=== PATIENT | female | born 1985 | race Caucasian/White ===

== ENCOUNTER 2017-04-10 12:22 | Emergency (ER) | payer OTHER ==
[2017-04-10 12:23] VITALS: BMI 29.8
[2017-04-10 12:29] VITALS: BP 124/80; PULSE 106; RESP 18; TEMP 98.2; O2SAT 99
--- NOTE | 2017-04-10 13:05 | C.PDOC ---
History Of Present Illness 32-year-old female, presents to the emergency department with complaints of itching eyes, sneezing and sore throat x3 days. Patient notes a Hx of seasonal allergies. Denies fevers, cough or other complaints. Time Seen by Provider: 04/10/17 12:50 Chief Complaint (Nursing): Allergic Reaction History Per: Patient Past Medical History Reviewed: Historical Data, Nursing Documentation, Vital Signs Vital Signs: Last Vital Signs Temp 98.2 F 04/10/17 12:28 Pulse 106 H 04/10/17 12:28 Resp 18 04/10/17 12:28 BP 124/80 04/10/17 12:28 Pulse Ox 99 04/10/17 13:47 - Medical History PMH: Asthma ("COLD WEATHER ONLY AND I DO NOT TAKE ANY MEDS.") - [facility] Procedures OTH LAPAROSCOP LOCAL EXCIS/DESTRUCT OVARY (06/01/15) Family History: States: No Known Family Hx - Social History Hx Alcohol Use: No Hx Substance Use: No - Immunization History Hx Tetanus Toxoid Vaccination: No Hx Influenza Vaccination: No Hx Pneumococcal Vaccination: No Review Of Systems Except As Marked, All Systems Reviewed And Found Negative. Constitutional: Negative for: Fever ENT: Positive for: Throat Pain Cardiovascular: Negative for: Chest Pain Respiratory: Negative for: Shortness of Breath Gastrointestinal: Negative for: Vomiting Physical Exam - Physical Exam Appears: Non-toxic, No Acute Distress Skin: Warm, Dry, No Rash Eye(s): bilateral: Other (CONJUNCTIVAL INJECTION) Ear(s): Bilateral: Other (BOGGY TURBINATES) Nose: Normal Oral Mucosa: Moist Lips: Normal Appearing Throat: Erythema Neck: Normal ROM Respiratory: No Accessory Muscle Use Extremity: Normal ROM Neurological/Psych: Oriented x3 ED Course And Treatment O2 Sat by Pulse Oximetry: 99 Disposition - Disposition Referrals: [facility] [Outside] [facility] [Outside] [facility] [Outside] Disposition: HOME/ ROUTINE Disposition Time: 13:05 Condition: STABLE Additional Instructions: please follow up with your doctor. return to er with worsening symptoms or concerns. Prescriptions: Loratadine [Claritin] 10 mg PO DAILY PRN #20 tab PRN Reason: Allergy Symptoms Instructions: Allergies (ED) Print Language: MALDIVIAN - Clinical Impression Clinical Impression: Seasonal allergies - Scribe Statement The provider has reviewed the documentation as recorded by the Scribe Zunaira Demario All medical record entries made by the Dustin were at my direction and personally dictated by me. I have reviewed the chart and agree that the record accurately reflects my personal performance of the history, physical exam, medical decision making, and the department course for this patient. I have also personally directed, reviewed, and agree with the discharge instructions and disposition.
== END 2017-04-10 13:47 | disposition home or self-care (01) ==
LOC: C.ER 12:22
DX: J30.2 Other seasonal allergic rhinitis (principal)

== ENCOUNTER 2018-08-31 01:55 | Inpatient (IN) | payer MEDICAID, OTHER ==
[2018-08-31 01:56] VITALS: BMI 33.2
--- NOTE | 2018-08-31 02:07 | C.PDOC ---
History Of Present Illness Patient presents to the ED with worsening abdominal pain . She is s/p total abdominal hysterectomy done on 08/27/18. Patient took a Percocet for the pain around 8pm without any relief. Denies any nausea, vomiting, diarrhea or fever. Time Seen by Provider: 08/31/18 02:07 History Per: Patient, Family History/Exam Limitations: no limitations Onset/Duration Of Symptoms: Days Current Symptoms Are (Timing): Worse Context: Other (recent abdominal hysterectomy) Severity: Severe Pain Scale Rating Of: 8 Location Of Pain/Discomfort: Diffuse Radiation Of Pain To:: None Quality Of Discomfort: Sharp, Cramping, Stabbing Associated Symptoms: denies: Fever, Chills, Nausea, Vomiting Exacerbating Factors: None Alleviating Factors: None Last Bowel Movement: Yesterday Recent travel outside of the [place]: No Additional History Per: Family Abnormal Vaginal Bleeding: No Past Medical History Reviewed: Historical Data, Nursing Documentation, Vital Signs Vital Signs: Last Vital Signs Temp 98.3 F 08/31/18 02:06 Pulse 58 L 08/31/18 02:06 Resp 18 08/31/18 02:06 BP 117/71 08/31/18 02:06 Pulse Ox 99 08/31/18 02:06 - Medical History PMH: Asthma Denies: Chronic Kidney Disease - [facility] Procedures OTH LAPAROSCOP LOCAL EXCIS/DESTRUCT OVARY (06/01/15) Family History: States: No Known Family Hx - Social History Hx Alcohol Use: No Hx Substance Use: No - Immunization History Hx Tetanus Toxoid Vaccination: No Hx Influenza Vaccination: No Hx Pneumococcal Vaccination: No Review Of Systems Constitutional: Negative for: Fever, Chills, Sweats Eyes: Negative for: Vision Change ENT: Negative for: Throat Pain Cardiovascular: Negative for: Chest Pain, Palpitations Respiratory: Negative for: Cough, Shortness of Breath Gastrointestinal: Positive for: Abdominal Pain. Negative for: Nausea, Vomiting, Diarrhea Genitourinary: Negative for: Dysuria Musculoskeletal: Negative for: Back Pain Skin: Negative for: Rash Neurological: Negative for: Weakness, Numbness Psych: Negative for: Anxiety Physical Exam - Physical Exam Appears: In Acute Distress Skin: Warm, Dry Head: Normacephalic Eye(s): bilateral: Normal Inspection Oral Mucosa: Dry Lips: Other (Dry) Neck: Trachea Midline, Supple Chest: Symmetrical, No Tenderness Cardiovascular: Rhythm Regular Respiratory: No Rales, No Rhonchi, No Wheezing Gastrointestinal/Abdominal: Soft, Tenderness (diffuse), Distention, No Guarding, Rebound, Other (tympanic to percussion, laparoscopic sites clean and dry, no exudates) Back: Normal Inspection Extremity: Normal ROM Extremity: Bilateral: Atraumatic Pulses: Left Dorsalis Pedis: Normal, Right Dorsalis Pedis: Normal Neurological/Psych: Oriented x3, Normal Speech, Normal Cognition Gait: Unable To Assess ED Course And Treatment - Laboratory Results Result Diagrams: 08/31/18 02:37 08/31/18 02:42 ECG: Interpreted By Me, Viewed By Me ECG Rhythm: Sinus Tachycardia, Nonspecific Changes O2 Sat by Pulse Oximetry: 99 (RA) Pulse Ox Interpretation: Normal - Radiology CXR: Interpreted by Me, Viewed By Me CXR Interpretation: Yes: Other (mild vasc congestion, poss free air under left hemidiaphragm). No: Infiltrates, Fracture, Cardiomegaly Progress Note: Ordered blood work and urinalysis. Administered Morphine, Pantoprazole, Ondansetron, Zosyn, Vanco, and IV fluids. 4:[address] lucas - digital advertising analyst - will come and see the pt in the ed. pt feels slighly better, but still with abdominal pain. 5 am spoke with the surgical nurse practitioner - will come and see the pt- ct with intraabdominal abscess. 5:29 pt with incr eased abdominal pain. 4 mg iv morhine given. as per surgery , will transfuse 2 u prbc, after which pt will go to the or Critical Care Time - Critical Care Note Total Time (in mins): 50 Documented critical care: time excludes all time spent performing seperately billable procedures. Disposition Discussed With : Jeb Patino Comment: accepted the pt on his service and took over the care at 5:45 AM Doctor Will See Patient In The: ED Counseled Patient/Family Regarding: Studies Performed, Diagnosis - Disposition Disposition: HOSPITALIZED Disposition Time: 02:07 Condition: CRITICAL - POA Present On Arrival: Poor Glycemic Control, Surgical Site Infection Core Measure Indicators: Code Sepsis - Clinical Impression Clinical Impression: Abdominal pain, Sepsis, Abscess - Scribe Statement The provider has reviewed the documentation as recorded by the Scribe (Hamzah rangel) All medical record entries made by the Scribe were at my direction and personally dictated by me. I have reviewed the chart and agree that the record accurately reflects my personal performance of the history, physical exam, medical decision making, and the department course for this patient. I have also personally directed, reviewed, and agree with the discharge instructions and disposition. Decision To Admit - Pt Status Changed To: Hospital Disposition Of: Inpatient - Admit Certification Admit to Inpatient:: After my assessment, the patient will require hospitalization for at least two midnights. This is because of the severity of symptoms shown, intensity of services needed, and/or the medical risk in this patient being treated as an outpatient. - InPatient: Physician Admission Certification:: After my assessment, the patient will require hospitalization for at least two midnights. This is because of the severity of symptoms shown, intensity of services needed, and/or the medical risk in this patient being treated as an outpatient. - . Bed Request Type: ICU Admitting Physician: Jeb Patino Patient Diagnosis: Abdominal pain, Sepsis, Abscess
[2018-08-31] MEDS ORDERED: Sodium Chloride 0.9% 2,000 ML IV ONE (02:17)
[2018-08-31] MEDS ORDERED: Sodium Chloride 0.9% 2,000 ML ONE (02:23)
[2018-08-31] MEDS ORDERED: Vancomycin 1 gm/NS 200 ml 1 GM/200 ML BAG IVPB STA (02:34)
[2018-08-31] MEDS ORDERED: Piperacill/Tazo 3.375gm in Dex 3.375 GM/50 ML BAG IVPB STA (02:34)
[2018-08-31 02:41] LABS: BASO % 0.1 % (0.0-2.0); EOS # 0.1 K/uL (0.0-0.7); HEMOGLOBIN 11.9 g/dL (11.0-16.0); LYMPH # 1.4 K/uL (1.0-4.3); LYMPH % 22.6 % (20.0-40.0); MEAN CELL VOLUME 77.6 fL (81.0-99.0); MEAN CORPUSCULAR HEMOGLOBIN 25.1 pg (27.0-31.0); MEAN CORPUSCULAR HGB CONC 32.3 g/dL (33.0-37.0); MEAN PLATELET VOLUME 9.4 fL (7.2-11.7); MONO # 0.1 K/uL (0.0-0.8); MONO % 1.8 % (0.0-10.0); NEUT # 4.5 K/uL (1.8-7.0); NEUT % 74.5 % (50.0-75.0); NRBC % 0.1 % (0.0-2.0); PLATELET COUNT 329 K/uL (130-400); RBC 4.75 Mil/uL (3.80-5.20)
[2018-08-31] MEDS ORDERED: Piperacillin/Tazobact 3.375 gm 100 ML IVPB ONE (02:42)
[2018-08-31 03:00] LABS: BLOOD UREA NITROGEN 9 mg/dL (7-17); GFR NON-AFRICAN AMERICAN > 60
[2018-08-31 03:01] LABS: ALBUMIN 3.4 g/dL (3.5-5.0); ALT/SGPT 17 U/L (9-52); AST/SGOT 18 U/L (14-36)
[2018-08-31 03:02] LABS: LIPASE < 10 U/L (23-300)
[2018-08-31] MEDS ORDERED: Vancomycin 1 GM 1 GM/250 ML BAG IVPB ONE (03:15)
[2018-08-31] MEDS ORDERED: Iodixanol 320 MG/ML 100 ML BOTTLE IV ONE (03:24)
[2018-08-31 03:47] LABS: VENOUS BLOOD GAS BASE EXCESS -8.6 mmol/L (0.0-2.0); VENOUS BLOOD GAS PCO2 27 mmHg (40-60); VENOUS BLOOD GAS PO2 59 mm/Hg (30-55); VENOUS BLOOD PH 7.36 (7.32-7.43)
[2018-08-31 03:48] LABS: INR 1.4; PROTHROMBIN TIME 14.8 SECONDS (9.7-12.2)
[2018-08-31 04:09] LABS: BANDS 25 % (0-2); LYMPHOCYTE 36 % (20-40); MONOCYTE 2 % (0-10); NEUTROPHIL 34 % (50-75); REACTIVE LYMPHOCYTES 3 % (0-0); TOTAL CELLS COUNTED 100
[2018-08-31 04:10] LABS: PLATELET ESTIMATE NORMAL (NORMAL)
[2018-08-31] MEDS ORDERED: Sodium Chloride 0.9% 1,000 ML IV ONE (04:20)
[2018-08-31] MEDS ORDERED: Morphine 4 MG/ML VIAL ONE ×2 (04:35→05:32)
[2018-08-31] MEDS ORDERED: metroNIDAZOLE IV 500 mg/100 ml 500 MG/100 ML BAG IVPB SCH (05:00)
[2018-08-31] MEDS ORDERED: metroNIDAZOLE IV 500 mg/100 ml 500 MG/100 ML BAG ONE (05:16)
[2018-08-31 05:26] LABS: VENOUS BLOOD GAS BASE EXCESS -10.4 mmol/L (0.0-2.0); VENOUS BLOOD GAS PCO2 35 mmHg (40-60); VENOUS BLOOD GAS PO2 26 mm/Hg (30-55); VENOUS BLOOD PH 7.26 (7.32-7.43)
[2018-08-31 06:20] LABS: ABG ALLEN TEST POS; ARTERIAL BLOOD GAS HCO3 16.8 mmol/L (21-28); ARTERIAL BLOOD GAS O2 SAT 94.2 % (95-98); ARTERIAL BLOOD GAS PCO2 29 mm/Hg (35-45); ARTERIAL BLOOD GAS PH 7.31 (7.35-7.45); ARTERIAL BLOOD GAS PO2 66 mm/Hg (80-100); ARTERIAL BLOOD GAS TCO2 15.5 mmol/L (22-28)
[2018-08-31] MEDS ORDERED: Lactated Ringer's 1,000 ML IV SCH ×3 (06:30→18:15)
[2018-08-31 06:50] LABS: SQUAMOUS EPITHIAL < 1 /hpf (0-5); URINE BACTERIA RARE (<OCC); URINE BILIRUBIN NEGATIVE (NEGATIVE); URINE BLOOD NEGATIVE (NEGATIVE); URINE CLARITY Clear (Clear); URINE COLOR Amber (YELLOW); URINE GLUCOSE (UA) NORMAL (Normal); URINE LEUKOCYTE ESTERASE NEG Leu/uL (Negative); URINE PROTEIN 1+ mg/dL (NEGATIVE)
--- NOTE | 2018-08-31 06:53 | CP.PCM.CON ---
History of Present Illness - History of Present Illness History of Present Illness: H&P for Dr. Patino patient is a 33F who had a laparoscopic total hysterectomy 3 days ago in [place] who presented to the ED with severe lower abdominal pain starting 7PM last night. patient states that the pain is in the suprapubis and does not radiate. Patient denies any nausea, vomiting, diarrhea, melena, hematochezia, dysuria, hematuria, fevers or chills. Patient had tachycardia in the 120's that increased to 140-150 by time of my examination, BP was stable with 3L of NS, and she was tachypneic. Patient was found to have pneumoperitoneum and a heterogenous fluid collection 9cm in diameter intra-abdominal, with gas present concerning for abscess, and some small free fluid in the pelvis. WBC 6.4 but with 25 bands, HGB 11 PMH: asthma PSH: laparoscopic total hysterectomy 08/27/18, prior cyst excision and ovary destruction ALL: NKDA Social: denies all substances Review of Systems - Review of Systems All systems: reviewed and no additional remarkable complaints except (as per HPI) Past Patient History - Past Medical History & Family History Past Medical History?: Yes Past Family History: Reviewed and not pertinent (as per HPI) - Past Social History Smoking Status: Never Smoked Alcohol: None Drugs: Denies - CARDIAC Hx Cardiac Disorders: No - PULMONARY Hx Asthma: Yes - NEUROLOGICAL Hx Neurological Disorder: No - HEENT Hx HEENT Problems: No - RENAL Hx Chronic Kidney Disease: No - ENDOCRINE/METABOLIC Hx Endocrine Disorders: No - HEMATOLOGICAL/ONCOLOGICAL Hx Blood Disorders: No - INTEGUMENTARY Hx Dermatological Problems: No - MUSCULOSKELETAL/RHEUMATOLOGICAL Hx Musculoskeletal Disorders: No - GASTROINTESTINAL Hx Gastrointestinal Disorders: No - GENITOURINARY/GYNECOLOGICAL Hx Genitourinary Disorders: No Other/Comment: "PROBLEMS WITH MY OVARIES FOR ABOUT 4 YEARS" - PSYCHIATRIC Hx Substance Use: No - SURGICAL HISTORY Hx Surgeries: Yes Hx Hysterectomy: Yes (total hysterectomy - 08/27/18) Other/Comment: cyst right ovary - ANESTHESIA Hx Anesthesia: Yes Hx Anesthesia Reactions: No Meds Allergies/Adverse Reactions: Allergies Allergy/AdvReac Type Severity Reaction Status Date / Time No Known Allergies Allergy Verified 06/04/18 06:34 - Medications Medications: Current Medications Hydromorphone HCl (Dilaudid) 1 mg IVP Q4H PRN PRN Reason: Pain, severe (8-10) Metronidazole (Flagyl) 500 mg in 100 mls @ 100 mls/hr IVPB STAT [facility]; Protocol Last Admin: 08/31/18 05:15 Dose: 100 mls/hr Lactated Ringer's (Lactated Ringer's) 1,000 mls @ 125 mls/hr IV .Q8H [facility] Last Admin: 08/31/18 06:25 Dose: 125 mls/hr Piperacillin Sod/Tazobactam (Sod 3.375 gm/ Sodium Chloride) 100 mls @ 200 mls/hr IVPB Q6H [facility]; Protocol Ondansetron HCl (Zofran Inj) 4 mg IVP Q6H PRN PRN Reason: Nausea/Vomiting Physical Exam - Constitutional Appears: In Acute Distress - Head Exam Head Exam: ATRAUMATIC, NORMOCEPHALIC - Eye Exam Eye Exam: Normal appearance. absent: Conjunctival injection, Scleral icterus - ENT Exam ENT Exam: Mucous Membranes Moist, Normal Oropharynx - Respiratory Exam Respiratory Exam: absent: Accessory Muscle Use Additional comments: tachypneic, dyspnea with conversation - Cardiovascular Exam Cardiovascular Exam: Tachycardia, REGULAR RHYTHM - GI/Abdominal Exam GI & Abdominal Exam: Distended, Firm, Guarding (Voluntary), Rebound, Tenderness (diffuse abdominal tenderness, severe in the suprapubis/LLQ/RLQ) Additional comments: Laparoscopic incisions intact with dermabond, no surrounding erythema, no bleeding - Extremities Exam Extremities exam: Positive for: pedal pulses present. Negative for: calf tenderness, pedal edema - Neurological Exam Neurological exam: Alert, Oriented x3 - Psychiatric Exam Psychiatric exam: Normal Affect, Normal Mood - Skin Skin Exam: Diaphoretic, Warm Results - Vital Signs Recent Vital Signs: Last Vital Signs Temp 99.2 F 08/31/18 06:00 Pulse 148 H 08/31/18 06:32 Resp 11 L 08/31/18 06:32 BP 122/53 L 08/31/18 06:32 Pulse Ox 97 08/31/18 06:32 - Labs Result Diagrams: 08/31/18 02:37 08/31/18 02:42 Labs: Laboratory Results - last 24 hr 08/31/18 08/31/18 08/31/18 02:37 02:42 03:38 WBC 6.0 RBC 4.75 Hgb 11.9 Hct 36.8 MCV 77.6 L MCH 25.1 L MCHC 32.3 L RDW 18.0 H Plt Count 329 D MPV 9.4 Neut % (Auto) 74.5 Lymph % (Auto) 22.6 [place] % (Auto) 1.8 Eos % (Auto) 1.0 Baso % (Auto) 0.1 Neut # (Auto) 4.5 Lymph # (Auto) 1.4 [place] # (Auto) 0.1 Eos # (Auto) 0.1 Baso # (Auto) 0.0 Neutrophils % (Manual) 34 L Band Neutrophils % 25 H* Lymphocytes % (Manual) 36 Reactive Lymphs % 3 H Monocytes % (Manual) 2 Platelet Estimate Normal RBC Morphology Normal PT 14.8 H INR 1.4 APTT 25 Puncture Site pCO2 pO2 HCO3 ABG pH ABG Total CO2 ABG O2 Saturation ABG Base Excess Luis Test ABG Potassium VBG pH VBG pCO2 VBG HCO3 VBG Total CO2 VBG O2 Sat (Calc) VBG Base Excess VBG Potassium A-a O2 Difference Respiratory Index Glucose Lactate FiO2 Sodium 137 Potassium 3.6 Chloride 107 Carbon Dioxide 14 L Anion Gap 20 BUN 9 Creatinine 0.7 Est GFR ( Amer) > 60 Est GFR (Non-Af Amer) > 60 Random Glucose 192 H Calcium 9.0 Phosphorus 3.9 Magnesium 2.0 Total Bilirubin 1.2 AST 18 ALT 17 Alkaline Phosphatase 211 H D Total Protein 6.8 Albumin 3.4 L Globulin 3.4 Albumin/Globulin Ratio 1.0 Lipase < 10 L Arterial Blood Potassium Venous Blood Potassium Urine HCG, Qual 08/31/18 08/31/18 08/31/18 03:42 05:23 06:16 WBC RBC Hgb Hct MCV MCH MCHC RDW Plt Count MPV Neut % (Auto) Lymph % (Auto) [place] % (Auto) Eos % (Auto) Baso % (Auto) Neut # (Auto) Lymph # (Auto) [place] # (Auto) Eos # (Auto) Baso # (Auto) Neutrophils % (Manual) Band Neutrophils % Lymphocytes % (Manual) Reactive Lymphs % Monocytes % (Manual) Platelet Estimate RBC Morphology PT INR APTT Puncture Site Right radial pCO2 29 L pO2 59 H 26 L 66 L HCO3 16.8 L ABG pH 7.31 L ABG Total CO2 15.5 L ABG O2 Saturation 94.2 L ABG Base Excess -10.2 L Luis Test Pos ABG Potassium 3.3 L VBG pH 7.36 7.26 L VBG pCO2 27 L 35 L VBG HCO3 18.0 15.2 VBG Total CO2 16.1 L 16.8 L VBG O2 Sat (Calc) 91.6 H 41.1 VBG Base Excess -8.6 L -10.4 L VBG Potassium 3.1 L 3.0 L A-a O2 Difference 47.0 Respiratory Index 0.7 Glucose 151 H 129 H 153 H Lactate 3.1 H 3.7 H 3.1 H FiO2 21.0 21.0 21.0 Sodium 137.0 137.0 138.0 Potassium Chloride 111.0 H 110.0 H 114.0 H Carbon Dioxide Anion Gap BUN Creatinine Est GFR ( Amer) Est GFR (Non-Af Amer) Random Glucose Calcium Phosphorus Magnesium Total Bilirubin AST ALT Alkaline Phosphatase Total Protein Albumin Globulin Albumin/Globulin Ratio Lipase Arterial Blood Potassium 3.3 L Venous Blood Potassium 3.1 L 3.0 L Urine HCG, Qual 08/31/18 06:40 WBC RBC Hgb Hct MCV MCH MCHC RDW Plt Count MPV Neut % (Auto) Lymph % (Auto) [place] % (Auto) Eos % (Auto) Baso % (Auto) Neut # (Auto) Lymph # (Auto) [place] # (Auto) Eos # (Auto) Baso # (Auto) Neutrophils % (Manual) Band Neutrophils % Lymphocytes % (Manual) Reactive Lymphs % Monocytes % (Manual) Platelet Estimate RBC Morphology PT INR APTT Puncture Site pCO2 pO2 HCO3 ABG pH ABG Total CO2 ABG O2 Saturation ABG Base Excess Luis Test ABG Potassium VBG pH VBG pCO2 VBG HCO3 VBG Total CO2 VBG O2 Sat (Calc) VBG Base Excess VBG Potassium A-a O2 Difference Respiratory Index Glucose Lactate FiO2 Sodium Potassium Chloride Carbon Dioxide Anion Gap BUN Creatinine Est GFR ( Amer) Est GFR (Non-Af Amer) Random Glucose Calcium Phosphorus Magnesium Total Bilirubin AST ALT Alkaline Phosphatase Total Protein Albumin Globulin Albumin/Globulin Ratio Lipase Arterial Blood Potassium Venous Blood Potassium Urine HCG, Qual Negative - Imaging and Cardiology CT scan - abdomen Status: Image reviewed by me, Report reviewed by me Assessment & Plan - Assessment and Plan (Free Text) Assessment: 33F POD#3-4 s/p laparoscopic total abdominal hysterectomy with intra-abdominal infection vs hemorrhage Plan: Admit to ICU--Dr. Ring examined the patient and accepted OR for exploratory laparotomy this AM NPO IVF Transfuse 2 PRBC zosyn Strict intake and output Discussed with Dr. Patino, who agrees with above Gale Longo, PGY2
[2018-08-31] MEDS ORDERED: Succinylcholine Chloride 20 mg/ml Syr (5 ml) IV STA (07:03)
[2018-08-31] MEDS ORDERED: Etomidate 20 mg/10ml Inj IV ONE (07:11)
[2018-08-31] MEDS ORDERED: Succinylcholine Chloride 20 mg/ml Syr (5 ml) IV ONE (07:11)
--- NOTE | 2018-08-31 07:27 | CP.PCM.CON ---
History of Present Illness - History of Present Illness History of Present Illness: 33 F with h/o hysterectomy on 08/27, was discharged on oxycodone and ibuprofen, last night the abd pain got worse around 9 pm and then patient decided to come to the hospital. Denies any other PMH, hysterctomy was done as f/u on her abn ormal pap. W/u showed patient had peritonitis, free air and pelvic abscess. Patient was in severe pain, and splinting her breathing about 40-60/min. Surgery team has seen her and planning to operate this morning and she was started on ivf and iv abx. Patient was in pain and couldn't breath hence intubated by me in ER, see note separately. PMH as above PSH hystrectomy Allergies NKDA Family history DM to parents Med reviewed Review of Systems - Review of Systems All systems: reviewed and no additional remarkable complaints except (HPI) Past Patient History - Past Medical History & Family History Past Medical History?: Yes - Past Social History Smoking Status: Never Smoked Alcohol: None Home Situation {Lives}: With Family Domestic Violence: Negative - CARDIAC Hx Cardiac Disorders: No - PULMONARY Hx Asthma: Yes - NEUROLOGICAL Hx Neurological Disorder: No - HEENT Hx HEENT Problems: No - RENAL Hx Chronic Kidney Disease: No - ENDOCRINE/METABOLIC Hx Endocrine Disorders: No - HEMATOLOGICAL/ONCOLOGICAL Hx Blood Disorders: No - INTEGUMENTARY Hx Dermatological Problems: No - MUSCULOSKELETAL/RHEUMATOLOGICAL Hx Musculoskeletal Disorders: No - GASTROINTESTINAL Hx Gastrointestinal Disorders: No - GENITOURINARY/GYNECOLOGICAL Hx Genitourinary Disorders: No Other/Comment: "PROBLEMS WITH MY OVARIES FOR ABOUT 4 YEARS" - PSYCHIATRIC Hx Substance Use: No - SURGICAL HISTORY Hx Surgeries: Yes Hx Hysterectomy: Yes (total hysterectomy - 08/27/18) Other/Comment: cyst right ovary - ANESTHESIA Hx Anesthesia: Yes Hx Anesthesia Reactions: No Meds Allergies/Adverse Reactions: Allergies Allergy/AdvReac Type Severity Reaction Status Date / Time No Known Allergies Allergy Verified 06/04/18 06:34 - Medications Medications: Current Medications Hydromorphone HCl (Dilaudid) 1 mg IVP Q4H PRN PRN Reason: Pain, severe (8-10) Metronidazole (Flagyl) 500 mg in 100 mls @ 100 mls/hr IVPB STAT MARLENA; Protocol Last Admin: 08/31/18 05:15 Dose: 100 mls/hr Lactated Ringer's (Lactated Ringer's) 1,000 mls @ 125 mls/hr IV .Q8H MARLENA Last Admin: 08/31/18 06:25 Dose: 125 mls/hr Piperacillin Sod/Tazobactam (Sod 3.375 gm/ Sodium Chloride) 100 mls @ 200 mls/hr IVPB Q6H MARLENA; Protocol Fentanyl Citrate 2,500 mcg/ (Sodium Chloride) 250 mls @ 14.52 mls/hr IV .[id number] MARLENA; Protocol Metronidazole (Flagyl) 500 mg in 100 mls @ 100 mls/hr IVPB Q8H MARLENA; Protocol Piperacillin Sod/Tazobactam Sod (Zosyn 3.375 Gm Iv Premix) 3.375 gm in 50 mls @ 100 mls/hr IVPB Q6H MARLENA; Protocol Ondansetron HCl (Zofran Inj) 4 mg IVP Q6H PRN PRN Reason: Nausea/Vomiting Pantoprazole Sodium (Protonix Inj) 40 mg IVP DAILY MARLENA Physical Exam - Additional Findings Additional findings: * HEENT WAYNE * Neck supple * Chest shallow breathing, RR in 60's * PA firm, general tender, but more in lower abd * Ext no edema * LIABILITY ANALYST awake responding * Skin normal turgor. * Results - Vital Signs Recent Vital Signs: Last Vital Signs Temp 99.2 F 08/31/18 06:00 Pulse 148 H 08/31/18 06:32 Resp 11 L 08/31/18 06:32 BP 122/53 L 08/31/18 06:32 Pulse Ox 97 08/31/18 06:32 - Labs Result Diagrams: 08/31/18 02:37 08/31/18 02:42 Labs: Laboratory Results - last 24 hr 08/31/18 08/31/18 08/31/18 02:37 02:42 03:38 WBC 6.0 RBC 4.75 Hgb 11.9 Hct 36.8 MCV 77.6 L MCH 25.1 L MCHC 32.3 L RDW 18.0 H Plt Count 329 D MPV 9.4 Neut % (Auto) 74.5 Lymph % (Auto) 22.6 [place] % (Auto) 1.8 Eos % (Auto) 1.0 Baso % (Auto) 0.1 Neut # (Auto) 4.5 Lymph # (Auto) 1.4 [place] # (Auto) 0.1 Eos # (Auto) 0.1 Baso # (Auto) 0.0 Neutrophils % (Manual) 34 L Band Neutrophils % 25 H* Lymphocytes % (Manual) 36 Reactive Lymphs % 3 H Monocytes % (Manual) 2 Platelet Estimate Normal RBC Morphology Normal PT 14.8 H INR 1.4 APTT 25 Puncture Site pCO2 pO2 HCO3 ABG pH ABG Total CO2 ABG O2 Saturation ABG Base Excess Luis Test ABG Potassium VBG pH VBG pCO2 VBG HCO3 VBG Total CO2 VBG O2 Sat (Calc) VBG Base Excess VBG Potassium A-a O2 Difference Respiratory Index Glucose Lactate FiO2 Sodium 137 Potassium 3.6 Chloride 107 Carbon Dioxide 14 L Anion Gap 20 BUN 9 Creatinine 0.7 Est GFR ( Amer) > 60 Est GFR (Non-Af Amer) > 60 Random Glucose 192 H Calcium 9.0 Phosphorus 3.9 Magnesium 2.0 Total Bilirubin 1.2 AST 18 ALT 17 Alkaline Phosphatase 211 H D Total Protein 6.8 Albumin 3.4 L Globulin 3.4 Albumin/Globulin Ratio 1.0 Lipase < 10 L Arterial Blood Potassium Venous Blood Potassium Urine Color Urine Clarity Urine pH Ur Specific [place] Urine Protein Urine Glucose (UA) Urine Ketones Urine Blood Urine Nitrate Urine Bilirubin Urine Urobilinogen Ur Leukocyte Esterase Urine WBC (Auto) Urine RBC (Auto) Ur Squamous Epith Cells Urine Bacteria Hyaline Casts Urine HCG, Qual Blood Type Antibody Screen 08/31/18 08/31/18 08/31/18 03:42 05:23 05:59 WBC RBC Hgb Hct MCV MCH MCHC RDW Plt Count MPV Neut % (Auto) Lymph % (Auto) [place] % (Auto) Eos % (Auto) Baso % (Auto) Neut # (Auto) Lymph # (Auto) [place] # (Auto) Eos # (Auto) Baso # (Auto) Neutrophils % (Manual) Band Neutrophils % Lymphocytes % (Manual) Reactive Lymphs % Monocytes % (Manual) Platelet Estimate RBC Morphology PT INR APTT Puncture Site pCO2 pO2 59 H 26 L HCO3 ABG pH ABG Total CO2 ABG O2 Saturation ABG Base Excess Luis Test ABG Potassium VBG pH 7.36 7.26 L VBG pCO2 27 L 35 L VBG HCO3 18.0 15.2 VBG Total CO2 16.1 L 16.8 L VBG O2 Sat (Calc) 91.6 H 41.1 VBG Base Excess -8.6 L -10.4 L VBG Potassium 3.1 L 3.0 L A-a O2 Difference Respiratory Index Glucose 151 H 129 H Lactate 3.1 H 3.7 H FiO2 21.0 21.0 Sodium 137.0 137.0 Potassium Chloride 111.0 H 110.0 H Carbon Dioxide Anion Gap BUN Creatinine Est GFR ( Amer) Est GFR (Non-Af Amer) Random Glucose Calcium Phosphorus Magnesium Total Bilirubin AST ALT Alkaline Phosphatase Total Protein Albumin Globulin Albumin/Globulin Ratio Lipase Arterial Blood Potassium Venous Blood Potassium 3.1 L 3.0 L Urine Color Urine Clarity Urine pH Ur Specific [place] Urine Protein Urine Glucose (UA) Urine Ketones Urine Blood Urine Nitrate Urine Bilirubin Urine Urobilinogen Ur Leukocyte Esterase Urine WBC (Auto) Urine RBC (Auto) Ur Squamous Epith Cells Urine Bacteria Hyaline Casts Urine HCG, Qual Blood Type A POSITIVE Antibody Screen Negative 08/31/18 08/31/18 08/31/18 06:16 06:40 06:40 WBC RBC Hgb Hct MCV MCH MCHC RDW Plt Count MPV Neut % (Auto) Lymph % (Auto) [place] % (Auto) Eos % (Auto) Baso % (Auto) Neut # (Auto) Lymph # (Auto) [place] # (Auto) Eos # (Auto) Baso # (Auto) Neutrophils % (Manual) Band Neutrophils % Lymphocytes % (Manual) Reactive Lymphs % Monocytes % (Manual) Platelet Estimate RBC Morphology PT INR APTT Puncture Site Right radial pCO2 29 L pO2 66 L HCO3 16.8 L ABG pH 7.31 L ABG Total CO2 15.5 L ABG O2 Saturation 94.2 L ABG Base Excess -10.2 L Luis Test Pos ABG Potassium 3.3 L VBG pH VBG pCO2 VBG HCO3 VBG Total CO2 VBG O2 Sat (Calc) VBG Base Excess VBG Potassium A-a O2 Difference 47.0 Respiratory Index 0.7 Glucose 153 H Lactate 3.1 H FiO2 21.0 Sodium 138.0 Potassium Chloride 114.0 H Carbon Dioxide Anion Gap BUN Creatinine Est GFR ( Amer) Est GFR (Non-Af Amer) Random Glucose Calcium Phosphorus Magnesium Total Bilirubin AST ALT Alkaline Phosphatase Total Protein Albumin Globulin Albumin/Globulin Ratio Lipase Arterial Blood Potassium 3.3 L Venous Blood Potassium Urine Color [place] Urine Clarity Clear Urine pH 5.0 Ur Specific [place] 1.060 H Urine Protein 1+ H Urine Glucose (UA) Normal Urine Ketones Trace Urine Blood Negative Urine Nitrate Negative Urine Bilirubin Negative Urine Urobilinogen 4.0 H Ur Leukocyte Esterase Neg Urine WBC (Auto) 3 Urine RBC (Auto) 3 Ur Squamous Epith Cells < 1 Urine Bacteria Rare Hyaline Casts 3-5 H Urine HCG, Qual Negative Blood Type Antibody Screen Assessment & Plan - Assessment and Plan (Free Text) Assessment: * Pelvic abscess post hystrectomy surgery, ? perforated viscus, with generalised peritonitis * Intubated due to tachypnea, abd splinting, metabolic acidosis Plan: * Surgery this am * Supportive care mean while, ivf, albumin, prbc, abx * GI/DVT prophylaxis * See orders for detail.
--- NOTE | 2018-08-31 07:29 | PCM.PROC ---
Procedures Attestation:: I certify that I have explained the specified Operation(s) or Procedure(s), risks, benefits and reasonable alternatives to the Patient and/or other person responsible. The opportunity was given to ask questions and all questions answered - Intubation Time Out Performed: Yes Sedative: Etomidate, Other (ativan 2mg iv) Paralytic: Succinylholine (100mg) Laryngoscope: Jeff (3) Assist Device Used: Other (stylet) ET Tube Size: 7.5 ET Tube Uncuffed: No ET Tube Secured at Depth: 22 at lip ET Tube Secured [place]arion: Lips ET Tube Placement Confirmation: Visualized Passing Through Cords, Breath Sounds Equal Bilaterally, No Breath Sounds Over Epigastrum, Confirmation w/Capnometry Patient Tolerated Procedure: No Complications Procedure Immediate Complications: None Additional comments: Awaiting CXR.
[2018-08-31] MEDS ORDERED: Propranolol 1 mg/mL Inj IVP ONE (07:32)
[2018-08-31] MEDS ORDERED: Propofol 10 mg/ml Inj (20 ML) ONE (07:35)
[2018-08-31] MEDS ORDERED: Propofol 10 mg/ml Inj (20 ML) IV ONE (07:38)
[2018-08-31] MEDS ORDERED: Dexmedetomidine Hydrochloride 200 MCG in Sodium Chloride 0.9% 48 ML IV PRN (07:43)
[2018-08-31] MEDS: HYDROmorphone 1 mg/ml ISec IVP PRN ×2 (07:45→20:13)
--- NOTE | 2018-08-31 08:27 | PCM.SEPTIC ---
<Luke Rawls - Last Filed: 08/31/18 11:40> Sepsis Progress Note - Reassessment Type Date of Evaluation: 08/31/18 Time of Evaluation: 07:50 Reassessment Type: Non-invasive reassessment - Non Invasive Reassessment Were the most recent vital sign reviewed: Yes Vital Sign (Latest): Temp Pulse Resp BP Pulse Ox 99.2 F 148 H 11 L 122/53 L 97 08/31/18 06:00 08/31/18 06:32 08/31/18 06:32 08/31/18 06:32 08/31/18 06:32 Cardiovascular: Yes: Tachycardia. No: JVD, Friction Rub Respiratory: Yes: Other (Intubated and ventilated, overbreathing ventilator at rates of 40's-50's) Capillary Refill: Normal (Less than 2 sec) Pulses: Normal Radial, Decreased Dorsalis Pedis, Absent Posterior Tibialis (unable to palpate posterior tibial pulses) Skin: Warm, Diaphoretic <Suzette Tillman - Last Filed: 09/05/18 19:19> Sepsis Progress Note - Non Invasive Reassessment Vital Sign (Latest): Temp Pulse Resp BP Pulse Ox 100 F H 109 H 33 H 94/61 L 100 09/05/18 18:00 09/05/18 18:00 09/05/18 18:00 09/05/18 17:54 09/05/18 18:00
[2018-08-31] MEDS ORDERED: Piperacillin/Tazobact 3.375 GM in Sodium Chloride 100 ML IVPB SCH (08:30)
[2018-08-31] MEDS ORDERED: Sodium Bicarbonate (8.4%) 50 Meq Syringe IVP ONE (08:38)
[2018-08-31] MEDS ORDERED: Sodium Bicarbonate (8.4%) 50 Meq Syringe ONE (08:42)
[2018-08-31] MEDS: Lactated Ringer's 1,000 ML IV SCH ×4 (08:50→20:00)
--- NOTE | 2018-08-31 08:55 | RAD ---
HISTORY: Sepsis Patient COMPARISON: No prior. TECHNIQUE: Chest, one view. FINDINGS: Examination limited by habitus and hypoinflation. LUNGS: Mild pulmonary venous congestion. No focal consolidation. Please note that chest x-ray has limited sensitivity for the detection of pulmonary masses. PLEURA: No significant pleural effusion identified. No definite pneumothorax . CARDIOVASCULAR: Heart size appears within normal limits. OSSEOUS STRUCTURES: No acute osseous abnormality identified. VISUALIZED UPPER ABDOMEN: Lucent crescent beneath the left hemidiaphragm may represent free air. OTHER FINDINGS: None. IMPRESSION: Lucency beneath the left hemidiaphragm may represent free air. Correlate for recent surgery. Perforated viscus is not excluded. Hypoinflation. Mild pulmonary venous congestion.
[2018-08-31 08:57] LABS: VENOUS BLOOD GAS BASE EXCESS -8.8 mmol/L (0.0-2.0); VENOUS BLOOD GAS PCO2 41 mmHg (40-60); VENOUS BLOOD GAS PO2 40 mm/Hg (30-55); VENOUS BLOOD PH 7.25 (7.32-7.43)
--- NOTE | 2018-08-31 09:10 | PCM.PROC ---
Procedures Attestation:: I certify that I have explained the specified Operation(s) or Procedure(s), risks, benefits and reasonable alternatives to the Patient and/or other person responsible. The opportunity was given to ask questions and all questions answered - Central Line Placement Right Femoral Triple Lumen Catheter Aseptic technique was employed throughout the procedure: Hand Hygiene done prior to procedure, Full sterile barriers (mask, hair cover, sterile gown, sterile gloves), Chloraprep Antiseptic: 2 minute prep for Femoral CVP Time Out Performed: Yes Pt. Placed on Pulse Ox Monitor: Yes Central Line Prep: Chlorhexidine-Alcohol Combination Local Anesthesia Used: Lidocaine 1% Amount of Anesthesia Used (mls): 5 Ultrasound Used for Placement: Yes Central Line Lumen Inserted: triple Post Procedure: Sutured in Place, Good Blood Return, All Ports Aspirated, Flushed, Capped, Sterile Dressing Applied Secured by: Suture Post procedure dressing: Clear vapor permeable, Chlorhexidine disc (Biopatch) Post Procedure X-Ray: No Patient Tolerated Procedure: No Complications Immediate Complications: None
[2018-08-31] MEDS: Norepinephrine 8 MG in Dextrose 5% In Water 242 ML IV PRN ×2 (09:21→22:28)
--- NOTE | 2018-08-31 09:24 | RAD ---
HISTORY: post intubation COMPARISON: Chest x-ray performed 08/31/18 TECHNIQUE: Chest, one view. FINDINGS: Endotracheal tube terminates at the siria and should be withdrawn approximately 3 cm. Nasogastric tube extends expected location of the stomach. Two external defibrillator pads in numerous external wires and leads obscure evaluation of the underlying parenchyma. Complete opacification of the left hemithorax. The right hemithorax appears clear. No acute osseous abnormality is detected. IMPRESSION: Endotracheal tube terminates at the siria and should be withdrawn approximately 3 cm. Nasogastric tube extends expected location of the stomach. Two external defibrillator pads in numerous external wires and leads obscure evaluation of the underlying parenchyma. Complete opacification of the left hemithorax.
--- NOTE | 2018-08-31 09:28 | RAD ---
Chest, one view Indication: Reassess ET placement Comparison: Chest x-ray performed 08/31/18 Findings: Endotracheal tube terminates approximately 1.4 cm above the siria. Nasogastric tube extends beyond the hemidiaphragm towards expected location of the stomach. Two external defibrillator leads and external wires and leads obscure evaluation of the parenchyma. Interval improved aeration of the left hemithorax with mild patchy opacities/atelectasis. No definite pneumothorax. No large pleural effusion. No acute osseous abnormality is detected. Impression: Endotracheal tube terminates approximately 1.4 cm above the siria. Suggest repositioning to approximately 3 cm above the siria. Nasogastric tube extends beyond the hemidiaphragm towards expected location of the stomach. Interval improved aeration of the left hemithorax with mild patchy opacities/atelectasis. Findings discussed with JESENIA Saha on 08/31/18 at 9:22 a.m.
[2018-08-31] MEDS: Piperacill/Tazo 3.375gm in Dex 3.375 GM/50 ML BAG IVPB SCH ×4 (09:30→20:59)
[2018-08-31] MEDS: metroNIDAZOLE IV 500 mg/100 ml 500 MG/100 ML BAG IVPB SCH ×3 (09:32→23:25)
[2018-08-31] MEDS ORDERED: Midazolam 2 MG/2 ML VIAL ONE (09:37)
[2018-08-31 09:45] LABS: ALB/GLOB RATIO 0.9 (1.0-2.1); ALBUMIN 1.9 g/dL (3.5-5.0); ALT/SGPT 22 U/L (9-52); AST/SGOT 14 U/L (14-36); BLOOD UREA NITROGEN 9 mg/dL (7-17); CALCIUM 6.9 mg/dl (8.6-10.4); GFR NON-AFRICAN AMERICAN > 60
[2018-08-31 09:54] LABS: B-TYPE NATRIURETIC PEPTIDE 648 pg/mL (0-450)
[2018-08-31] MEDS ORDERED: Rocuronium 10 mg/ml (5 ml) ONE ×2 (10:00→10:08)
[2018-08-31] MEDS ORDERED: Vasopressin 20 Units/ml Inj ONE (10:08)
[2018-08-31] MEDS ORDERED: Albuterol HFA 90 mcg/actuation (8 g) ONE (10:48)
--- NOTE | 2018-08-31 11:23 | CP.CCUPN ---
<Luke Rawls - Last Filed: 08/31/18 19:15> CCU Subjective - Physician Review Subjective (Free Text): 08/31/18 19:15 Patient seen and examined at bedside. Has continued to remain tachycardic post- op despite aggressive fluid resuscitation; remains hypotensive despite aggressive fluid resuscitation and dual pressors. Most recent lactate on serial ABG shock panels improved to 3.7. ID consulted for abx management. As per Surgery, perf in sigmoid colon area, ~1-2L of material evacuated from peritoneal cavity in OR. Patient remains diaphoretic, weak distal pulses. Condition serious. CCU Objective - Vital Signs / Intake & Output Vital Signs (Last 4 hours): Vital Signs Pulse Resp BP 08/31/18 09:21 139 H 30 H 104/52 L Intake and Output (Last 8hrs): Intake & Output 08/30/18 08/31/18 08/31/18 22:59 06:59 14:59 Intake Total 1000 Balance 1000 Weight 72.575 kg Intake: IV 1000 - Physical Exam Physical Exam Limitations: Positive for: Other (intubated, sedated, unable to follow commands) Head: Positive for: Atraumatic, Normocephalic Pupils: Positive for: Sluggish. Negative for: Non-Reactive, Pinpoint Extroacular Muscles: Positive for: Other (sedated and not following commands, minimal spontaneous movements when aroused) Conjunctiva: Positive for: Normal. Negative for: Injected, Icteric Mouth: Positive for: Dry Nose (External): Positive for: Atraumatic. Negative for: Abrasion, Contusion, Laceration Nose (Internal): Positive for: No Active Bleeding. Negative for: Epistaxis Neck: Positive for: Normal Range of Motion (passive ROM intact, some spontaneous active movement when aroused but unable to assess full active ROM), Trachea Midline. Negative for: JVD Respiratory/Chest: Positive for: Good Air Exchange, Rhonchi (mild-moderate ronchi in all vega), Other (overbreathing the ventilator but no longer tachypnic to 40's while on sedation) Cardiovascular: Positive for: Normal S1, S2, Peripheal Pulses Present (weakly/irregularly palpable bilateral radial pulses, unable to palpate pedal pulses, weakly/irregularly palpable femor pulses bilaterally), Tachycardic (persistently 120's-140's) Abdomen: Positive for: Other (post-op, 3 drains present with varying degrees of serosanguinous fluid present, no lin blood or pus appreciated, colostomy bag present with patent-appearing stoma, abdomen firm to palpation diffusely, bandaging over surgical incisions) Genitourinary/Pelvic Exam: Positive for: Other (Rankin present with only approx 250cc very dark sara urine) Upper Extremity: Positive for: Edema (bilateral upper extremities with mild non- pitting edema). Negative for: Cyanosis, NORMAL PULSES (weak pulses as described in cardio section), Deformity Lower Extremity: Positive for: Edema (bilateral lower extremities with moderate non-pitting edema). Negative for: NORMAL PULSES (intermittently palpable weak femoral pulses bilaterally unable, unable to palpate any pedal pulses) Neurological: Positive for: Other (sedated on fentanyl/precedex, intermittently aroused by pain or stimulation (like Arterial line placement) but rapidly returns to somnolence). Negative for: GCS=15 (GCS 7 (E2 V1t M4)) Skin: Positive for: Warm, Diaphoretic, Pale. Negative for: Dry, Rashes, Normal Color Psychiatric: Positive for: Other (sedated but intermittently aroused, rapidly returns to somnolence) - Medications Active Medications: Active Medications Generic Name Dose Route Start Last Admin Trade Name Freq PRN Reason Stop Dose Admin Hydromorphone HCl 1 mg 08/31/18 06:19 08/31/18 07:45 Dilaudid IVP 1 mg Q4H PRN Administration Pain, severe (8-10) Metronidazole 500 mg in 100 mls @ 100 mls/hr 08/31/18 05:00 08/31/18 05:15 Flagyl IVPB 100 mls/hr STAT MARLENA Administration Protocol Lactated Ringer's 1,000 mls @ 125 mls/hr 08/31/18 06:30 08/31/18 06:25 Lactated Ringer's IV 125 mls/hr .Q8H MARLENA Administration Fentanyl Citrate 2,500 mcg/ 250 mls @ 14.52 mls/hr 08/31/18 07:30 08/31/18 07:48 Sodium Chloride IV 2 mcg/kg/hr .[id number] MARLENA 14.52 mls/hr Administration Protocol 2 MCG/KG/HR Metronidazole 500 mg in 100 mls @ 100 mls/hr 08/31/18 08:00 08/31/18 09:32 Flagyl IVPB Not Given Q8H [facility] Protocol Piperacillin Sod/Tazobactam Sod 3.375 gm in 50 mls @ 100 mls/hr 08/31/18 09:00 Zosyn 3.375 Gm Iv Premix IVPB Q6H [facility] Protocol Dexmedetomidine HCl 200 mcg/ 50 mls @ 3.63 mls/hr 08/31/18 07:43 08/31/18 08:35 Sodium Chloride IV 0.2 mcg/kg/hr TITR PRN 3.63 mls/hr Sedation Administration Protocol 0.2 MCG/KG/HR Vancomycin HCl 1 gm/ Sodium 250 mls @ 167 mls/hr 08/31/18 10:00 08/31/18 09:19 Chloride IVPB 167 mls/hr Q24H MARLENA Administration Protocol Norepinephrine Bitartrate 8 mg 250 mls @ 7.5 mls/hr 08/31/18 08:55 08/31/18 09:21 / Dextrose IV 4 mcg/min .Q24H PRN 7.5 mls/hr TITRATE PER MD ORDER Administration Protocol 4 MCG/MIN Ondansetron HCl 4 mg 08/31/18 06:30 Zofran Inj IVP Q6H PRN Nausea/Vomiting Pantoprazole Sodium 40 mg 08/31/18 10:00 Protonix Inj IVP DAILY [facility] - Patient Studies Lab Studies: Lab Studies 08/31/18 08/31/18 08/31/18 Range/Units 09:21 08:53 06:40 WBC (4.8-10.8) K/uL RBC (3.80-5.20) Mil/uL Hgb (11.0-16.0) g/dL Hct (34.0-47.0) % MCV (81.0-99.0) fL MCH (27.0-31.0) pg MCHC (33.0-37.0) g/dL RDW (11.5-14.5) % Plt Count (130-400) K/uL MPV (7.2-11.7) fL Neut % (Auto) (50.0-75.0) % Lymph % (Auto) (20.0-40.0) % [place] % (Auto) (0.0-10.0) % Eos % (Auto) (0.0-4.0) % Baso % (Auto) (0.0-2.0) % Neut # (Auto) (1.8-7.0) K/uL Lymph # (Auto) (1.0-4.3) K/uL [place] # (Auto) (0.0-0.8) K/uL Eos # (Auto) (0.0-0.7) K/uL Baso # (Auto) (0.0-0.2) K/uL Neutrophils % (Manual) (50-75) % Band Neutrophils % (0-2) % Lymphocytes % (Manual) (20-40) % Reactive Lymphs % (0-0) % Monocytes % (Manual) (0-10) % Platelet Estimate (NORMAL) RBC Morphology PT (9.7-12.2) SECONDS INR APTT (21-34) SECONDS Puncture Site pCO2 (35-45) mm/Hg pO2 40 (30-55) mm/Hg HCO3 (21-28) mmol/L ABG pH (7.35-7.45) ABG Total CO2 (22-28) mmol/L ABG O2 Saturation (95-98) % ABG Base Excess (-2.0-3.0) mmol/L Luis Test ABG Potassium (3.6-5.2) mmol/L VBG pH 7.25 L (7.32-7.43) VBG pCO2 41 (40-60) mmHg VBG HCO3 17.2 mmol/L VBG Total CO2 19.3 L (22-28) mmol/L VBG O2 Sat (Calc) 72.8 H (40-65) % VBG Base Excess -8.8 L (0.0-2.0) mmol/L VBG Potassium 3.8 (3.6-5.2) mmol/L A-a O2 Difference mm/Hg Respiratory Index Glucose 139 H (65-105) mg/dl Lactate 4.8 H* (0.7-2.1) mmol/L FiO2 100.0 % PEEP 5 Crit Value Called To Dr. karlee umana Crit Value Called By Hany desir,forestry conservation worker Crit Value Read Back Y Blood Gas Notified Time 900 Sodium 141 140.0 (132-148) mmol/L Potassium 4.1 (3.6-5.2) mmol/L Chloride 113 H 113.0 H (98-107) mmol/L Carbon Dioxide 18 L (22-30) mmol/L Anion Gap 14 (10-20) BUN 9 (7-17) mg/dL Creatinine 0.9 (0.7-1.2) mg/dL Est GFR ( Amer) > 60 Est GFR (Non-Af Amer) > 60 Random Glucose 127 H (65-105) mg/dL Calcium 6.9 L (8.6-10.4) mg/dl Phosphorus 3.2 (2.5-4.5) mg/dL Magnesium 1.6 (1.6-2.3) mg/dL Total Bilirubin 1.7 H (0.2-1.3) mg/dL AST 14 D (14-36) U/L ALT 22 (9-52) U/L Alkaline Phosphatase 65 (38-126) U/L Troponin I 0.0180 (0.00-0.120) ng/mL NT-Pro-B Natriuret Pep 648 H (0-450) pg/mL Total Protein 4.2 L (6.3-8.3) g/dL Albumin 1.9 L D (3.5-5.0) g/dL Globulin 2.2 (2.2-3.9) gm/dL Albumin/Globulin Ratio 0.9 L (1.0-2.1) Lipase (23-300) U/L Procalcitonin (0.19-0.49) NG/ML Arterial Blood Potassium (3.6-5.2) mmol/L Venous Blood Potassium 3.8 (3.6-5.2) mmol/L Urine Color (YELLOW) Urine Clarity (Clear) Urine pH (5.0-8.0) Ur Specific [place] (1.003-1.030) Urine Protein (NEGATIVE) mg/dL Urine Glucose (UA) (Normal) mg/dL Urine Ketones (NEGATIVE) mg/dL Urine Blood (NEGATIVE) Urine Nitrate (NEGATIVE) Urine Bilirubin (NEGATIVE) Urine Urobilinogen (0.2-1.0) mg/dL Ur Leukocyte Esterase (Negative) Vel/uL Urine WBC (Auto) (0-5) /hpf Urine RBC (Auto) (0-3) /hpf Ur Squamous Epith Cells (0-5) /hpf Urine Bacteria (<OCC) Hyaline Casts (0-2) /lpf Urine HCG, Qual Negative (NEGATIVE) Blood Type Antibody Screen 08/31/18 08/31/18 08/31/18 Range/Units 06:40 06:16 05:59 WBC (4.8-10.8) K/uL RBC (3.80-5.20) Mil/uL Hgb (11.0-16.0) g/dL Hct (34.0-47.0) % MCV (81.0-99.0) fL MCH (27.0-31.0) pg MCHC (33.0-37.0) g/dL RDW (11.5-14.5) % Plt Count (130-400) K/uL MPV (7.2-11.7) fL Neut % (Auto) (50.0-75.0) % Lymph % (Auto) (20.0-40.0) % [place] % (Auto) (0.0-10.0) % Eos % (Auto) (0.0-4.0) % Baso % (Auto) (0.0-2.0) % Neut # (Auto) (1.8-7.0) K/uL Lymph # (Auto) (1.0-4.3) K/uL [place] # (Auto) (0.0-0.8) K/uL Eos # (Auto) (0.0-0.7) K/uL Baso # (Auto) (0.0-0.2) K/uL Neutrophils % (Manual) (50-75) % Band Neutrophils % (0-2) % Lymphocytes % (Manual) (20-40) % Reactive Lymphs % (0-0) % Monocytes % (Manual) (0-10) % Platelet Estimate (NORMAL) RBC Morphology PT (9.7-12.2) SECONDS INR APTT (21-34) SECONDS Puncture Site Right radial pCO2 29 L (35-45) mm/Hg pO2 66 L (30-55) mm/Hg HCO3 16.8 L (21-28) mmol/L ABG pH 7.31 L (7.35-7.45) ABG Total CO2 15.5 L (22-28) mmol/L ABG O2 Saturation 94.2 L (95-98) % ABG Base Excess -10.2 L (-2.0-3.0) mmol/L Luis Test Pos ABG Potassium 3.3 L (3.6-5.2) mmol/L VBG pH (7.32-7.43) VBG pCO2 (40-60) mmHg VBG HCO3 mmol/L VBG Total CO2 (22-28) mmol/L VBG O2 Sat (Calc) (40-65) % VBG Base Excess (0.0-2.0) mmol/L VBG Potassium (3.6-5.2) mmol/L A-a O2 Difference 47.0 mm/Hg Respiratory Index 0.7 Glucose 153 H (65-105) mg/dl Lactate 3.1 H (0.7-2.1) mmol/L FiO2 21.0 % PEEP Crit Value Called To Crit Value Called By Crit Value Read Back Blood Gas Notified Time Sodium 138.0 (132-148) mmol/L Potassium (3.6-5.2) mmol/L Chloride 114.0 H (98-107) mmol/L Carbon Dioxide (22-30) mmol/L Anion Gap (10-20) BUN (7-17) mg/dL Creatinine (0.7-1.2) mg/dL Est GFR ( Amer) Est GFR (Non-Af Amer) Random Glucose (65-105) mg/dL Calcium (8.6-10.4) mg/dl Phosphorus (2.5-4.5) mg/dL Magnesium (1.6-2.3) mg/dL Total Bilirubin (0.2-1.3) mg/dL AST (14-36) U/L ALT (9-52) U/L Alkaline Phosphatase (38-126) U/L Troponin I (0.00-0.120) ng/mL NT-Pro-B Natriuret Pep (0-450) pg/mL Total Protein (6.3-8.3) g/dL Albumin (3.5-5.0) g/dL Globulin (2.2-3.9) gm/dL Albumin/Globulin Ratio (1.0-2.1) Lipase (23-300) U/L Procalcitonin (0.19-0.49) NG/ML Arterial Blood Potassium 3.3 L (3.6-5.2) mmol/L Venous Blood Potassium (3.6-5.2) mmol/L Urine Color Sara (YELLOW) Urine Clarity Clear (Clear) Urine pH 5.0 (5.0-8.0) Ur Specific [place] 1.060 H (1.003-1.030) Urine Protein 1+ H (NEGATIVE) mg/dL Urine Glucose (UA) Normal (Normal) mg/dL Urine Ketones Trace (NEGATIVE) mg/dL Urine Blood Negative (NEGATIVE) Urine Nitrate Negative (NEGATIVE) Urine Bilirubin Negative (NEGATIVE) Urine Urobilinogen 4.0 H (0.2-1.0) mg/dL Ur Leukocyte Esterase Neg (Negative) Vel/uL Urine WBC (Auto) 3 (0-5) /hpf Urine RBC (Auto) 3 (0-3) /hpf Ur Squamous Epith Cells < 1 (0-5) /hpf Urine Bacteria Rare (<OCC) Hyaline Casts 3-5 H (0-2) /lpf Urine HCG, Qual (NEGATIVE) Blood Type A POSITIVE Antibody Screen Negative 08/31/18 08/31/18 08/31/18 Range/Units 05:23 03:42 03:38 WBC (4.8-10.8) K/uL RBC (3.80-5.20) Mil/uL Hgb (11.0-16.0) g/dL Hct (34.0-47.0) % MCV (81.0-99.0) fL MCH (27.0-31.0) pg MCHC (33.0-37.0) g/dL RDW (11.5-14.5) % Plt Count (130-400) K/uL MPV (7.2-11.7) fL Neut % (Auto) (50.0-75.0) % Lymph % (Auto) (20.0-40.0) % [place] % (Auto) (0.0-10.0) % Eos % (Auto) (0.0-4.0) % Baso % (Auto) (0.0-2.0) % Neut # (Auto) (1.8-7.0) K/uL Lymph # (Auto) (1.0-4.3) K/uL [place] # (Auto) (0.0-0.8) K/uL Eos # (Auto) (0.0-0.7) K/uL Baso # (Auto) (0.0-0.2) K/uL Neutrophils % (Manual) (50-75) % Band Neutrophils % (0-2) % Lymphocytes % (Manual) (20-40) % Reactive Lymphs % (0-0) % Monocytes % (Manual) (0-10) % Platelet Estimate (NORMAL) RBC Morphology PT 14.8 H (9.7-12.2) SECONDS INR 1.4 APTT 25 (21-34) SECONDS Puncture Site pCO2 (35-45) mm/Hg pO2 26 L 59 H (30-55) mm/Hg HCO3 (21-28) mmol/L ABG pH (7.35-7.45) ABG Total CO2 (22-28) mmol/L ABG O2 Saturation (95-98) % ABG Base Excess (-2.0-3.0) mmol/L Luis Test ABG Potassium (3.6-5.2) mmol/L VBG pH 7.26 L 7.36 (7.32-7.43) VBG pCO2 35 L 27 L (40-60) mmHg VBG HCO3 15.2 18.0 mmol/L VBG Total CO2 16.8 L 16.1 L (22-28) mmol/L VBG O2 Sat (Calc) 41.1 91.6 H (40-65) % VBG Base Excess -10.4 L -8.6 L (0.0-2.0) mmol/L VBG Potassium 3.0 L 3.1 L (3.6-5.2) mmol/L A-a O2 Difference mm/Hg Respiratory Index Glucose 129 H 151 H (65-105) mg/dl Lactate 3.7 H 3.1 H (0.7-2.1) mmol/L FiO2 21.0 21.0 % PEEP Crit Value Called To Crit Value Called By Crit Value Read Back Blood Gas Notified Time Sodium 137.0 137.0 (132-148) mmol/L Potassium (3.6-5.2) mmol/L Chloride 110.0 H 111.0 H (98-107) mmol/L Carbon Dioxide (22-30) mmol/L Anion Gap (10-20) BUN (7-17) mg/dL Creatinine (0.7-1.2) mg/dL Est GFR ( Amer) Est GFR (Non-Af Amer) Random Glucose (65-105) mg/dL Calcium (8.6-10.4) mg/dl Phosphorus (2.5-4.5) mg/dL Magnesium (1.6-2.3) mg/dL Total Bilirubin (0.2-1.3) mg/dL AST (14-36) U/L ALT (9-52) U/L Alkaline Phosphatase (38-126) U/L Troponin I (0.00-0.120) ng/mL NT-Pro-B Natriuret Pep (0-450) pg/mL Total Protein (6.3-8.3) g/dL Albumin (3.5-5.0) g/dL Globulin (2.2-3.9) gm/dL Albumin/Globulin Ratio (1.0-2.1) Lipase (23-300) U/L Procalcitonin (0.19-0.49) NG/ML Arterial Blood Potassium (3.6-5.2) mmol/L Venous Blood Potassium 3.0 L 3.1 L (3.6-5.2) mmol/L Urine Color (YELLOW) Urine Clarity (Clear) Urine pH (5.0-8.0) Ur Specific [place] (1.003-1.030) Urine Protein (NEGATIVE) mg/dL Urine Glucose (UA) (Normal) mg/dL Urine Ketones (NEGATIVE) mg/dL Urine Blood (NEGATIVE) Urine Nitrate (NEGATIVE) Urine Bilirubin (NEGATIVE) Urine Urobilinogen (0.2-1.0) mg/dL Ur Leukocyte Esterase (Negative) Vel/uL Urine WBC (Auto) (0-5) /hpf Urine RBC (Auto) (0-3) /hpf Ur Squamous Epith Cells (0-5) /hpf Urine Bacteria (<OCC) Hyaline Casts (0-2) /lpf Urine HCG, Qual (NEGATIVE) Blood Type Antibody Screen 08/31/18 08/31/18 08/31/18 Range/Units 03:38 02:42 02:37 WBC 6.0 (4.8-10.8) K/uL RBC 4.75 (3.80-5.20) Mil/uL Hgb 11.9 (11.0-16.0) g/dL Hct 36.8 (34.0-47.0) % MCV 77.6 L (81.0-99.0) fL MCH 25.1 L (27.0-31.0) pg MCHC 32.3 L (33.0-37.0) g/dL RDW 18.0 H (11.5-14.5) % Plt Count 329 D (130-400) K/uL MPV 9.4 (7.2-11.7) fL Neut % (Auto) 74.5 (50.0-75.0) % Lymph % (Auto) 22.6 (20.0-40.0) % [place] % (Auto) 1.8 (0.0-10.0) % Eos % (Auto) 1.0 (0.0-4.0) % Baso % (Auto) 0.1 (0.0-2.0) % Neut # (Auto) 4.5 (1.8-7.0) K/uL Lymph # (Auto) 1.4 (1.0-4.3) K/uL [place] # (Auto) 0.1 (0.0-0.8) K/uL Eos # (Auto) 0.1 (0.0-0.7) K/uL Baso # (Auto) 0.0 (0.0-0.2) K/uL Neutrophils % (Manual) 34 L (50-75) % Band Neutrophils % 25 H* (0-2) % Lymphocytes % (Manual) 36 (20-40) % Reactive Lymphs % 3 H (0-0) % Monocytes % (Manual) 2 (0-10) % Platelet Estimate Normal (NORMAL) RBC Morphology Normal PT (9.7-12.2) SECONDS INR APTT (21-34) SECONDS Puncture Site pCO2 (35-45) mm/Hg pO2 (30-55) mm/Hg HCO3 (21-28) mmol/L ABG pH (7.35-7.45) ABG Total CO2 (22-28) mmol/L ABG O2 Saturation (95-98) % ABG Base Excess (-2.0-3.0) mmol/L Luis Test ABG Potassium (3.6-5.2) mmol/L VBG pH (7.32-7.43) VBG pCO2 (40-60) mmHg VBG HCO3 mmol/L VBG Total CO2 (22-28) mmol/L VBG O2 Sat (Calc) (40-65) % VBG Base Excess (0.0-2.0) mmol/L VBG Potassium (3.6-5.2) mmol/L A-a O2 Difference mm/Hg Respiratory Index Glucose (65-105) mg/dl Lactate (0.7-2.1) mmol/L FiO2 % PEEP Crit Value Called To Crit Value Called By Crit Value Read Back Blood Gas Notified Time Sodium 137 (132-148) mmol/L Potassium 3.6 (3.6-5.2) mmol/L Chloride 107 (98-107) mmol/L Carbon Dioxide 14 L (22-30) mmol/L Anion Gap 20 (10-20) BUN 9 (7-17) mg/dL Creatinine 0.7 (0.7-1.2) mg/dL Est GFR ( Amer) > 60 Est GFR (Non-Af Amer) > 60 Random Glucose 192 H (65-105) mg/dL Calcium 9.0 (8.6-10.4) mg/dl Phosphorus 3.9 (2.5-4.5) mg/dL Magnesium 2.0 (1.6-2.3) mg/dL Total Bilirubin 1.2 (0.2-1.3) mg/dL AST 18 (14-36) U/L ALT 17 (9-52) U/L Alkaline Phosphatase 211 H D (38-126) U/L Troponin I (0.00-0.120) ng/mL NT-Pro-B Natriuret Pep (0-450) pg/mL Total Protein 6.8 (6.3-8.3) g/dL Albumin 3.4 L (3.5-5.0) g/dL Globulin 3.4 (2.2-3.9) gm/dL Albumin/Globulin Ratio 1.0 (1.0-2.1) Lipase < 10 L (23-300) U/L Procalcitonin 5.53 H (0.19-0.49) NG/ML Arterial Blood Potassium (3.6-5.2) mmol/L Venous Blood Potassium (3.6-5.2) mmol/L Urine Color (YELLOW) Urine Clarity (Clear) Urine pH (5.0-8.0) Ur Specific [place] (1.003-1.030) Urine Protein (NEGATIVE) mg/dL Urine Glucose (UA) (Normal) mg/dL Urine Ketones (NEGATIVE) mg/dL Urine Blood (NEGATIVE) Urine Nitrate (NEGATIVE) Urine Bilirubin (NEGATIVE) Urine Urobilinogen (0.2-1.0) mg/dL Ur Leukocyte Esterase (Negative) Vel/uL Urine WBC (Auto) (0-5) /hpf Urine RBC (Auto) (0-3) /hpf Ur Squamous Epith Cells (0-5) /hpf Urine Bacteria (<OCC) Hyaline Casts (0-2) /lpf Urine HCG, Qual (NEGATIVE) Blood Type Antibody Screen Laboratory Results - last 24 hr 08/31/18 08/31/18 08/31/18 02:37 02:42 03:38 WBC 6.0 RBC 4.75 Hgb 11.9 Hct 36.8 MCV 77.6 L MCH 25.1 L MCHC 32.3 L RDW 18.0 H Plt Count 329 D MPV 9.4 Neut % (Auto) 74.5 Lymph % (Auto) 22.6 [place] % (Auto) 1.8 Eos % (Auto) 1.0 Baso % (Auto) 0.1 Neut # (Auto) 4.5 Lymph # (Auto) 1.4 [place] # (Auto) 0.1 Eos # (Auto) 0.1 Baso # (Auto) 0.0 Neutrophils % (Manual) 34 L Band Neutrophils % 25 H* Lymphocytes % (Manual) 36 Reactive Lymphs % 3 H Monocytes % (Manual) 2 Platelet Estimate Normal RBC Morphology Normal PT INR APTT Puncture Site pCO2 pO2 HCO3 ABG pH ABG Total CO2 ABG O2 Saturation ABG Base Excess Luis Test ABG Potassium VBG pH VBG pCO2 VBG HCO3 VBG Total CO2 VBG O2 Sat (Calc) VBG Base Excess VBG Potassium A-a O2 Difference Respiratory Index Glucose Lactate FiO2 PEEP Crit Value Called To Crit Value Called By Crit Value Read Back Blood Gas Notified Time Sodium 137 Potassium 3.6 Chloride 107 Carbon Dioxide 14 L Anion Gap 20 BUN 9 Creatinine 0.7 Est GFR ( Amer) > 60 Est GFR (Non-Af Amer) > 60 Random Glucose 192 H Calcium 9.0 Phosphorus 3.9 Magnesium 2.0 Total Bilirubin 1.2 AST 18 ALT 17 Alkaline Phosphatase 211 H D Troponin I NT-Pro-B Natriuret Pep Total Protein 6.8 Albumin 3.4 L Globulin 3.4 Albumin/Globulin Ratio 1.0 Lipase < 10 L Procalcitonin 5.53 H Arterial Blood Potassium Venous Blood Potassium Urine Color Urine Clarity Urine pH Ur Specific [place] Urine Protein Urine Glucose (UA) Urine Ketones Urine Blood Urine Nitrate Urine Bilirubin Urine Urobilinogen Ur Leukocyte Esterase Urine WBC (Auto) Urine RBC (Auto) Ur Squamous Epith Cells Urine Bacteria Hyaline Casts Urine HCG, Qual Blood Type Antibody Screen 08/31/18 08/31/18 08/31/18 03:38 03:42 05:23 WBC RBC Hgb Hct MCV MCH MCHC RDW Plt Count MPV Neut % (Auto) Lymph % (Auto) [place] % (Auto) Eos % (Auto) Baso % (Auto) Neut # (Auto) Lymph # (Auto) [place] # (Auto) Eos # (Auto) Baso # (Auto) Neutrophils % (Manual) Band Neutrophils % Lymphocytes % (Manual) Reactive Lymphs % Monocytes % (Manual) Platelet Estimate RBC Morphology PT 14.8 H INR 1.4 APTT 25 Puncture Site pCO2 pO2 59 H 26 L HCO3 ABG pH ABG Total CO2 ABG O2 Saturation ABG Base Excess Luis Test ABG Potassium VBG pH 7.36 7.26 L VBG pCO2 27 L 35 L VBG HCO3 18.0 15.2 VBG Total CO2 16.1 L 16.8 L VBG O2 Sat (Calc) 91.6 H 41.1 VBG Base Excess -8.6 L -10.4 L VBG Potassium 3.1 L 3.0 L A-a O2 Difference Respiratory Index Glucose 151 H 129 H Lactate 3.1 H 3.7 H FiO2 21.0 21.0 PEEP Crit Value Called To Crit Value Called By Crit Value Read Back Blood Gas Notified Time Sodium 137.0 137.0 Potassium Chloride 111.0 H 110.0 H Carbon Dioxide Anion Gap BUN Creatinine Est GFR ( Amer) Est GFR (Non-Af Amer) Random Glucose Calcium Phosphorus Magnesium Total Bilirubin AST ALT Alkaline Phosphatase Troponin I NT-Pro-B Natriuret Pep Total Protein Albumin Globulin Albumin/Globulin Ratio Lipase Procalcitonin Arterial Blood Potassium Venous Blood Potassium 3.1 L 3.0 L Urine Color Urine Clarity Urine pH Ur Specific [place] Urine Protein Urine Glucose (UA) Urine Ketones Urine Blood Urine Nitrate Urine Bilirubin Urine Urobilinogen Ur Leukocyte Esterase Urine WBC (Auto) Urine RBC (Auto) Ur Squamous Epith Cells Urine Bacteria Hyaline Casts Urine HCG, Qual Blood Type Antibody Screen 08/31/18 08/31/18 08/31/18 05:59 06:16 06:40 WBC RBC Hgb Hct MCV MCH MCHC RDW Plt Count MPV Neut % (Auto) Lymph % (Auto) [place] % (Auto) Eos % (Auto) Baso % (Auto) Neut # (Auto) Lymph # (Auto) [place] # (Auto) Eos # (Auto) Baso # (Auto) Neutrophils % (Manual) Band Neutrophils % Lymphocytes % (Manual) Reactive Lymphs % Monocytes % (Manual) Platelet Estimate RBC Morphology PT INR APTT Puncture Site Right radial pCO2 29 L pO2 66 L HCO3 16.8 L ABG pH 7.31 L ABG Total CO2 15.5 L ABG O2 Saturation 94.2 L ABG Base Excess -10.2 L Luis Test Pos ABG Potassium 3.3 L VBG pH VBG pCO2 VBG HCO3 VBG Total CO2 VBG O2 Sat (Calc) VBG Base Excess VBG Potassium A-a O2 Difference 47.0 Respiratory Index 0.7 Glucose 153 H Lactate 3.1 H FiO2 21.0 PEEP Crit Value Called To Crit Value Called By Crit Value Read Back Blood Gas Notified Time Sodium 138.0 Potassium Chloride 114.0 H Carbon Dioxide Anion Gap BUN Creatinine Est GFR ( Amer) Est GFR (Non-Af Amer) Random Glucose Calcium Phosphorus Magnesium Total Bilirubin AST ALT Alkaline Phosphatase Troponin I NT-Pro-B Natriuret Pep Total Protein Albumin Globulin Albumin/Globulin Ratio Lipase Procalcitonin Arterial Blood Potassium 3.3 L Venous Blood Potassium Urine Color Sara Urine Clarity Clear Urine pH 5.0 Ur Specific [place] 1.060 H Urine Protein 1+ H Urine Glucose (UA) Normal Urine Ketones Trace Urine Blood Negative Urine Nitrate Negative Urine Bilirubin Negative Urine Urobilinogen 4.0 H Ur Leukocyte Esterase Neg Urine WBC (Auto) 3 Urine RBC (Auto) 3 Ur Squamous Epith Cells < 1 Urine Bacteria Rare Hyaline Casts 3-5 H Urine HCG, Qual Blood Type A POSITIVE Antibody Screen Negative 08/31/18 08/31/18 08/31/18 06:40 08:53 09:21 WBC RBC Hgb Hct MCV MCH MCHC RDW Plt Count MPV Neut % (Auto) Lymph % (Auto) [place] % (Auto) Eos % (Auto) Baso % (Auto) Neut # (Auto) Lymph # (Auto) [place] # (Auto) Eos # (Auto) Baso # (Auto) Neutrophils % (Manual) Band Neutrophils % Lymphocytes % (Manual) Reactive Lymphs % Monocytes % (Manual) Platelet Estimate RBC Morphology PT INR APTT Puncture Site pCO2 pO2 40 HCO3 ABG pH ABG Total CO2 ABG O2 Saturation ABG Base Excess Luis Test ABG Potassium VBG pH 7.25 L VBG pCO2 41 VBG HCO3 17.2 VBG Total CO2 19.3 L VBG O2 Sat (Calc) 72.8 H VBG Base Excess -8.8 L VBG Potassium 3.8 A-a O2 Difference Respiratory Index Glucose 139 H Lactate 4.8 H* FiO2 100.0 PEEP 5 Crit Value Called To Dr. karlee umana Crit Value Called By Hany desir,forestry conservation worker Crit Value Read Back Y Blood Gas Notified Time 900 Sodium 140.0 141 Potassium 4.1 Chloride 113.0 H 113 H Carbon Dioxide 18 L Anion Gap 14 BUN 9 Creatinine 0.9 Est GFR ( Amer) > 60 Est GFR (Non-Af Amer) > 60 Random Glucose 127 H Calcium 6.9 L Phosphorus 3.2 Magnesium 1.6 Total Bilirubin 1.7 H AST 14 D ALT 22 Alkaline Phosphatase 65 Troponin I 0.0180 NT-Pro-B Natriuret Pep 648 H Total Protein 4.2 L Albumin 1.9 L D Globulin 2.2 Albumin/Globulin Ratio 0.9 L Lipase Procalcitonin Arterial Blood Potassium Venous Blood Potassium 3.8 Urine Color Urine Clarity Urine pH Ur Specific [place] Urine Protein Urine Glucose (UA) Urine Ketones Urine Blood Urine Nitrate Urine Bilirubin Urine Urobilinogen Ur Leukocyte Esterase Urine WBC (Auto) Urine RBC (Auto) Ur Squamous Epith Cells Urine Bacteria Hyaline Casts Urine HCG, Qual Negative Blood Type Antibody Screen EKG/Cardiology Studies: Cardiology / EKG Studies 08/31/18 02:34 ELECTROCARDIOGRAM Stat Comment: Mode Of Transportation: Reason For Exam: Sepsis Patient Review of Systems - Review of Systems Systems not reviewed;Unavailable: Intubated Critical Care Progress Note - Nutrition Nutrition: Nutrition Category Date Time Status NPO Diet [DIET] Diets 08/31/18 Breakfast Active Assessment/Plan - Assessment and Plan (Free Text) Assessment: This is a 33 yo F with PMH of asthma who presented to with acutely worsening suprapubic abdominal pain, s/p hysterctomy 4 days prior. She was found to have an intra-abdominal fluid collection, found to be large collection of feculent peritoneal fluid 2/2 sigmoid perforation. Now in the ICU, intubated, on empiric abx, on dual pressors for persistent hypotension/likely septic shock 2/2 peritonitis. Plan: Neuro: -sedated on precedex/fentanyl/versed -maintain normothermia ofirmev started by Surgery Pulm: -intubated for due to tachypnea and for airway protection pending OR -ABG on admission and follow up ABGs reviewed, concerning for metabolic acidosis with attempted respiratory compensation lactates increased but now improving; 3.1 -> 3.7 -> 4.8 -> 3.9 -> 3.7 -CXR notable for mild pulm venous congestion, ETT in place Cardio: -persistent tachycardia from 120's-140's despite aggressive fluid resuscitation, also persistently hypotensive despite dual pressors and fluids; likely severe septic shock 2/2 peritonitis from sigmoid perf 2/2 hysterectomy On Levophed and Vasopressin, if additional pressor needed can start Epi drip Maintain MAP > 65 BP responded to straight leg raise challenge, so still currently fluid responsive, another 1L LR bolus ordered Continue LR 150cc/hr -S/p 1 unit pRBCs this AM pre-op, but Hgb stable and no intra-abdominal bleeding as per Surgery, so will keep 2nd unit pRBCs on hold for now -Concern that persistent tachycardia may be 2/2 PE, but not stable or able to go for CTA at this time, Echo to assess for RV strain and LE Duplexes ordered, pending Trops negative x2, pending 1 more to rule out MD as cause of tachy/hypotension -Stress dose steroids started, solucortef 100mg IV q8 -Likely also a dehydration/volume loss component, albumin decreased from 3.4 to 1.8 after initial hydration; Albumin 50g given x3, 25g q6H x4 doses ordered -Monitor strict I's and O's, UOP increased from presentation but still low GI: -strict NPO, NGT in place draining scant clear green gastric contents -s/p distal sigmoid/proximal rectum resection by Surgery, monitor output of drains left in place perf 2/2 hysterectomy 2 days prior, Surgery reports 2+ liters of purulent fe culent material drained from peritoneal cavity -Protonix for GI ppx -Flagyl, Vanco, and Zosyn for coverage, ID consulted for additional management of abx regimen Renal: -Cr increased from 0.7 on admit to 1, increase by >= 0.3 within 24 hrs so CATA likely 2/2 septic shock -UA not suggestive of UTI, is notable for elevated specific gravity consistent with volume depletion and compensatory increased urine concentration -Monitor and replete electrolytes as needed -Rankin in place, strict I's and O's Heme: -11.9 hgb on admit, increased to 12.1 s/p OR/1 unit pRBCs/4L LR Not an appropriate increase s/p 1 unit pRBCs, but the 11.9 on admit likely falsely elevated given dehydration No lin blood in abd drains remaining post-op, Surgery reports only approx 150cc blood loss intra-operatively, no intra-abd hematoma as per Surgery -SCDs for DVT ppx at this time, avoid AC given recent surgery -Concern for possible PE, may need to anticoagulate if Echo indicative of RV strain, will discuss with Surgery prior to anticoag (if needed) -Fibrinogen wnl, so not DIC ID: -empirically covering with Vanco, Zosyn, Flagyl -Blood, urine, sputum cultures ordered, pending -Procal ordered -Lactates elevating, now improved, last ABG shock lactate 3.7 (max was 4.8 post- op) [facility] -ID consulted for further abx management, appreciate their recs Endo: -Insulin low sliding scale and Accuchecks q6 -BG goal 140-180 Dispo: ICU s/p OR for perforated sigmoid colon with purulent fluid accum and peritonitis 2/2 hysterectomy 4 days prior, intubated and on dual pressors FEN: Strict NPO, LR 150cc/hr Access: Peripheral IVs, R groin TLC, ETT, NGT, Rankin Consults: Surg, ID, ICU Ppx: Protonix for GI, SCDs for DVT Code Status: FULL Patient seen, reviewed, and discussed with attending, Dr. Cordell Desir <Suzette Desir - Last Filed: 09/05/18 19:18> CCU Subjective - Physician Review Critical Care Time Spent (in minutes): 45 CCU Objective - Vital Signs / Intake & Output Vital Signs (Last 4 hours): Vital Signs Temp Pulse Resp BP Pulse Ox 09/05/18 18:00 100 F H 109 H 33 H 100 09/05/18 17:54 101 H 25 H 94/61 L 100 09/05/18 17:32 117 H 26 H 120/62 100 09/05/18 17:20 106 H 09/05/18 16:54 92 H 20 91/51 L 100 09/05/18 16:00 99.6 F 100 09/05/18 15:54 100 H 20 96/58 L 100 09/05/18 15:18 115 H 36 H 103/61 100 Intake and Output (Last 8hrs): Intake & Output 09/05/18 09/05/18 09/05/18 06:59 14:59 22:59 Intake Total 1278 1566.1 677.8 Output Total 965 755 615 Balance 313 811.1 62.8 Weight 219 lb Intake: IV 310 356 144 Intake, IV Amount 968 1210.1 533.8 Left Forearm 17.9 Right Medial Port PICC 232 246.7 130.6 Right Medial Port Y site 512.4 49.6 Right PICC 10 40 Right Proximal Port PICC 336 336 42 left arm 400 105 253.7 Output: Gastric Amount 400 300 Stomach 400 300 Drainage 45 50 Left Abdomen 20 20 Right Abdomen 25 30 Urine 480 755 265 Urethral (Rankin) 480 755 265 Stool 0 Other 40 - Medications Active Medications: Active Medications Generic Name Dose Route Start Last Admin Trade Name Freq PRN Reason Stop Dose Admin Albuterol/Ipratropium 3 ml 09/01/18 14:00 09/05/18 13:58 Duoneb 3 Mg/0.5 Mg (3 Ml) Ud INH Not Given RQ6 MARLENA Artificial Tears 1 gm 09/03/18 06:00 09/05/18 18:20 Lacri-Lube OU 1 gm Q4H MARLENA Administration Hydromorphone HCl 0.5 mg 09/05/18 11:40 10/18/18 11:53 Dilaudid IVP 0.5 mg Q4H PRN Administration Pain, moderate (4-7) Fentanyl Citrate 2,500 mcg/ 250 mls @ 14.52 mls/hr 08/31/18 07:30 09/05/18 19:00 Sodium Chloride IV 4 mcg/kg/hr .[id number] MARLENA 29.03 mls/hr Administration Protocol 2 MCG/KG/HR Meropenem 1 gm/ Sodium 100 mls @ 100 mls/hr 08/31/18 20:00 09/05/18 11:24 Chloride IVPB 100 mls/hr Q8H MARLENA Administration Protocol Vancomycin/Sodium Chloride 1 gm in 200 mls @ 133 mls/hr 09/04/18 17:30 16:39 Vancomycin 1 Gm/Ns 200 Ml IVPB 09/09/18 17:31 133 mls/hr Q8H MARLENA Administration Protocol Acetaminophen 100 mls @ 400 mls/hr 09/04/18 20:58 09/05/18 08:07 Ofirmev IV 09/05/18 20:59 400 mls/hr Q4H PRN Administration Fever >100.4 F Diltiazem HCl 125 mg/ Dextrose 125 mls @ 5 mls/hr 09/05/18 12:00 09/05/18 14:30 IV 10 mg/hr .Q24H MARLENA 10 mls/hr Titration Protocol 5 MG/HR Dexmedetomidine HCl 200 mcg/ 50 mls @ 4.97 mls/hr 09/05/18 13:32 09/05/18 16:14 Sodium Chloride IV 0.5 mcg/kg/hr TITR PRN 12.42 mls/hr Agitation Administration Protocol 0.2 MCG/KG/HR Heparin Sodium/Sodium Chloride 25,000 units in 250 mls @ 17.881 mls/hr 1 14:21 09/05/18 14:41 Heparin 38535 Units/250ml 1/2 Normal Saline IV 18 units/kg/hr .[id number] PRN 17.881 mls/hr PROTOCOL Administration Protocol 18 UNITS/KG/HR Micafungin Sodium 100 mg/ 100 mls @ 100 mls/hr 09/05/18 18:00 09/05/18 18:26 Sodium Chloride IV 100 mls/hr Q24H MARLENA Administration Protocol Aztreonam 1 gm/ Sodium 100 mls @ 100 mls/hr 09/05/18 18:00 09/05/18 18:27 Chloride IVPB 100 mls/hr Q8H [facility] Administration Protocol Insulin Aspart 0 unit 09/03/18 06:00 09/05/18 18:21 Novolog SC Not Given Q6 [facility] Protocol Metoclopramide HCl 10 mg 09/05/18 08:30 Reglan IVP DAILY@ONCE MARLENA Pantoprazole Sodium 40 mg 08/31/18 10:00 09/05/18 09:11 Protonix Inj IVP 40 mg DAILY MARLENA Administration - Patient Studies Lab Studies: Microbiology Studies 09/05/18 16:02 Gram Stain - Final Trachasp 08/31/18 02:45 Blood Culture - Final Blood NO GROWTH AFTER 5 DAYS Gram Stain - Final TEST NOT PERFORMED 08/31/18 02:20 Blood Culture - Final Blood NO GROWTH AFTER 5 DAYS Gram Stain - Final TEST NOT PERFORMED 08/31/18 15:00 Blood Culture - Final Blood-Venous NO GROWTH AFTER 5 DAYS Gram Stain - Final TEST NOT PERFORMED 08/31/18 15:30 Blood Culture - Final Blood-Venous NO GROWTH AFTER 5 DAYS Gram Stain - Final TEST NOT PERFORMED 09/04/18 12:36 Gram Stain - Final Trachasp Lab Studies 09/05/18 09/05/18 09/05/18 Range/Units 14:32 14:25 06:11 WBC (4.8-10.8) K/uL RBC (3.80-5.20) Mil/uL Hgb (11.0-16.0) g/dL Hct (34.0-47.0) % MCV (81.0-99.0) fL MCH (27.0-31.0) pg MCHC (33.0-37.0) g/dL RDW (11.5-14.5) % Plt Count (130-400) K/uL MPV (7.2-11.7) fL Neut % (Auto) (50.0-75.0) % Lymph % (Auto) (20.0-40.0) % [place] % (Auto) (0.0-10.0) % Eos % (Auto) (0.0-4.0) % Baso % (Auto) (0.0-2.0) % Neut # (Auto) (1.8-7.0) K/uL Lymph # (Auto) (1.0-4.3) K/uL [place] # (Auto) (0.0-0.8) K/uL Eos # (Auto) (0.0-0.7) K/uL Baso # (Auto) (0.0-0.2) K/uL Neutrophils % (Manual) (50-75) % Band Neutrophils % (0-2) % Lymphocytes % (Manual) (20-40) % Monocytes % (Manual) (0-10) % Platelet Estimate (NORMAL) Polychromasia Hypochromasia (manual) Anisocytosis (manual) APTT 31 (21-34) SECONDS D-Dimer, Quantitative > 5250 H (0-243) ng/mlDDU Puncture Site pCO2 (35-45) mm/Hg pO2 (80-100) mm/Hg HCO3 (21-28) mmol/L ABG pH (7.35-7.45) ABG Total CO2 (22-28) mmol/L ABG O2 Saturation (95-98) % ABG Base Excess (-2.0-3.0) mmol/L ABG Hemoglobin (11.7-17.4) g/dL ABG Carboxyhemoglobin (0.5-1.5) % POC ABG HHb (Measured) (0.0-5.0) % ABG Methemoglobin (0.0-3.0) % Luis Test A-a O2 Difference mm/Hg Respiratory Index Hgb O2 Saturation (95.0-98.0) % Vent Mode Mechanical Rate FiO2 % Tidal Volume PEEP Sodium 146 (132-148) mmol/L Potassium 3.1 L (3.6-5.2) mmol/L Chloride 110 H (98-107) mmol/L Carbon Dioxide 28 (22-30) mmol/L Anion Gap 11 (10-20) BUN 18 H (7-17) mg/dL Creatinine 0.5 L (0.7-1.2) mg/dL Est GFR ( Amer) > 60 Est GFR (Non-Af Amer) > 60 POC Glucose (mg/dL) (65-110) mg/dL Random Glucose 124 H (65-105) mg/dL Calcium 7.4 L (8.6-10.4) mg/dl Phosphorus 4.0 (2.5-4.5) mg/dL Magnesium 2.1 (1.6-2.3) mg/dL Total Bilirubin 1.8 H (0.2-1.3) mg/dL AST 36 D (14-36) U/L ALT 32 (9-52) U/L Alkaline Phosphatase 105 (38-126) U/L Total Protein 4.5 L (6.3-8.3) g/dL Albumin 2.2 L (3.5-5.0) g/dL Globulin 2.3 (2.2-3.9) gm/dL Albumin/Globulin Ratio 0.9 L (1.0-2.1) 09/05/18 09/05/18 09/05/18 Range/Units 06:11 05:16 04:30 WBC 22.4 H (4.8-10.8) K/uL RBC 4.06 (3.80-5.20) Mil/uL Hgb 10.3 L (11.0-16.0) g/dL Hct 31.9 L (34.0-47.0) % MCV 78.6 L (81.0-99.0) fL MCH 25.3 L (27.0-31.0) pg MCHC 32.2 L (33.0-37.0) g/dL RDW 19.3 H (11.5-14.5) % Plt Count 62 L D (130-400) K/uL MPV 10.0 (7.2-11.7) fL Neut % (Auto) 85.5 H (50.0-75.0) % Lymph % (Auto) 8.5 L (20.0-40.0) % [place] % (Auto) 3.6 (0.0-10.0) % Eos % (Auto) 2.2 (0.0-4.0) % Baso % (Auto) 0.2 (0.0-2.0) % Neut # (Auto) 19.1 H (1.8-7.0) K/uL Lymph # (Auto) 1.9 (1.0-4.3) K/uL [place] # (Auto) 0.8 (0.0-0.8) K/uL Eos # (Auto) 0.5 (0.0-0.7) K/uL Baso # (Auto) 0.0 (0.0-0.2) K/uL Neutrophils % (Manual) 68 (50-75) % Band Neutrophils % 21 H* (0-2) % Lymphocytes % (Manual) 9 L (20-40) % Monocytes % (Manual) 2 (0-10) % Platelet Estimate Decreased L (NORMAL) Polychromasia Slight Hypochromasia (manual) Slight Anisocytosis (manual) Slight APTT (21-34) SECONDS D-Dimer, Quantitative (0-243) ng/mlDDU Puncture Site Rb pCO2 38 (35-45) mm/Hg pO2 131 H (80-100) mm/Hg HCO3 27.9 (21-28) mmol/L ABG pH 7.47 H (7.35-7.45) ABG Total CO2 28.9 H (22-28) mmol/L ABG O2 Saturation 98.8 H (95-98) % ABG Base Excess 3.8 H (-2.0-3.0) mmol/L ABG Hemoglobin 11.1 L (11.7-17.4) g/dL ABG Carboxyhemoglobin 1.4 (0.5-1.5) % POC ABG HHb (Measured) 1.2 (0.0-5.0) % ABG Methemoglobin 0.9 (0.0-3.0) % Luis Test Na A-a O2 Difference 178.0 mm/Hg Respiratory Index 1.4 Hgb O2 Saturation 96.5 (95.0-98.0) % Vent Mode Prvc Mechanical Rate 20 FiO2 50.0 % Tidal Volume 500 PEEP 5 Sodium (132-148) mmol/L Potassium (3.6-5.2) mmol/L Chloride (98-107) mmol/L Carbon Dioxide (22-30) mmol/L Anion Gap (10-20) BUN (7-17) mg/dL Creatinine (0.7-1.2) mg/dL Est GFR ( Amer) Est GFR (Non-Af Amer) POC Glucose (mg/dL) 139 H (65-110) mg/dL Random Glucose (65-105) mg/dL Calcium (8.6-10.4) mg/dl Phosphorus (2.5-4.5) mg/dL Magnesium (1.6-2.3) mg/dL Total Bilirubin (0.2-1.3) mg/dL AST (14-36) U/L ALT (9-52) U/L Alkaline Phosphatase (38-126) U/L Total Protein (6.3-8.3) g/dL Albumin (3.5-5.0) g/dL Globulin (2.2-3.9) gm/dL Albumin/Globulin Ratio (1.0-2.1) 09/04/18 09/04/18 09/04/18 Range/Units 23:40 18:11 11:35 WBC (4.8-10.8) K/uL RBC (3.80-5.20) Mil/uL Hgb (11.0-16.0) g/dL Hct (34.0-47.0) % MCV (81.0-99.0) fL MCH (27.0-31.0) pg MCHC (33.0-37.0) g/dL RDW (11.5-14.5) % Plt Count (130-400) K/uL MPV (7.2-11.7) fL Neut % (Auto) (50.0-75.0) % Lymph % (Auto) (20.0-40.0) % [place] % (Auto) (0.0-10.0) % Eos % (Auto) (0.0-4.0) % Baso % (Auto) (0.0-2.0) % Neut # (Auto) (1.8-7.0) K/uL Lymph # (Auto) (1.0-4.3) K/uL [place] # (Auto) (0.0-0.8) K/uL Eos # (Auto) (0.0-0.7) K/uL Baso # (Auto) (0.0-0.2) K/uL Neutrophils % (Manual) (50-75) % Band Neutrophils % (0-2) % Lymphocytes % (Manual) (20-40) % Monocytes % (Manual) (0-10) % Platelet Estimate (NORMAL) Polychromasia Hypochromasia (manual) Anisocytosis (manual) APTT (21-34) SECONDS D-Dimer, Quantitative (0-243) ng/mlDDU Puncture Site pCO2 (35-45) mm/Hg pO2 (80-100) mm/Hg HCO3 (21-28) mmol/L ABG pH (7.35-7.45) ABG Total CO2 (22-28) mmol/L ABG O2 Saturation (95-98) % ABG Base Excess (-2.0-3.0) mmol/L ABG Hemoglobin (11.7-17.4) g/dL ABG Carboxyhemoglobin (0.5-1.5) % POC ABG HHb (Measured) (0.0-5.0) % ABG Methemoglobin (0.0-3.0) % Luis Test A-a O2 Difference mm/Hg Respiratory Index Hgb O2 Saturation (95.0-98.0) % Vent Mode Mechanical Rate FiO2 % Tidal Volume PEEP Sodium (132-148) mmol/L Potassium (3.6-5.2) mmol/L Chloride (98-107) mmol/L Carbon Dioxide (22-30) mmol/L Anion Gap (10-20) BUN (7-17) mg/dL Creatinine (0.7-1.2) mg/dL Est GFR ( Amer) Est GFR (Non-Af Amer) POC Glucose (mg/dL) 104 99 129 H (65-110) mg/dL Random Glucose (65-105) mg/dL Calcium (8.6-10.4) mg/dl Phosphorus (2.5-4.5) mg/dL Magnesium (1.6-2.3) mg/dL Total Bilirubin (0.2-1.3) mg/dL AST (14-36) U/L ALT (9-52) U/L Alkaline Phosphatase (38-126) U/L Total Protein (6.3-8.3) g/dL Albumin (3.5-5.0) g/dL Globulin (2.2-3.9) gm/dL Albumin/Globulin Ratio (1.0-2.1) Laboratory Results - last 24 hr 09/04/18 09/04/18 09/04/18 11:35 18:11 23:40 WBC RBC Hgb Hct MCV MCH MCHC RDW Plt Count MPV Neut % (Auto) Lymph % (Auto) [place] % (Auto) Eos % (Auto) Baso % (Auto) Neut # (Auto) Lymph # (Auto) [place] # (Auto) Eos # (Auto) Baso # (Auto) Neutrophils % (Manual) Band Neutrophils % Lymphocytes % (Manual) Monocytes % (Manual) Platelet Estimate Polychromasia Hypochromasia (manual) Anisocytosis (manual) APTT D-Dimer, Quantitative Puncture Site pCO2 pO2 HCO3 ABG pH ABG Total CO2 ABG O2 Saturation ABG Base Excess ABG Hemoglobin ABG Carboxyhemoglobin POC ABG HHb (Measured) ABG Methemoglobin Luis Test A-a O2 Difference Respiratory Index Hgb O2 Saturation Vent Mode Mechanical Rate FiO2 Tidal Volume PEEP Sodium Potassium Chloride Carbon Dioxide Anion Gap BUN Creatinine Est GFR ( Amer) Est GFR (Non-Af Amer) POC Glucose (mg/dL) 129 H 99 104 Random Glucose Calcium Phosphorus Magnesium Total Bilirubin AST ALT Alkaline Phosphatase Total Protein Albumin Globulin Albumin/Globulin Ratio 09/05/18 09/05/18 09/05/18 04:30 05:16 06:11 WBC 22.4 H RBC 4.06 Hgb 10.3 L Hct 31.9 L MCV 78.6 L MCH 25.3 L MCHC 32.2 L RDW 19.3 H Plt Count 62 L D MPV 10.0 Neut % (Auto) 85.5 H Lymph % (Auto) 8.5 L [place] % (Auto) 3.6 Eos % (Auto) 2.2 Baso % (Auto) 0.2 Neut # (Auto) 19.1 H Lymph # (Auto) 1.9 [place] # (Auto) 0.8 Eos # (Auto) 0.5 Baso # (Auto) 0.0 Neutrophils % (Manual) 68 Band Neutrophils % 21 H* Lymphocytes % (Manual) 9 L Monocytes % (Manual) 2 Platelet Estimate Decreased L Polychromasia Slight Hypochromasia (manual) Slight Anisocytosis (manual) Slight APTT D-Dimer, Quantitative Puncture Site Rb pCO2 38 pO2 131 H HCO3 27.9 ABG pH 7.47 H ABG Total CO2 28.9 H ABG O2 Saturation 98.8 H ABG Base Excess 3.8 H ABG Hemoglobin 11.1 L ABG Carboxyhemoglobin 1.4 POC ABG HHb (Measured) 1.2 ABG Methemoglobin 0.9 Luis Test Na A-a O2 Difference 178.0 Respiratory Index 1.4 Hgb O2 Saturation 96.5 Vent Mode Prvc Mechanical Rate 20 FiO2 50.0 Tidal Volume 500 PEEP 5 Sodium Potassium Chloride Carbon Dioxide Anion Gap BUN Creatinine Est GFR ( Amer) Est GFR (Non-Af Amer) POC Glucose (mg/dL) 139 H Random Glucose Calcium Phosphorus Magnesium Total Bilirubin AST ALT Alkaline Phosphatase Total Protein Albumin Globulin Albumin/Globulin Ratio 09/05/18 09/05/18 09/05/18 06:11 14:25 14:32 WBC RBC Hgb Hct MCV MCH MCHC RDW Plt Count MPV Neut % (Auto) Lymph % (Auto) [place] % (Auto) Eos % (Auto) Baso % (Auto) Neut # (Auto) Lymph # (Auto) [place] # (Auto) Eos # (Auto) Baso # (Auto) Neutrophils % (Manual) Band Neutrophils % Lymphocytes % (Manual) Monocytes % (Manual) Platelet Estimate Polychromasia Hypochromasia (manual) Anisocytosis (manual) APTT 31 D-Dimer, Quantitative > 5250 H Puncture Site pCO2 pO2 HCO3 ABG pH ABG Total CO2 ABG O2 Saturation ABG Base Excess ABG Hemoglobin ABG Carboxyhemoglobin POC ABG HHb (Measured) ABG Methemoglobin Luis Test A-a O2 Difference Respiratory Index Hgb O2 Saturation Vent Mode Mechanical Rate FiO2 Tidal Volume PEEP Sodium 146 Potassium 3.1 L Chloride 110 H Carbon Dioxide 28 Anion Gap 11 BUN 18 H Creatinine 0.5 L Est GFR ( Amer) > 60 Est GFR (Non-Af Amer) > 60 POC Glucose (mg/dL) Random Glucose 124 H Calcium 7.4 L Phosphorus 4.0 Magnesium 2.1 Total Bilirubin 1.8 H AST 36 D ALT 32 Alkaline Phosphatase 105 Total Protein 4.5 L Albumin 2.2 L Globulin 2.3 Albumin/Globulin Ratio 0.9 L EKG/Cardiology Studies: Cardiology / EKG Studies 09/05/18 13:20 ELECTROCARDIOGRAM Stat Comment: Mode Of Transportation: Reason For Exam: possible PE Critical Care Progress Note - Nutrition Nutrition: Nutrition Category Date Time Status NPO Diet [DIET] Diets 08/31/18 Breakfast Active Assessment/Plan - Assessment and Plan (Free Text) Plan: Patient seen and examined at bedside. Patient post op in shock -shock: continue pressors to keep MAP >65 -continue broad spectrum abx, start antifungal, -monitor urine output keep > 0.5 mlkghr -above resident documents my clinical management and physicla findings -prognosis guarded -cc time 45 minutes excluding any time spent on procedures - Date & Time Date: 08/31/18 Time: 21:00
--- NOTE | 2018-08-31 12:06 | PCM.SURG1 ---
Surgeon's Initial Post Op Note - Surgeon's Notes Surgeon: Dr. [facility] Coordinator: Gale Longo, PGY2; Geetha Galvin PGY3 Type of Anesthesia: General Endo Anesthesia Administered By: Dr. Mcguire Pre-Operative Diagnosis: intra-abdominal infection vs bleed Operative Findings: large amount of feculent peritoneal fluid, perforation through entire tickness of anterior wall of the distal sigmoid/proximal rectum approximately 8mm in diameter, adequate hemostasis obtained by end of case with cautery and suture ligature Post-Operative Diagnosis: sigmoid colon perforation Operation Performed: exploratory laparotomy, resection of distal sigmoid colon/proximal rectum, colostomy creation, washout of the abdomen Specimen/Specimens Removed: perforated distal sigmoid colon Estimated Blood Loss: EBL {In ML}: 150 Blood Products Given: N/A Drains Used: Ismael (x2), Brenda Post-Op Condition: Critical Date of Surgery/Procedure: 08/31/18 Time of Surgery/Procedure: 09:15
--- NOTE | 2018-08-31 12:46 | CT ---
Date of service: 2018-08-31 03:56:35 PROCEDURE: CT Abdomen and Pelvis with contrast HISTORY: abd pain , s/p torri COMPARISON: None available. TECHNIQUE: Contrast dose: Abdominal pain status post TORRI Radiation dose: Total exam DLP = 771.74 mGy-cm. This CT exam was performed using one or more of the following dose reduction techniques: Automated exposure control, adjustment of the mA and/or kV according to patient size, and/or use of iterative reconstruction technique. FINDINGS: LOWER THORAX: Bibasilar atelectasis. No visible pleural effusion or pneumothorax. LIVER: Unremarkable. GALLBLADDER AND BILE DUCTS: Unremarkable. PANCREAS: Unremarkable. SPLEEN: Unremarkable. ADRENALS: Unremarkable. KIDNEYS AND URETERS: The kidneys enhance symmetrically. No hydronephrosis or obstructing calculus identified. VASCULATURE: No aortic aneurysm. BOWEL: Mild gastric wall thickening. Fluid within an incompletely distended stomach. Correlate for gastroparesis. Lack of oral contrast limits evaluation for bowel pathology. Bowel loops appear within normal limits of caliber without evidence of obstruction. Small bowel wall thickening may reflect enteritis, possibly reactive/inflammatory edema. APPENDIX: The appendix is not identified. PERITONEUM: Abdominal and pelvic ascites/free fluid. Moderate to large amount of abdominal free air consistent with recent postsurgical status. Correlate clinically. LYMPH NODES: No bulky adenopathy identified. BLADDER: Urinary bladder wall thickening. Air within the urinary bladder. Correlate for recent instrumentation. Cystitis is also considered. REPRODUCTIVE: Unremarkable. BONES: No acute osseous abnormality is detected. OTHER FINDINGS: Large pelvic fluid collection measuring approximately 10.0 x 7.5 cm containing gas density, heterogeneous fluid and possible peripheral enhancement; appearance worrisome for abscess. Adjacent inflammatory changes noted. IMPRESSION: Large pelvic fluid collection measures approximately 10.0 x 7.5 cm containing gas density, heterogeneous fluid, and possible peripheral enhancement; appearance worrisome for abscess. Adjacent inflammatory changes evident. Free air consistent with recent postoperative status. Correlate clinically. Mild gastric wall thickening. Fluid within an incompletely distended stomach. Correlate for gastroparesis. Marked small bowel wall thickening may reflect enteritis, possibly reactive/inflammatory edema. Abdominal and pelvic ascites/free fluid. Urinary bladder wall thickening. Air within the urinary bladder. Correlate for recent instrumentation. Cystitis is also considered. Bibasilar atelectasis. Additional findings as above. Preliminary impression was provided by [facility]
[2018-08-31 13:07] LABS: BASO % 0.1 % (0.0-2.0); EOS % 0.5 % (0.0-4.0); HEMOGLOBIN 12.1 g/dL (11.0-16.0); LYMPH # 0.8 K/uL (1.0-4.3); LYMPH % 14.9 % (20.0-40.0); MEAN CORPUSCULAR HEMOGLOBIN 25.9 pg (27.0-31.0); MEAN CORPUSCULAR HGB CONC 32.3 g/dL (33.0-37.0); MEAN PLATELET VOLUME 9.7 fL (7.2-11.7); MONO # 0.3 K/uL (0.0-0.8); MONO % 5.2 % (0.0-10.0); NEUT # 4.1 K/uL (1.8-7.0); NEUT % 79.3 % (50.0-75.0); NRBC % 0.1 % (0.0-2.0); RBC 4.68 Mil/uL (3.80-5.20); RED CELL DISTRIBUTION WIDTH 18.4 % (11.5-14.5); WHITE BLOOD COUNT 5.1 K/uL (4.8-10.8)
[2018-08-31 13:16] LABS: INR 1.3; PROTHROMBIN TIME 14.6 SECONDS (9.7-12.2)
[2018-08-31 13:35] LABS: ALB/GLOB RATIO 0.8 (1.0-2.1); ALBUMIN 1.8 g/dL (3.5-5.0); ALT/SGPT 19 U/L (9-52); AST/SGOT 16 U/L (14-36); BLOOD UREA NITROGEN 9 mg/dL (7-17); GFR NON-AFRICAN AMERICAN > 60
[2018-08-31 13:49] LABS: ABG ALLEN TEST O; ARTERIAL BLOOD GAS HCO3 17.9 mmol/L (21-28); ARTERIAL BLOOD GAS O2 SAT 98.4 % (95-98); ARTERIAL BLOOD GAS PCO2 24 mm/Hg (35-45); ARTERIAL BLOOD GAS PH 7.38 (7.35-7.45); ARTERIAL BLOOD GAS PO2 116 mm/Hg (80-100); ARTERIAL BLOOD GAS TCO2 14.9 mmol/L (22-28)
[2018-08-31] MEDS ORDERED: Albumin Human 25% (12.5 gm/50 ml) IV ONE ×2 (14:26→18:30)
[2018-08-31] MEDS: Midazolam 50 mg/10 ml 100 MG in Dextrose 5% In Water 80 ML IV SCH (14:30)
[2018-08-31] MEDS ORDERED: Gentamicin 80 mg/2mL Inj. IVPB ONE (14:30)
[2018-08-31] MEDS ORDERED: SODIUM CHLORIDE 0.9% IVPB ONE (14:45)
[2018-08-31] MEDS ORDERED: GENTAMICIN IVPB ONE (14:45)
[2018-08-31] MEDS: Vasopressin 40 UNITS in Dextrose 5% In Water 38 ML IV SCH (14:55)
[2018-08-31] MEDS ORDERED: Propranolol 1 mg/mL Inj IVP SCH (15:30)
--- NOTE | 2018-08-31 15:59 | RAD ---
HISTORY: ?ARDS COMPARISON: Chest x-ray performed 08/31/18 at 812 hr TECHNIQUE: Chest, one view. FINDINGS: Examination limited by habitus and hypoinflation. Endotracheal tube terminates approximately 3.4 cm above the siria. Nasogastric tube extends expected location of the stomach. External wires and leads obscure evaluation of the underlying parenchyma. LUNGS: Mild pulmonary venous congestion. No focal consolidation. PLEURA: No significant pleural effusion identified. No definite pneumothorax . CARDIOVASCULAR: Heart size appears top normal. OSSEOUS STRUCTURES: No acute osseous abnormality identified. VISUALIZED UPPER ABDOMEN: Unremarkable. OTHER FINDINGS: None. IMPRESSION: Endotracheal tube. Nasogastric tube. Mild pulmonary venous congestion
[2018-08-31] MEDS ORDERED: Acetaminophen IV 1,000 MG in Premixed IV 1 EA IV PRN (17:19)
[2018-08-31 18:04] LABS: ARTERIAL BLOOD GAS HCO3 17.6 mmol/L (21-28); ARTERIAL BLOOD GAS O2 SAT 98.8 % (95-98); ARTERIAL BLOOD GAS PCO2 24 mm/Hg (35-45); ARTERIAL BLOOD GAS PH 7.37 (7.35-7.45); ARTERIAL BLOOD GAS PO2 167 mm/Hg (80-100); ARTERIAL BLOOD GAS TCO2 14.6 mmol/L (22-28)
--- NOTE | 2018-08-31 18:10 | PCM.PROC ---
Procedures Attestation:: I certify that I have explained the specified Operation(s) or Procedure(s), risks, benefits and reasonable alternatives to the Patient and/or other person responsible. The opportunity was given to ask questions and all questions answered - Arterial Line Right Radial Aseptic technique was employed throughout the procedure: Full sterile barriers (mask, hair cover, sterile gown, sterile gloves), Full body sterile drape, Chloraprep Antiseptic: 30 second prep for IJ or SC sites Time Out Performed: Yes Pt. placed on Pulse Ox Monitor: Yes Central Line Prep: Chlorhexidine-Alcohol Combination Local Anesthesia Used: Lidocaine 1% Amount of Anesthesia Used (mls): 5 Ultrasound Used for Placement: Yes Gauge (Size): 20 gauge Technique Used: Guide Wire Technique Secured by: Suture Post procedure dressing: Gauze, Clear vapor permeable, Chlorhexidine disc (Biopatch) Patient Tolerated Procedure: well Immediate Complications: none
--- NOTE | 2018-08-31 18:16 | PCM.SEPTIC ---
Sepsis Progress Note - Reassessment Type Date of Evaluation: 08/31/18 Time of Evaluation: 18:15 Reassessment Type: Non-invasive reassessment - Non Invasive Reassessment Were the most recent vital sign reviewed: Yes Vital Sign (Latest): Temp Pulse Resp BP Pulse Ox 99.2 F 138 H 26 H 99/56 L 99 08/31/18 06:00 08/31/18 14:55 08/31/18 14:55 08/31/18 14:55 08/31/18 14:55 Cardiovascular: Yes: Tachycardia Respiratory: Yes: Normal Breath Sounds. No: Wheezing Capillary Refill: Normal (Less than 2 sec) Pulses: Normal Radial, Normal Dorsalis Pedis, Normal Posterior Tibialis Skin: Normal Color - Invasive Reassessment (complete 2 of 4) Was a Central Venous Pressure Measurement obtained within 6 Hours after the presentation of septic shock: No Was a central venous oxygen measurement obtained within 6 hours after the presentation of septic shock: No Was a bedside cardiovascular ultrasound performed within 6 hours after the presentation of septic shock: No Was a passive leg raise performed or was a fluid challenge performed within 6 hrs of the initial fluid bolus: Yes Passive Leg Raise Result: Positive Fluid Challenge performed: Yes
[2018-08-31] MEDS ORDERED: Albumin Human 25% (12.5 gm/50 ml) IV SCH ×2 (18:30→19:00)
[2018-08-31] MEDS: Meropenem 1 GM in Sodium Chloride 0.9% 100 ML IVPB SCH (19:55)
[2018-08-31 22:19] LABS: ARTERIAL BLOOD GAS HCO3 19.5 mmol/L (21-28); ARTERIAL BLOOD GAS O2 SAT 99.3 % (95-98); ARTERIAL BLOOD GAS PCO2 24 mm/Hg (35-45); ARTERIAL BLOOD GAS PH 7.42 (7.35-7.45); ARTERIAL BLOOD GAS PO2 139 mm/Hg (80-100); ARTERIAL BLOOD GAS TCO2 16.3 mmol/L (22-28)
[2018-09-01] MEDS: (Novolog) Insulin Aspart, Recombinant 100 u/ml 10 ml vial SC SCH ×4 (00:24→18:03)
[2018-09-01] MEDS: Albumin Human 25% (12.5 gm/50 ml) IV SCH ×4 (00:25→18:03)
[2018-09-01] MEDS: HYDROmorphone 1 mg/ml ISec IVP PRN (03:00)
[2018-09-01] MEDS: Piperacill/Tazo 3.375gm in Dex 3.375 GM/50 ML BAG IVPB SCH ×4 (03:13→21:28)
[2018-09-01] MEDS: Meropenem 1 GM in Sodium Chloride 0.9% 100 ML IVPB SCH ×3 (03:39→20:39)
[2018-09-01] MEDS: Lactated Ringer's 1,000 ML IV SCH (03:41)
[2018-09-01 04:22] LABS: ARTERIAL BLOOD GAS HCO3 19.9 mmol/L (21-28); ARTERIAL BLOOD GAS PCO2 26 mm/Hg (35-45); ARTERIAL BLOOD GAS PH 7.41 (7.35-7.45); ARTERIAL BLOOD GAS PO2 98 mm/Hg (80-100); ARTERIAL BLOOD GAS TCO2 17.3 mmol/L (22-28)
[2018-09-01 04:22] LABS: BASO % 0.1 % (0.0-2.0); EOS # 0.1 K/uL (0.0-0.7); EOS % 0.7 % (0.0-4.0); HEMOGLOBIN 9.1 g/dL (11.0-16.0); LYMPH # 0.8 K/uL (1.0-4.3); LYMPH % 5.4 % (20.0-40.0); MEAN CELL VOLUME 77.4 fL (81.0-99.0); MEAN CORPUSCULAR HGB CONC 32.2 g/dL (33.0-37.0); MEAN PLATELET VOLUME 9.2 fL (7.2-11.7); MONO # 0.8 K/uL (0.0-0.8); MONO % 5.3 % (0.0-10.0); NEUT % 88.5 % (50.0-75.0); PLATELET COUNT 213 K/uL (130-400); RBC 3.63 Mil/uL (3.80-5.20); RED CELL DISTRIBUTION WIDTH 18.5 % (11.5-14.5); WHITE BLOOD COUNT 14.6 K/uL (4.8-10.8)
[2018-09-01 04:36] LABS: ALB/GLOB RATIO 1.2 (1.0-2.1); ALBUMIN 2.7 g/dL (3.5-5.0); ALT/SGPT 21 U/L (9-52); AST/SGOT 31 U/L (14-36); BLOOD UREA NITROGEN 9 mg/dL (7-17); CALCIUM 6.7 mg/dl (8.6-10.4); GFR NON-AFRICAN AMERICAN > 60
[2018-09-01] MEDS: Norepinephrine 8 MG in Dextrose 5% In Water 242 ML IV PRN ×2 (05:26→15:43)
[2018-09-01 05:33] LABS: BANDS 69 % (0-2); BASOPHIL 1 % (0-2); BLASTS 2 % (0-0); LYMPHOCYTE 8 % (20-40); METAMYELOCYTE 3 % (0-0); MONOCYTE 4 % (0-10); MYELOCYTE 4 % (0-0); NEUTROPHIL 7 % (50-75); PLATELET ESTIMATE NORMAL (NORMAL); REACTIVE LYMPHOCYTES 2 % (0-0); TOTAL CELLS COUNTED 100
--- NOTE | 2018-09-01 06:15 | CP.PCM.PN ---
Subjective - Date & Time of Evaluation Date of Evaluation: 09/01/18 Time of Evaluation: 07:55 - Subjective Subjective: Surgery Pt seen and examined. Pt underwent emergent surgery yesterday. Ex lap colectomy. Pt on vent and on pressers. HR improved to 120s. On sedation. Doesn't response to verbal commands. Spoke to family in detail. Objective - Vital Signs/Intake and Output Vital Signs (last 24 hours): Temp Pulse Resp BP Pulse Ox 98.2 F 119 H 25 H 94/59 L 99 09/01/18 05:00 09/01/18 06:01 09/01/18 06:01 09/01/18 06:01 09/01/18 06:01 Intake and Output: 08/31/18 09/01/18 18:59 06:59 Intake Total 6444.1 3521.6 Output Total 1245 975 Balance 5199.1 2546.6 - Medications Medications: Current Medications Albumin Human (Albumin Human 25% (12.5 Gm/50 Ml)) 25 gm IV Q6H [facility] Stop: 09/01/18 19:01 Last Admin: 09/01/18 00:25 Dose: 25 gm Hydrocortisone Sodium Succinate (Solu-Cortef) 100 mg IV Q8H [facility] Last Admin: 09/01/18 05:30 Dose: 100 mg Hydromorphone HCl (Dilaudid) 1 mg IVP Q4H PRN PRN Reason: Pain, severe (8-10) Last Admin: 09/01/18 03:00 Dose: 1 mg Fentanyl Citrate 2,500 mcg/ (Sodium Chloride) 250 mls @ 14.52 mls/hr IV .[id number] [facility]; Protocol Last Admin: 09/01/18 02:43 Dose: 2 mcg/kg/hr, 14.52 mls/hr Metronidazole (Flagyl) 500 mg in 100 mls @ 100 mls/hr IVPB Q8H [facility]; Protocol Last Admin: 08/31/18 23:25 Dose: 100 mls/hr Piperacillin Sod/Tazobactam Sod (Zosyn 3.375 Gm Iv Premix) 3.375 gm in 50 mls @ 100 mls/hr IVPB Q6H [facility]; Protocol Last Admin: 09/01/18 03:13 Dose: 100 mls/hr Vancomycin HCl 1 gm/ Sodium (Chloride) 250 mls @ 167 mls/hr IVPB Q24H [facility]; Protocol Last Admin: 08/31/18 09:19 Dose: 167 mls/hr Norepinephrine Bitartrate 8 mg (/ Dextrose) 250 mls @ 7.5 mls/hr IV .Q24H PRN; Protocol PRN Reason: TITRATE PER MD ORDER Last Admin: 09/01/18 05:26 Dose: 14.98 mcg/min, 28.1 mls/hr Lactated Ringer's (Lactated Ringer's) 1,000 mls @ 150 mls/hr IV .[id number] [facility] Last Admin: 09/01/18 03:41 Dose: 150 mls/hr Vasopressin 40 units/ Dextrose 40 mls @ 2.4 mls/hr IV .[id number] [facility] Last Admin: 08/31/18 14:55 Dose: 2.4 mls/hr Midazolam HCl 100 mg/ Dextrose 100 mls @ 1.45 mls/hr IV .Q24H [facility]; Protocol Last Titration: 08/31/18 20:45 Dose: 0.04 mg/kg/hr, 3.5 mls/hr Acetaminophen 1,000 mg/ (Miscellaneous) 100 mls @ 400 mls/hr IV Q6 PRN PRN Reason: Fever >100.4 F Stop: 09/01/18 17:20 Meropenem 1 gm/ Sodium (Chloride) 100 mls @ 100 mls/hr IVPB Q8H [facility]; Protocol Last Admin: 09/01/18 03:39 Dose: 100 mls/hr Insulin Aspart (Novolog) 0 unit SC Q6 [facility]; Protocol Last Admin: 09/01/18 00:24 Dose: Not Given Ondansetron HCl (Zofran Inj) 4 mg IVP Q6H PRN PRN Reason: Nausea/Vomiting Pantoprazole Sodium (Protonix Inj) 40 mg IVP DAILY [facility] Last Admin: 08/31/18 16:36 Dose: 40 mg - Labs Labs: 09/01/18 04:16 09/01/18 04:16 PT 14.6 SECONDS (9.7-12.2) H 08/31/18 13:02 INR 1.3 08/31/18 13:02 APTT 34 SECONDS (21-34) D 08/31/18 13:02 - Constitutional Appears: In Acute Distress - Head Exam Head Exam: ATRAUMATIC, NORMAL INSPECTION, NORMOCEPHALIC - ENT Exam ENT Exam: Mucous Membranes Moist - Neck Exam Neck Exam: Normal Inspection - Respiratory Exam Respiratory Exam: Respiratory Distress - Cardiovascular Exam Cardiovascular Exam: Tachycardia, +S1, +S2 - GI/Abdominal Exam GI & Abdominal Exam: Distended, Soft. absent: Firm, Tenderness, Mass, Rebound Additional comments: Drains x2 ss fluids 400cc/24hrs. Stoma pink: no output. - Extremities Exam Extremities Exam: Pedal Edema - Back Exam Back Exam: NORMAL INSPECTION - Neurological Exam Neurological Exam: absent: Alert, Awake - Skin Skin Exam: Dry, Intact. absent: Erythema Assessment and Plan - Assessment and Plan (Free Text) Assessment: POD 1 s/p exp laparotomy. spetic shock 50cc/hr urine output 400cc ss drain /24hrs -ABX per ID -IVF -monitor VS -monitor labs/ drain/urine output . Jayro Patino
[2018-09-01] MEDS: Vasopressin 40 UNITS in Dextrose 5% In Water 38 ML IV SCH ×3 (06:24→23:20)
[2018-09-01] MEDS ORDERED: Lactated Ringer's 1,000 ML IV SCH (07:06)
[2018-09-01] MEDS: Dextrose 5%/0.45% NS 1,000 ML IV SCH ×2 (08:38→18:44)
[2018-09-01] MEDS: metroNIDAZOLE IV 500 mg/100 ml 500 MG/100 ML BAG IVPB SCH ×3 (08:40→23:47)
[2018-09-01] MEDS: Magnesium Sulfate 1 gm in D5W 1 GM/100 ML BAG IVPB SCH ×2 (09:44→10:48)
[2018-09-01] MEDS: Albuterol-Ipratrop 3 mg / 0.5 (3 ml) UD INH SCH ×2 (13:40→19:30)
--- NOTE | 2018-09-01 14:21 | CP.PCM.CON ---
History of Present Illness - History of Present Illness History of Present Illness: 33F who had a laparoscopic total hysterectomy 3 days ago in [place] who presented to the ED with severe lower abdominal pain starting 7PM last night. patient states that the pain is in the suprapubis and does not radiate. Patient had tachycardia in the 120's Patient was found to have pneumoperitoneum and a heterogenous fluid collection 9cm in diameter intra-abdominal, with gas present concerning for abscess, and some small free fluid in the pelvis. Underwent laparotomy with partial bowel resection due to perforation , colostomy, washout ID on board for severe sepsis and peritonitis PMH: asthma PSH: laparoscopic total hysterectomy 08/27/18, prior cyst excision and ovary destruction ALL: NKDA Social: denies all substances Review of Systems - Review of Systems All systems: reviewed and no additional remarkable complaints except (as per HPI) Past Patient History - Past Medical History & Family History Past Medical History?: Yes - Past Social History Smoking Status: Never Smoked - CARDIAC Hx Cardiac Disorders: No - PULMONARY Hx Asthma: Yes - NEUROLOGICAL Hx Neurological Disorder: No - HEENT Hx HEENT Problems: No - RENAL Hx Chronic Kidney Disease: No - ENDOCRINE/METABOLIC Hx Endocrine Disorders: No - HEMATOLOGICAL/ONCOLOGICAL Hx Blood Disorders: No - INTEGUMENTARY Hx Dermatological Problems: No - MUSCULOSKELETAL/RHEUMATOLOGICAL Hx Falls: No - GASTROINTESTINAL Hx Gastrointestinal Disorders: No - GENITOURINARY/GYNECOLOGICAL Hx Genitourinary Disorders: No Other/Comment: "PROBLEMS WITH MY OVARIES FOR ABOUT 4 YEARS" - PSYCHIATRIC Hx Substance Use: No - SURGICAL HISTORY Hx Surgeries: Yes Hx Hysterectomy: Yes (total hysterectomy - 08/27/18) Other/Comment: cyst right ovary 2014 - ANESTHESIA Hx Anesthesia: Yes Hx Anesthesia Reactions: No Meds Allergies/Adverse Reactions: Allergies Allergy/AdvReac Type Severity Reaction Status Date / Time No Known Allergies Allergy Verified 06/04/18 06:34 - Medications Medications: Current Medications Albumin Human (Albumin Human 25% (12.5 Gm/50 Ml)) 25 gm IV Q6H [facility] Stop: 09/01/18 19:01 Last Admin: 09/01/18 13:10 Dose: 25 gm Albuterol/Ipratropium (Duoneb 3 Mg/0.5 Mg (3 Ml) Ud) 3 ml INH RQ6 [facility] Last Admin: 09/01/18 13:40 Dose: 3 ml Hydrocortisone Sodium Succinate (Solu-Cortef) 50 mg IV Q12 [facility] Stop: 09/03/18 10:01 Last Admin: 09/01/18 09:18 Dose: 50 mg Fentanyl Citrate 2,500 mcg/ (Sodium Chloride) 250 mls @ 14.52 mls/hr IV .[id number] [facility]; Protocol Last Admin: 09/01/18 02:43 Dose: 2 mcg/kg/hr, 14.52 mls/hr Metronidazole (Flagyl) 500 mg in 100 mls @ 100 mls/hr IVPB Q8H [facility]; Protocol Last Admin: 09/01/18 08:40 Dose: 100 mls/hr Piperacillin Sod/Tazobactam Sod (Zosyn 3.375 Gm Iv Premix) 3.375 gm in 50 mls @ 100 mls/hr IVPB Q6H [facility]; Protocol Last Admin: 09/01/18 09:03 Dose: 100 mls/hr Vancomycin HCl 1 gm/ Sodium (Chloride) 250 mls @ 167 mls/hr IVPB Q24H [facility]; Protocol Last Admin: 09/01/18 10:14 Dose: 167 mls/hr Norepinephrine Bitartrate 8 mg (/ Dextrose) 250 mls @ 7.5 mls/hr IV .Q24H PRN; Protocol PRN Reason: TITRATE PER MD ORDER Last Admin: 09/01/18 05:26 Dose: 14.98 mcg/min, 28.1 mls/hr Vasopressin 40 units/ Dextrose 40 mls @ 2.4 mls/hr IV .[id number] [facility] Last Admin: 09/01/18 06:24 Dose: 2.4 mls/hr Midazolam HCl 100 mg/ Dextrose 100 mls @ 1.45 mls/hr IV .Q24H [facility]; Protocol Last Titration: 08/31/18 20:45 Dose: 0.04 mg/kg/hr, 3.5 mls/hr Acetaminophen 1,000 mg/ (Miscellaneous) 100 mls @ 400 mls/hr IV Q6 PRN PRN Reason: Fever >100.4 F Stop: 09/01/18 17:20 Last Admin: 09/01/18 09:13 Dose: 400 mls/hr Meropenem 1 gm/ Sodium (Chloride) 100 mls @ 100 mls/hr IVPB Q8H [facility]; Protocol Last Admin: 09/01/18 12:05 Dose: 100 mls/hr Dextrose/Sodium Chloride (Dextrose 5%/0.45% Ns 1000 Ml) 1,000 mls @ 100 mls/hr IV .Q10H [facility] Last Admin: 09/01/18 08:38 Dose: 100 mls/hr Insulin Aspart (Novolog) 0 unit SC Q6 [facility]; Protocol Last Admin: 09/01/18 12:05 Dose: 1 units Pantoprazole Sodium (Protonix Inj) 40 mg IVP DAILY [facility] Last Admin: 09/01/18 09:03 Dose: 40 mg Physical Exam - Constitutional Appears: Confused, Chronically Ill Additional comments: intubated sedated - Head Exam Head Exam: NORMOCEPHALIC - Eye Exam Eye Exam: EOMI. absent: Scleral icterus - ENT Exam ENT Exam: Mucous Membranes Dry - Neck Exam Neck exam: Negative for: Lymphadenopathy - Respiratory Exam Respiratory Exam: Decreased Breath Sounds, Clear to Auscultation Bilateral - Cardiovascular Exam Cardiovascular Exam: Tachycardia, REGULAR RHYTHM, +S1 - GI/Abdominal Exam GI & Abdominal Exam: Diminished Bowel Sounds, Distended, Hypoactive Bowel Sounds. absent: Soft Additional comments: drains in place as well as colostomy incision dry - Rectal Exam Rectal Exam: Deferred - Exam Exam: NORMAL INSPECTION - Extremities Exam Extremities exam: Positive for: pedal pulses present. Negative for: pedal edema - Back Exam Back exam: absent: CVA tenderness (L), CVA tenderness (R) - Neurological Exam Neurological exam: Altered - Psychiatric Exam Psychiatric exam: Depressed - Skin Skin Exam: Dry Results - Vital Signs Recent Vital Signs: Last Vital Signs Temp 98.4 F 09/01/18 12:00 Pulse 110 H 09/01/18 14:01 Resp 20 09/01/18 14:01 BP 98/58 L 09/01/18 14:01 Pulse Ox 98 09/01/18 14:01 - Labs Result Diagrams: 09/01/18 04:16 09/01/18 04:16 Labs: Laboratory Results - last 24 hr 08/31/18 08/31/18 08/31/18 13:02 13:02 15:14 WBC RBC Hgb Hct MCV MCH MCHC RDW Plt Count MPV Neut % (Auto) Lymph % (Auto) [place] % (Auto) Eos % (Auto) Baso % (Auto) Neut # (Auto) Lymph # (Auto) [place] # (Auto) Eos # (Auto) Baso # (Auto) Neutrophils % (Manual) Band Neutrophils % Lymphocytes % (Manual) Reactive Lymphs % Monocytes % (Manual) Basophils % (Manual) Metamyelocytes % Myelocytes % Blast Cells % Platelet Estimate Fibrinogen Puncture Site pCO2 pO2 HCO3 ABG pH ABG Total CO2 ABG O2 Saturation ABG Base Excess Luis Test ABG Potassium A-a O2 Difference Respiratory Index Sodium Chloride Glucose Lactate Vent Mode Mechanical Rate FiO2 PEEP Potassium Carbon Dioxide Anion Gap BUN Creatinine Est GFR ( Amer) Est GFR (Non-Af Amer) POC Glucose (mg/dL) Random Glucose Lactic Acid Calcium Phosphorus Magnesium Total Bilirubin AST ALT Alkaline Phosphatase Troponin I NT-Pro-B Natriuret Pep 1790 H Total Protein Albumin Globulin Albumin/Globulin Ratio Arterial Blood Potassium RPR Nonreactive Hep Bs Antibody Negative 08/31/18 08/31/18 08/31/18 17:25 17:25 17:27 WBC RBC Hgb Hct MCV MCH MCHC RDW Plt Count MPV Neut % (Auto) Lymph % (Auto) [place] % (Auto) Eos % (Auto) Baso % (Auto) Neut # (Auto) Lymph # (Auto) [place] # (Auto) Eos # (Auto) Baso # (Auto) Neutrophils % (Manual) Band Neutrophils % Lymphocytes % (Manual) Reactive Lymphs % Monocytes % (Manual) Basophils % (Manual) Metamyelocytes % Myelocytes % Blast Cells % Platelet Estimate Fibrinogen 329 Puncture Site pCO2 pO2 HCO3 ABG pH ABG Total CO2 ABG O2 Saturation ABG Base Excess Luis Test ABG Potassium A-a O2 Difference Respiratory Index Sodium Chloride Glucose Lactate Vent Mode Mechanical Rate FiO2 PEEP Potassium Carbon Dioxide Anion Gap BUN Creatinine Est GFR ( Amer) Est GFR (Non-Af Amer) POC Glucose (mg/dL) Random Glucose Lactic Acid 5.3 H* Calcium Phosphorus Magnesium Total Bilirubin AST ALT Alkaline Phosphatase Troponin I < 0.0120 NT-Pro-B Natriuret Pep Total Protein Albumin Globulin Albumin/Globulin Ratio Arterial Blood Potassium RPR Hep Bs Antibody 08/31/18 08/31/18 08/31/18 18:00 22:15 23:37 WBC RBC Hgb Hct MCV MCH MCHC RDW Plt Count MPV Neut % (Auto) Lymph % (Auto) [place] % (Auto) Eos % (Auto) Baso % (Auto) Neut # (Auto) Lymph # (Auto) [place] # (Auto) Eos # (Auto) Baso # (Auto) Neutrophils % (Manual) Band Neutrophils % Lymphocytes % (Manual) Reactive Lymphs % Monocytes % (Manual) Basophils % (Manual) Metamyelocytes % Myelocytes % Blast Cells % Platelet Estimate Fibrinogen Puncture Site [place] pCO2 24 L 24 L pO2 167 H 139 H HCO3 17.6 L 19.5 L ABG pH 7.37 7.42 ABG Total CO2 14.6 L 16.3 L ABG O2 Saturation 98.8 H 99.3 H ABG Base Excess -9.5 L -7.0 L Luis Test Na Na ABG Potassium 3.5 L 4.1 A-a O2 Difference 302.0 188.0 Respiratory Index 1.8 1.4 Sodium 138.0 137.0 Chloride 115.0 H 113.0 H Glucose 141 H 156 H Lactate 3.7 H 3.5 H Vent Mode P.c Pc Mechanical Rate 23 25 FiO2 70.0 50.0 PEEP Potassium Carbon Dioxide Anion Gap BUN Creatinine Est GFR ( Amer) Est GFR (Non-Af Amer) POC Glucose (mg/dL) 157 H Random Glucose Lactic Acid Calcium Phosphorus Magnesium Total Bilirubin AST ALT Alkaline Phosphatase Troponin I NT-Pro-B Natriuret Pep Total Protein Albumin Globulin Albumin/Globulin Ratio Arterial Blood Potassium 3.5 L 4.1 RPR Hep Bs Antibody 09/01/18 09/01/18 09/01/18 04:16 04:16 04:16 WBC 14.6 H D RBC 3.63 L Hgb 9.1 L D Hct 28.1 L MCV 77.4 L D MCH 25.0 L MCHC 32.2 L RDW 18.5 H Plt Count 213 MPV 9.2 Neut % (Auto) 88.5 H Lymph % (Auto) 5.4 L [place] % (Auto) 5.3 Eos % (Auto) 0.7 Baso % (Auto) 0.1 Neut # (Auto) 13.0 H Lymph # (Auto) 0.8 L [place] # (Auto) 0.8 Eos # (Auto) 0.1 Baso # (Auto) 0.0 Neutrophils % (Manual) 7 L Band Neutrophils % 69 H* Lymphocytes % (Manual) 8 L Reactive Lymphs % 2 H Monocytes % (Manual) 4 Basophils % (Manual) 1 Metamyelocytes % 3 H Myelocytes % 4 H Blast Cells % 2 H Platelet Estimate Normal Fibrinogen Puncture Site pCO2 pO2 HCO3 ABG pH ABG Total CO2 ABG O2 Saturation ABG Base Excess Luis Test ABG Potassium A-a O2 Difference Respiratory Index Sodium 138 Chloride 109 H Glucose Lactate Vent Mode Mechanical Rate FiO2 PEEP Potassium 4.6 Carbon Dioxide 15 L Anion Gap 19 BUN 9 Creatinine 0.8 Est GFR ( Amer) > 60 Est GFR (Non-Af Amer) > 60 POC Glucose (mg/dL) Random Glucose 157 H Lactic Acid 2.9 H Calcium 6.7 L Phosphorus 3.9 Magnesium 1.3 L Total Bilirubin 2.4 H AST 31 ALT 21 Alkaline Phosphatase 24 L D Troponin I NT-Pro-B Natriuret Pep Total Protein 4.9 L Albumin 2.7 L D Globulin 2.2 Albumin/Globulin Ratio 1.2 Arterial Blood Potassium RPR Hep Bs Antibody 09/01/18 09/01/18 09/01/18 04:19 04:19 11:10 WBC RBC Hgb Hct MCV MCH MCHC RDW Plt Count MPV Neut % (Auto) Lymph % (Auto) [place] % (Auto) Eos % (Auto) Baso % (Auto) Neut # (Auto) Lymph # (Auto) [place] # (Auto) Eos # (Auto) Baso # (Auto) Neutrophils % (Manual) Band Neutrophils % Lymphocytes % (Manual) Reactive Lymphs % Monocytes % (Manual) Basophils % (Manual) Metamyelocytes % Myelocytes % Blast Cells % Platelet Estimate Fibrinogen Puncture Site A-line pCO2 26 L pO2 98 HCO3 19.9 L ABG pH 7.41 ABG Total CO2 17.3 L ABG O2 Saturation 98.0 ABG Base Excess -6.5 L Luis Test Na ABG Potassium 3.8 A-a O2 Difference 226.0 Respiratory Index 2.3 Sodium 138.0 Chloride 113.0 H Glucose 159 H Lactate 2.8 H Vent Mode A/c pc Mechanical Rate 25 FiO2 50.0 PEEP 5 Potassium Carbon Dioxide Anion Gap BUN Creatinine Est GFR ( Amer) Est GFR (Non-Af Amer) POC Glucose (mg/dL) 187 H Random Glucose Lactic Acid Calcium Phosphorus Magnesium Total Bilirubin AST ALT Alkaline Phosphatase Troponin I 0.0900 NT-Pro-B Natriuret Pep Total Protein Albumin Globulin Albumin/Globulin Ratio Arterial Blood Potassium 3.8 RPR Hep Bs Antibody Assessment & Plan - Assessment and Plan (Free Text) Assessment: perforated viscus peritonitis severe sepsis s/p colostomy recent laparoscopic hysterectomy intraabdominal collection cont iv antibiotics, wound care and vent support
[2018-09-01] MEDS: Midazolam 50 mg/10 ml 100 MG in Dextrose 5% In Water 80 ML IV SCH (15:47)
[2018-09-01] MEDS: Fluconazole IV 200mg/100 ml NS 100 ML IVPB SCH (15:51)
--- NOTE | 2018-09-01 17:34 | CP.CCUPN ---
CCU Subjective - Physician Review Events Since Last Encounter (Free Text): 09/01/18 17:32 Patient is 33-year-old female had elective hysterectomy on 08/28/2018. Following that the patient admitted to the [facility] with the fecal peritonitis, sigmoid perforation. Patient had a surgery done for cervical cancer in situ, I spoke to the community health director at [facility] , and explained the patient's condition. Patient now had sigmoid resection, colostomy. Currently on ventilator. Not epinephrine, vasopressin drip is on. IV fluid. Being resuscitated. The renal function is stable. Will continue the IV hydration. Nothing by mouth. Weaning as tolerated. Maintenance of hydration. I spoke to the patient's in detail. Intensive care unit monitoring DVT GI prophylaxis and will follow-up the patient Critical Care Time Spent (in minutes): 45 CCU Objective - Vital Signs / Intake & Output Vital Signs (Last 4 hours): Vital Signs Temp Pulse Resp BP Pulse Ox 09/01/18 17:01 106 H 20 99/61 L 99 09/01/18 17:00 104 H 18 99 09/01/18 16:01 114 H 20 104/58 L 98 09/01/18 16:00 97.0 F L 112 H 19 98 09/01/18 15:45 110 H 20 113/63 98 09/01/18 15:43 110 H 20 113/63 98 09/01/18 15:01 122 H 23 113/63 97 09/01/18 15:00 122 H 21 97 09/01/18 14:01 110 H 20 98/58 L 98 09/01/18 14:00 110 H 21 97 Intake and Output (Last 8hrs): Intake & Output 09/01/18 09/01/18 09/01/18 06:59 14:59 22:59 Intake Total 2394.4 1738.0 787.4 Output Total 665 795 310 Balance 1729.4 943.0 477.4 Weight 197 lb 6 oz 197 lb 6 oz Intake: IV 500 0 250 Intake, IV Amount 1894.4 1738.0 537.4 Left Hand 1450 850 300 Lt Hand sideport 500 100 Right Distal Port Femoral 281.2 224.8 78.6 Right Medial Port Femoral 116.0 116.0 43.5 right distal piggyback 19.2 19.2 4.8 right medial piggyback 28.0 28.0 10.5 Output: Drainage 80 65 Left Abdomen 30 25 Right Abdomen 50 40 Urine 560 795 245 Urethral (Rankin) 560 795 245 Stool 25 - Physical Exam Head: Positive for: Atraumatic, Normocephalic Pupils: Positive for: Sluggish. Negative for: Non-Reactive, Pinpoint Extroacular Muscles: Positive for: Other (sedated and not following commands, minimal spontaneous movements when aroused) Conjunctiva: Positive for: Normal. Negative for: Injected, Icteric Mouth: Positive for: Dry Nose (External): Positive for: Atraumatic. Negative for: Abrasion, Contusion, Laceration Nose (Internal): Positive for: No Active Bleeding. Negative for: Epistaxis Neck: Positive for: Normal Range of Motion (passive ROM intact, some spontaneous active movement when aroused but unable to assess full active ROM), Trachea Midline. Negative for: JVD Respiratory/Chest: Positive for: Good Air Exchange, Rhonchi (mild-moderate ronchi in all vega), Other (overbreathing the ventilator but no longer tachypnic to 40's while on sedation) Cardiovascular: Positive for: Normal S1, S2, Peripheal Pulses Present (weakly/irregularly palpable bilateral radial pulses, unable to palpate pedal pulses, weakly/irregularly palpable femor pulses bilaterally), Tachycardic (persistently 120's-140's) Abdomen: Positive for: Other (post-op, 3 drains present with varying degrees of serosanguinous fluid present, no lin blood or pus appreciated, colostomy bag present with patent-appearing stoma, abdomen firm to palpation diffusely, bandaging over surgical incisions) Genitourinary/Pelvic Exam: Positive for: Other (Rankin present with only approx 250cc very dark sara urine) Upper Extremity: Positive for: Edema (bilateral upper extremities with mild non- pitting edema). Negative for: Cyanosis, NORMAL PULSES (weak pulses as described in cardio section), Deformity Lower Extremity: Positive for: Edema (bilateral lower extremities with moderate non-pitting edema). Negative for: NORMAL PULSES (intermittently palpable weak femoral pulses bilaterally unable, unable to palpate any pedal pulses) Neurological: Positive for: Other (sedated on fentanyl/precedex, intermittently aroused by pain or stimulation (like Arterial line placement) but rapidly returns to somnolence). Negative for: GCS=15 (GCS 7 (E2 V1t M4)) Skin: Positive for: Warm, Diaphoretic, Pale. Negative for: Dry, Rashes, Normal Color Psychiatric: Positive for: Other (sedated but intermittently aroused, rapidly returns to somnolence) - Medications Active Medications: Active Medications Generic Name Dose Route Start Last Admin Trade Name Freq PRN Reason Stop Dose Admin Albumin Human 25 gm 09/01/18 01:00 09/01/18 13:10 Albumin Human 25% (12.5 Gm/50 Ml) IV 09/01/18 19:01 25 gm Q6H MARLENA Administration Albuterol/Ipratropium 3 ml 09/01/18 14:00 09/01/18 13:40 Duoneb 3 Mg/0.5 Mg (3 Ml) Ud INH 3 ml RQ6 MARLENA Administration Hydrocortisone Sodium Succinate 50 mg 09/01/18 10:00 09/01/18 09:18 Solu-Cortef IV 09/03/18 10:01 50 mg Q12 MARLENA Administration Fentanyl Citrate 2,500 mcg/ 250 mls @ 14.52 mls/hr 08/31/18 07:30 09/01/18 02:43 Sodium Chloride IV 2 mcg/kg/hr .[id number] MARLENA 14.52 mls/hr Administration Protocol 2 MCG/KG/HR Metronidazole 500 mg in 100 mls @ 100 mls/hr 08/31/18 08:00 09/01/18 15:51 Flagyl IVPB 100 mls/hr Q8H MARLENA Administration Protocol Piperacillin Sod/Tazobactam Sod 3.375 gm in 50 mls @ 100 mls/hr 08/31/18 09:00 09/01/18 15:21 Zosyn 3.375 Gm Iv Premix IVPB 100 mls/hr Q6H MARLENA Administration Protocol Vancomycin HCl 1 gm/ Sodium 250 mls @ 167 mls/hr 08/31/18 10:00 09/01/18 10:14 Chloride IVPB 167 mls/hr Q24H MARLENA Administration Protocol Norepinephrine Bitartrate 8 mg 250 mls @ 7.5 mls/hr 08/31/18 08:55 09/01/18 15:43 / Dextrose IV 14 mcg/min .Q24H PRN 26.25 mls/hr TITRATE PER MD ORDER Administration Protocol 4 MCG/MIN Vasopressin 40 units/ Dextrose 40 mls @ 2.4 mls/hr 08/31/18 14:00 09/01/18 15:45 IV 2.4 mls/hr .[id number] MARLENA Administration 0.04 UNITS/MIN Midazolam HCl 100 mg/ Dextrose 100 mls @ 1.45 mls/hr 08/31/18 14:00 09/01/18 15:47 IV 0.04 mg/kg/hr .Q24H MARLENA 3.5 mls/hr Administration Protocol 0.02 MG/KG/HR Meropenem 1 gm/ Sodium 100 mls @ 100 mls/hr 08/31/18 20:00 09/01/18 12:05 Chloride IVPB 100 mls/hr Q8H MARLENA Administration Protocol Dextrose/Sodium Chloride 1,000 mls @ 100 mls/hr 09/01/18 08:15 09/01/18 08:38 Dextrose 5%/0.45% Ns 1000 Ml IV 100 mls/hr .Q10H MARLENA Administration Fluconazole 100 mls @ 100 mls/hr 09/01/18 14:30 09/01/18 15:51 Diflucan Iv 200 Mg/100 Ml Ns IVPB 100 mls/hr DAILY MARLENA Administration Protocol Insulin Aspart 0 unit 09/01/18 00:00 09/01/18 12:05 Novolog SC 1 units Q6 MARLENA Administration Protocol Pantoprazole Sodium 40 mg 08/31/18 10:00 09/01/18 09:03 Protonix Inj IVP 40 mg DAILY MARLENA Administration - Patient Studies Lab Studies: Microbiology Studies 08/31/18 02:45 Blood Culture - Preliminary Blood NO GROWTH AFTER 24 HOURS 08/31/18 02:20 Blood Culture - Preliminary Blood NO GROWTH AFTER 24 HOURS 08/31/18 15:00 Blood Culture - Preliminary Blood-Venous NO GROWTH AFTER 24 HOURS 08/31/18 15:30 Blood Culture - Preliminary Blood-Venous NO GROWTH AFTER 24 HOURS 08/31/18 13:02 MRSA Culture (Admit) - Final Naris MRSA NOT DETECTED 08/31/18 14:19 Gram Stain - Final Peritoneal Fluid Body Fluid Culture - Preliminary Gram Negative Ronny 08/31/18 Unknown Urine Culture - Final Urine,Catheterized No Growth (<1,000 CFU/ML) Lab Studies 09/01/18 09/01/18 09/01/18 Range/Units 11:10 04:19 04:19 WBC (4.8-10.8) K/uL RBC (3.80-5.20) Mil/uL Hgb (11.0-16.0) g/dL Hct (34.0-47.0) % MCV (81.0-99.0) fL MCH (27.0-31.0) pg MCHC (33.0-37.0) g/dL RDW (11.5-14.5) % Plt Count (130-400) K/uL MPV (7.2-11.7) fL Neut % (Auto) (50.0-75.0) % Lymph % (Auto) (20.0-40.0) % [place] % (Auto) (0.0-10.0) % Eos % (Auto) (0.0-4.0) % Baso % (Auto) (0.0-2.0) % Neut # (Auto) (1.8-7.0) K/uL Lymph # (Auto) (1.0-4.3) K/uL [place] # (Auto) (0.0-0.8) K/uL Eos # (Auto) (0.0-0.7) K/uL Baso # (Auto) (0.0-0.2) K/uL Neutrophils % (Manual) (50-75) % Band Neutrophils % (0-2) % Lymphocytes % (Manual) (20-40) % Reactive Lymphs % (0-0) % Monocytes % (Manual) (0-10) % Basophils % (Manual) (0-2) % Metamyelocytes % (0-0) % Myelocytes % (0-0) % Blast Cells % (0-0) % Platelet Estimate (NORMAL) Fibrinogen (200-400) mg/dL Puncture Site A-line pCO2 26 L (35-45) mm/Hg pO2 98 (80-100) mm/Hg HCO3 19.9 L (21-28) mmol/L ABG pH 7.41 (7.35-7.45) ABG Total CO2 17.3 L (22-28) mmol/L ABG O2 Saturation 98.0 (95-98) % ABG Base Excess -6.5 L (-2.0-3.0) mmol/L Luis Test Na ABG Potassium 3.8 (3.6-5.2) mmol/L A-a O2 Difference 226.0 mm/Hg Respiratory Index 2.3 Sodium 138.0 (132-148) mmol/l Chloride 113.0 H (98-107) mmol/L Glucose 159 H (65-105) mg/dl Lactate 2.8 H (0.7-2.1) mmol/L Vent Mode A/c pc Mechanical Rate 25 FiO2 50.0 % PEEP 5 Potassium (3.6-5.2) mmol/L Carbon Dioxide (22-30) mmol/L Anion Gap (10-20) BUN (7-17) mg/dL Creatinine (0.7-1.2) mg/dL Est GFR ( Amer) Est GFR (Non-Af Amer) POC Glucose (mg/dL) 187 H (65-110) mg/dL Random Glucose (65-105) mg/dL Lactic Acid (0.7-2.1) mmol/L Calcium (8.6-10.4) mg/dl Phosphorus (2.5-4.5) mg/dL Magnesium (1.6-2.3) mg/dL Total Bilirubin (0.2-1.3) mg/dL AST (14-36) U/L ALT (9-52) U/L Alkaline Phosphatase (38-126) U/L Troponin I 0.0900 (0.00-0.120) ng/mL Total Protein (6.3-8.3) g/dL Albumin (3.5-5.0) g/dL Globulin (2.2-3.9) gm/dL Albumin/Globulin Ratio (1.0-2.1) Arterial Blood Potassium 3.8 (3.6-5.2) mmol/L 09/01/18 09/01/18 09/01/18 Range/Units 04:16 04:16 04:16 WBC 14.6 H D (4.8-10.8) K/uL RBC 3.63 L (3.80-5.20) Mil/uL Hgb 9.1 L D (11.0-16.0) g/dL Hct 28.1 L (34.0-47.0) % MCV 77.4 L D (81.0-99.0) fL MCH 25.0 L (27.0-31.0) pg MCHC 32.2 L (33.0-37.0) g/dL RDW 18.5 H (11.5-14.5) % Plt Count 213 (130-400) K/uL MPV 9.2 (7.2-11.7) fL Neut % (Auto) 88.5 H (50.0-75.0) % Lymph % (Auto) 5.4 L (20.0-40.0) % [place] % (Auto) 5.3 (0.0-10.0) % Eos % (Auto) 0.7 (0.0-4.0) % Baso % (Auto) 0.1 (0.0-2.0) % Neut # (Auto) 13.0 H (1.8-7.0) K/uL Lymph # (Auto) 0.8 L (1.0-4.3) K/uL [place] # (Auto) 0.8 (0.0-0.8) K/uL Eos # (Auto) 0.1 (0.0-0.7) K/uL Baso # (Auto) 0.0 (0.0-0.2) K/uL Neutrophils % (Manual) 7 L (50-75) % Band Neutrophils % 69 H* (0-2) % Lymphocytes % (Manual) 8 L (20-40) % Reactive Lymphs % 2 H (0-0) % Monocytes % (Manual) 4 (0-10) % Basophils % (Manual) 1 (0-2) % Metamyelocytes % 3 H (0-0) % Myelocytes % 4 H (0-0) % Blast Cells % 2 H (0-0) % Platelet Estimate Normal (NORMAL) Fibrinogen (200-400) mg/dL Puncture Site pCO2 (35-45) mm/Hg pO2 (80-100) mm/Hg HCO3 (21-28) mmol/L ABG pH (7.35-7.45) ABG Total CO2 (22-28) mmol/L ABG O2 Saturation (95-98) % ABG Base Excess (-2.0-3.0) mmol/L Luis Test ABG Potassium (3.6-5.2) mmol/L A-a O2 Difference mm/Hg Respiratory Index Sodium 138 (132-148) mmol/l Chloride 109 H (98-107) mmol/L Glucose (65-105) mg/dl Lactate (0.7-2.1) mmol/L Vent Mode Mechanical Rate FiO2 % PEEP Potassium 4.6 (3.6-5.2) mmol/L Carbon Dioxide 15 L (22-30) mmol/L Anion Gap 19 (10-20) BUN 9 (7-17) mg/dL Creatinine 0.8 (0.7-1.2) mg/dL Est GFR ( Amer) > 60 Est GFR (Non-Af Amer) > 60 POC Glucose (mg/dL) (65-110) mg/dL Random Glucose 157 H (65-105) mg/dL Lactic Acid 2.9 H (0.7-2.1) mmol/L Calcium 6.7 L (8.6-10.4) mg/dl Phosphorus 3.9 (2.5-4.5) mg/dL Magnesium 1.3 L (1.6-2.3) mg/dL Total Bilirubin 2.4 H (0.2-1.3) mg/dL AST 31 (14-36) U/L ALT 21 (9-52) U/L Alkaline Phosphatase 24 L D (38-126) U/L Troponin I (0.00-0.120) ng/mL Total Protein 4.9 L (6.3-8.3) g/dL Albumin 2.7 L D (3.5-5.0) g/dL Globulin 2.2 (2.2-3.9) gm/dL Albumin/Globulin Ratio 1.2 (1.0-2.1) Arterial Blood Potassium (3.6-5.2) mmol/L 08/31/18 08/31/18 08/31/18 Range/Units 23:37 22:15 18:00 WBC (4.8-10.8) K/uL RBC (3.80-5.20) Mil/uL Hgb (11.0-16.0) g/dL Hct (34.0-47.0) % MCV (81.0-99.0) fL MCH (27.0-31.0) pg MCHC (33.0-37.0) g/dL RDW (11.5-14.5) % Plt Count (130-400) K/uL MPV (7.2-11.7) fL Neut % (Auto) (50.0-75.0) % Lymph % (Auto) (20.0-40.0) % [place] % (Auto) (0.0-10.0) % Eos % (Auto) (0.0-4.0) % Baso % (Auto) (0.0-2.0) % Neut # (Auto) (1.8-7.0) K/uL Lymph # (Auto) (1.0-4.3) K/uL [place] # (Auto) (0.0-0.8) K/uL Eos # (Auto) (0.0-0.7) K/uL Baso # (Auto) (0.0-0.2) K/uL Neutrophils % (Manual) (50-75) % Band Neutrophils % (0-2) % Lymphocytes % (Manual) (20-40) % Reactive Lymphs % (0-0) % Monocytes % (Manual) (0-10) % Basophils % (Manual) (0-2) % Metamyelocytes % (0-0) % Myelocytes % (0-0) % Blast Cells % (0-0) % Platelet Estimate (NORMAL) Fibrinogen (200-400) mg/dL Puncture Site Barbara Groom pCO2 24 L 24 L (35-45) mm/Hg pO2 139 H 167 H (80-100) mm/Hg HCO3 19.5 L 17.6 L (21-28) mmol/L ABG pH 7.42 7.37 (7.35-7.45) ABG Total CO2 16.3 L 14.6 L (22-28) mmol/L ABG O2 Saturation 99.3 H 98.8 H (95-98) % ABG Base Excess -7.0 L -9.5 L (-2.0-3.0) mmol/L Luis Test Na Na ABG Potassium 4.1 3.5 L (3.6-5.2) mmol/L A-a O2 Difference 188.0 302.0 mm/Hg Respiratory Index 1.4 1.8 Sodium 137.0 138.0 (132-148) mmol/l Chloride 113.0 H 115.0 H (98-107) mmol/L Glucose 156 H 141 H (65-105) mg/dl Lactate 3.5 H 3.7 H (0.7-2.1) mmol/L Vent Mode Pc P.c Mechanical Rate 25 23 FiO2 50.0 70.0 % PEEP Potassium (3.6-5.2) mmol/L Carbon Dioxide (22-30) mmol/L Anion Gap (10-20) BUN (7-17) mg/dL Creatinine (0.7-1.2) mg/dL Est GFR ( Amer) Est GFR (Non-Af Amer) POC Glucose (mg/dL) 157 H (65-110) mg/dL Random Glucose (65-105) mg/dL Lactic Acid (0.7-2.1) mmol/L Calcium (8.6-10.4) mg/dl Phosphorus (2.5-4.5) mg/dL Magnesium (1.6-2.3) mg/dL Total Bilirubin (0.2-1.3) mg/dL AST (14-36) U/L ALT (9-52) U/L Alkaline Phosphatase (38-126) U/L Troponin I (0.00-0.120) ng/mL Total Protein (6.3-8.3) g/dL Albumin (3.5-5.0) g/dL Globulin (2.2-3.9) gm/dL Albumin/Globulin Ratio (1.0-2.1) Arterial Blood Potassium 4.1 3.5 L (3.6-5.2) mmol/L 08/31/18 08/31/18 08/31/18 Range/Units 17:27 17:25 17:25 WBC (4.8-10.8) K/uL RBC (3.80-5.20) Mil/uL Hgb (11.0-16.0) g/dL Hct (34.0-47.0) % MCV (81.0-99.0) fL MCH (27.0-31.0) pg MCHC (33.0-37.0) g/dL RDW (11.5-14.5) % Plt Count (130-400) K/uL MPV (7.2-11.7) fL Neut % (Auto) (50.0-75.0) % Lymph % (Auto) (20.0-40.0) % [place] % (Auto) (0.0-10.0) % Eos % (Auto) (0.0-4.0) % Baso % (Auto) (0.0-2.0) % Neut # (Auto) (1.8-7.0) K/uL Lymph # (Auto) (1.0-4.3) K/uL [place] # (Auto) (0.0-0.8) K/uL Eos # (Auto) (0.0-0.7) K/uL Baso # (Auto) (0.0-0.2) K/uL Neutrophils % (Manual) (50-75) % Band Neutrophils % (0-2) % Lymphocytes % (Manual) (20-40) % Reactive Lymphs % (0-0) % Monocytes % (Manual) (0-10) % Basophils % (Manual) (0-2) % Metamyelocytes % (0-0) % Myelocytes % (0-0) % Blast Cells % (0-0) % Platelet Estimate (NORMAL) Fibrinogen 329 (200-400) mg/dL Puncture Site pCO2 (35-45) mm/Hg pO2 (80-100) mm/Hg HCO3 (21-28) mmol/L ABG pH (7.35-7.45) ABG Total CO2 (22-28) mmol/L ABG O2 Saturation (95-98) % ABG Base Excess (-2.0-3.0) mmol/L Luis Test ABG Potassium (3.6-5.2) mmol/L A-a O2 Difference mm/Hg Respiratory Index Sodium (132-148) mmol/l Chloride (98-107) mmol/L Glucose (65-105) mg/dl Lactate (0.7-2.1) mmol/L Vent Mode Mechanical Rate FiO2 % PEEP Potassium (3.6-5.2) mmol/L Carbon Dioxide (22-30) mmol/L Anion Gap (10-20) BUN (7-17) mg/dL Creatinine (0.7-1.2) mg/dL Est GFR ( Amer) Est GFR (Non-Af Amer) POC Glucose (mg/dL) (65-110) mg/dL Random Glucose (65-105) mg/dL Lactic Acid 5.3 H* (0.7-2.1) mmol/L Calcium (8.6-10.4) mg/dl Phosphorus (2.5-4.5) mg/dL Magnesium (1.6-2.3) mg/dL Total Bilirubin (0.2-1.3) mg/dL AST (14-36) U/L ALT (9-52) U/L Alkaline Phosphatase (38-126) U/L Troponin I < 0.0120 (0.00-0.120) ng/mL Total Protein (6.3-8.3) g/dL Albumin (3.5-5.0) g/dL Globulin (2.2-3.9) gm/dL Albumin/Globulin Ratio (1.0-2.1) Arterial Blood Potassium (3.6-5.2) mmol/L Laboratory Results - last 24 hr 08/31/18 08/31/18 08/31/18 17:25 17:25 17:27 WBC RBC Hgb Hct MCV MCH MCHC RDW Plt Count MPV Neut % (Auto) Lymph % (Auto) [place] % (Auto) Eos % (Auto) Baso % (Auto) Neut # (Auto) Lymph # (Auto) [place] # (Auto) Eos # (Auto) Baso # (Auto) Neutrophils % (Manual) Band Neutrophils % Lymphocytes % (Manual) Reactive Lymphs % Monocytes % (Manual) Basophils % (Manual) Metamyelocytes % Myelocytes % Blast Cells % Platelet Estimate Fibrinogen 329 Puncture Site pCO2 pO2 HCO3 ABG pH ABG Total CO2 ABG O2 Saturation ABG Base Excess Luis Test ABG Potassium A-a O2 Difference Respiratory Index Sodium Chloride Glucose Lactate Vent Mode Mechanical Rate FiO2 PEEP Potassium Carbon Dioxide Anion Gap BUN Creatinine Est GFR ( Amer) Est GFR (Non-Af Amer) POC Glucose (mg/dL) Random Glucose Lactic Acid 5.3 H* Calcium Phosphorus Magnesium Total Bilirubin AST ALT Alkaline Phosphatase Troponin I < 0.0120 Total Protein Albumin Globulin Albumin/Globulin Ratio Arterial Blood Potassium 08/31/18 08/31/18 08/31/18 18:00 22:15 23:37 WBC RBC Hgb Hct MCV MCH MCHC RDW Plt Count MPV Neut % (Auto) Lymph % (Auto) [place] % (Auto) Eos % (Auto) Baso % (Auto) Neut # (Auto) Lymph # (Auto) [place] # (Auto) Eos # (Auto) Baso # (Auto) Neutrophils % (Manual) Band Neutrophils % Lymphocytes % (Manual) Reactive Lymphs % Monocytes % (Manual) Basophils % (Manual) Metamyelocytes % Myelocytes % Blast Cells % Platelet Estimate Fibrinogen Puncture Site Barbara Groom pCO2 24 L 24 L pO2 167 H 139 H HCO3 17.6 L 19.5 L ABG pH 7.37 7.42 ABG Total CO2 14.6 L 16.3 L ABG O2 Saturation 98.8 H 99.3 H ABG Base Excess -9.5 L -7.0 L Luis Test Na Na ABG Potassium 3.5 L 4.1 A-a O2 Difference 302.0 188.0 Respiratory Index 1.8 1.4 Sodium 138.0 137.0 Chloride 115.0 H 113.0 H Glucose 141 H 156 H Lactate 3.7 H 3.5 H Vent Mode P.c Pc Mechanical Rate 23 25 FiO2 70.0 50.0 PEEP Potassium Carbon Dioxide Anion Gap BUN Creatinine Est GFR ( Amer) Est GFR (Non-Af Amer) POC Glucose (mg/dL) 157 H Random Glucose Lactic Acid Calcium Phosphorus Magnesium Total Bilirubin AST ALT Alkaline Phosphatase Troponin I Total Protein Albumin Globulin Albumin/Globulin Ratio Arterial Blood Potassium 3.5 L 4.1 09/01/18 09/01/18 09/01/18 04:16 04:16 04:16 WBC 14.6 H D RBC 3.63 L Hgb 9.1 L D Hct 28.1 L MCV 77.4 L D MCH 25.0 L MCHC 32.2 L RDW 18.5 H Plt Count 213 MPV 9.2 Neut % (Auto) 88.5 H Lymph % (Auto) 5.4 L [place] % (Auto) 5.3 Eos % (Auto) 0.7 Baso % (Auto) 0.1 Neut # (Auto) 13.0 H Lymph # (Auto) 0.8 L [place] # (Auto) 0.8 Eos # (Auto) 0.1 Baso # (Auto) 0.0 Neutrophils % (Manual) 7 L Band Neutrophils % 69 H* Lymphocytes % (Manual) 8 L Reactive Lymphs % 2 H Monocytes % (Manual) 4 Basophils % (Manual) 1 Metamyelocytes % 3 H Myelocytes % 4 H Blast Cells % 2 H Platelet Estimate Normal Fibrinogen Puncture Site pCO2 pO2 HCO3 ABG pH ABG Total CO2 ABG O2 Saturation ABG Base Excess Luis Test ABG Potassium A-a O2 Difference Respiratory Index Sodium 138 Chloride 109 H Glucose Lactate Vent Mode Mechanical Rate FiO2 PEEP Potassium 4.6 Carbon Dioxide 15 L Anion Gap 19 BUN 9 Creatinine 0.8 Est GFR ( Amer) > 60 Est GFR (Non-Af Amer) > 60 POC Glucose (mg/dL) Random Glucose 157 H Lactic Acid 2.9 H Calcium 6.7 L Phosphorus 3.9 Magnesium 1.3 L Total Bilirubin 2.4 H AST 31 ALT 21 Alkaline Phosphatase 24 L D Troponin I Total Protein 4.9 L Albumin 2.7 L D Globulin 2.2 Albumin/Globulin Ratio 1.2 Arterial Blood Potassium 09/01/18 09/01/18 09/01/18 04:19 04:19 11:10 WBC RBC Hgb Hct MCV MCH MCHC RDW Plt Count MPV Neut % (Auto) Lymph % (Auto) [place] % (Auto) Eos % (Auto) Baso % (Auto) Neut # (Auto) Lymph # (Auto) [place] # (Auto) Eos # (Auto) Baso # (Auto) Neutrophils % (Manual) Band Neutrophils % Lymphocytes % (Manual) Reactive Lymphs % Monocytes % (Manual) Basophils % (Manual) Metamyelocytes % Myelocytes % Blast Cells % Platelet Estimate Fibrinogen Puncture Site A-line pCO2 26 L pO2 98 HCO3 19.9 L ABG pH 7.41 ABG Total CO2 17.3 L ABG O2 Saturation 98.0 ABG Base Excess -6.5 L Luis Test Na ABG Potassium 3.8 A-a O2 Difference 226.0 Respiratory Index 2.3 Sodium 138.0 Chloride 113.0 H Glucose 159 H Lactate 2.8 H Vent Mode A/c pc Mechanical Rate 25 FiO2 50.0 PEEP 5 Potassium Carbon Dioxide Anion Gap BUN Creatinine Est GFR ( Amer) Est GFR (Non-Af Amer) POC Glucose (mg/dL) 187 H Random Glucose Lactic Acid Calcium Phosphorus Magnesium Total Bilirubin AST ALT Alkaline Phosphatase Troponin I 0.0900 Total Protein Albumin Globulin Albumin/Globulin Ratio Arterial Blood Potassium 3.8 Fingerstick Blood Sugar Results: 187 Critical Care Progress Note - Nutrition Nutrition: Nutrition Category Date Time Status NPO Diet [DIET] Diets 08/31/18 Breakfast Active
[2018-09-02] MEDS: (Novolog) Insulin Aspart, Recombinant 100 u/ml 10 ml vial SC SCH ×4 (00:25→18:27)
[2018-09-02] MEDS: Albuterol-Ipratrop 3 mg / 0.5 (3 ml) UD INH SCH ×4 (01:34→19:21)
[2018-09-02] MEDS: Piperacill/Tazo 3.375gm in Dex 3.375 GM/50 ML BAG IVPB SCH (03:08)
[2018-09-02] MEDS: Meropenem 1 GM in Sodium Chloride 0.9% 100 ML IVPB SCH ×3 (04:09→19:48)
[2018-09-02] MEDS: Dextrose 5%/0.45% NS 1,000 ML IV SCH ×3 (04:10→22:13)
[2018-09-02 05:30] LABS: ARTERIAL BLOOD GAS O2 SAT 98.4 % (95-98); ARTERIAL BLOOD GAS PCO2 35 mm/Hg (35-45); ARTERIAL BLOOD GAS PH 7.44 (7.35-7.45); ARTERIAL BLOOD GAS PO2 109 mm/Hg (80-100); ARTERIAL BLOOD GAS TCO2 24.9 mmol/L (22-28)
[2018-09-02 06:03] LABS: EOS % 0.2 % (0.0-4.0); HEMOGLOBIN 7.5 g/dL (11.0-16.0); LYMPH # 0.5 K/uL (1.0-4.3); LYMPH % 2.7 % (20.0-40.0); MEAN CELL VOLUME 77.1 fL (81.0-99.0); MEAN CORPUSCULAR HEMOGLOBIN 25.3 pg (27.0-31.0); MEAN CORPUSCULAR HGB CONC 32.8 g/dL (33.0-37.0); MEAN PLATELET VOLUME 9.5 fL (7.2-11.7); MONO # 0.5 K/uL (0.0-0.8); MONO % 2.2 % (0.0-10.0); NEUT # 19.4 K/uL (1.8-7.0); NEUT % 94.9 % (50.0-75.0); PLATELET COUNT 129 K/uL (130-400); RBC 2.96 Mil/uL (3.80-5.20); RED CELL DISTRIBUTION WIDTH 18.8 % (11.5-14.5); WHITE BLOOD COUNT 20.4 K/uL (4.8-10.8)
[2018-09-02 06:24] LABS: ALB/GLOB RATIO 1.4 (1.0-2.1); ALT/SGPT 28 U/L (9-52); AST/SGOT 46 U/L (14-36); BLOOD UREA NITROGEN 11 mg/dL (7-17); CALCIUM 6.7 mg/dl (8.6-10.4); GFR NON-AFRICAN AMERICAN > 60
[2018-09-02] MEDS: metroNIDAZOLE IV 500 mg/100 ml 500 MG/100 ML BAG IVPB SCH (07:37)
--- NOTE | 2018-09-02 08:19 | CP.PCM.PN ---
Subjective - Date & Time of Evaluation Date of Evaluation: 09/02/18 Time of Evaluation: 07:10 - Subjective Subjective: Surgery progress note for Dr. Patino Patient seen and examined at bedside. Patient still intubated, off of pressors, with no acute events overnight. Patient sedated Objective - Vital Signs/Intake and Output Vital Signs (last 24 hours): Temp Pulse Resp BP Pulse Ox 97.9 F 115 H 25 H 101/66 97 09/02/18 04:00 09/02/18 08:01 09/02/18 08:01 09/02/18 08:01 09/02/18 08:01 Intake and Output: 09/02/18 09/02/18 06:59 18:59 Intake Total 1875.9 236.0 Output Total 765 135 Balance 1110.9 101.0 - Medications Medications: Current Medications Albuterol/Ipratropium (Duoneb 3 Mg/0.5 Mg (3 Ml) Ud) 3 ml INH RQ6 MARLENA Last Admin: 09/02/18 07:53 Dose: 3 ml Hydrocortisone Sodium Succinate (Solu-Cortef) 50 mg IV Q12 MARLENA Stop: 09/03/18 10:01 Last Admin: 09/01/18 21:32 Dose: 50 mg Fentanyl Citrate 2,500 mcg/ (Sodium Chloride) 250 mls @ 14.52 mls/hr IV .[id number] MARLENA; Protocol Last Admin: 09/01/18 18:44 Dose: Not Given Metronidazole (Flagyl) 500 mg in 100 mls @ 100 mls/hr IVPB Q8H MARLENA; Protocol Last Admin: 09/02/18 07:37 Dose: 100 mls/hr Vancomycin HCl 1 gm/ Sodium (Chloride) 250 mls @ 167 mls/hr IVPB Q24H MARLENA; Protocol Last Admin: 09/01/18 10:14 Dose: 167 mls/hr Norepinephrine Bitartrate 8 mg (/ Dextrose) 250 mls @ 7.5 mls/hr IV .Q24H PRN; Protocol PRN Reason: TITRATE PER MD ORDER Last Titration: 09/02/18 02:00 Dose: 0 mcg/min, 0 mls/hr Vasopressin 40 units/ Dextrose 40 mls @ 2.4 mls/hr IV .[id number] MARLENA Last Admin: 09/01/18 23:20 Dose: Not Given Midazolam HCl 100 mg/ Dextrose 100 mls @ 1.45 mls/hr IV .Q24H MARLENA; Protocol Last Admin: 09/01/18 15:47 Dose: 0.04 mg/kg/hr, 3.5 mls/hr Meropenem 1 gm/ Sodium (Chloride) 100 mls @ 100 mls/hr IVPB Q8H MARLENA; Protocol Last Admin: 09/02/18 04:09 Dose: 100 mls/hr Dextrose/Sodium Chloride (Dextrose 5%/0.45% Ns 1000 Ml) 1,000 mls @ 100 mls/hr IV .Q10H MARLENA Last Admin: 09/02/18 04:10 Dose: 100 mls/hr Fluconazole (Diflucan Iv 200 Mg/100 Ml Ns) 100 mls @ 100 mls/hr IVPB DAILY MARLENA; Protocol Last Admin: 09/01/18 15:51 Dose: 100 mls/hr Potassium Phosphate 30 mmole/ (Sodium Chloride) 260 mls @ 63 mls/hr IV ONCE ONE Stop: 09/02/18 13:07 Insulin Aspart (Novolog) 0 unit SC Q6 MARLENA; Protocol Last Admin: 09/02/18 05:47 Dose: Not Given Pantoprazole Sodium (Protonix Inj) 40 mg IVP DAILY MARLENA Last Admin: 09/01/18 09:03 Dose: 40 mg - Labs Labs: 09/02/18 05:57 09/02/18 05:57 PT 14.6 SECONDS (9.7-12.2) H 08/31/18 13:02 INR 1.3 08/31/18 13:02 APTT 34 SECONDS (21-34) D 08/31/18 13:02 - Constitutional Appears: Non-toxic, No Acute Distress - Head Exam Head Exam: ATRAUMATIC, NORMOCEPHALIC - Eye Exam Eye Exam: Normal appearance. absent: Conjunctival injection, Scleral icterus - ENT Exam ENT Exam: Mucous Membranes Moist, Normal Oropharynx Additional comments: ETT in place - Respiratory Exam Respiratory Exam: NORMAL BREATHING PATTERN. absent: Accessory Muscle Use, Respiratory Distress - Cardiovascular Exam Cardiovascular Exam: RRR - GI/Abdominal Exam GI & Abdominal Exam: Distended (moderate), Soft Additional comments: midline incision well approxiated with constance, dressing saturated with serosanguinous fluid BL alisha drains with minimal clear serosanguinous fluid - Extremities Exam Extremities Exam: Pedal Edema (1+ pitting edema). absent: Calf Tenderness - Neurological Exam Neurological Exam: Altered - Psychiatric Exam Additional comments: sedated - Skin Skin Exam: Dry, Normal Color, Warm Assessment and Plan - Assessment and Plan (Free Text) Assessment: 33F POD#2 s/p exploratory laparotomy, sigmoid resection, end colostomy for perforated sigmoid colon Plan: Continue to trend CBC/CMP/MG/Phos Continue to sedation while on mechanical ventilation No blood transfusion for now--no clinical sign of active bleeding, will consider if patient deteriorates hemodynamically Continue to monitor strict I/O's IV antibiotics Monitor for bowel function F/U ICU and ID recs Discussed with Dr. Patino, further recs per him Gale Longo, PGY2
--- NOTE | 2018-09-02 08:34 | RAD ---
Date of service: 09/02/2018 HISTORY: vent/ff up COMPARISON: 08/31/2018. FINDINGS: The nasogastric tube terminates in the stomach. The endotracheal tube terminates in the mid trachea. LUNGS: There is mild haziness in the lungs. PLEURA: No significant pleural effusion identified, no pneumothorax apparent. CARDIOVASCULAR: The heart remains enlarged. OSSEOUS STRUCTURES: No significant abnormalities. VISUALIZED UPPER ABDOMEN: Normal. OTHER FINDINGS: None. IMPRESSION: Mild cardiomegaly and suspect layering effusions.
[2018-09-02 08:48] LABS: HEMOGLOBIN 7.7 g/dL (11.0-16.0); MEAN CELL VOLUME 77.5 fL (81.0-99.0); MEAN CORPUSCULAR HEMOGLOBIN 25.2 pg (27.0-31.0); MEAN CORPUSCULAR HGB CONC 32.5 g/dL (33.0-37.0); MEAN PLATELET VOLUME 9.4 fL (7.2-11.7); RBC 3.07 Mil/uL (3.80-5.20); RED CELL DISTRIBUTION WIDTH 18.9 % (11.5-14.5); WHITE BLOOD COUNT 22.3 K/uL (4.8-10.8)
[2018-09-02] MEDS ORDERED: Potassium Phosphate 30 MMOLE in Sodium Chloride 0.9% 250 ML IV ONE (09:00)
[2018-09-02 09:07] LABS: ANISOCYTOSIS SLIGHT; BANDS 52 % (0-2); HYPOCHROMIC SLIGHT; LYMPHOCYTE 7 % (20-40); MONOCYTE 5 % (0-10); NEUTROPHIL 36 % (50-75); PLATELET ESTIMATE NORMAL (NORMAL); POLYCHROMIC SLIGHT; TOTAL CELLS COUNTED 100
[2018-09-02 09:09] LABS: MICROCYTOSIS SLIGHT
[2018-09-02] MEDS: Fluconazole IV 200mg/100 ml NS 100 ML IVPB SCH (09:10)
--- NOTE | 2018-09-02 11:52 | CP.CCUPN ---
CCU Subjective - Physician Review Subjective (Free Text): 09/02/18 11:50 Pt seen and examined at bedside. Pt unable to provide hx, sedated. No acute events overnight per nursing. CCU Objective - Vital Signs / Intake & Output Vital Signs (Last 4 hours): Vital Signs Temp Pulse Resp BP BP Pulse Ox 09/02/18 11:16 98.2 F 109 H 22 108/66 09/02/18 11:00 110 H 19 98 09/02/18 10:46 98.7 F 110 H 18 108/65 09/02/18 10:31 98.8 F 113 H 22 111/67 09/02/18 10:16 98.7 F 118 H 24 115/73 09/02/18 10:01 96/56 L 09/02/18 10:00 115 H 20 115/73 98 09/02/18 09:01 118 H 24 94/54 L 99 09/02/18 09:00 118 H 21 112/66 98 09/02/18 08:01 115 H 25 H 101/66 97 09/02/18 08:00 98.7 F 115 H 30 H 114/67 97 Intake and Output (Last 8hrs): Intake & Output 09/01/18 09/02/18 09/02/18 22:59 06:59 14:59 Intake Total 1791.4 1120.9 909.0 Output Total 535 861 5070 Balance 1051.4 605.9 -191.0 Weight 198 lb 9 oz Intake: IV 430 40 Intake, IV Amount 1361.4 1080.9 909.0 Left Hand 800 900 630 Lt Hand sideport 200 Right Distal Port Femoral 198.2 22.5 Right Medial Port Femoral 116.0 116.0 72.5 Right Proximal Port 189 Femoral right distal piggyback 19.2 14.4 right medial piggyback 28.0 28.0 17.5 Blood Product 0 Red Blood Cells Cpd As1 0 Lr Unit [id number] Output: Drainage 95 75 Left Abdomen 35 25 Right Abdomen 60 50 Urine 261 132 7495 Urethral (Rankin) [phone] - Physical Exam Head: Positive for: Atraumatic, Normocephalic Pupils: Positive for: Sluggish. Negative for: Non-Reactive, Pinpoint Extroacular Muscles: Positive for: Other (sedated and not following commands, minimal spontaneous movements when aroused) Conjunctiva: Positive for: Normal. Negative for: Injected, Icteric Mouth: Positive for: Dry Nose (External): Positive for: Atraumatic. Negative for: Abrasion, Contusion, Laceration Nose (Internal): Positive for: No Active Bleeding. Negative for: Epistaxis Neck: Positive for: Normal Range of Motion (passive ROM intact, some spontaneous active movement when aroused but unable to assess full active ROM), Trachea Midline. Negative for: JVD Respiratory/Chest: Positive for: Good Air Exchange, Rhonchi (mild-moderate ronchi in all vega), Other (overbreathing the ventilator but no longer tachypnic to 40's while on sedation) Cardiovascular: Positive for: Normal S1, S2, Peripheal Pulses Present (weakly/irregularly palpable bilateral radial pulses, unable to palpate pedal pulses, weakly/irregularly palpable femor pulses bilaterally), Tachycardic (persistently 120's-140's) Abdomen: Positive for: Other (post-op, 3 drains present with varying degrees of serosanguinous fluid present, no lin blood or pus appreciated, colostomy bag present with patent-appearing stoma, abdomen firm to palpation diffusely, bandaging over surgical incisions) Genitourinary/Pelvic Exam: Positive for: Other (Rankin present with only approx 250cc very dark sara urine) Upper Extremity: Positive for: Edema (bilateral upper extremities with mild non- pitting edema). Negative for: Cyanosis, NORMAL PULSES (weak pulses as described in cardio section), Deformity Lower Extremity: Positive for: Edema (bilateral lower extremities with moderate non-pitting edema). Negative for: NORMAL PULSES (intermittently palpable weak femoral pulses bilaterally unable, unable to palpate any pedal pulses) Neurological: Positive for: Other (sedated on fentanyl/precedex, intermittently aroused by pain or stimulation (like Arterial line placement) but rapidly returns to somnolence). Negative for: GCS=15 (GCS 7 (E2 V1t M4)) Skin: Positive for: Warm, Diaphoretic, Pale. Negative for: Dry, Rashes, Normal Color Psychiatric: Positive for: Other (sedated but intermittently aroused, rapidly returns to somnolence) - Medications Active Medications: Active Medications Generic Name Dose Route Start Last Admin Trade Name Freq PRN Reason Stop Dose Admin Albuterol/Ipratropium 3 ml 09/01/18 14:00 09/02/18 07:53 Duoneb 3 Mg/0.5 Mg (3 Ml) Ud INH 3 ml RQ6 MARLENA Administration Hydrocortisone Sodium Succinate 50 mg 09/01/18 10:00 09/02/18 09:11 Solu-Cortef IV 09/03/18 10:01 50 mg Q12 MARLENA Administration Fentanyl Citrate 2,500 mcg/ 250 mls @ 14.52 mls/hr 08/31/18 07:30 09/01/18 18:44 Sodium Chloride IV Not Given .[id number] MARLENA Protocol 2 MCG/KG/HR Metronidazole 500 mg in 100 mls @ 100 mls/hr 08/31/18 08:00 09/02/18 07:37 Flagyl IVPB 100 mls/hr Q8H MARLENA Administration Protocol Vancomycin HCl 1 gm/ Sodium 250 mls @ 167 mls/hr 08/31/18 10:00 09/02/18 09:55 Chloride IVPB 167 mls/hr Q24H MARLENA Administration Protocol Norepinephrine Bitartrate 8 mg 250 mls @ 7.5 mls/hr 08/31/18 08:55 09/02/18 02:00 / Dextrose IV 0 mcg/min .Q24H PRN 0 mls/hr TITRATE PER MD ORDER Titration Protocol 4 MCG/MIN Vasopressin 40 units/ Dextrose 40 mls @ 2.4 mls/hr 08/31/18 14:00 09/01/18 23:20 IV Not Given .[id number] MARLENA 0.04 UNITS/MIN Midazolam HCl 100 mg/ Dextrose 100 mls @ 1.45 mls/hr 08/31/18 14:00 09/01/18 15:47 IV 0.04 mg/kg/hr .Q24H MARLENA 3.5 mls/hr Administration Protocol 0.02 MG/KG/HR Meropenem 1 gm/ Sodium 100 mls @ 100 mls/hr 08/31/18 20:00 09/02/18 04:09 Chloride IVPB 100 mls/hr Q8H MARLENA Administration Protocol Dextrose/Sodium Chloride 1,000 mls @ 100 mls/hr 09/01/18 08:15 09/02/18 04:10 Dextrose 5%/0.45% Ns 1000 Ml IV 100 mls/hr .Q10H MARLENA Administration Fluconazole 100 mls @ 100 mls/hr 09/01/18 14:30 09/02/18 09:10 Diflucan Iv 200 Mg/100 Ml Ns IVPB 100 mls/hr DAILY MARLENA Administration Protocol Potassium Phosphate 30 mmole/ 260 mls @ 63 mls/hr 09/02/18 09:00 09/02/18 08:52 Sodium Chloride IV 09/02/18 13:07 63 mls/hr ONCE ONE Administration Insulin Aspart 0 unit 09/01/18 00:00 09/02/18 11:12 Novolog SC Not Given Q6 MARLENA Protocol Pantoprazole Sodium 40 mg 08/31/18 10:00 09/02/18 09:10 Protonix Inj IVP 40 mg DAILY MARLENA Administration - Patient Studies Lab Studies: Microbiology Studies 08/31/18 14:19 Gram Stain - Final Peritoneal Fluid Body Fluid Culture - Final Klebsiella Pneumoniae Ssp Pneu 08/31/18 02:45 Blood Culture - Preliminary Blood NO GROWTH AFTER 24 HOURS 08/31/18 02:20 Blood Culture - Preliminary Blood NO GROWTH AFTER 24 HOURS 08/31/18 15:00 Blood Culture - Preliminary Blood-Venous NO GROWTH AFTER 24 HOURS 08/31/18 15:30 Blood Culture - Preliminary Blood-Venous NO GROWTH AFTER 24 HOURS 08/31/18 13:02 MRSA Culture (Admit) - Final Naris MRSA NOT DETECTED 08/31/18 Unknown Urine Culture - Final Urine,Catheterized No Growth (<1,000 CFU/ML) Lab Studies 09/02/18 09/02/18 09/02/18 Range/Units 08:35 05:57 05:57 WBC 22.3 H (4.8-10.8) K/uL RBC 3.07 L (3.80-5.20) Mil/uL Hgb 7.7 L (11.0-16.0) g/dL Hct 23.8 L (34.0-47.0) % MCV 77.5 L (81.0-99.0) fL MCH 25.2 L (27.0-31.0) pg MCHC 32.5 L (33.0-37.0) g/dL RDW 18.9 H (11.5-14.5) % Plt Count 146 (130-400) K/uL MPV 9.4 (7.2-11.7) fL Neut % (Auto) (50.0-75.0) % Lymph % (Auto) (20.0-40.0) % Brewster % (Auto) (0.0-10.0) % Eos % (Auto) (0.0-4.0) % Baso % (Auto) (0.0-2.0) % Neut # (Auto) (1.8-7.0) K/uL Lymph # (Auto) (1.0-4.3) K/uL Brewster # (Auto) (0.0-0.8) K/uL Eos # (Auto) (0.0-0.7) K/uL Baso # (Auto) (0.0-0.2) K/uL Neutrophils % (Manual) (50-75) % Band Neutrophils % (0-2) % Lymphocytes % (Manual) (20-40) % Monocytes % (Manual) (0-10) % Platelet Estimate (NORMAL) Polychromasia Hypochromasia (manual) Anisocytosis (manual) Microcytosis (manual) Puncture Site pCO2 (35-45) mm/Hg pO2 (80-100) mm/Hg HCO3 (21-28) mmol/L ABG pH (7.35-7.45) ABG Total CO2 (22-28) mmol/L ABG O2 Saturation (95-98) % ABG Base Excess (-2.0-3.0) mmol/L Luis Test ABG Potassium (3.6-5.2) mmol/L A-a O2 Difference mm/Hg Respiratory Index Sodium 139 (132-148) mmol/l Chloride 107 (98-107) mmol/L Glucose (65-105) mg/dl Lactate (0.7-2.1) mmol/L Vent Mode Mechanical Rate FiO2 % Tidal Volume PEEP Potassium 3.6 (3.6-5.2) mmol/L Carbon Dioxide 22 (22-30) mmol/L Anion Gap 14 (10-20) BUN 11 (7-17) mg/dL Creatinine 0.6 L (0.7-1.2) mg/dL Est GFR ( Amer) > 60 Est GFR (Non-Af Amer) > 60 POC Glucose (mg/dL) (65-110) mg/dL Random Glucose 137 H (65-105) mg/dL Calcium 6.7 L (8.6-10.4) mg/dl Phosphorus 1.8 L (2.5-4.5) mg/dL Magnesium 2.4 H (1.6-2.3) mg/dL Total Bilirubin 2.0 H (0.2-1.3) mg/dL AST 46 H D (14-36) U/L ALT 28 (9-52) U/L Alkaline Phosphatase 53 (38-126) U/L Total Protein 5.1 L (6.3-8.3) g/dL Albumin 3.0 L (3.5-5.0) g/dL Globulin 2.1 L (2.2-3.9) gm/dL Albumin/Globulin Ratio 1.4 (1.0-2.1) Arterial Blood Potassium (3.6-5.2) mmol/L Vancomycin Trough < 5.0 L (5.0-10.0) ug/mL Blood Type Antibody Screen 09/02/18 09/02/18 09/02/18 Range/Units 05:57 05:19 04:43 WBC 20.4 H (4.8-10.8) K/uL RBC 2.96 L (3.80-5.20) Mil/uL Hgb 7.5 L (11.0-16.0) g/dL Hct 22.8 L (34.0-47.0) % MCV 77.1 L (81.0-99.0) fL MCH 25.3 L (27.0-31.0) pg MCHC 32.8 L (33.0-37.0) g/dL RDW 18.8 H (11.5-14.5) % Plt Count 129 L D (130-400) K/uL MPV 9.5 (7.2-11.7) fL Neut % (Auto) 94.9 H (50.0-75.0) % Lymph % (Auto) 2.7 L (20.0-40.0) % Brewster % (Auto) 2.2 (0.0-10.0) % Eos % (Auto) 0.2 (0.0-4.0) % Baso % (Auto) 0.0 (0.0-2.0) % Neut # (Auto) 19.4 H (1.8-7.0) K/uL Lymph # (Auto) 0.5 L (1.0-4.3) K/uL Brewster # (Auto) 0.5 (0.0-0.8) K/uL Eos # (Auto) 0.0 (0.0-0.7) K/uL Baso # (Auto) 0.0 (0.0-0.2) K/uL Neutrophils % (Manual) 36 L (50-75) % Band Neutrophils % 52 H* (0-2) % Lymphocytes % (Manual) 7 L (20-40) % Monocytes % (Manual) 5 (0-10) % Platelet Estimate Normal (NORMAL) Polychromasia Slight Hypochromasia (manual) Slight Anisocytosis (manual) Slight Microcytosis (manual) Slight Puncture Site A-line pCO2 35 (35-45) mm/Hg pO2 109 H (80-100) mm/Hg HCO3 25.0 (21-28) mmol/L ABG pH 7.44 (7.35-7.45) ABG Total CO2 24.9 (22-28) mmol/L ABG O2 Saturation 98.4 H (95-98) % ABG Base Excess 0.1 (-2.0-3.0) mmol/L Luis Test Na ABG Potassium 3.3 L (3.6-5.2) mmol/L A-a O2 Difference 204.0 mm/Hg Respiratory Index 1.9 Sodium 138.0 (132-148) mmol/l Chloride 111.0 H (98-107) mmol/L Glucose 140 H (65-105) mg/dl Lactate 1.8 (0.7-2.1) mmol/L Vent Mode Prvc Mechanical Rate 20 FiO2 50.0 % Tidal Volume 500 PEEP 5 Potassium (3.6-5.2) mmol/L Carbon Dioxide (22-30) mmol/L Anion Gap (10-20) BUN (7-17) mg/dL Creatinine (0.7-1.2) mg/dL Est GFR ( Amer) Est GFR (Non-Af Amer) POC Glucose (mg/dL) 140 H (65-110) mg/dL Random Glucose (65-105) mg/dL Calcium (8.6-10.4) mg/dl Phosphorus (2.5-4.5) mg/dL Magnesium (1.6-2.3) mg/dL Total Bilirubin (0.2-1.3) mg/dL AST (14-36) U/L ALT (9-52) U/L Alkaline Phosphatase (38-126) U/L Total Protein (6.3-8.3) g/dL Albumin (3.5-5.0) g/dL Globulin (2.2-3.9) gm/dL Albumin/Globulin Ratio (1.0-2.1) Arterial Blood Potassium 3.3 L (3.6-5.2) mmol/L Vancomycin Trough (5.0-10.0) ug/mL Blood Type Antibody Screen 09/01/18 09/01/18 09/01/18 Range/Units 23:54 17:46 11:10 WBC (4.8-10.8) K/uL RBC (3.80-5.20) Mil/uL Hgb (11.0-16.0) g/dL Hct (34.0-47.0) % MCV (81.0-99.0) fL MCH (27.0-31.0) pg MCHC (33.0-37.0) g/dL RDW (11.5-14.5) % Plt Count (130-400) K/uL MPV (7.2-11.7) fL Neut % (Auto) (50.0-75.0) % Lymph % (Auto) (20.0-40.0) % Brewster % (Auto) (0.0-10.0) % Eos % (Auto) (0.0-4.0) % Baso % (Auto) (0.0-2.0) % Neut # (Auto) (1.8-7.0) K/uL Lymph # (Auto) (1.0-4.3) K/uL Brewster # (Auto) (0.0-0.8) K/uL Eos # (Auto) (0.0-0.7) K/uL Baso # (Auto) (0.0-0.2) K/uL Neutrophils % (Manual) (50-75) % Band Neutrophils % (0-2) % Lymphocytes % (Manual) (20-40) % Monocytes % (Manual) (0-10) % Platelet Estimate (NORMAL) Polychromasia Hypochromasia (manual) Anisocytosis (manual) Microcytosis (manual) Puncture Site pCO2 (35-45) mm/Hg pO2 (80-100) mm/Hg HCO3 (21-28) mmol/L ABG pH (7.35-7.45) ABG Total CO2 (22-28) mmol/L ABG O2 Saturation (95-98) % ABG Base Excess (-2.0-3.0) mmol/L Luis Test ABG Potassium (3.6-5.2) mmol/L A-a O2 Difference mm/Hg Respiratory Index Sodium (132-148) mmol/l Chloride (98-107) mmol/L Glucose (65-105) mg/dl Lactate (0.7-2.1) mmol/L Vent Mode Mechanical Rate FiO2 % Tidal Volume PEEP Potassium (3.6-5.2) mmol/L Carbon Dioxide (22-30) mmol/L Anion Gap (10-20) BUN (7-17) mg/dL Creatinine (0.7-1.2) mg/dL Est GFR ( Amer) Est GFR (Non-Af Amer) POC Glucose (mg/dL) 154 H 180 H 187 H (65-110) mg/dL Random Glucose (65-105) mg/dL Calcium (8.6-10.4) mg/dl Phosphorus (2.5-4.5) mg/dL Magnesium (1.6-2.3) mg/dL Total Bilirubin (0.2-1.3) mg/dL AST (14-36) U/L ALT (9-52) U/L Alkaline Phosphatase (38-126) U/L Total Protein (6.3-8.3) g/dL Albumin (3.5-5.0) g/dL Globulin (2.2-3.9) gm/dL Albumin/Globulin Ratio (1.0-2.1) Arterial Blood Potassium (3.6-5.2) mmol/L Vancomycin Trough (5.0-10.0) ug/mL Blood Type Antibody Screen 08/31/18 Range/Units 05:59 WBC (4.8-10.8) K/uL RBC (3.80-5.20) Mil/uL Hgb (11.0-16.0) g/dL Hct (34.0-47.0) % MCV (81.0-99.0) fL MCH (27.0-31.0) pg MCHC (33.0-37.0) g/dL RDW (11.5-14.5) % Plt Count (130-400) K/uL MPV (7.2-11.7) fL Neut % (Auto) (50.0-75.0) % Lymph % (Auto) (20.0-40.0) % Brewster % (Auto) (0.0-10.0) % Eos % (Auto) (0.0-4.0) % Baso % (Auto) (0.0-2.0) % Neut # (Auto) (1.8-7.0) K/uL Lymph # (Auto) (1.0-4.3) K/uL Brewster # (Auto) (0.0-0.8) K/uL Eos # (Auto) (0.0-0.7) K/uL Baso # (Auto) (0.0-0.2) K/uL Neutrophils % (Manual) (50-75) % Band Neutrophils % (0-2) % Lymphocytes % (Manual) (20-40) % Monocytes % (Manual) (0-10) % Platelet Estimate (NORMAL) Polychromasia Hypochromasia (manual) Anisocytosis (manual) Microcytosis (manual) Puncture Site pCO2 (35-45) mm/Hg pO2 (80-100) mm/Hg HCO3 (21-28) mmol/L ABG pH (7.35-7.45) ABG Total CO2 (22-28) mmol/L ABG O2 Saturation (95-98) % ABG Base Excess (-2.0-3.0) mmol/L Luis Test ABG Potassium (3.6-5.2) mmol/L A-a O2 Difference mm/Hg Respiratory Index Sodium (132-148) mmol/l Chloride (98-107) mmol/L Glucose (65-105) mg/dl Lactate (0.7-2.1) mmol/L Vent Mode Mechanical Rate FiO2 % Tidal Volume PEEP Potassium (3.6-5.2) mmol/L Carbon Dioxide (22-30) mmol/L Anion Gap (10-20) BUN (7-17) mg/dL Creatinine (0.7-1.2) mg/dL Est GFR ( Amer) Est GFR (Non-Af Amer) POC Glucose (mg/dL) (65-110) mg/dL Random Glucose (65-105) mg/dL Calcium (8.6-10.4) mg/dl Phosphorus (2.5-4.5) mg/dL Magnesium (1.6-2.3) mg/dL Total Bilirubin (0.2-1.3) mg/dL AST (14-36) U/L ALT (9-52) U/L Alkaline Phosphatase (38-126) U/L Total Protein (6.3-8.3) g/dL Albumin (3.5-5.0) g/dL Globulin (2.2-3.9) gm/dL Albumin/Globulin Ratio (1.0-2.1) Arterial Blood Potassium (3.6-5.2) mmol/L Vancomycin Trough (5.0-10.0) ug/mL Blood Type A POSITIVE Antibody Screen Negative Laboratory Results - last 24 hr 08/31/18 09/01/18 09/01/18 05:59 11:10 17:46 WBC RBC Hgb Hct MCV MCH MCHC RDW Plt Count MPV Neut % (Auto) Lymph % (Auto) Brewster % (Auto) Eos % (Auto) Baso % (Auto) Neut # (Auto) Lymph # (Auto) Brewster # (Auto) Eos # (Auto) Baso # (Auto) Neutrophils % (Manual) Band Neutrophils % Lymphocytes % (Manual) Monocytes % (Manual) Platelet Estimate Polychromasia Hypochromasia (manual) Anisocytosis (manual) Microcytosis (manual) Puncture Site pCO2 pO2 HCO3 ABG pH ABG Total CO2 ABG O2 Saturation ABG Base Excess Luis Test ABG Potassium A-a O2 Difference Respiratory Index Sodium Chloride Glucose Lactate Vent Mode Mechanical Rate FiO2 Tidal Volume PEEP Potassium Carbon Dioxide Anion Gap BUN Creatinine Est GFR ( Amer) Est GFR (Non-Af Amer) POC Glucose (mg/dL) 187 H 180 H Random Glucose Calcium Phosphorus Magnesium Total Bilirubin AST ALT Alkaline Phosphatase Total Protein Albumin Globulin Albumin/Globulin Ratio Arterial Blood Potassium Vancomycin Trough Blood Type A POSITIVE Antibody Screen Negative 09/01/18 09/02/18 09/02/18 23:54 04:43 05:19 WBC RBC Hgb Hct MCV MCH MCHC RDW Plt Count MPV Neut % (Auto) Lymph % (Auto) Brewster % (Auto) Eos % (Auto) Baso % (Auto) Neut # (Auto) Lymph # (Auto) Brewster # (Auto) Eos # (Auto) Baso # (Auto) Neutrophils % (Manual) Band Neutrophils % Lymphocytes % (Manual) Monocytes % (Manual) Platelet Estimate Polychromasia Hypochromasia (manual) Anisocytosis (manual) Microcytosis (manual) Puncture Site A-line pCO2 35 pO2 109 H HCO3 25.0 ABG pH 7.44 ABG Total CO2 24.9 ABG O2 Saturation 98.4 H ABG Base Excess 0.1 Luis Test Na ABG Potassium 3.3 L A-a O2 Difference 204.0 Respiratory Index 1.9 Sodium 138.0 Chloride 111.0 H Glucose 140 H Lactate 1.8 Vent Mode Prvc Mechanical Rate 20 FiO2 50.0 Tidal Volume 500 PEEP 5 Potassium Carbon Dioxide Anion Gap BUN Creatinine Est GFR ( Amer) Est GFR (Non-Af Amer) POC Glucose (mg/dL) 154 H 140 H Random Glucose Calcium Phosphorus Magnesium Total Bilirubin AST ALT Alkaline Phosphatase Total Protein Albumin Globulin Albumin/Globulin Ratio Arterial Blood Potassium 3.3 L Vancomycin Trough Blood Type Antibody Screen 09/02/18 09/02/18 09/02/18 05:57 05:57 05:57 WBC 20.4 H RBC 2.96 L Hgb 7.5 L Hct 22.8 L MCV 77.1 L MCH 25.3 L MCHC 32.8 L RDW 18.8 H Plt Count 129 L D MPV 9.5 Neut % (Auto) 94.9 H Lymph % (Auto) 2.7 L Brewster % (Auto) 2.2 Eos % (Auto) 0.2 Baso % (Auto) 0.0 Neut # (Auto) 19.4 H Lymph # (Auto) 0.5 L Brewster # (Auto) 0.5 Eos # (Auto) 0.0 Baso # (Auto) 0.0 Neutrophils % (Manual) 36 L Band Neutrophils % 52 H* Lymphocytes % (Manual) 7 L Monocytes % (Manual) 5 Platelet Estimate Normal Polychromasia Slight Hypochromasia (manual) Slight Anisocytosis (manual) Slight Microcytosis (manual) Slight Puncture Site pCO2 pO2 HCO3 ABG pH ABG Total CO2 ABG O2 Saturation ABG Base Excess Luis Test ABG Potassium A-a O2 Difference Respiratory Index Sodium 139 Chloride 107 Glucose Lactate Vent Mode Mechanical Rate FiO2 Tidal Volume PEEP Potassium 3.6 Carbon Dioxide 22 Anion Gap 14 BUN 11 Creatinine 0.6 L Est GFR ( Amer) > 60 Est GFR (Non-Af Amer) > 60 POC Glucose (mg/dL) Random Glucose 137 H Calcium 6.7 L Phosphorus 1.8 L Magnesium 2.4 H Total Bilirubin 2.0 H AST 46 H D ALT 28 Alkaline Phosphatase 53 Total Protein 5.1 L Albumin 3.0 L Globulin 2.1 L Albumin/Globulin Ratio 1.4 Arterial Blood Potassium Vancomycin Trough < 5.0 L Blood Type Antibody Screen 09/02/18 08:35 WBC 22.3 H RBC 3.07 L Hgb 7.7 L Hct 23.8 L MCV 77.5 L MCH 25.2 L MCHC 32.5 L RDW 18.9 H Plt Count 146 MPV 9.4 Neut % (Auto) Lymph % (Auto) Brewster % (Auto) Eos % (Auto) Baso % (Auto) Neut # (Auto) Lymph # (Auto) Brewster # (Auto) Eos # (Auto) Baso # (Auto) Neutrophils % (Manual) Band Neutrophils % Lymphocytes % (Manual) Monocytes % (Manual) Platelet Estimate Polychromasia Hypochromasia (manual) Anisocytosis (manual) Microcytosis (manual) Puncture Site pCO2 pO2 HCO3 ABG pH ABG Total CO2 ABG O2 Saturation ABG Base Excess Luis Test ABG Potassium A-a O2 Difference Respiratory Index Sodium Chloride Glucose Lactate Vent Mode Mechanical Rate FiO2 Tidal Volume PEEP Potassium Carbon Dioxide Anion Gap BUN Creatinine Est GFR ( Amer) Est GFR (Non-Af Amer) POC Glucose (mg/dL) Random Glucose Calcium Phosphorus Magnesium Total Bilirubin AST ALT Alkaline Phosphatase Total Protein Albumin Globulin Albumin/Globulin Ratio Arterial Blood Potassium Vancomycin Trough Blood Type Antibody Screen Fingerstick Blood Sugar Results: 98 Review of Systems - Review of Systems Systems not reviewed;Unavailable: Acuity of Condition Critical Care Progress Note - Nutrition Nutrition: Nutrition Category Date Time Status NPO Diet [DIET] Diets 08/31/18 Breakfast Active Assessment/Plan - Assessment and Plan (Free Text) Assessment: This is a 33 yo F with PMH of asthma who presented to with acutely worsening suprapubic abdominal pain, s/p hysterctomy 4 days prior. She was found to have an intra-abdominal fluid collection, found to be large collection of feculent peritoneal fluid 2/2 sigmoid perforation. Now in the ICU, intubated, on empiric abx, on dual pressors for persistent hypotension/likely septic shock 2/2 peritonitis. -volume resuscitated Plan: Neuro: -sedated on precedex/fentanyl/versed -maintain normothermia ofirmev started by Surgery Pulm: Hypercapnic Respiratory Distress -intubated for due to tachypnea and for airway protection pending OR -ABG on admission and follow up ABGs reviewed, concerning for metabolic acidosis with attempted respiratory compensation lactates increased but now improving; 3.1 -> 3.7 -> 4.8 -> 3.9 -> 3.7 -CXR notable for mild pulm venous congestion, ETT in place Cardio: Septic Shock -off pressors -hemodynamically stable Trops negative x2, pending 1 more to rule out AK as cause of tachy/hypotension -Solucortef 50 q12, last dose tonight -Monitor strict I's and O's, UOP increased from presentation but still low GI: Peritonitis -Starting TPN today -s/p distal sigmoid/proximal rectum resection by Surgery, monitor output of drains left in place perf 2/2 hysterectomy 2 days prior, Surgery reports 2+ liters of purulent feculent material drained from peritoneal cavity -Protonix for GI ppx -Merrem and Vanco, for coverage, ID consulted for additional management of abx regimen Renal: -consider urology consult f/u recs -Monitor and replete electrolytes as needed -Rankin in place, strict I's and O's Heme: -11.9 hgb on admit, increased to 12.1 s/p OR/1 unit pRBCs/4L LR Not an appropriate increase s/p 1 unit pRBCs, but the 11.9 on admit likely falsely elevated given dehydration No lin blood in abd drains remaining post-op, Surgery reports only approx 150cc blood loss intra-operatively, no intra-abd hematoma as per Surgery -SCDs for DVT ppx at this time, avoid AC given recent surgery -Concern for possible PE, may need to anticoagulate if Echo indicative of RV strain, will discuss with Surgery prior to anticoag (if needed) -Fibrinogen wnl, so not DIC ID: Peritonitis -gram neg rods abd fluid cult -coverage of Vanco, with Merrem -Blood, urine cult neg -Procal 5 -Lactate 1.4 today -Ofirmev for febrile temps/persistent diaphoresis -ID consulted for further abx management, appreciate their recs Endo: -Insulin low sliding scale and Accuchecks q6 -BG goal 140-180
--- NOTE | 2018-09-02 12:13 | CP.PCM.PN ---
Subjective - Date & Time of Evaluation Date of Evaluation: 09/02/18 Time of Evaluation: 09:00 - Subjective Subjective: vented in ICU growing dunaway sensitive klebs from intra-op cultures iv vanco/merrem and diflucan in progress may need repeat washout - surgery following Objective - Vital Signs/Intake and Output Vital Signs (last 24 hours): Temp Pulse Resp BP Pulse Ox 98.7 F 107 H 21 93/52 L 98 09/02/18 12:00 09/02/18 12:00 09/02/18 12:00 09/02/18 12:01 09/02/18 12:00 Intake and Output: 09/02/18 09/02/18 06:59 18:59 Intake Total 1875.9 1090.0 Output Total 765 1450 Balance 1110.9 -360.0 - Medications Medications: Current Medications Albuterol/Ipratropium (Duoneb 3 Mg/0.5 Mg (3 Ml) Ud) 3 ml INH RQ6 MARLENA Last Admin: 09/02/18 07:53 Dose: 3 ml Hydrocortisone Sodium Succinate (Solu-Cortef) 50 mg IV Q12 MARLENA Stop: 09/03/18 10:01 Last Admin: 09/02/18 09:11 Dose: 50 mg Fentanyl Citrate 2,500 mcg/ (Sodium Chloride) 250 mls @ 14.52 mls/hr IV .[id number] MARLENA; Protocol Last Admin: 09/01/18 18:44 Dose: Not Given Vancomycin HCl 1 gm/ Sodium (Chloride) 250 mls @ 167 mls/hr IVPB Q24H MARLENA; Protocol Last Admin: 09/02/18 09:55 Dose: 167 mls/hr Norepinephrine Bitartrate 8 mg (/ Dextrose) 250 mls @ 7.5 mls/hr IV .Q24H PRN; Protocol PRN Reason: TITRATE PER MD ORDER Last Titration: 09/02/18 02:00 Dose: 0 mcg/min, 0 mls/hr Vasopressin 40 units/ Dextrose 40 mls @ 2.4 mls/hr IV .[id number] MARLENA Last Admin: 09/01/18 23:20 Dose: Not Given Midazolam HCl 100 mg/ Dextrose 100 mls @ 1.45 mls/hr IV .Q24H MARLENA; Protocol Last Admin: 09/01/18 15:47 Dose: 0.04 mg/kg/hr, 3.5 mls/hr Meropenem 1 gm/ Sodium (Chloride) 100 mls @ 100 mls/hr IVPB Q8H MARLENA; Protocol Last Admin: 09/02/18 12:08 Dose: 100 mls/hr Dextrose/Sodium Chloride (Dextrose 5%/0.45% Ns 1000 Ml) 1,000 mls @ 100 mls/hr IV .Q10H MARLENA Last Admin: 09/02/18 04:10 Dose: 100 mls/hr Fluconazole (Diflucan Iv 200 Mg/100 Ml Ns) 100 mls @ 100 mls/hr IVPB DAILY MARLENA; Protocol Last Admin: 09/02/18 09:10 Dose: 100 mls/hr Potassium Phosphate 30 mmole/ (Sodium Chloride) 260 mls @ 63 mls/hr IV ONCE ONE Stop: 09/02/18 13:07 Last Admin: 09/02/18 08:52 Dose: 63 mls/hr Insulin Aspart (Novolog) 0 unit SC Q6 MARLENA; Protocol Last Admin: 09/02/18 11:12 Dose: Not Given Pantoprazole Sodium (Protonix Inj) 40 mg IVP DAILY MARLENA Last Admin: 09/02/18 09:10 Dose: 40 mg - Labs Labs: 09/02/18 08:35 09/02/18 05:57 PT 14.6 SECONDS (9.7-12.2) H 08/31/18 13:02 INR 1.3 08/31/18 13:02 APTT 34 SECONDS (21-34) D 08/31/18 13:02 - Constitutional Appears: Non-toxic, Chronically Ill - Head Exam Head Exam: NORMOCEPHALIC - Eye Exam Eye Exam: PERRL - ENT Exam ENT Exam: Mucous Membranes Dry - Neck Exam Neck Exam: absent: Lymphadenopathy - Respiratory Exam Respiratory Exam: Decreased Breath Sounds - Cardiovascular Exam Cardiovascular Exam: REGULAR RHYTHM - GI/Abdominal Exam GI & Abdominal Exam: Distended, Soft - Rectal Exam Rectal Exam: Deferred - Exam Exam: NORMAL INSPECTION - Extremities Exam Extremities Exam: absent: Pedal Edema - Back Exam Back Exam: absent: CVA tenderness (L), CVA tenderness (R) - Neurological Exam Neurological Exam: absent: Alert - Psychiatric Exam Psychiatric exam: Depressed Assessment and Plan - Assessment and Plan (Free Text) Assessment: sepsis septic shock perforated viscus s/p laparoscopic hysterectomy s/p colostomy cont vanco/ merrem diflucan surgical re-eval
[2018-09-02] MEDS: Vasopressin 40 UNITS in Dextrose 5% In Water 38 ML IV SCH (16:56)
[2018-09-02] MEDS: Midazolam 50 mg/10 ml 100 MG in Dextrose 5% In Water 80 ML IV SCH (16:58)
[2018-09-02] MEDS ORDERED: Sodium Chloride 0.9% 500 ML IV ONE (17:15)
--- NOTE | 2018-09-02 18:35 | CT ---
Date of service: 09/02/2018 PROCEDURE: CT Abdomen and Pelvis without intravenous contrast HISTORY: Sepsis, intra-abdominal abscess. Negative test (concurrent with this examination). COMPARISON: 08/31/2018. CT abdomen and pelvis. TECHNIQUE: Unenhanced. Neither IV nor oral contrast administered Radiation dose: Total exam DLP = 1215.68 mGy-cm. This CT exam was performed using one or more of the following dose reduction techniques: Automated exposure control, adjustment of the mA and/or kV according to patient size, and/or use of iterative reconstruction technique. FINDINGS: LOWER THORAX: New lower lobe atelectasis approximately symmetrical. Nasogastric tube courses through the esophagus into a decompressed stomach. LIVER: Unremarkable. No gross lesion or ductal dilatation. GALLBLADDER AND BILE DUCTS: Unremarkable. PANCREAS: Unremarkable. No gross lesion or ductal dilatation. SPLEEN: Unremarkable. ADRENALS: Unremarkable. No mass. KIDNEYS AND URETERS: Unremarkable. No hydronephrosis. No solid mass. VASCULATURE: Unremarkable. No aortic aneurysm. BOWEL: Thickening of the wall of the: In particular the right cj colon consistent with acute colitis. Thickening of loops of small bowel likely enteritis. This is accentuated by the decompressed state small bowel. APPENDIX: Unremarkable. Normal appendix. PERITONEUM: Free air identified on the prior study has resolved. Low volume intra-abdominal and pelvic ascites. LYMPH NODES: Unremarkable. No enlarged lymph nodes. BLADDER: Rankin catheter decompresses the urinary bladder. REPRODUCTIVE: Unremarkable. BONES: No acute fracture. OTHER FINDINGS: Postoperative changes including anterior abdominal wall incision. Surgical drains identified in the pelvis. Diverting colostomy identified. Evacuation of abscess cavity in the pelvis. Acute onset common new edema and anasarca identified anterior abdominal wall and lateral abdominal wall. IMPRESSION: Extensive postoperative changes described in greater detail above. This includes midline anterior abdominal wall incision, diverting colostomy, evacuation of abscess in the pelvis. Surgical drains identified. Evidence of enterocolitis. The ascending colon is particularly thick walled. Similar findings identified in small bowel without a component of mechanical obstructing lesion
--- NOTE | 2018-09-02 21:42 | CARD ---
APPROVED REPORT Date of service: 08/31/2018 EKG Measurement Heart [id number] <Conclusion> Sinus tachycardia with short [place] Nonspecific ST abnormality Abnormal ECG
--- NOTE | 2018-09-02 21:43 | CARD ---
APPROVED REPORT Date of service: 08/31/2018 EKG Measurement Heart [id number] <Conclusion> Sinus tachycardia with short [place] Nonspecific ST abnormality Abnormal ECG
[2018-09-03] MEDS: (Novolog) Insulin Aspart, Recombinant 100 u/ml 10 ml vial SC SCH ×4 (00:35→17:55)
[2018-09-03] MEDS: Albuterol-Ipratrop 3 mg / 0.5 (3 ml) UD INH SCH ×4 (01:16→19:38)
[2018-09-03] MEDS: Dextrose 5%/0.45% NS 1,000 ML IV SCH ×2 (01:19→10:51)
[2018-09-03] MEDS: Meropenem 1 GM in Sodium Chloride 0.9% 100 ML IVPB SCH ×3 (04:41→20:30)
[2018-09-03 05:28] LABS: ABG ALLEN TEST POS; ARTERIAL BLOOD GAS HCO3 26.9 mmol/L (21-28); ARTERIAL BLOOD GAS HEMOGLOBIN 14.6 g/dL (11.7-17.4); ARTERIAL BLOOD GAS O2 SAT 98.8 % (95-98); ARTERIAL BLOOD GAS PCO2 37 mm/Hg (35-45); ARTERIAL BLOOD GAS PH 7.46 (7.35-7.45); ARTERIAL BLOOD GAS PO2 151 mm/Hg (80-100); ARTERIAL BLOOD GAS TCO2 27.4 mmol/L (22-28)
[2018-09-03 06:13] LABS: BASO % 0.2 % (0.0-2.0); EOS % 0.1 % (0.0-4.0); LYMPH # 0.9 K/uL (1.0-4.3); LYMPH % 3.8 % (20.0-40.0); MEAN CELL VOLUME 77.8 fL (81.0-99.0); MEAN CORPUSCULAR HEMOGLOBIN 25.5 pg (27.0-31.0); MEAN CORPUSCULAR HGB CONC 32.8 g/dL (33.0-37.0); MEAN PLATELET VOLUME 9.3 fL (7.2-11.7); MONO # 0.5 K/uL (0.0-0.8); MONO % 2.3 % (0.0-10.0); NEUT % 93.6 % (50.0-75.0); NRBC % 0.1 % (0.0-2.0); PLATELET COUNT 114 K/uL (130-400); RBC 3.55 Mil/uL (3.80-5.20); RED CELL DISTRIBUTION WIDTH 18.8 % (11.5-14.5); WHITE BLOOD COUNT 23.5 K/uL (4.8-10.8)
[2018-09-03] MEDS: White Petrolatum/Mineral Oil Ophth Oint(3.5 gm) OU SCH ×5 (06:24→21:03)
[2018-09-03 06:43] LABS: ALB/GLOB RATIO 1.1 (1.0-2.1); ALBUMIN 2.7 g/dL (3.5-5.0); ALT/SGPT 36 U/L (9-52); AST/SGOT 67 U/L (14-36); BLOOD UREA NITROGEN 11 mg/dL (7-17); CALCIUM 7.1 mg/dl (8.6-10.4); GFR NON-AFRICAN AMERICAN > 60
--- NOTE | 2018-09-03 06:46 | OP ---
PROCEDURE DATE: 08/31/2018 FENCE BUILDER: Gale Longo DO, PGY-2 SURGEON: Jeb Patino MD OPERATIONS PERFORMED: Exploratory laparotomy, partial sigmoidectomy, with colostomy creation. INDICATION FOR PROCEDURE: Acute abdomen with free fluid and free air status post robotic total abdominal hysterectomy. OPERATIVE FINDINGS: Lin feculent peritoneal fluid, full-thickness defect in the anterior antimesenteric wall of the distal sigmoid colon, approximately 8 mm in diameter. PREOPERATIVE DIAGNOSIS: Acute abdomen due to intra-abdominal abscess versus intra-abdominal hemorrhage. POSTOPERATIVE DIAGNOSIS: Perforation of the distal sigmoid colon. DESCRIPTION OF PROCEDURE: The patient was brought in from the ICU, already intubated and sedated, on full hemodynamic monitoring. The patient was transferred to the table in the supine position without issue. General anesthesia was maintained by anesthesiologist. Time-out was performed. The patient was draped in a sterile fashion. Midline incision was made from the umbilicus inferiorly approximately 8 cm in length. Upon entering the abdomen, lin feculent fluid was found in the peritoneum containing food particles. This was suctioned out with full suction, and the abdomen was explored for possible defects. Large amount of exudative material was found in the pelvis at the site of the previous procedure. Both ovaries were identified, as well as a defect full thickness to the antimesenteric wall of the distal sigmoid colon close to the rectum. This defect was approximately 8 mm in diameter. Inspection of the colon was free from its attachments and mobilized. The colon distal to the preparation was sent, resected using a TA stapling device. The proximal ends were then mobilized further, and the segment of the sigmoid colon containing perforation was excised from the colon. Attention was then turned to the rest of the abdomen. Suction irrigation was used to wash out the abdomen to identify any other sources of perforation. The entire small bowel was run in the ligament of Treitz and the ileocecal valve and was found to be intact. The abdomen was irrigated numerous times with normal saline and was also irrigated once with IrriSept. Incision was then made through the left lateral abdominal wall for ostomy placement. Distal end of the proximal stump of the colon was brought through the incision to the external abdomen and held in place. Two Ismael drains were then placed in the abdomen. One was in the epigastric area and brought out through the left upper quadrant of the abdominal wall. The other was placed in the pelvis and brought out through the right lower quadrant of the abdominal wall. Abdomen was then irrigated once more and examined for any signs of bleeding. Adequate hemostasis was obtained. The fascia was then closed with running PDS suture. This was followed by running Vicryl and the deep dermis then was closed with skin constance. Attention was then turned to the ostomy which was secured to the skin using Vicryl suture. Ostomy bag was then put in place. The patient remained intubated and was transferred back to the ICU in stable condition. COMPLICATIONS: There were no complications. ESTIMATED BLOOD LOSS: About 500 mL. COUNT: At the end of the case, all surgical materials were correct. Gale Longo DO Jeb Patino MD
[2018-09-03] MEDS ORDERED: Potassium Phosphate 30 MMOLE in Sodium Chloride 0.9% 250 ML IV ONE (08:00)
[2018-09-03 08:58] LABS: BANDS 17 % (0-2); LYMPHOCYTE 3 % (20-40); MONOCYTE 1 % (0-10); NEUTROPHIL 79 % (50-75); TOTAL CELLS COUNTED 100
[2018-09-03 08:59] LABS: ANISOCYTOSIS SLIGHT; HYPOCHROMIC SLIGHT; PLATELET ESTIMATE SLIGHTLY DECREASED (NORMAL); POLYCHROMIC SLIGHT; TARGET CELLS SLIGHT
[2018-09-03 09:00] LABS: MICROCYTOSIS SLIGHT
[2018-09-03] MEDS: Fluconazole IV 200mg/100 ml NS 100 ML IVPB SCH (09:27)
[2018-09-03] MEDS: Vasopressin 40 UNITS in Dextrose 5% In Water 38 ML IV SCH (09:28)
--- NOTE | 2018-09-03 09:33 | RAD ---
Date of service: 09/03/2018 HISTORY: on vent COMPARISON: 09/02/2018 FINDINGS: LUNGS: Current lung volumes more shallow than before Bibasilar pleural effusions with probable concomitant mild bibasilar atelectatic changes. Concomitant underlying infiltrates at either lung base not excluded. Trace left perihilar and trace medial right lung base air bronchograms compatible with some element of patchy consolidation/infiltrate and/or atelectasis at these locations. Endotracheal tube tip 2 cm from the siria PLEURA: Bilateral small pleural effusions. That on the right has increased. The left is similar to probably slightly increased. No pneumothorax appreciated. CARDIOVASCULAR: Borderline cardiomegaly given projection and technique. Central pulmonary vascular markings slightly prominent-may be due to crowding. OSSEOUS STRUCTURES: No significant abnormalities. VISUALIZED UPPER ABDOMEN: Nasogastric tube tip in stomach. OTHER FINDINGS: None. IMPRESSION: Interval increase right pleural effusion. Probable lesser increased left pleural effusion. Bibasilar mild likely compressive atelectasis Trace left perihilar and trace medial right lung base air bronchograms compatible with patchy consolidation/infiltrate and/or atelectasis at these locations. NG tube and endotracheal tube in satisfactory position
--- NOTE | 2018-09-03 09:41 | CP.PCM.PN ---
Subjective - Date & Time of Evaluation Date of Evaluation: 09/03/18 Time of Evaluation: 07:10 - Subjective Subjective: General Surgery Pt seen and examined. Intubated and sedated. WBC still elevated, bands decreasing. Reacts to noxious stimuli. Off pressors at this time. Objective - Vital Signs/Intake and Output Vital Signs (last 24 hours): Temp Pulse Resp BP Pulse Ox 100.3 F H 114 H 31 H 123/79 99 09/03/18 08:00 09/03/18 09:00 09/03/18 09:00 09/03/18 08:56 09/03/18 09:00 Intake and Output: 09/03/18 09/03/18 06:59 18:59 Intake Total 1587.8 408.0 Output Total 1505 205 Balance 82.8 203.0 - Medications Medications: Current Medications Albuterol/Ipratropium (Duoneb 3 Mg/0.5 Mg (3 Ml) Ud) 3 ml INH RQ6 MARLENA Last Admin: 09/03/18 08:36 Dose: 3 ml Artificial Tears (Lacri-Lube) 1 gm OU Q4H MARLENA Last Admin: 09/03/18 06:24 Dose: 1 gm Hydrocortisone Sodium Succinate (Solu-Cortef) 50 mg IV Q12 MARLENA Stop: 09/03/18 10:01 Last Admin: 09/03/18 09:26 Dose: 50 mg Fentanyl Citrate 2,500 mcg/ (Sodium Chloride) 250 mls @ 14.52 mls/hr IV .[id number] MARLENA; Protocol Last Titration: 09/03/18 06:00 Dose: 0.96 mcg/kg/hr, 6.97 mls/hr Vancomycin HCl 1 gm/ Sodium (Chloride) 250 mls @ 167 mls/hr IVPB Q24H MARLENA; Protocol Last Admin: 09/03/18 09:27 Dose: 167 mls/hr Norepinephrine Bitartrate 8 mg (/ Dextrose) 250 mls @ 7.5 mls/hr IV .Q24H PRN; Protocol PRN Reason: TITRATE PER MD ORDER Last Titration: 09/02/18 02:00 Dose: 0 mcg/min, 0 mls/hr Vasopressin 40 units/ Dextrose 40 mls @ 2.4 mls/hr IV .[id number] MARLENA Last Admin: 09/03/18 09:28 Dose: Not Given Midazolam HCl 100 mg/ Dextrose 100 mls @ 1.45 mls/hr IV .Q24H MARLENA; Protocol Last Titration: 09/03/18 07:50 Dose: 0 mg/kg/hr, 0 mls/hr Meropenem 1 gm/ Sodium (Chloride) 100 mls @ 100 mls/hr IVPB Q8H MARLENA; Protocol Last Admin: 09/03/18 04:41 Dose: 100 mls/hr Dextrose/Sodium Chloride (Dextrose 5%/0.45% Ns 1000 Ml) 1,000 mls @ 100 mls/hr IV .Q10H MARLENA Last Admin: 09/03/18 01:19 Dose: Not Given Fluconazole (Diflucan Iv 200 Mg/100 Ml Ns) 100 mls @ 100 mls/hr IVPB DAILY MARLENA; Protocol Last Admin: 09/03/18 09:27 Dose: 100 mls/hr Potassium Phosphate 30 mmole/ (Sodium Chloride) 260 mls @ 63 mls/hr IV ONCE ONE Stop: 09/03/18 12:07 Last Admin: 09/03/18 07:55 Dose: 63 mls/hr Insulin Aspart (Novolog) 0 unit SC Q6 MARLENA; Protocol Last Admin: 09/03/18 06:15 Dose: Not Given Pantoprazole Sodium (Protonix Inj) 40 mg IVP DAILY MARLENA Last Admin: 09/03/18 09:25 Dose: 40 mg - Labs Labs: 09/03/18 06:02 09/03/18 06:02 PT 14.6 SECONDS (9.7-12.2) H 08/31/18 13:02 INR 1.3 08/31/18 13:02 APTT 34 SECONDS (21-34) D 08/31/18 13:02 - Constitutional Appears: Non-toxic, No Acute Distress - Head Exam Head Exam: ATRAUMATIC, NORMOCEPHALIC - Eye Exam Eye Exam: absent: Conjunctival injection, Scleral icterus - Respiratory Exam Respiratory Exam: NORMAL BREATHING PATTERN (on vent). absent: Accessory Muscle Use - GI/Abdominal Exam GI & Abdominal Exam: Distended (mild), Soft. absent: Firm, Guarding, Rigid, Rebound Additional comments: dressings C/D/I DELMA drains with serosanguinous output ostomy, pink, viable, with bowel sweat in bag - Extremities Exam Extremities Exam: Normal Capillary Refill, Pedal Edema - Skin Skin Exam: Dry, Warm Assessment and Plan - Assessment and Plan (Free Text) Assessment: 33F POD#3 s/p exploratory laparotomy, sigmoid resection, end colostomy for perforated sigmoid colon Plan: Continue to trend CBC/CMP/MG/Phos, replete PRN, adjust IVF PRN. Wean vent as able per ICU team Continue to monitor strict I/O's Continue antibiotics per ID Monitor for ostomy function Will D/W Dr. Carey Mehta PGY4
--- NOTE | 2018-09-03 11:22 | CP.CCUPN ---
<Jone Sanchez - Last Filed: 09/03/18 15:09> CCU Subjective - Physician Review Subjective (Free Text): Pt seen and examined at bedside. Pt unable to provide hx, sedated. No acute events overnight per nursing. CPAP trial unsuccessful. TLC removed from femoral. picc in r brach 09/03/18 13:35 CCU Objective - Vital Signs / Intake & Output Vital Signs (Last 4 hours): Vital Signs Temp Pulse Resp BP Pulse Ox 09/03/18 10:00 108 H 23 99 09/03/18 09:56 106 H 23 98/65 L 98 09/03/18 09:00 114 H 31 H 99 09/03/18 08:56 120 H 36 H 123/79 100 09/03/18 08:00 100.3 F H 101 H 20 99 09/03/18 07:56 99 H 20 108/73 99 Intake and Output (Last 8hrs): Intake & Output 09/02/18 09/03/18 09/03/18 22:59 06:59 14:59 Intake Total 1584.4 1115.8 707.0 Output Total 1450 955 255 Balance 134.4 160.8 452.0 Weight 189 lb 9.6 oz Intake: IV 90.4 195.3 2.0 Intake, IV Amount 1494.0 920.5 705 Left Hand 1350 800 Right Distal Port Femoral 126 Right Medial Port Femoral 116.0 103.5 550 Right Proximal Port 28 Femoral right medial piggyback 28.0 17.0 1 Output: Gastric Amount 50 Stomach 50 Drainage 30 50 30 Left Abdomen 10 10 10 Right Abdomen 20 40 20 Urine 1400 855 225 Urethral (Rankin) 1400 855 225 Stool 20 Other: # Bowel Movements 0 - Physical Exam Head: Positive for: Atraumatic, Normocephalic Pupils: Positive for: Sluggish. Negative for: Non-Reactive, Pinpoint Extroacular Muscles: Positive for: Other (sedated and not following commands, minimal spontaneous movements when aroused) Conjunctiva: Positive for: Normal. Negative for: Injected, Icteric Mouth: Positive for: Dry Nose (External): Positive for: Atraumatic. Negative for: Abrasion, Contusion, L aceration Nose (Internal): Positive for: No Active Bleeding. Negative for: Epistaxis Neck: Positive for: Normal Range of Motion (passive ROM intact, some spontaneous active movement when aroused but unable to assess full active ROM), Trachea Midline. Negative for: JVD Respiratory/Chest: Positive for: Good Air Exchange, Rhonchi (mild-moderate ronchi in all vega), Other (overbreathing the ventilator but no longer tachypnic to 40's while on sedation) Cardiovascular: Positive for: Normal S1, S2, Peripheal Pulses Present (weakly/irregularly palpable bilateral radial pulses, unable to palpate pedal pulses, weakly/irregularly palpable femor pulses bilaterally), Tachycardic (persistently 120's-140's) Abdomen: Positive for: Other (post-op, 3 drains present with varying degrees of serosanguinous fluid present, no lin blood or pus appreciated, colostomy bag present with patent-appearing stoma, abdomen firm to palpation diffusely, bandaging over surgical incisions) Genitourinary/Pelvic Exam: Positive for: Other (Rankin present with only approx 250cc very dark sara urine) Upper Extremity: Positive for: Edema (bilateral upper extremities with mild non- pitting edema). Negative for: Cyanosis, NORMAL PULSES (weak pulses as described in cardio section), Deformity Lower Extremity: Positive for: Edema (bilateral lower extremities with moderate non-pitting edema). Negative for: NORMAL PULSES (intermittently palpable weak femoral pulses bilaterally unable, unable to palpate any pedal pulses) Neurological: Positive for: Other (sedated on fentanyl/precedex, intermittently aroused by pain or stimulation (like Arterial line placement) but rapidly returns to somnolence). Negative for: GCS=15 (GCS 7 (E2 V1t M4)) Skin: Positive for: Warm, Diaphoretic, Pale. Negative for: Dry, Rashes, Normal Color Psychiatric: Positive for: Other (sedated but intermittently aroused, rapidly returns to somnolence) Other physical findings (Free Text): Head: Positive for: Atraumatic, Normocephalic Pupils: Positive for: Sluggish. Negative for: Non-Reactive, Pinpoint Extroacular Muscles: Positive for: Other (sedated and not following commands, minimal spontaneous movements when aroused) Conjunctiva: Positive for: Normal. Negative for: Injected, Icteric Mouth: Positive for: Dry Nose (External): Positive for: Atraumatic. Negative for: Abrasion, Contusion, Laceration Nose (Internal): Positive for: No Active Bleeding. Negative for: Epistaxis Neck: Positive for: Normal Range of Motion (passive ROM intact, some spontaneous active movement when aroused but unable to assess full active ROM), Trachea Midline. Negative for: JVD Respiratory/Chest: Positive for: Good Air Exchange, Rhonchi (mild-moderate ronchi in all vega), Other (overbreathing the ventilator but no longer tachypnic to 40's while on sedation) Cardiovascular: Positive for: Normal S1, S2, Peripheal Pulses Present (weakly/irregularly palpable bilateral radial pulses, unable to palpate pedal pulses, weakly/irregularly palpable femor pulses bilaterally), Tachycardic (persistently 120's-140's) Abdomen: Positive for: Other (post-op, 3 drains present with varying degrees of serosanguinous fluid present, no lin blood or pus appreciated, colostomy bag present with patent-appearing stoma, abdomen firm to palpation diffusely, bandaging over surgical incisions) Genitourinary/Pelvic Exam: Positive for: Other (Rankin present with only approx 250cc very dark sara urine) Upper Extremity: Positive for: Edema (bilateral upper extremities with mild non- pitting edema). Negative for: Cyanosis, NORMAL PULSES (weak pulses as described in cardio section), Deformity Lower Extremity: Positive for: Edema (bilateral lower extremities with moderate non-pitting edema). Negative for: NORMAL PULSES (intermittently palpable weak femoral pulses bilaterally unable, unable to palpate any pedal pulses) Neurological: Positive for: Other (sedated on fentanyl/precedex, intermittently aroused by pain or stimulation (like Arterial line placement) but rapidly returns to somnolence). Negative for: GCS=15 (GCS 7 (E2 V1t M4)) Skin: Positive for: Warm, Diaphoretic, Pale. Negative for: Dry, Rashes, Normal Color Psychiatric: Positive for: Other (sedated but intermittently aroused, rapidly returns to somnolence) - Medications Active Medications: Active Medications Generic Name Dose Route Start Last Admin Trade Name Freq PRN Reason Stop Dose Admin Albuterol/Ipratropium 3 ml 09/01/18 14:00 09/03/18 08:36 Duoneb 3 Mg/0.5 Mg (3 Ml) Ud INH 3 ml RQ6 MARLENA Administration Artificial Tears 1 gm 09/03/18 06:00 09/03/18 10:50 Lacri-Lube OU 1 gm Q4H MARLENA Administration Fentanyl Citrate 2,500 mcg/ 250 mls @ 14.52 mls/hr 08/31/18 07:30 09/03/18 06:00 Sodium Chloride IV 0.96 mcg/kg/hr .[id number] MARLENA 6.97 mls/hr Titration Protocol 2 MCG/KG/HR Vancomycin HCl 1 gm/ Sodium 250 mls @ 167 mls/hr 08/31/18 10:00 09/03/18 09:27 Chloride IVPB 167 mls/hr Q24H MARLENA Administration Protocol Midazolam HCl 100 mg/ Dextrose 100 mls @ 1.45 mls/hr 08/31/18 14:00 09/03/18 07:50 IV 0 mg/kg/hr .Q24H MARLENA 0 mls/hr Titration Protocol 0.02 MG/KG/HR Meropenem 1 gm/ Sodium 100 mls @ 100 mls/hr 08/31/18 20:00 09/03/18 04:41 Chloride IVPB 100 mls/hr Q8H MARLENA Administration Protocol Dextrose/Sodium Chloride 1,000 mls @ 100 mls/hr 09/01/18 08:15 09/03/18 10:51 Dextrose 5%/0.45% Ns 1000 Ml IV 100 mls/hr .Q10H MARLENA Administration Fluconazole 100 mls @ 100 mls/hr 09/01/18 14:30 09/03/18 09:27 Diflucan Iv 200 Mg/100 Ml Ns IVPB 100 mls/hr DAILY MARLENA Administration Protocol Potassium Phosphate 30 mmole/ 260 mls @ 63 mls/hr 09/03/18 08:00 09/03/18 07:55 Sodium Chloride IV 09/03/18 12:07 63 mls/hr ONCE ONE Administration Multivitamins/Vitamin C 10 ml/ 1,010 mls @ 42 mls/hr 09/03/18 18:00 Amino Acids/Electrolytes/ IV 09/04/18 17:59 Dextrose .Q24H ONE Insulin Aspart 0 unit 09/03/18 06:00 09/03/18 06:15 Novolog SC Not Given Q6 MARLENA Protocol Pantoprazole Sodium 40 mg 08/31/18 10:00 09/03/18 09:25 Protonix Inj IVP 40 mg DAILY MARLENA Administration - Patient Studies Lab Studies: Microbiology Studies 08/31/18 02:45 Blood Culture - Preliminary Blood NO GROWTH AFTER 48 HOURS 08/31/18 02:20 Blood Culture - Preliminary Blood NO GROWTH AFTER 48 HOURS 08/31/18 15:00 Blood Culture - Preliminary Blood-Venous NO GROWTH AFTER 48 HOURS 08/31/18 15:30 Blood Culture - Preliminary Blood-Venous NO GROWTH AFTER 48 HOURS 08/31/18 14:19 Gram Stain - Final Peritoneal Fluid Body Fluid Culture - Final Klebsiella Pneumoniae Ssp Pneu Lab Studies 09/03/18 09/03/18 09/03/18 Range/Units 06:02 06:02 05:53 WBC 23.5 H (4.8-10.8) K/uL RBC 3.55 L (3.80-5.20) Mil/uL Hgb 9.0 L (11.0-16.0) g/dL Hct 27.6 L (34.0-47.0) % MCV 77.8 L (81.0-99.0) fL MCH 25.5 L (27.0-31.0) pg MCHC 32.8 L (33.0-37.0) g/dL RDW 18.8 H (11.5-14.5) % Plt Count 114 L D (130-400) K/uL MPV 9.3 (7.2-11.7) fL Neut % (Auto) 93.6 H (50.0-75.0) % Lymph % (Auto) 3.8 L (20.0-40.0) % Cottle % (Auto) 2.3 (0.0-10.0) % Eos % (Auto) 0.1 (0.0-4.0) % Baso % (Auto) 0.2 (0.0-2.0) % Neut # (Auto) 22.0 H (1.8-7.0) K/uL Lymph # (Auto) 0.9 L (1.0-4.3) K/uL Cottle # (Auto) 0.5 (0.0-0.8) K/uL Eos # (Auto) 0.0 (0.0-0.7) K/uL Baso # (Auto) 0.0 (0.0-0.2) K/uL Neutrophils % (Manual) 79 H (50-75) % Band Neutrophils % 17 H* (0-2) % Lymphocytes % (Manual) 3 L (20-40) % Monocytes % (Manual) 1 (0-10) % Platelet Estimate Slightly decreased L (NORMAL) Polychromasia Slight Hypochromasia (manual) Slight Anisocytosis (manual) Slight Microcytosis (manual) Slight Target Cells Slight Puncture Site pCO2 (35-45) mm/Hg pO2 (80-100) mm/Hg HCO3 (21-28) mmol/L ABG pH (7.35-7.45) ABG Total CO2 (22-28) mmol/L ABG O2 Saturation (95-98) % ABG Base Excess (-2.0-3.0) mmol/L ABG Hemoglobin (11.7-17.4) g/dL ABG Carboxyhemoglobin (0.5-1.5) % POC ABG HHb (Measured) (0.0-5.0) % ABG Methemoglobin (0.0-3.0) % Luis Test A-a O2 Difference mm/Hg Respiratory Index Hgb O2 Saturation (95.0-98.0) % Vent Mode Mechanical Rate FiO2 % Tidal Volume PEEP Sodium 151 H (132-148) mmol/L Potassium 3.3 L (3.6-5.2) mmol/L Chloride 112 H (98-107) mmol/L Carbon Dioxide 27 (22-30) mmol/L Anion Gap 15 (10-20) BUN 11 (7-17) mg/dL Creatinine 0.7 (0.7-1.2) mg/dL Est GFR ( Amer) > 60 Est GFR (Non-Af Amer) > 60 POC Glucose (mg/dL) 117 H (65-110) mg/dL Random Glucose 113 H (65-105) mg/dL Calcium 7.1 L (8.6-10.4) mg/dl Phosphorus 1.8 L (2.5-4.5) mg/dL Magnesium 2.8 H (1.6-2.3) mg/dL Total Bilirubin 1.8 H (0.2-1.3) mg/dL AST 67 H D (14-36) U/L ALT 36 (9-52) U/L Alkaline Phosphatase 99 (38-126) U/L Total Protein 5.1 L (6.3-8.3) g/dL Albumin 2.7 L (3.5-5.0) g/dL Globulin 2.4 (2.2-3.9) gm/dL Albumin/Globulin Ratio 1.1 (1.0-2.1) 09/03/18 09/02/18 09/02/18 Range/Units 05:10 23:47 17:41 WBC (4.8-10.8) K/uL RBC (3.80-5.20) Mil/uL Hgb (11.0-16.0) g/dL Hct (34.0-47.0) % MCV (81.0-99.0) fL MCH (27.0-31.0) pg MCHC (33.0-37.0) g/dL RDW (11.5-14.5) % Plt Count (130-400) K/uL MPV (7.2-11.7) fL Neut % (Auto) (50.0-75.0) % Lymph % (Auto) (20.0-40.0) % Cottle % (Auto) (0.0-10.0) % Eos % (Auto) (0.0-4.0) % Baso % (Auto) (0.0-2.0) % Neut # (Auto) (1.8-7.0) K/uL Lymph # (Auto) (1.0-4.3) K/uL Cottle # (Auto) (0.0-0.8) K/uL Eos # (Auto) (0.0-0.7) K/uL Baso # (Auto) (0.0-0.2) K/uL Neutrophils % (Manual) (50-75) % Band Neutrophils % (0-2) % Lymphocytes % (Manual) (20-40) % Monocytes % (Manual) (0-10) % Platelet Estimate (NORMAL) Polychromasia Hypochromasia (manual) Anisocytosis (manual) Microcytosis (manual) Target Cells Puncture Site Rr pCO2 37 (35-45) mm/Hg pO2 151 H (80-100) mm/Hg HCO3 26.9 (21-28) mmol/L ABG pH 7.46 H (7.35-7.45) ABG Total CO2 27.4 (22-28) mmol/L ABG O2 Saturation 98.8 H (95-98) % ABG Base Excess 2.6 (-2.0-3.0) mmol/L ABG Hemoglobin 14.6 (11.7-17.4) g/dL ABG Carboxyhemoglobin 1.1 (0.5-1.5) % POC ABG HHb (Measured) 1.2 (0.0-5.0) % ABG Methemoglobin 1.1 (0.0-3.0) % Luis Test Pos A-a O2 Difference 159.0 mm/Hg Respiratory Index 1.1 Hgb O2 Saturation 96.6 (95.0-98.0) % Vent Mode Prvc Mechanical Rate 20 FiO2 50.0 % Tidal Volume 500 PEEP 5 Sodium (132-148) mmol/L Potassium (3.6-5.2) mmol/L Chloride (98-107) mmol/L Carbon Dioxide (22-30) mmol/L Anion Gap (10-20) BUN (7-17) mg/dL Creatinine (0.7-1.2) mg/dL Est GFR ( Amer) Est GFR (Non-Af Amer) POC Glucose (mg/dL) 109 126 H (65-110) mg/dL Random Glucose (65-105) mg/dL Calcium (8.6-10.4) mg/dl Phosphorus (2.5-4.5) mg/dL Magnesium (1.6-2.3) mg/dL Total Bilirubin (0.2-1.3) mg/dL AST (14-36) U/L ALT (9-52) U/L Alkaline Phosphatase (38-126) U/L Total Protein (6.3-8.3) g/dL Albumin (3.5-5.0) g/dL Globulin (2.2-3.9) gm/dL Albumin/Globulin Ratio (1.0-2.1) 09/02/18 Range/Units 11:11 WBC (4.8-10.8) K/uL RBC (3.80-5.20) Mil/uL Hgb (11.0-16.0) g/dL Hct (34.0-47.0) % MCV (81.0-99.0) fL MCH (27.0-31.0) pg MCHC (33.0-37.0) g/dL RDW (11.5-14.5) % Plt Count (130-400) K/uL MPV (7.2-11.7) fL Neut % (Auto) (50.0-75.0) % Lymph % (Auto) (20.0-40.0) % Cottle % (Auto) (0.0-10.0) % Eos % (Auto) (0.0-4.0) % Baso % (Auto) (0.0-2.0) % Neut # (Auto) (1.8-7.0) K/uL Lymph # (Auto) (1.0-4.3) K/uL Cottle # (Auto) (0.0-0.8) K/uL Eos # (Auto) (0.0-0.7) K/uL Baso # (Auto) (0.0-0.2) K/uL Neutrophils % (Manual) (50-75) % Band Neutrophils % (0-2) % Lymphocytes % (Manual) (20-40) % Monocytes % (Manual) (0-10) % Platelet Estimate (NORMAL) Polychromasia Hypochromasia (manual) Anisocytosis (manual) Microcytosis (manual) Target Cells Puncture Site pCO2 (35-45) mm/Hg pO2 (80-100) mm/Hg HCO3 (21-28) mmol/L ABG pH (7.35-7.45) ABG Total CO2 (22-28) mmol/L ABG O2 Saturation (95-98) % ABG Base Excess (-2.0-3.0) mmol/L ABG Hemoglobin (11.7-17.4) g/dL ABG Carboxyhemoglobin (0.5-1.5) % POC ABG HHb (Measured) (0.0-5.0) % ABG Methemoglobin (0.0-3.0) % Luis Test A-a O2 Difference mm/Hg Respiratory Index Hgb O2 Saturation (95.0-98.0) % Vent Mode Mechanical Rate FiO2 % Tidal Volume PEEP Sodium (132-148) mmol/L Potassium (3.6-5.2) mmol/L Chloride (98-107) mmol/L Carbon Dioxide (22-30) mmol/L Anion Gap (10-20) BUN (7-17) mg/dL Creatinine (0.7-1.2) mg/dL Est GFR ( Amer) Est GFR (Non-Af Amer) POC Glucose (mg/dL) 98 (65-110) mg/dL Random Glucose (65-105) mg/dL Calcium (8.6-10.4) mg/dl Phosphorus (2.5-4.5) mg/dL Magnesium (1.6-2.3) mg/dL Total Bilirubin (0.2-1.3) mg/dL AST (14-36) U/L ALT (9-52) U/L Alkaline Phosphatase (38-126) U/L Total Protein (6.3-8.3) g/dL Albumin (3.5-5.0) g/dL Globulin (2.2-3.9) gm/dL Albumin/Globulin Ratio (1.0-2.1) Laboratory Results - last 24 hr 09/02/18 09/02/18 09/02/18 11:11 17:41 23:47 WBC RBC Hgb Hct MCV MCH MCHC RDW Plt Count MPV Neut % (Auto) Lymph % (Auto) Cottle % (Auto) Eos % (Auto) Baso % (Auto) Neut # (Auto) Lymph # (Auto) Cottle # (Auto) Eos # (Auto) Baso # (Auto) Neutrophils % (Manual) Band Neutrophils % Lymphocytes % (Manual) Monocytes % (Manual) Platelet Estimate Polychromasia Hypochromasia (manual) Anisocytosis (manual) Microcytosis (manual) Target Cells Puncture Site pCO2 pO2 HCO3 ABG pH ABG Total CO2 ABG O2 Saturation ABG Base Excess ABG Hemoglobin ABG Carboxyhemoglobin POC ABG HHb (Measured) ABG Methemoglobin Luis Test A-a O2 Difference Respiratory Index Hgb O2 Saturation Vent Mode Mechanical Rate FiO2 Tidal Volume PEEP Sodium Potassium Chloride Carbon Dioxide Anion Gap BUN Creatinine Est GFR ( Amer) Est GFR (Non-Af Amer) POC Glucose (mg/dL) 98 126 H 109 Random Glucose Calcium Phosphorus Magnesium Total Bilirubin AST ALT Alkaline Phosphatase Total Protein Albumin Globulin Albumin/Globulin Ratio 09/03/18 09/03/18 09/03/18 05:10 05:53 06:02 WBC 23.5 H RBC 3.55 L Hgb 9.0 L Hct 27.6 L MCV 77.8 L MCH 25.5 L MCHC 32.8 L RDW 18.8 H Plt Count 114 L D MPV 9.3 Neut % (Auto) 93.6 H Lymph % (Auto) 3.8 L Cottle % (Auto) 2.3 Eos % (Auto) 0.1 Baso % (Auto) 0.2 Neut # (Auto) 22.0 H Lymph # (Auto) 0.9 L Cottle # (Auto) 0.5 Eos # (Auto) 0.0 Baso # (Auto) 0.0 Neutrophils % (Manual) 79 H Band Neutrophils % 17 H* Lymphocytes % (Manual) 3 L Monocytes % (Manual) 1 Platelet Estimate Slightly decreased L Polychromasia Slight Hypochromasia (manual) Slight Anisocytosis (manual) Slight Microcytosis (manual) Slight Target Cells Slight Puncture Site Rr pCO2 37 pO2 151 H HCO3 26.9 ABG pH 7.46 H ABG Total CO2 27.4 ABG O2 Saturation 98.8 H ABG Base Excess 2.6 ABG Hemoglobin 14.6 ABG Carboxyhemoglobin 1.1 POC ABG HHb (Measured) 1.2 ABG Methemoglobin 1.1 Luis Test Pos A-a O2 Difference 159.0 Respiratory Index 1.1 Hgb O2 Saturation 96.6 Vent Mode Prvc Mechanical Rate 20 FiO2 50.0 Tidal Volume 500 PEEP 5 Sodium Potassium Chloride Carbon Dioxide Anion Gap BUN Creatinine Est GFR ( Amer) Est GFR (Non-Af Amer) POC Glucose (mg/dL) 117 H Random Glucose Calcium Phosphorus Magnesium Total Bilirubin AST ALT Alkaline Phosphatase Total Protein Albumin Globulin Albumin/Globulin Ratio 09/03/18 06:02 WBC RBC Hgb Hct MCV MCH MCHC RDW Plt Count MPV Neut % (Auto) Lymph % (Auto) Cottle % (Auto) Eos % (Auto) Baso % (Auto) Neut # (Auto) Lymph # (Auto) Cottle # (Auto) Eos # (Auto) Baso # (Auto) Neutrophils % (Manual) Band Neutrophils % Lymphocytes % (Manual) Monocytes % (Manual) Platelet Estimate Polychromasia Hypochromasia (manual) Anisocytosis (manual) Microcytosis (manual) Target Cells Puncture Site pCO2 pO2 HCO3 ABG pH ABG Total CO2 ABG O2 Saturation ABG Base Excess ABG Hemoglobin ABG Carboxyhemoglobin POC ABG HHb (Measured) ABG Methemoglobin Luis Test A-a O2 Difference Respiratory Index Hgb O2 Saturation Vent Mode Mechanical Rate FiO2 Tidal Volume PEEP Sodium 151 H Potassium 3.3 L Chloride 112 H Carbon Dioxide 27 Anion Gap 15 BUN 11 Creatinine 0.7 Est GFR ( Amer) > 60 Est GFR (Non-Af Amer) > 60 POC Glucose (mg/dL) Random Glucose 113 H Calcium 7.1 L Phosphorus 1.8 L Magnesium 2.8 H Total Bilirubin 1.8 H AST 67 H D ALT 36 Alkaline Phosphatase 99 Total Protein 5.1 L Albumin 2.7 L Globulin 2.4 Albumin/Globulin Ratio 1.1 Fingerstick Blood Sugar Results: 117 Critical Care Progress Note - Nutrition Nutrition: Nutrition Category Date Time Status NPO Diet [DIET] Diets 08/31/18 Breakfast Active Assessment/Plan - Assessment and Plan (Free Text) Assessment: This is a 33 yo F with PMH of asthma who presented to with acutely worsening suprapubic abdominal pain, s/p hysterctomy 4 days prior. She was found to have an intra-abdominal fluid collection, found to be large collection of feculent peritoneal fluid 2/2 sigmoid perforation. Now in the ICU, intubated, on empiric abx, on dual pressors for persistent hypotension/likely septic shock 2/2 perito nitis. -volume resuscitated -intubated for due to tachypnea and for airway protection pending OR -ABG on admission and follow up ABGs reviewed, concerning for metabolic acidosis with attempted respiratory compensation lactates increased but now improving; 3.1 -> 3.7 -> 4.8 -> 3.9 -> 3.7 -CXR notable for mild pulm venous congestion, ETT in place Plan: Neuro: -taper off fentanyl -sedation vacation today -maintain normothermia ofirmev started by Surgery Pulm: Hypercapnic Respiratory Distress -Pt satting well -CPAP trial today -possible extubation -Duonebs -solucortef 50 q12 last dose today 10am -fluconazole Cardio: Septic Shock -off pressors -hemodynamically stable Trops negative x2, pending 1 more to rule out IL as cause of tachy/hypotension -Monitor strict I's and O's, UOP increased from presentation but still low GI: Peritonitis -Starting TPN today -s/p distal sigmoid/proximal rectum resection by Surgery, monitor output of drains left in place perf 2/2 hysterectomy 2 days prior, Surgery reports 2+ liters of purulent feculent material drained from peritoneal cavity -Protonix for GI ppx -Merrem and Vanco, for coverage, ID consulted for additional management of abx regimen -CT abd pelv: Enteritis of small bowel Renal: -consider urology consult f/u recs -Monitor and replete electrolytes as needed -Rankin in place, strict I's and O's Heme: -9.0 Hg Not an appropriate increase s/p 1 unit pRBCs, but the 11.9 on admit likely falsely elevated given dehydration No lin blood in abd drains remaining post-op, Surgery reports only approx 150cc blood loss intra-operatively, no intra-abd hematoma as per Surgery -SCDs for DVT ppx at this time, avoid AC given recent surgery -Concern for possible PE, may need to anticoagulate if Echo indicative of RV strain, will discuss with Surgery prior to anticoag (if needed) -Fibrinogen wnl, so not DIC ID: Peritonitis -Klebsiella sensitive to Merrem -coverage of Vanco, with Merrem -Blood, urine cult neg -Ofirmev for febrile temps/persistent diaphoresis -ID consulted for further abx management, appreciate their recs Endo: -Insulin low sliding scale and Accuchecks q6 -BG goal 140-180 d/w Dr León Sanchez PGY1 <Yasmani Traore - Last Filed: 09/03/18 17:53> CCU Subjective - Physician Review Critical Care Time Spent (in minutes): 40 CCU Objective - Vital Signs / Intake & Output Vital Signs (Last 4 hours): Vital Signs Temp Pulse Resp BP Pulse Ox 09/03/18 16:00 101.1 F H 95 H 22 97 09/03/18 15:56 97 H 23 90/56 L 97 09/03/18 14:56 101 H 24 100/60 96 09/03/18 13:56 109 H 27 H 100/62 97 Intake and Output (Last 8hrs): Intake & Output 09/03/18 09/03/18 09/03/18 06:59 14:59 22:59 Intake Total 1115.8 1472.7 321 Output Total 955 505 200 Balance 160.8 967.7 121 Weight 189 lb 9.6 oz Intake: IV 195.3 63.7 Intake, IV Amount 920.5 1409 321 Left Hand 800 Right Distal Port Femoral 252 Right Medial Port Femoral 103.5 1100 300 Right Proximal Port 56 21 Femoral right medial piggyback 17.0 1 Output: Gastric Amount 50 Stomach 50 Drainage 50 30 Left Abdomen 10 10 Right Abdomen 40 20 Urine 855 475 200 Urethral (Rankin) 855 475 200 Other: # Bowel Movements 0 0 - Medications Active Medications: Active Medications Generic Name Dose Route Start Last Admin Trade Name Freq PRN Reason Stop Dose Admin Albuterol/Ipratropium 3 ml 09/01/18 14:00 09/03/18 13:51 Duoneb 3 Mg/0.5 Mg (3 Ml) Ud INH Not Given RQ6 MARLENA Artificial Tears 1 gm 09/03/18 06:00 09/03/18 13:36 Lacri-Lube OU 1 gm Q4H MARLENA Administration Fentanyl Citrate 2,500 mcg/ 250 mls @ 14.52 mls/hr 08/31/18 07:30 09/03/18 13:37 Sodium Chloride IV 0.96 mcg/kg/hr .[id number] MARLENA 6.97 mls/hr Administration Protocol 2 MCG/KG/HR Meropenem 1 gm/ Sodium 100 mls @ 100 mls/hr 08/31/18 20:00 09/03/18 12:06 Chloride IVPB 100 mls/hr Q8H MARLENA Administration Protocol Dextrose/Sodium Chloride 1,000 mls @ 100 mls/hr 09/01/18 08:15 09/03/18 10:51 Dextrose 5%/0.45% Ns 1000 Ml IV 100 mls/hr .Q10H MARLENA Administration Fluconazole 100 mls @ 100 mls/hr 09/01/18 14:30 09/03/18 09:27 Diflucan Iv 200 Mg/100 Ml Ns IVPB 100 mls/hr DAILY MARLENA Administration Protocol Multivitamins/Vitamin C 10 ml/ 1,010 mls @ 42 mls/hr 09/03/18 18:00 Amino Acids/Electrolytes/ IV 09/04/18 17:59 Dextrose .Q24H ONE Vancomycin/Sodium Chloride 1 gm in 200 mls @ 133.333 mls/hr 09/03/18 22:00 Vancomycin 1 Gm/Ns 200 Ml IVPB Q12H [facility] Protocol Insulin Aspart 0 unit 09/03/18 06:00 09/03/18 12:31 Novolog SC Not Given Q6 [facility] Protocol Pantoprazole Sodium 40 mg 08/31/18 10:00 09/03/18 09:25 Protonix Inj IVP 40 mg DAILY MARLENA Administration - Patient Studies Lab Studies: Microbiology Studies 08/31/18 02:45 Blood Culture - Preliminary Blood NO GROWTH AFTER 3 DAYS 08/31/18 02:20 Blood Culture - Preliminary Blood NO GROWTH AFTER 3 DAYS 08/31/18 15:00 Blood Culture - Preliminary Blood-Venous NO GROWTH AFTER 3 DAYS 08/31/18 15:30 Blood Culture - Preliminary Blood-Venous NO GROWTH AFTER 3 DAYS Lab Studies 09/03/18 09/03/18 09/03/18 Range/Units 11:44 06:02 06:02 WBC 23.5 H (4.8-10.8) K/uL RBC 3.55 L (3.80-5.20) Mil/uL Hgb 9.0 L (11.0-16.0) g/dL Hct 27.6 L (34.0-47.0) % MCV 77.8 L (81.0-99.0) fL MCH 25.5 L (27.0-31.0) pg MCHC 32.8 L (33.0-37.0) g/dL RDW 18.8 H (11.5-14.5) % Plt Count 114 L D (130-400) K/uL MPV 9.3 (7.2-11.7) fL Neut % (Auto) 93.6 H (50.0-75.0) % Lymph % (Auto) 3.8 L (20.0-40.0) % Cottle % (Auto) 2.3 (0.0-10.0) % Eos % (Auto) 0.1 (0.0-4.0) % Baso % (Auto) 0.2 (0.0-2.0) % Neut # (Auto) 22.0 H (1.8-7.0) K/uL Lymph # (Auto) 0.9 L (1.0-4.3) K/uL Cottle # (Auto) 0.5 (0.0-0.8) K/uL Eos # (Auto) 0.0 (0.0-0.7) K/uL Baso # (Auto) 0.0 (0.0-0.2) K/uL Neutrophils % (Manual) 79 H (50-75) % Band Neutrophils % 17 H* (0-2) % Lymphocytes % (Manual) 3 L (20-40) % Monocytes % (Manual) 1 (0-10) % Platelet Estimate Slightly decreased L (NORMAL) Polychromasia Slight Hypochromasia (manual) Slight Anisocytosis (manual) Slight Microcytosis (manual) Slight Target Cells Slight Puncture Site pCO2 (35-45) mm/Hg pO2 (80-100) mm/Hg HCO3 (21-28) mmol/L ABG pH (7.35-7.45) ABG Total CO2 (22-28) mmol/L ABG O2 Saturation (95-98) % ABG Base Excess (-2.0-3.0) mmol/L ABG Hemoglobin (11.7-17.4) g/dL ABG Carboxyhemoglobin (0.5-1.5) % POC ABG HHb (Measured) (0.0-5.0) % ABG Methemoglobin (0.0-3.0) % Luis Test A-a O2 Difference mm/Hg Respiratory Index Hgb O2 Saturation (95.0-98.0) % Vent Mode Mechanical Rate FiO2 % Tidal Volume PEEP Sodium 151 H (132-148) mmol/L Potassium 3.3 L (3.6-5.2) mmol/L Chloride 112 H (98-107) mmol/L Carbon Dioxide 27 (22-30) mmol/L Anion Gap 15 (10-20) BUN 11 (7-17) mg/dL Creatinine 0.7 (0.7-1.2) mg/dL Est GFR ( Amer) > 60 Est GFR (Non-Af Amer) > 60 POC Glucose (mg/dL) 99 (65-110) mg/dL Random Glucose 113 H (65-105) mg/dL Calcium 7.1 L (8.6-10.4) mg/dl Phosphorus 1.8 L (2.5-4.5) mg/dL Magnesium 2.8 H (1.6-2.3) mg/dL Total Bilirubin 1.8 H (0.2-1.3) mg/dL AST 67 H D (14-36) U/L ALT 36 (9-52) U/L Alkaline Phosphatase 99 (38-126) U/L Total Protein 5.1 L (6.3-8.3) g/dL Albumin 2.7 L (3.5-5.0) g/dL Globulin 2.4 (2.2-3.9) gm/dL Albumin/Globulin Ratio 1.1 (1.0-2.1) 09/03/18 09/03/18 09/02/18 Range/Units 05:53 05:10 23:47 WBC (4.8-10.8) K/uL RBC (3.80-5.20) Mil/uL Hgb (11.0-16.0) g/dL Hct (34.0-47.0) % MCV (81.0-99.0) fL MCH (27.0-31.0) pg MCHC (33.0-37.0) g/dL RDW (11.5-14.5) % Plt Count (130-400) K/uL MPV (7.2-11.7) fL Neut % (Auto) (50.0-75.0) % Lymph % (Auto) (20.0-40.0) % Cottle % (Auto) (0.0-10.0) % Eos % (Auto) (0.0-4.0) % Baso % (Auto) (0.0-2.0) % Neut # (Auto) (1.8-7.0) K/uL Lymph # (Auto) (1.0-4.3) K/uL Cottle # (Auto) (0.0-0.8) K/uL Eos # (Auto) (0.0-0.7) K/uL Baso # (Auto) (0.0-0.2) K/uL Neutrophils % (Manual) (50-75) % Band Neutrophils % (0-2) % Lymphocytes % (Manual) (20-40) % Monocytes % (Manual) (0-10) % Platelet Estimate (NORMAL) Polychromasia Hypochromasia (manual) Anisocytosis (manual) Microcytosis (manual) Target Cells Puncture Site Rr pCO2 37 (35-45) mm/Hg pO2 151 H (80-100) mm/Hg HCO3 26.9 (21-28) mmol/L ABG pH 7.46 H (7.35-7.45) ABG Total CO2 27.4 (22-28) mmol/L ABG O2 Saturation 98.8 H (95-98) % ABG Base Excess 2.6 (-2.0-3.0) mmol/L ABG Hemoglobin 14.6 (11.7-17.4) g/dL ABG Carboxyhemoglobin 1.1 (0.5-1.5) % POC ABG HHb (Measured) 1.2 (0.0-5.0) % ABG Methemoglobin 1.1 (0.0-3.0) % Luis Test Pos A-a O2 Difference 159.0 mm/Hg Respiratory Index 1.1 Hgb O2 Saturation 96.6 (95.0-98.0) % Vent Mode Prvc Mechanical Rate 20 FiO2 50.0 % Tidal Volume 500 PEEP 5 Sodium (132-148) mmol/L Potassium (3.6-5.2) mmol/L Chloride (98-107) mmol/L Carbon Dioxide (22-30) mmol/L Anion Gap (10-20) BUN (7-17) mg/dL Creatinine (0.7-1.2) mg/dL Est GFR ( Amer) Est GFR (Non-Af Amer) POC Glucose (mg/dL) 117 H 109 (65-110) mg/dL Random Glucose (65-105) mg/dL Calcium (8.6-10.4) mg/dl Phosphorus (2.5-4.5) mg/dL Magnesium (1.6-2.3) mg/dL Total Bilirubin (0.2-1.3) mg/dL AST (14-36) U/L ALT (9-52) U/L Alkaline Phosphatase (38-126) U/L Total Protein (6.3-8.3) g/dL Albumin (3.5-5.0) g/dL Globulin (2.2-3.9) gm/dL Albumin/Globulin Ratio (1.0-2.1) Laboratory Results - last 24 hr 09/02/18 09/03/18 09/03/18 23:47 05:10 05:53 WBC RBC Hgb Hct MCV MCH MCHC RDW Plt Count MPV Neut % (Auto) Lymph % (Auto) Cottle % (Auto) Eos % (Auto) Baso % (Auto) Neut # (Auto) Lymph # (Auto) Cottle # (Auto) Eos # (Auto) Baso # (Auto) Neutrophils % (Manual) Band Neutrophils % Lymphocytes % (Manual) Monocytes % (Manual) Platelet Estimate Polychromasia Hypochromasia (manual) Anisocytosis (manual) Microcytosis (manual) Target Cells Puncture Site Rr pCO2 37 pO2 151 H HCO3 26.9 ABG pH 7.46 H ABG Total CO2 27.4 ABG O2 Saturation 98.8 H ABG Base Excess 2.6 ABG Hemoglobin 14.6 ABG Carboxyhemoglobin 1.1 POC ABG HHb (Measured) 1.2 ABG Methemoglobin 1.1 Luis Test Pos A-a O2 Difference 159.0 Respiratory Index 1.1 Hgb O2 Saturation 96.6 Vent Mode Prvc Mechanical Rate 20 FiO2 50.0 Tidal Volume 500 PEEP 5 Sodium Potassium Chloride Carbon Dioxide Anion Gap BUN Creatinine Est GFR ( Amer) Est GFR (Non-Af Amer) POC Glucose (mg/dL) 109 117 H Random Glucose Calcium Phosphorus Magnesium Total Bilirubin AST ALT Alkaline Phosphatase Total Protein Albumin Globulin Albumin/Globulin Ratio 09/03/18 09/03/18 09/03/18 06:02 06:02 11:44 WBC 23.5 H RBC 3.55 L Hgb 9.0 L Hct 27.6 L MCV 77.8 L MCH 25.5 L MCHC 32.8 L RDW 18.8 H Plt Count 114 L D MPV 9.3 Neut % (Auto) 93.6 H Lymph % (Auto) 3.8 L Cottle % (Auto) 2.3 Eos % (Auto) 0.1 Baso % (Auto) 0.2 Neut # (Auto) 22.0 H Lymph # (Auto) 0.9 L Cottle # (Auto) 0.5 Eos # (Auto) 0.0 Baso # (Auto) 0.0 Neutrophils % (Manual) 79 H Band Neutrophils % 17 H* Lymphocytes % (Manual) 3 L Monocytes % (Manual) 1 Platelet Estimate Slightly decreased L Polychromasia Slight Hypochromasia (manual) Slight Anisocytosis (manual) Slight Microcytosis (manual) Slight Target Cells Slight Puncture Site pCO2 pO2 HCO3 ABG pH ABG Total CO2 ABG O2 Saturation ABG Base Excess ABG Hemoglobin ABG Carboxyhemoglobin POC ABG HHb (Measured) ABG Methemoglobin Luis Test A-a O2 Difference Respiratory Index Hgb O2 Saturation Vent Mode Mechanical Rate FiO2 Tidal Volume PEEP Sodium 151 H Potassium 3.3 L Chloride 112 H Carbon Dioxide 27 Anion Gap 15 BUN 11 Creatinine 0.7 Est GFR ( Amer) > 60 Est GFR (Non-Af Amer) > 60 POC Glucose (mg/dL) 99 Random Glucose 113 H Calcium 7.1 L Phosphorus 1.8 L Magnesium 2.8 H Total Bilirubin 1.8 H AST 67 H D ALT 36 Alkaline Phosphatase 99 Total Protein 5.1 L Albumin 2.7 L Globulin 2.4 Albumin/Globulin Ratio 1.1 Critical Care Progress Note - Nutrition Nutrition: Nutrition Category Date Time Status NPO Diet [DIET] Diets 08/31/18 Breakfast Active Attending/Attestation - Attestation I have personally seen and examined this patient.: Yes I have fully participated in the care of the patient.: Yes I have reviewed all pertinent clinical information: Yes Notes (Text): 09/03/18 17:52 Patient seen and examined in the intensive care unit. remained intubated on ventilatory support, Spontaneous awakening trial Patient tolerated CPAP for a few minutes Continue IV antibiotics as per infectious disease Patient remained febrile Patient started on TPN
--- NOTE | 2018-09-03 12:20 | RAD ---
HISTORY: S/P PICC INSERTION COMPARISON: No prior. TECHNIQUE: Chest, one view. FINDINGS: Endotracheal tube terminates approximately 3.7 cm above the level the siria. Nasogastric tube extends expected location of the stomach. Right-sided PICC extends to the right atrium. Examination limited by habitus and hypoinflation. LUNGS: Mild pulmonary venous congestion. Small right pleural effusion and/or consolidation. No definite pneumothorax. CARDIOVASCULAR: Heart size appears within normal limits. OSSEOUS STRUCTURES: No acute osseous abnormality identified. VISUALIZED UPPER ABDOMEN: Unremarkable. OTHER FINDINGS: None. IMPRESSION: Endotracheal tube terminates approximately 3.7 cm above the level the siria. Nasogastric tube extends expected location of the stomach. Right-sided PICC extends to the right atrium. Mild pulmonary venous congestion. Small right pleural effusion and/or consolidation.
--- NOTE | 2018-09-03 12:28 | CP.PCM.PN ---
Subjective - Date & Time of Evaluation Date of Evaluation: 09/03/18 Time of Evaluation: 08:00 - Subjective Subjective: intubated in ICU no colostomy out put Objective - Vital Signs/Intake and Output Vital Signs (last 24 hours): Temp Pulse Resp BP Pulse Ox 101.7 F H 109 H 31 H 108/68 95 09/03/18 12:00 09/03/18 12:00 09/03/18 12:00 09/03/18 11:56 09/03/18 12:00 Intake and Output: 09/03/18 09/03/18 06:59 18:59 Intake Total 1587.8 1155.0 Output Total 1505 405 Balance 82.8 750.0 - Medications Medications: Current Medications Albuterol/Ipratropium (Duoneb 3 Mg/0.5 Mg (3 Ml) Ud) 3 ml INH RQ6 [facility] Last Admin: 09/03/18 08:36 Dose: 3 ml Artificial Tears (Lacri-Lube) 1 gm OU Q4H [facility]LENA Last Admin: 09/03/18 10:50 Dose: 1 gm Fentanyl Citrate 2,500 mcg/ (Sodium Chloride) 250 mls @ 14.52 mls/hr IV .[id number] [facility]LENA; Protocol Last Titration: 09/03/18 06:00 Dose: 0.96 mcg/kg/hr, 6.97 mls/hr Vancomycin HCl 1 gm/ Sodium (Chloride) 250 mls @ 167 mls/hr IVPB Q24H [facility]LENA; Protocol Last Admin: 09/03/18 09:27 Dose: 167 mls/hr Midazolam HCl 100 mg/ Dextrose 100 mls @ 1.45 mls/hr IV .Q24H [facility]LENA; Protocol Last Titration: 09/03/18 07:50 Dose: 0 mg/kg/hr, 0 mls/hr Meropenem 1 gm/ Sodium (Chloride) 100 mls @ 100 mls/hr IVPB Q8H [facility]LENA; Protocol Last Admin: 09/03/18 12:06 Dose: 100 mls/hr Dextrose/Sodium Chloride (Dextrose 5%/0.45% Ns 1000 Ml) 1,000 mls @ 100 mls/hr IV .Q10H [facility]LENA Last Admin: 09/03/18 10:51 Dose: 100 mls/hr Fluconazole (Diflucan Iv 200 Mg/100 Ml Ns) 100 mls @ 100 mls/hr IVPB DAILY [facility]NA; Protocol Last Admin: 09/03/18 09:27 Dose: 100 mls/hr Multivitamins/Vitamin C 10 ml/Amino Acids/Electrolytes/Dextrose 1,010 mls @ 42 mls/hr IV .Q24H ONE Stop: 09/04/18 17:59 Acetaminophen (Ofirmev) 100 mls @ 400 mls/hr IV ONCE ONE Stop: 09/03/18 13:14 Insulin Aspart (Novolog) 0 unit SC Q6 [facility]LENA; Protocol Last Admin: 09/03/18 06:15 Dose: Not Given Pantoprazole Sodium (Protonix Inj) 40 mg IVP DAILY [facility]NA Last Admin: 09/03/18 09:25 Dose: 40 mg - Labs Labs: 09/03/18 06:02 09/03/18 06:02 PT 14.6 SECONDS (9.7-12.2) H 08/31/18 13:02 INR 1.3 08/31/18 13:02 APTT 34 SECONDS (21-34) D 08/31/18 13:02 - Constitutional Appears: No Acute Distress - Head Exam Head Exam: NORMOCEPHALIC - Eye Exam Eye Exam: absent: Scleral icterus - ENT Exam ENT Exam: Mucous Membranes Dry - Neck Exam Neck Exam: absent: Lymphadenopathy - Respiratory Exam Respiratory Exam: Decreased Breath Sounds - Cardiovascular Exam Cardiovascular Exam: REGULAR RHYTHM - GI/Abdominal Exam GI & Abdominal Exam: Distended, Soft - Rectal Exam Rectal Exam: Deferred - Exam Exam: NORMAL INSPECTION - Extremities Exam Extremities Exam: Pedal Edema - Back Exam Back Exam: absent: CVA tenderness (L), CVA tenderness (R) Assessment and Plan - Assessment and Plan (Free Text) Assessment: s/p perf viscus, peritonitis requiring colostomy following hysterectomy sepsis resp failure cont iv rx for peritonitis
--- NOTE | 2018-09-03 12:46 | VASCLAB ---
Date of service: 09/02/2018 PROCEDURE: Lower Extremity Venous Duplex Exam. HISTORY: r/o DVT large A-a gradient PRIORS: None. TECHNIQUE: Bilateral common femoral, femoral, popliteal and posterior tibial, peroneal and great saphenous veins were evaluated. Flow was assessed with color Doppler, compressibility, assessment of phasic flow and augmentation response. Report prepared by Kristian Hooker, BS, RVT FINDINGS: RIGHT: 1. Common Femoral Vein: 1.1. Compressibility - Fully compressible: Thrombus - None : Flow - Phasic: Augmentation -Normal: Reflux - None. 2. Femoral Vein: 2.1. Compressibility - Fully compressible: Thrombus - None : Flow - Phasic: Augmentation -Normal: Reflux - None. 3. Popliteal Vein: 3.1. Compressibility - Fully compressible: Thrombus - None : Flow - Phasic: Augmentation -Normal: Reflux - None. 4. Posterior Tibial Vein: 4.1. Compressibility - Fully compressible: Thrombus - None: Flow - Phasic: Augmentation -Normal: Reflux - None. 5. Peroneal Vein: 5.1. Compressibility - Fully compressible: Thrombus - None: Flow - Phasic: Augmentation -Normal: Reflux - None. 6. Great Saphenous Vein: 6.1. Compressibility - Fully compressible: Thrombus - None: Flow - Phasic: Augmentation - Normal: Reflux - None. LEFT: 1. Common Femoral Vein: 1.1. Compressibility - Fully compressible: Thrombus - None: Flow - Phasic: Augmentation -Normal: Reflux - None. 2. Femoral Vein: 2.1. Compressibility - Fully compressible: Thrombus - None: Flow - Phasic: Augmentation -Normal: Reflux - None. 3. Popliteal Vein: 3.1. Compressibility - Fully compressible: Thrombus - None : Flow - Phasic: Augmentation -Normal: Reflux - None. 4. Posterior Tibial Vein: 4.1. Compressibility - Fully compressible: Thrombus - None: Flow - Phasic: Augmentation -Normal: Reflux - None. 5. Peroneal Vein: 5.1. Compressibility - Fully compressible: Thrombus - None: Flow - Phasic: Augmentation -Normal: Reflux - None. 6. Great Saphenous Vein: 6.1. Compressibility - Fully compressible: Thrombus - None: Flow - Phasic: Augmentation - Normal: Reflux - None. OTHER FINDINGS: Right: None significant. Left: None significant. IMPRESSION: Right: No evidence of deep or superficial vein thrombosis of the right lower extremity. Normal valve function noted of the right side. Left: No evidence of deep or superficial vein thrombosis of the left lower extremity. Normal valve function noted of the left side.
[2018-09-03] MEDS: Midazolam 50 mg/10 ml 100 MG in Dextrose 5% In Water 80 ML IV SCH (13:00)
[2018-09-03] MEDS ORDERED: TPN IV ONE (18:00)
[2018-09-03] MEDS: Vancomycin 1 gm/NS 200 ml 1 GM/200 ML BAG IVPB SCH (21:00)
[2018-09-04] MEDS: (Novolog) Insulin Aspart, Recombinant 100 u/ml 10 ml vial SC SCH ×4 (00:10→18:34)
[2018-09-04] MEDS: Albuterol-Ipratrop 3 mg / 0.5 (3 ml) UD INH SCH ×4 (01:15→19:19)
[2018-09-04] MEDS: White Petrolatum/Mineral Oil Ophth Oint(3.5 gm) OU SCH ×6 (02:30→22:29)
[2018-09-04 04:37] LABS: ARTERIAL BLOOD GAS HEMOGLOBIN 11.8 g/dL (11.7-17.4); ARTERIAL BLOOD GAS O2 SAT 97.8 % (95-98); ARTERIAL BLOOD GAS PCO2 35 mm/Hg (35-45); ARTERIAL BLOOD GAS PH 7.48 (7.35-7.45); ARTERIAL BLOOD GAS PO2 95 mm/Hg (80-100); ARTERIAL BLOOD GAS TCO2 27.2 mmol/L (22-28)
[2018-09-04] MEDS: Meropenem 1 GM in Sodium Chloride 0.9% 100 ML IVPB SCH ×3 (05:00→19:44)
[2018-09-04 06:26] LABS: ALBUMIN 2.7 g/dL (3.5-5.0); ALT/SGPT 33 U/L (9-52); AST/SGOT 70 U/L (14-36); BLOOD UREA NITROGEN 18 mg/dL (7-17); CALCIUM 7.5 mg/dl (8.6-10.4); GFR NON-AFRICAN AMERICAN > 60
[2018-09-04 06:38] LABS: BASO # 0.1 K/uL (0.0-0.2); BASO % 0.4 % (0.0-2.0); EOS # 0.3 K/uL (0.0-0.7); EOS % 1.7 % (0.0-4.0); HEMOGLOBIN 11.4 g/dL (11.0-16.0); LYMPH # 2.2 K/uL (1.0-4.3); LYMPH % 10.8 % (20.0-40.0); MEAN CELL VOLUME 77.7 fL (81.0-99.0); MEAN CORPUSCULAR HEMOGLOBIN 25.2 pg (27.0-31.0); MEAN CORPUSCULAR HGB CONC 32.5 g/dL (33.0-37.0); MEAN PLATELET VOLUME 8.9 fL (7.2-11.7); MONO # 0.8 K/uL (0.0-0.8); MONO % 3.9 % (0.0-10.0); NEUT # 16.7 K/uL (1.8-7.0); NEUT % 83.2 % (50.0-75.0); NRBC % 0.1 % (0.0-2.0); RBC 4.51 Mil/uL (3.80-5.20); RED CELL DISTRIBUTION WIDTH 19.3 % (11.5-14.5); WHITE BLOOD COUNT 20.1 K/uL (4.8-10.8)
--- NOTE | 2018-09-04 08:53 | RAD ---
Date of service: 09/04/2018 PROCEDURE: CHEST RADIOGRAPH, 1 VIEW HISTORY: vented COMPARISON: 09/03/2018 FINDINGS: LUNGS: Clear. PLEURA: No pneumothorax or pleural fluid seen. CARDIOVASCULAR: Normal heart size. ET tube, NG tube and right PICC catheter are unchanged. OSSEOUS STRUCTURES: No significant abnormalities. VISUALIZED UPPER ABDOMEN: Normal. OTHER FINDINGS: None. IMPRESSION: No active disease.
[2018-09-04] MEDS: Fluconazole IV 200mg/100 ml NS 100 ML IVPB SCH (09:29)
[2018-09-04] MEDS: Vancomycin 1 gm/NS 200 ml 1 GM/200 ML BAG IVPB SCH ×2 (09:31→17:48)
--- NOTE | 2018-09-04 10:06 | CP.CCUPN ---
<Jone Sanchez - Last Filed: 09/04/18 16:26> CCU Subjective - Physician Review Subjective (Free Text): Pt seen and examined at bedside. Pt unable to provide hx, sedated. Pt had tachy event HR >200 today at 9am -> given adenosine IVP. HR now in 110s. 09/04/18 09:53 CCU Objective - Vital Signs / Intake & Output Vital Signs (Last 4 hours): Vital Signs Pulse Resp BP Pulse Ox 09/04/18 08:56 114 H 26 H 103/85 100 09/04/18 07:59 127 H 26 H 112/78 100 09/04/18 07:00 113 H 22 09/04/18 06:57 114 H 25 H 97/60 L 97 09/04/18 06:00 132 H 43 H 99 09/04/18 05:57 125 H 33 H 98/77 L 100 Intake and Output (Last 8hrs): Intake & Output 09/03/18 09/04/18 09/04/18 22:59 06:59 14:59 Intake Total 1261 1174.6 115.8 Output Total 510 570 60 Balance 751 604.6 55.8 Weight 207 lb 3.752 oz Intake: IV 100 150 Intake, IV Amount 985 608.6 63.8 Left Hand 10 10 Right Medial Port Femoral 300 Right Medial Port PICC 44 162.6 21.8 Right Medial Port Y site 400 100 Right Proximal Port 21 Femoral Right Proximal Port PICC 210 336 42 Tube Feeding 50 80 10 TPN/PPN 126 336 42 Output: Drainage 20 50 Left Abdomen 10 20 Right Abdomen 10 30 Urine 490 520 60 Urethral (Rankin) 490 520 60 Other: # Bowel Movements 0 0 - Physical Exam Head: Positive for: Atraumatic, Normocephalic Pupils: Positive for: Sluggish. Negative for: Non-Reactive, Pinpoint Extroacular Muscles: Positive for: Other (sedated and not following commands, minimal spontaneous movements when aroused) Conjunctiva: Positive for: Normal. Negative for: Injected, Icteric Mouth: Positive for: Dry Nose (External): Positive for: Atraumatic. Negative for: Abrasion, Contusion, Laceration Nose (Internal): Positive for: No Active Bleeding. Negative for: Epistaxis Neck: Positive for: Normal Range of Motion (passive ROM intact, some spontaneous active movement when aroused but unable to assess full active ROM), Trachea Midline. Negative for: JVD Respiratory/Chest: Positive for: Good Air Exchange, Rhonchi (mild-moderate ronchi in all vega), Other (overbreathing the ventilator but no longer tachypnic to 40's while on sedation) Cardiovascular: Positive for: Normal S1, S2, Peripheal Pulses Present (wea kly/irregularly palpable bilateral radial pulses, unable to palpate pedal pulses, weakly/irregularly palpable femor pulses bilaterally), Tachycardic (persistently 120's-140's) Abdomen: Positive for: Other (post-op, 3 drains present with varying degrees of serosanguinous fluid present, no lin blood or pus appreciated, colostomy bag present with patent-appearing stoma, abdomen firm to palpation diffusely, bandaging over surgical incisions) Genitourinary/Pelvic Exam: Positive for: Other (Rankin present with only approx 250cc very dark sara urine) Upper Extremity: Positive for: Edema (bilateral upper extremities with mild non- pitting edema). Negative for: Cyanosis, NORMAL PULSES (weak pulses as described in cardio section), Deformity Lower Extremity: Positive for: Edema (bilateral lower extremities with moderate non-pitting edema). Negative for: NORMAL PULSES (intermittently palpable weak femoral pulses bilaterally unable, unable to palpate any pedal pulses) Neurological: Positive for: Other (sedated on fentanyl/precedex, intermittently aroused by pain or stimulation (like Arterial line placement) but rapidly returns to somnolence). Negative for: GCS=15 (GCS 7 (E2 V1t M4)) Skin: Positive for: Warm, Diaphoretic, Pale. Negative for: Dry, Rashes, Normal Color Psychiatric: Positive for: Other (sedated but intermittently aroused, rapidly returns to somnolence) - Medications Active Medications: Active Medications Generic Name Dose Route Start Last Admin Trade Name Freq PRN Reason Stop Dose Admin Acetaminophen 650 mg 09/04/18 10:00 Tylenol 650 Mg Supp VT 09/04/18 10:01 ONCE ONE Albuterol/Ipratropium 3 ml 09/01/18 14:00 09/04/18 07:48 Duoneb 3 Mg/0.5 Mg (3 Ml) Ud INH 3 ml RQ6 MARLENA Administration Artificial Tears 1 gm 09/03/18 06:00 09/04/18 09:29 Lacri-Lube OU 1 gm Q4H MARLENA Administration Fentanyl Citrate 2,500 mcg/ 250 mls @ 14.52 mls/hr 08/31/18 07:30 09/04/18 08:00 Sodium Chloride IV 4 mcg/kg/hr .[id number] MARLENA 29.03 mls/hr Administration Protocol 2 MCG/KG/HR Meropenem 1 gm/ Sodium 100 mls @ 100 mls/hr 08/31/18 20:00 09/04/18 05:00 Chloride IVPB 100 mls/hr Q8H MARLENA Administration Protocol Fluconazole 100 mls @ 100 mls/hr 09/01/18 14:30 09/04/18 09:29 Diflucan Iv 200 Mg/100 Ml Ns IVPB 100 mls/hr DAILY MARLENA Administration Protocol Multivitamins/Vitamin C 10 ml/ 1,010 mls @ 42 mls/hr 09/03/18 18:00 09/03/18 17:53 Amino Acids/Electrolytes/ IV 09/04/18 17:59 42 mls/hr Dextrose .Q24H ONE Administration Vancomycin/Sodium Chloride 1 gm in 200 mls @ 133.333 mls/hr 09/03/18 22:00 09/04/18 09:31 Vancomycin 1 Gm/Ns 200 Ml IVPB 133.333 mls/hr Q12H MARLENA Administration Protocol Insulin Aspart 0 unit 09/03/18 06:00 09/04/18 06:30 Novolog SC Not Given Q6 MARLENA Protocol Pantoprazole Sodium 40 mg 08/31/18 10:00 09/04/18 09:29 Protonix Inj IVP 40 mg DAILY MARLENA Administration - Patient Studies Lab Studies: Microbiology Studies 08/31/18 02:45 Blood Culture - Preliminary Blood NO GROWTH AFTER 3 DAYS 08/31/18 02:20 Blood Culture - Preliminary Blood NO GROWTH AFTER 3 DAYS 08/31/18 15:00 Blood Culture - Preliminary Blood-Venous NO GROWTH AFTER 3 DAYS 08/31/18 15:30 Blood Culture - Preliminary Blood-Venous NO GROWTH AFTER 3 DAYS Lab Studies 09/04/18 09/04/18 09/04/18 Range/Units 06:33 05:54 05:52 WBC 20.1 H (4.8-10.8) K/uL RBC 4.51 (3.80-5.20) Mil/uL Hgb 11.4 D (11.0-16.0) g/dL Hct 35.0 (34.0-47.0) % MCV 77.7 L (81.0-99.0) fL MCH 25.2 L (27.0-31.0) pg MCHC 32.5 L (33.0-37.0) g/dL RDW 19.3 H (11.5-14.5) % Plt Count 98 L (130-400) K/uL MPV 8.9 (7.2-11.7) fL Neut % (Auto) 83.2 H (50.0-75.0) % Lymph % (Auto) 10.8 L (20.0-40.0) % Lee % (Auto) 3.9 (0.0-10.0) % Eos % (Auto) 1.7 (0.0-4.0) % Baso % (Auto) 0.4 (0.0-2.0) % Neut # (Auto) 16.7 H (1.8-7.0) K/uL Lymph # (Auto) 2.2 (1.0-4.3) K/uL Lee # (Auto) 0.8 (0.0-0.8) K/uL Eos # (Auto) 0.3 (0.0-0.7) K/uL Baso # (Auto) 0.1 (0.0-0.2) K/uL Puncture Site pCO2 (35-45) mm/Hg pO2 (80-100) mm/Hg HCO3 (21-28) mmol/L ABG pH (7.35-7.45) ABG Total CO2 (22-28) mmol/L ABG O2 Saturation (95-98) % ABG Base Excess (-2.0-3.0) mmol/L ABG Hemoglobin (11.7-17.4) g/dL ABG Carboxyhemoglobin (0.5-1.5) % POC ABG HHb (Measured) (0.0-5.0) % ABG Methemoglobin (0.0-3.0) % Luis Test A-a O2 Difference mm/Hg Respiratory Index Hgb O2 Saturation (95.0-98.0) % Vent Mode Mechanical Rate FiO2 % Tidal Volume PEEP Sodium 148 (132-148) mmol/L Potassium 4.0 (3.6-5.2) mmol/L Chloride 114 H (98-107) mmol/L Carbon Dioxide 25 (22-30) mmol/L Anion Gap 14 (10-20) BUN 18 H (7-17) mg/dL Creatinine 0.5 L (0.7-1.2) mg/dL Est GFR ( Amer) > 60 Est GFR (Non-Af Amer) > 60 POC Glucose (mg/dL) 114 H (65-110) mg/dL Random Glucose 123 H (65-105) mg/dL Calcium 7.5 L (8.6-10.4) mg/dl Phosphorus 2.3 L (2.5-4.5) mg/dL Magnesium 2.7 H (1.6-2.3) mg/dL Total Bilirubin 1.6 H (0.2-1.3) mg/dL AST 70 H (14-36) U/L ALT 33 (9-52) U/L Alkaline Phosphatase 152 H D (38-126) U/L Total Protein 5.4 L (6.3-8.3) g/dL Albumin 2.7 L (3.5-5.0) g/dL Globulin 2.7 (2.2-3.9) gm/dL Albumin/Globulin Ratio 1.0 (1.0-2.1) 09/04/18 09/03/18 09/03/18 Range/Units 04:30 23:29 17:51 WBC (4.8-10.8) K/uL RBC (3.80-5.20) Mil/uL Hgb (11.0-16.0) g/dL Hct (34.0-47.0) % MCV (81.0-99.0) fL MCH (27.0-31.0) pg MCHC (33.0-37.0) g/dL RDW (11.5-14.5) % Plt Count (130-400) K/uL MPV (7.2-11.7) fL Neut % (Auto) (50.0-75.0) % Lymph % (Auto) (20.0-40.0) % Lee % (Auto) (0.0-10.0) % Eos % (Auto) (0.0-4.0) % Baso % (Auto) (0.0-2.0) % Neut # (Auto) (1.8-7.0) K/uL Lymph # (Auto) (1.0-4.3) K/uL Lee # (Auto) (0.0-0.8) K/uL Eos # (Auto) (0.0-0.7) K/uL Baso # (Auto) (0.0-0.2) K/uL Puncture Site Lb pCO2 35 (35-45) mm/Hg pO2 95 (80-100) mm/Hg HCO3 27.0 (21-28) mmol/L ABG pH 7.48 H (7.35-7.45) ABG Total CO2 27.2 (22-28) mmol/L ABG O2 Saturation 97.8 (95-98) % ABG Base Excess 2.7 (-2.0-3.0) mmol/L ABG Hemoglobin 11.8 (11.7-17.4) g/dL ABG Carboxyhemoglobin 1.0 (0.5-1.5) % POC ABG HHb (Measured) 2.2 (0.0-5.0) % ABG Methemoglobin 1.0 (0.0-3.0) % Luis Test Na A-a O2 Difference 218.0 mm/Hg Respiratory Index 2.3 Hgb O2 Saturation 95.8 (95.0-98.0) % Vent Mode Prvc Mechanical Rate 20 FiO2 50.0 % Tidal Volume 500 PEEP 5 Sodium (132-148) mmol/L Potassium (3.6-5.2) mmol/L Chloride (98-107) mmol/L Carbon Dioxide (22-30) mmol/L Anion Gap (10-20) BUN (7-17) mg/dL Creatinine (0.7-1.2) mg/dL Est GFR ( Amer) Est GFR (Non-Af Amer) POC Glucose (mg/dL) 94 119 H (65-110) mg/dL Random Glucose (65-105) mg/dL Calcium (8.6-10.4) mg/dl Phosphorus (2.5-4.5) mg/dL Magnesium (1.6-2.3) mg/dL Total Bilirubin (0.2-1.3) mg/dL AST (14-36) U/L ALT (9-52) U/L Alkaline Phosphatase (38-126) U/L Total Protein (6.3-8.3) g/dL Albumin (3.5-5.0) g/dL Globulin (2.2-3.9) gm/dL Albumin/Globulin Ratio (1.0-2.1) 09/03/18 Range/Units 11:44 WBC (4.8-10.8) K/uL RBC (3.80-5.20) Mil/uL Hgb (11.0-16.0) g/dL Hct (34.0-47.0) % MCV (81.0-99.0) fL MCH (27.0-31.0) pg MCHC (33.0-37.0) g/dL RDW (11.5-14.5) % Plt Count (130-400) K/uL MPV (7.2-11.7) fL Neut % (Auto) (50.0-75.0) % Lymph % (Auto) (20.0-40.0) % Lee % (Auto) (0.0-10.0) % Eos % (Auto) (0.0-4.0) % Baso % (Auto) (0.0-2.0) % Neut # (Auto) (1.8-7.0) K/uL Lymph # (Auto) (1.0-4.3) K/uL Lee # (Auto) (0.0-0.8) K/uL Eos # (Auto) (0.0-0.7) K/uL Baso # (Auto) (0.0-0.2) K/uL Puncture Site pCO2 (35-45) mm/Hg pO2 (80-100) mm/Hg HCO3 (21-28) mmol/L ABG pH (7.35-7.45) ABG Total CO2 (22-28) mmol/L ABG O2 Saturation (95-98) % ABG Base Excess (-2.0-3.0) mmol/L ABG Hemoglobin (11.7-17.4) g/dL ABG Carboxyhemoglobin (0.5-1.5) % POC ABG HHb (Measured) (0.0-5.0) % ABG Methemoglobin (0.0-3.0) % Luis Test A-a O2 Difference mm/Hg Respiratory Index Hgb O2 Saturation (95.0-98.0) % Vent Mode Mechanical Rate FiO2 % Tidal Volume PEEP Sodium (132-148) mmol/L Potassium (3.6-5.2) mmol/L Chloride (98-107) mmol/L Carbon Dioxide (22-30) mmol/L Anion Gap (10-20) BUN (7-17) mg/dL Creatinine (0.7-1.2) mg/dL Est GFR ( Amer) Est GFR (Non-Af Amer) POC Glucose (mg/dL) 99 (65-110) mg/dL Random Glucose (65-105) mg/dL Calcium (8.6-10.4) mg/dl Phosphorus (2.5-4.5) mg/dL Magnesium (1.6-2.3) mg/dL Total Bilirubin (0.2-1.3) mg/dL AST (14-36) U/L ALT (9-52) U/L Alkaline Phosphatase (38-126) U/L Total Protein (6.3-8.3) g/dL Albumin (3.5-5.0) g/dL Globulin (2.2-3.9) gm/dL Albumin/Globulin Ratio (1.0-2.1) Laboratory Results - last 24 hr 09/03/18 09/03/18 09/03/18 11:44 17:51 23:29 WBC RBC Hgb Hct MCV MCH MCHC RDW Plt Count MPV Neut % (Auto) Lymph % (Auto) Lee % (Auto) Eos % (Auto) Baso % (Auto) Neut # (Auto) Lymph # (Auto) Lee # (Auto) Eos # (Auto) Baso # (Auto) Puncture Site pCO2 pO2 HCO3 ABG pH ABG Total CO2 ABG O2 Saturation ABG Base Excess ABG Hemoglobin ABG Carboxyhemoglobin POC ABG HHb (Measured) ABG Methemoglobin Luis Test A-a O2 Difference Respiratory Index Hgb O2 Saturation Vent Mode Mechanical Rate FiO2 Tidal Volume PEEP Sodium Potassium Chloride Carbon Dioxide Anion Gap BUN Creatinine Est GFR ( Amer) Est GFR (Non-Af Amer) POC Glucose (mg/dL) 99 119 H 94 Random Glucose Calcium Phosphorus Magnesium Total Bilirubin AST ALT Alkaline Phosphatase Total Protein Albumin Globulin Albumin/Globulin Ratio 09/04/18 09/04/18 09/04/18 04:30 05:52 05:54 WBC RBC Hgb Hct MCV MCH MCHC RDW Plt Count MPV Neut % (Auto) Lymph % (Auto) Lee % (Auto) Eos % (Auto) Baso % (Auto) Neut # (Auto) Lymph # (Auto) Lee # (Auto) Eos # (Auto) Baso # (Auto) Puncture Site Lb pCO2 35 pO2 95 HCO3 27.0 ABG pH 7.48 H ABG Total CO2 27.2 ABG O2 Saturation 97.8 ABG Base Excess 2.7 ABG Hemoglobin 11.8 ABG Carboxyhemoglobin 1.0 POC ABG HHb (Measured) 2.2 ABG Methemoglobin 1.0 Luis Test Na A-a O2 Difference 218.0 Respiratory Index 2.3 Hgb O2 Saturation 95.8 Vent Mode Prvc Mechanical Rate 20 FiO2 50.0 Tidal Volume 500 PEEP 5 Sodium 148 Potassium 4.0 Chloride 114 H Carbon Dioxide 25 Anion Gap 14 BUN 18 H Creatinine 0.5 L Est GFR ( Amer) > 60 Est GFR (Non-Af Amer) > 60 POC Glucose (mg/dL) 114 H Random Glucose 123 H Calcium 7.5 L Phosphorus 2.3 L Magnesium 2.7 H Total Bilirubin 1.6 H AST 70 H ALT 33 Alkaline Phosphatase 152 H D Total Protein 5.4 L Albumin 2.7 L Globulin 2.7 Albumin/Globulin Ratio 1.0 09/04/18 06:33 WBC 20.1 H RBC 4.51 Hgb 11.4 D Hct 35.0 MCV 77.7 L MCH 25.2 L MCHC 32.5 L RDW 19.3 H Plt Count 98 L MPV 8.9 Neut % (Auto) 83.2 H Lymph % (Auto) 10.8 L Lee % (Auto) 3.9 Eos % (Auto) 1.7 Baso % (Auto) 0.4 Neut # (Auto) 16.7 H Lymph # (Auto) 2.2 Lee # (Auto) 0.8 Eos # (Auto) 0.3 Baso # (Auto) 0.1 Puncture Site pCO2 pO2 HCO3 ABG pH ABG Total CO2 ABG O2 Saturation ABG Base Excess ABG Hemoglobin ABG Carboxyhemoglobin POC ABG HHb (Measured) ABG Methemoglobin Luis Test A-a O2 Difference Respiratory Index Hgb O2 Saturation Vent Mode Mechanical Rate FiO2 Tidal Volume PEEP Sodium Potassium Chloride Carbon Dioxide Anion Gap BUN Creatinine Est GFR ( Amer) Est GFR (Non-Af Amer) POC Glucose (mg/dL) Random Glucose Calcium Phosphorus Magnesium Total Bilirubin AST ALT Alkaline Phosphatase Total Protein Albumin Globulin Albumin/Globulin Ratio Fingerstick Blood Sugar Results: 114 Review of Systems - Review of Systems Systems not reviewed;Unavailable: Acuity of Condition Critical Care Progress Note - Nutrition Nutrition: Nutrition Category Date Time Status NPO Diet [DIET] Diets 08/31/18 Breakfast Active Assessment/Plan - Assessment and Plan (Free Text) Assessment: This is a 33 yo F with PMH of asthma who presented to with acutely worsening suprapubic abdominal pain, s/p hysterctomy 4 days prior. She was found to have an intra-abdominal fluid collection, found to be large collection of feculent peritoneal fluid 2/2 sigmoid perforation. Now in the ICU, intubated, on empiric abx, on dual pressors for persistent hypotension/likely septic shock 2/2 peritonitis. -volume resuscitated -intubated for due to tachypnea and for airway protection pending OR -ABG on admission and follow up ABGs reviewed, concerning for metabolic acidosis with attempted respiratory compensation lactates increased but now improving; 3.1 -> 3.7 -> 4.8 -> 3.9 -> 3.7 -CXR notable for mild pulm venous congestion, ETT in place Plan: Neuro: -taper off fentanyl -sedation vacation today -maintain normothermia Tylenol 650mg PRN Pulm: Hypercapnic Respiratory Distress -Pt satting well -CPAP trial today -possible extubation -Duonebs -solucortef 50 q12 last dose today 10am -fluconazole Cardio: Septic Shock -off pressors -hemodynamically stable Trops negative x2, pending 1 more to rule out CT as cause of tachy/hypotension -Monitor strict I's and O's, UOP increased from presentation but still low Tachycardia - HR >200s -Given Adenosine IVP GI: Peritonitis -TPN w/ multivit -ng tube decompression, feeds held -s/p distal sigmoid/proximal rectum resection by Surgery, monitor output of drains left in place perf 2/2 hysterectomy 2 days prior, Surgery reports 2+ liters of purulent feculent material drained from peritoneal cavity -Protonix for GI ppx -Merrem and Vanco, for coverage, ID consulted for additional management of abx regimen -CT abd pelv: Enteritis of small bowel Renal: -consider urology consult f/u recs -Monitor and replete electrolytes as needed -Rankin in place, strict I's and O's Heme: -11 Hg Not an appropriate increase s/p 1 unit pRBCs, but the 11.9 on admit likely falsely elevated given dehydration No lin blood in abd drains remaining post-op, Surgery reports only approx 150cc blood loss intra-operatively, no intra-abd hematoma as per Surgery -SCDs for DVT ppx at this time, avoid AC given recent surgery -Concern for possible PE, may need to anticoagulate if Echo indicative of RV strain, will discuss with Surgery prior to anticoag (if needed) -Fibrinogen wnl, so not DIC ID: Peritonitis -Klebsiella sensitive to Merrem -coverage of Vanco, with Merrem -Blood, urine cult neg -Ofirmev for febrile temps/persistent diaphoresis -ID consulted for further abx management, appreciate their recs Endo: -Insulin low sliding scale and Accuchecks q6 -BG goal 140-180 d/w Dr León Sanchez PGY1 <Yasmani Traore - Last Filed: 09/04/18 16:38> CCU Subjective - Physician Review Critical Care Time Spent (in minutes): 50 CCU Objective - Vital Signs / Intake & Output Vital Signs (Last 4 hours): Vital Signs Pulse Resp BP Pulse Ox 09/04/18 15:10 100 H 20 105/69 100 09/04/18 14:10 104 H 20 112/65 100 09/04/18 13:07 105 H 18 117/67 100 Intake and Output (Last 8hrs): Intake & Output 09/04/18 09/04/18 09/04/18 06:59 14:59 22:59 Intake Total 1174.6 612.8 71 Output Total 570 595 Balance 604.6 17.8 71 Weight 207 lb 3.752 oz Intake: IV 150 Intake, IV Amount 608.6 560.8 71 Left Hand 10 Right Medial Port PICC 162.6 224.8 29 Right Medial Port Y site 100 Right Proximal Port PICC 336 336 42 Tube Feeding 80 10 0 TPN/PPN 336 42 Output: Drainage 50 Left Abdomen 20 Right Abdomen 30 Urine 520 595 Urethral (Rankin) 520 595 Other: # Bowel Movements 0 0 - Medications Active Medications: Active Medications Generic Name Dose Route Start Last Admin Trade Name Freq PRN Reason Stop Dose Admin Albuterol/Ipratropium 3 ml 09/01/18 14:00 09/04/18 07:48 Duoneb 3 Mg/0.5 Mg (3 Ml) Ud INH 3 ml RQ6 MARLENA Administration Artificial Tears 1 gm 09/03/18 06:00 09/04/18 09:29 Lacri-Lube OU 1 gm Q4H MARLENA Administration Fentanyl Citrate 2,500 mcg/ 250 mls @ 14.52 mls/hr 08/31/18 07:30 09/04/18 08:00 Sodium Chloride IV 4 mcg/kg/hr .[id number] MARLENA 29.03 mls/hr Administration Protocol 2 MCG/KG/HR Meropenem 1 gm/ Sodium 100 mls @ 100 mls/hr 08/31/18 20:00 09/04/18 12:59 Chloride IVPB 100 mls/hr Q8H MARLENA Administration Protocol Multivitamins/Vitamin C 10 ml/ 1,010 mls @ 42 mls/hr 09/03/18 18:00 09/03/18 17:53 Amino Acids/Electrolytes/ IV 09/04/18 17:59 42 mls/hr Dextrose .Q24H ONE Administration Vancomycin/Sodium Chloride 1 gm in 200 mls @ 133.333 mls/hr 09/03/18 22:00 09/04/18 09:31 Vancomycin 1 Gm/Ns 200 Ml IVPB 133.333 mls/hr Q12H MARLENA Administration Protocol Multivitamins/Vitamin C 10 ml/ 1,010 mls @ 42 mls/hr 09/04/18 18:00 Amino Acids/Electrolytes/ IV 09/05/18 17:59 Dextrose .Q24H ONE Insulin Aspart 0 unit 09/03/18 06:00 09/04/18 12:57 Novolog SC Not Given Q6 MARLENA Protocol Pantoprazole Sodium 40 mg 08/31/18 10:00 09/04/18 09:29 Protonix Inj IVP 40 mg DAILY MARLENA Administration - Patient Studies Lab Studies: Microbiology Studies 08/31/18 15:00 Blood Culture - Preliminary Blood-Venous NO GROWTH AFTER 4 DAYS 08/31/18 15:30 Blood Culture - Preliminary Blood-Venous NO GROWTH AFTER 4 DAYS 09/04/18 12:36 Gram Stain - Final Trachasp 08/31/18 02:45 Blood Culture - Preliminary Blood NO GROWTH AFTER 3 DAYS 08/31/18 02:20 Blood Culture - Preliminary Blood NO GROWTH AFTER 3 DAYS Lab Studies 09/04/18 09/04/18 09/04/18 Range/Units 06:33 05:54 05:52 WBC 20.1 H (4.8-10.8) K/uL RBC 4.51 (3.80-5.20) Mil/uL Hgb 11.4 D (11.0-16.0) g/dL Hct 35.0 (34.0-47.0) % MCV 77.7 L (81.0-99.0) fL MCH 25.2 L (27.0-31.0) pg MCHC 32.5 L (33.0-37.0) g/dL RDW 19.3 H (11.5-14.5) % Plt Count 98 L (130-400) K/uL MPV 8.9 (7.2-11.7) fL Neut % (Auto) 83.2 H (50.0-75.0) % Lymph % (Auto) 10.8 L (20.0-40.0) % Lee % (Auto) 3.9 (0.0-10.0) % Eos % (Auto) 1.7 (0.0-4.0) % Baso % (Auto) 0.4 (0.0-2.0) % Neut # (Auto) 16.7 H (1.8-7.0) K/uL Lymph # (Auto) 2.2 (1.0-4.3) K/uL Lee # (Auto) 0.8 (0.0-0.8) K/uL Eos # (Auto) 0.3 (0.0-0.7) K/uL Baso # (Auto) 0.1 (0.0-0.2) K/uL Puncture Site pCO2 (35-45) mm/Hg pO2 (80-100) mm/Hg HCO3 (21-28) mmol/L ABG pH (7.35-7.45) ABG Total CO2 (22-28) mmol/L ABG O2 Saturation (95-98) % ABG Base Excess (-2.0-3.0) mmol/L ABG Hemoglobin (11.7-17.4) g/dL ABG Carboxyhemoglobin (0.5-1.5) % POC ABG HHb (Measured) (0.0-5.0) % ABG Methemoglobin (0.0-3.0) % Luis Test A-a O2 Difference mm/Hg Respiratory Index Hgb O2 Saturation (95.0-98.0) % Vent Mode Mechanical Rate FiO2 % Tidal Volume PEEP Sodium 148 (132-148) mmol/L Potassium 4.0 (3.6-5.2) mmol/L Chloride 114 H (98-107) mmol/L Carbon Dioxide 25 (22-30) mmol/L Anion Gap 14 (10-20) BUN 18 H (7-17) mg/dL Creatinine 0.5 L (0.7-1.2) mg/dL Est GFR ( Amer) > 60 Est GFR (Non-Af Amer) > 60 POC Glucose (mg/dL) 114 H (65-110) mg/dL Random Glucose 123 H (65-105) mg/dL Calcium 7.5 L (8.6-10.4) mg/dl Phosphorus 2.3 L (2.5-4.5) mg/dL Magnesium 2.7 H (1.6-2.3) mg/dL Total Bilirubin 1.6 H (0.2-1.3) mg/dL AST 70 H (14-36) U/L ALT 33 (9-52) U/L Alkaline Phosphatase 152 H D (38-126) U/L Total Protein 5.4 L (6.3-8.3) g/dL Albumin 2.7 L (3.5-5.0) g/dL Globulin 2.7 (2.2-3.9) gm/dL Albumin/Globulin Ratio 1.0 (1.0-2.1) 09/04/18 09/03/18 09/03/18 Range/Units 04:30 23:29 17:51 WBC (4.8-10.8) K/uL RBC (3.80-5.20) Mil/uL Hgb (11.0-16.0) g/dL Hct (34.0-47.0) % MCV (81.0-99.0) fL MCH (27.0-31.0) pg MCHC (33.0-37.0) g/dL RDW (11.5-14.5) % Plt Count (130-400) K/uL MPV (7.2-11.7) fL Neut % (Auto) (50.0-75.0) % Lymph % (Auto) (20.0-40.0) % Lee % (Auto) (0.0-10.0) % Eos % (Auto) (0.0-4.0) % Baso % (Auto) (0.0-2.0) % Neut # (Auto) (1.8-7.0) K/uL Lymph # (Auto) (1.0-4.3) K/uL Lee # (Auto) (0.0-0.8) K/uL Eos # (Auto) (0.0-0.7) K/uL Baso # (Auto) (0.0-0.2) K/uL Puncture Site Lb pCO2 35 (35-45) mm/Hg pO2 95 (80-100) mm/Hg HCO3 27.0 (21-28) mmol/L ABG pH 7.48 H (7.35-7.45) ABG Total CO2 27.2 (22-28) mmol/L ABG O2 Saturation 97.8 (95-98) % ABG Base Excess 2.7 (-2.0-3.0) mmol/L ABG Hemoglobin 11.8 (11.7-17.4) g/dL ABG Carboxyhemoglobin 1.0 (0.5-1.5) % POC ABG HHb (Measured) 2.2 (0.0-5.0) % ABG Methemoglobin 1.0 (0.0-3.0) % Luis Test Na A-a O2 Difference 218.0 mm/Hg Respiratory Index 2.3 Hgb O2 Saturation 95.8 (95.0-98.0) % Vent Mode Prvc Mechanical Rate 20 FiO2 50.0 % Tidal Volume 500 PEEP 5 Sodium (132-148) mmol/L Potassium (3.6-5.2) mmol/L Chloride (98-107) mmol/L Carbon Dioxide (22-30) mmol/L Anion Gap (10-20) BUN (7-17) mg/dL Creatinine (0.7-1.2) mg/dL Est GFR ( Amer) Est GFR (Non-Af Amer) POC Glucose (mg/dL) 94 119 H (65-110) mg/dL Random Glucose (65-105) mg/dL Calcium (8.6-10.4) mg/dl Phosphorus (2.5-4.5) mg/dL Magnesium (1.6-2.3) mg/dL Total Bilirubin (0.2-1.3) mg/dL AST (14-36) U/L ALT (9-52) U/L Alkaline Phosphatase (38-126) U/L Total Protein (6.3-8.3) g/dL Albumin (3.5-5.0) g/dL Globulin (2.2-3.9) gm/dL Albumin/Globulin Ratio (1.0-2.1) 09/03/18 Range/Units 11:44 WBC (4.8-10.8) K/uL RBC (3.80-5.20) Mil/uL Hgb (11.0-16.0) g/dL Hct (34.0-47.0) % MCV (81.0-99.0) fL MCH (27.0-31.0) pg MCHC (33.0-37.0) g/dL RDW (11.5-14.5) % Plt Count (130-400) K/uL MPV (7.2-11.7) fL Neut % (Auto) (50.0-75.0) % Lymph % (Auto) (20.0-40.0) % Lee % (Auto) (0.0-10.0) % Eos % (Auto) (0.0-4.0) % Baso % (Auto) (0.0-2.0) % Neut # (Auto) (1.8-7.0) K/uL Lymph # (Auto) (1.0-4.3) K/uL Lee # (Auto) (0.0-0.8) K/uL Eos # (Auto) (0.0-0.7) K/uL Baso # (Auto) (0.0-0.2) K/uL Puncture Site pCO2 (35-45) mm/Hg pO2 (80-100) mm/Hg HCO3 (21-28) mmol/L ABG pH (7.35-7.45) ABG Total CO2 (22-28) mmol/L ABG O2 Saturation (95-98) % ABG Base Excess (-2.0-3.0) mmol/L ABG Hemoglobin (11.7-17.4) g/dL ABG Carboxyhemoglobin (0.5-1.5) % POC ABG HHb (Measured) (0.0-5.0) % ABG Methemoglobin (0.0-3.0) % Ulis Test A-a O2 Difference mm/Hg Respiratory Index Hgb O2 Saturation (95.0-98.0) % Vent Mode Mechanical Rate FiO2 % Tidal Volume PEEP Sodium (132-148) mmol/L Potassium (3.6-5.2) mmol/L Chloride (98-107) mmol/L Carbon Dioxide (22-30) mmol/L Anion Gap (10-20) BUN (7-17) mg/dL Creatinine (0.7-1.2) mg/dL Est GFR ( Amer) Est GFR (Non-Af Amer) POC Glucose (mg/dL) 99 (65-110) mg/dL Random Glucose (65-105) mg/dL Calcium (8.6-10.4) mg/dl Phosphorus (2.5-4.5) mg/dL Magnesium (1.6-2.3) mg/dL Total Bilirubin (0.2-1.3) mg/dL AST (14-36) U/L ALT (9-52) U/L Alkaline Phosphatase (38-126) U/L Total Protein (6.3-8.3) g/dL Albumin (3.5-5.0) g/dL Globulin (2.2-3.9) gm/dL Albumin/Globulin Ratio (1.0-2.1) Laboratory Results - last 24 hr 09/03/18 09/03/18 09/03/18 11:44 17:51 23:29 WBC RBC Hgb Hct MCV MCH MCHC RDW Plt Count MPV Neut % (Auto) Lymph % (Auto) Lee % (Auto) Eos % (Auto) Baso % (Auto) Neut # (Auto) Lymph # (Auto) Lee # (Auto) Eos # (Auto) Baso # (Auto) Puncture Site pCO2 pO2 HCO3 ABG pH ABG Total CO2 ABG O2 Saturation ABG Base Excess ABG Hemoglobin ABG Carboxyhemoglobin POC ABG HHb (Measured) ABG Methemoglobin Luis Test A-a O2 Difference Respiratory Index Hgb O2 Saturation Vent Mode Mechanical Rate FiO2 Tidal Volume PEEP Sodium Potassium Chloride Carbon Dioxide Anion Gap BUN Creatinine Est GFR ( Amer) Est GFR (Non-Af Amer) POC Glucose (mg/dL) 99 119 H 94 Random Glucose Calcium Phosphorus Magnesium Total Bilirubin AST ALT Alkaline Phosphatase Total Protein Albumin Globulin Albumin/Globulin Ratio 09/04/18 09/04/18 09/04/18 04:30 05:52 05:54 WBC RBC Hgb Hct MCV MCH MCHC RDW Plt Count MPV Neut % (Auto) Lymph % (Auto) Lee % (Auto) Eos % (Auto) Baso % (Auto) Neut # (Auto) Lymph # (Auto) Lee # (Auto) Eos # (Auto) Baso # (Auto) Puncture Site Lb pCO2 35 pO2 95 HCO3 27.0 ABG pH 7.48 H ABG Total CO2 27.2 ABG O2 Saturation 97.8 ABG Base Excess 2.7 ABG Hemoglobin 11.8 ABG Carboxyhemoglobin 1.0 POC ABG HHb (Measured) 2.2 ABG Methemoglobin 1.0 Luis Test Na A-a O2 Difference 218.0 Respiratory Index 2.3 Hgb O2 Saturation 95.8 Vent Mode Prvc Mechanical Rate 20 FiO2 50.0 Tidal Volume 500 PEEP 5 Sodium 148 Potassium 4.0 Chloride 114 H Carbon Dioxide 25 Anion Gap 14 BUN 18 H Creatinine 0.5 L Est GFR ( Amer) > 60 Est GFR (Non-Af Amer) > 60 POC Glucose (mg/dL) 114 H Random Glucose 123 H Calcium 7.5 L Phosphorus 2.3 L Magnesium 2.7 H Total Bilirubin 1.6 H AST 70 H ALT 33 Alkaline Phosphatase 152 H D Total Protein 5.4 L Albumin 2.7 L Globulin 2.7 Albumin/Globulin Ratio 1.0 09/04/18 06:33 WBC 20.1 H RBC 4.51 Hgb 11.4 D Hct 35.0 MCV 77.7 L MCH 25.2 L MCHC 32.5 L RDW 19.3 H Plt Count 98 L MPV 8.9 Neut % (Auto) 83.2 H Lymph % (Auto) 10.8 L Lee % (Auto) 3.9 Eos % (Auto) 1.7 Baso % (Auto) 0.4 Neut # (Auto) 16.7 H Lymph # (Auto) 2.2 Lee # (Auto) 0.8 Eos # (Auto) 0.3 Baso # (Auto) 0.1 Puncture Site pCO2 pO2 HCO3 ABG pH ABG Total CO2 ABG O2 Saturation ABG Base Excess ABG Hemoglobin ABG Carboxyhemoglobin POC ABG HHb (Measured) ABG Methemoglobin Luis Test A-a O2 Difference Respiratory Index Hgb O2 Saturation Vent Mode Mechanical Rate FiO2 Tidal Volume PEEP Sodium Potassium Chloride Carbon Dioxide Anion Gap BUN Creatinine Est GFR ( Amer) Est GFR (Non-Af Amer) POC Glucose (mg/dL) Random Glucose Calcium Phosphorus Magnesium Total Bilirubin AST ALT Alkaline Phosphatase Total Protein Albumin Globulin Albumin/Globulin Ratio Critical Care Progress Note - Nutrition Nutrition: Nutrition Category Date Time Status NPO Diet [DIET] Diets 08/31/18 Breakfast Active Attending/Attestation - Attestation I have personally seen and examined this patient.: Yes I have fully participated in the care of the patient.: Yes I have reviewed all pertinent clinical information: Yes Notes (Text): 09/04/18 16:36 Patient seen and examined in the intensive care unit. Not tolerating weaning Run Of SVT Responded to Adenosine very agitated and restless off sedation Continue antibiotics as per infectious disease CAT scan of the chest and abdomen noted Patient seen by surgery Feeding on hold
--- NOTE | 2018-09-04 12:25 | CT ---
Date of service: 2018-09-04 11:11:10 CT chest, abdomen, and pelvis without IV contrast Indication: Abdominal distension Technique: Contiguous axial images of the chest, abdomen, and pelvis without oral or IV contrast. Coronal and Sagittal reformats generated and reviewed. This CT exam was performed using 1 or more of the following dose reduction techniques: Automated exposure control, adjustment of the MAA and/or kV according to patient size, and/or use of iterative reconstruction technique. Radiation dose: Total exam DLP = 1606.83 MGy-cm. Comparison: Chest x-ray performed 09/04/18, CT abdomen pelvis without contrast performed 09/02/[address] abdomen and pelvis with IV contrast performed 08/31/18 Findings: Endotracheal tube terminates above the siria. Nasogastric tube extends to the stomach. Right-sided PICC extends to the cavoatrial junction. Visualized portions of the inferior thyroid gland appear heterogeneous, limited by streak artifact. The mediastinal and hilar vascular structures appear within normal limits. Heart size appears within normal limits. Small pericardial effusion. Bilateral sub cm axillary adenopathy. Sub cm prevascular/mediastinal adenopathy, nonspecific. Small bilateral pleural effusions and moderate compressive consolidations. No pneumothorax. Upper abdominal drainage catheter terminates at the left upper quadrant. Additional drainage catheter terminates within the mid the pelvis. Non dependent fluid noted within the right anterior upper abdomen measuring approximately 7.5 x 2.3 cm (series 6, image 108) Hepatomegaly. Pericholecystic edema/gallbladder-wall thickening. No calcified gallstones identified. The noncontrast spleen, kidneys, pancreas, and adrenal glands appear unremarkable. The stomach is nondistended. Lack of oral contrast limits evaluation for bowel pathology. Thick walled fluid-filled small and large bowel loops. Left lower quadrant colostomy. No definite free air. Rankin catheter within a thick-walled under distended urinary bladder. Air within the urinary bladder may be due to recent instrumentation. Rectal tube is noted. Anasarca. Surgical constance, anterior abdominal wall. No acute osseous abnormality is detected. Impression: Endotracheal tube terminates above the siria. Nasogastric tube extends to the stomach. Right-sided PICC extends to the cavoatrial junction. Small pericardial effusion. Bilateral sub cm axillary adenopathy. Sub cm prevascular/mediastinal adenopathy, nonspecific. Small bilateral pleural effusions and moderate compressive consolidations. 2 abdominal drainage catheters. Non dependent fluid noted within the right anterior upper abdomen measuring approximately 7.5 x 2.3 cm. Hepatomegaly. Pericholecystic edema/gallbladder-wall thickening. No calcified gallstones identified. Thick walled fluid-filled small and large bowel loops; correlate for colitis/enteritis. Left lower quadrant colostomy. Rankin catheter within a thick-walled under distended urinary bladder. Air within the urinary bladder may be due to recent instrumentation. Rectal tube. Mild heterogeneous appearance of the thyroid gland.
--- NOTE | 2018-09-04 15:59 | PCM.URO ---
Urology Progress Note - Objective Lab Results Last 24 Hours: Laboratory Results - last 24 hr 09/03/18 09/03/18 09/03/18 11:44 17:51 23:29 WBC RBC Hgb Hct MCV MCH MCHC RDW Plt Count MPV Neut % (Auto) Lymph % (Auto) [place] % (Auto) Eos % (Auto) Baso % (Auto) Neut # (Auto) Lymph # (Auto) [place] # (Auto) Eos # (Auto) Baso # (Auto) Puncture Site pCO2 pO2 HCO3 ABG pH ABG Total CO2 ABG O2 Saturation ABG Base Excess ABG Hemoglobin ABG Carboxyhemoglobin POC ABG HHb (Measured) ABG Methemoglobin Luis Test A-a O2 Difference Respiratory Index Hgb O2 Saturation Vent Mode Mechanical Rate FiO2 Tidal Volume PEEP Sodium Potassium Chloride Carbon Dioxide Anion Gap BUN Creatinine Est GFR ( Amer) Est GFR (Non-Af Amer) POC Glucose (mg/dL) 99 119 H 94 Random Glucose Calcium Phosphorus Magnesium Total Bilirubin AST ALT Alkaline Phosphatase Total Protein Albumin Globulin Albumin/Globulin Ratio 09/04/18 09/04/18 09/04/18 04:30 05:52 05:54 WBC RBC Hgb Hct MCV MCH MCHC RDW Plt Count MPV Neut % (Auto) Lymph % (Auto) [place] % (Auto) Eos % (Auto) Baso % (Auto) Neut # (Auto) Lymph # (Auto) [place] # (Auto) Eos # (Auto) Baso # (Auto) Puncture Site Lb pCO2 35 pO2 95 HCO3 27.0 ABG pH 7.48 H ABG Total CO2 27.2 ABG O2 Saturation 97.8 ABG Base Excess 2.7 ABG Hemoglobin 11.8 ABG Carboxyhemoglobin 1.0 POC ABG HHb (Measured) 2.2 ABG Methemoglobin 1.0 Luis Test Na A-a O2 Difference 218.0 Respiratory Index 2.3 Hgb O2 Saturation 95.8 Vent Mode Prvc Mechanical Rate 20 FiO2 50.0 Tidal Volume 500 PEEP 5 Sodium 148 Potassium 4.0 Chloride 114 H Carbon Dioxide 25 Anion Gap 14 BUN 18 H Creatinine 0.5 L Est GFR ( Amer) > 60 Est GFR (Non-Af Amer) > 60 POC Glucose (mg/dL) 114 H Random Glucose 123 H Calcium 7.5 L Phosphorus 2.3 L Magnesium 2.7 H Total Bilirubin 1.6 H AST 70 H ALT 33 Alkaline Phosphatase 152 H D Total Protein 5.4 L Albumin 2.7 L Globulin 2.7 Albumin/Globulin Ratio 1.0 09/04/18 06:33 WBC 20.1 H RBC 4.51 Hgb 11.4 D Hct 35.0 MCV 77.7 L MCH 25.2 L MCHC 32.5 L RDW 19.3 H Plt Count 98 L MPV 8.9 Neut % (Auto) 83.2 H Lymph % (Auto) 10.8 L [place] % (Auto) 3.9 Eos % (Auto) 1.7 Baso % (Auto) 0.4 Neut # (Auto) 16.7 H Lymph # (Auto) 2.2 [place] # (Auto) 0.8 Eos # (Auto) 0.3 Baso # (Auto) 0.1 Puncture Site pCO2 pO2 HCO3 ABG pH ABG Total CO2 ABG O2 Saturation ABG Base Excess ABG Hemoglobin ABG Carboxyhemoglobin POC ABG HHb (Measured) ABG Methemoglobin Luis Test A-a O2 Difference Respiratory Index Hgb O2 Saturation Vent Mode Mechanical Rate FiO2 Tidal Volume PEEP Sodium Potassium Chloride Carbon Dioxide Anion Gap BUN Creatinine Est GFR ( Amer) Est GFR (Non-Af Amer) POC Glucose (mg/dL) Random Glucose Calcium Phosphorus Magnesium Total Bilirubin AST ALT Alkaline Phosphatase Total Protein Albumin Globulin Albumin/Globulin Ratio Intake & Output: Intake & Output 09/03/18 09/04/18 09/04/18 18:59 06:59 18:59 Intake Total 1962.7 1945.6 683.8 Output Total 825 760 595 Balance 1137.7 1185.6 88.8 Weight 207 lb 3.752 oz Intake: IV 63.7 250 Intake, IV Amount 1889 1113.6 631.8 Left Hand 10 10 Right Distal Port Femoral 252 Right Medial Port Femoral 1400 Right Medial Port PICC 7 199.6 253.8 Right Medial Port Y site 100 400 Right Proximal Port 77 Femoral Right Proximal Port PICC 42 504 378 right medial piggyback 1 Tube Feeding 10 120 10 TPN/PPN 462 42 Output: Drainage 50 50 Left Abdomen 20 20 Right Abdomen 30 30 Urine 775 710 595 Urethral (Mclaughlin) 775 710 595 Other: # Bowel Movements 0 0 0 Vital Signs: Vital Signs - 24 hr 09/03/18 09/03/18 09/03/18 15:56 16:00 16:56 Temperature 101.1 F H Pulse Rate 97 H 95 H 90 Respiratory 23 22 22 Rate Blood Pressure 90/56 L 107/69 O2 Sat by Pulse 97 97 98 Oximetry 09/03/18 09/03/18 09/03/18 17:00 17:56 18:00 Temperature Pulse Rate 87 99 H 107 H Respiratory 21 22 21 Rate Blood Pressure 114/81 O2 Sat by Pulse 98 98 100 Oximetry 09/03/18 09/03/18 09/03/18 18:56 19:00 19:56 Temperature Pulse Rate 96 H 86 105 H Respiratory 21 26 H 34 H Rate Blood Pressure 123/84 132/84 O2 Sat by Pulse 100 100 100 Oximetry 09/03/18 09/03/18 09/03/18 20:00 20:56 21:00 Temperature 99.8 F H Pulse Rate 98 H 82 78 Respiratory 34 H 20 20 Rate Blood Pressure 121/82 O2 Sat by Pulse 100 100 100 Oximetry 09/03/18 09/03/18 09/03/18 21:56 22:00 22:18 Temperature Pulse Rate 106 H 102 H 97 H Respiratory 23 24 36 H Rate Blood Pressure 116/76 O2 Sat by Pulse 100 100 100 Oximetry 09/03/18 09/03/18 09/03/18 22:56 23:00 23:56 Temperature Pulse Rate 86 92 H 82 Respiratory 23 33 H 20 Rate Blood Pressure 113/72 103/71 O2 Sat by Pulse 100 100 100 Oximetry 09/04/18 09/04/18 09/04/18 00:00 00:56 01:00 Temperature 99.1 F Pulse Rate 83 86 85 Respiratory 20 20 22 Rate Blood Pressure 105/70 O2 Sat by Pulse 100 100 100 Oximetry 09/04/18 09/04/18 09/04/18 01:56 02:00 02:56 Temperature Pulse Rate 88 88 93 H Respiratory 20 20 20 Rate Blood Pressure 105/69 105/71 O2 Sat by Pulse 100 100 100 Oximetry 09/04/18 09/04/18 09/04/18 03:00 03:56 04:00 Temperature 100.6 F H Pulse Rate 92 H 97 H 96 H Respiratory 20 22 21 Rate Blood Pressure 113/74 O2 Sat by Pulse 100 100 100 Oximetry 10/17/18 10/17/18 10/17/18 04:57 05:00 05:57 Temperature Pulse Rate 123 H 125 H 125 H Respiratory 36 H 41 H 33 H Rate Blood Pressure 136/76 98/77 L O2 Sat by Pulse 99 90 L 100 Oximetry 09/04/18 09/04/18 09/04/18 06:00 06:57 07:00 Temperature Pulse Rate 132 H 114 H 113 H Respiratory 43 H 25 H 22 Rate Blood Pressure 97/60 L O2 Sat by Pulse 99 97 Oximetry 09/04/18 09/04/18 09/04/18 07:59 08:00 08:56 Temperature 101.0 F H Pulse Rate 127 H 114 H Respiratory 26 H 26 H Rate Blood Pressure 112/78 103/85 O2 Sat by Pulse 100 100 Oximetry 09/04/18 09/04/18 09/04/18 09:56 10:34 10:49 Temperature 101.2 F H Pulse Rate 111 H 110 H Respiratory 21 21 Rate Blood Pressure 112/74 115/73 O2 Sat by Pulse 100 100 Oximetry 09/04/18 09/04/18 09/04/18 10:56 11:25 11:34 Temperature 100.8 F H Pulse Rate 110 H 112 H Respiratory 21 Rate Blood Pressure 115/72 126/78 O2 Sat by Pulse 100 100 Oximetry 09/04/18 09/04/18 09/04/18 12:00 12:06 13:07 Temperature 100.9 F H Pulse Rate 108 H 105 H Respiratory 20 18 Rate Blood Pressure 113/70 117/67 O2 Sat by Pulse 100 100 Oximetry 09/04/18 09/04/18 14:10 15:10 Temperature Pulse Rate 104 H 100 H Respiratory 20 20 Rate Blood Pressure 112/65 105/69 O2 Sat by Pulse 100 100 Oximetry - Plan Discontinue Urinary Catheter: No (leave mclaughlin for now , do not remove , )
--- NOTE | 2018-09-04 16:18 | CP.PCM.PN ---
Subjective - Date & Time of Evaluation Date of Evaluation: 09/04/18 Time of Evaluation: 16:16 - Subjective Subjective: Surgery Pt is intubated and sedated. COntinues to be tachycardic. Minimal output from stoma. Objective - Vital Signs/Intake and Output Vital Signs (last 24 hours): Temp Pulse Resp BP Pulse Ox 100.9 F H 100 H 20 105/69 100 09/04/18 12:00 09/04/18 15:10 09/04/18 15:10 09/04/18 15:10 09/04/18 15:10 Intake and Output: 09/04/18 09/04/18 06:59 18:59 Intake Total 1945.6 683.8 Output Total 760 595 Balance 1185.6 88.8 - Medications Medications: Current Medications Albuterol/Ipratropium (Duoneb 3 Mg/0.5 Mg (3 Ml) Ud) 3 ml INH RQ6 [facility]NA Last Admin: 09/04/18 07:48 Dose: 3 ml Artificial Tears (Lacri-Lube) 1 gm OU Q4H [facility] Last Admin: 09/04/18 09:29 Dose: 1 gm Fentanyl Citrate 2,500 mcg/ (Sodium Chloride) 250 mls @ 14.52 mls/hr IV .[id number] MARLENA; Protocol Last Admin: 09/04/18 08:00 Dose: 4 mcg/kg/hr, 29.03 mls/hr Meropenem 1 gm/ Sodium (Chloride) 100 mls @ 100 mls/hr IVPB Q8H [facility]LENA; Protocol Last Admin: 09/04/18 12:59 Dose: 100 mls/hr Multivitamins/Vitamin C 10 ml/Amino Acids/Electrolytes/Dextrose 1,010 mls @ 42 mls/hr IV .Q24H ONE Stop: 09/04/18 17:59 Last Admin: 09/03/18 17:53 Dose: 42 mls/hr Vancomycin/Sodium Chloride (Vancomycin 1 Gm/Ns 200 Ml) 1 gm in 200 mls @ 133.333 mls/hr IVPB Q12H [facility]LENA; Protocol Last Admin: 09/04/18 09:31 Dose: 133.333 mls/hr Multivitamins/Vitamin C 10 ml/Amino Acids/Electrolytes/Dextrose 1,010 mls @ 42 mls/hr IV .Q24H ONE Stop: 09/05/18 17:59 Insulin Aspart (Novolog) 0 unit SC Q6 MARLENA; Protocol Last Admin: 09/04/18 12:57 Dose: Not Given Pantoprazole Sodium (Protonix Inj) 40 mg IVP DAILY [facility] Last Admin: 09/04/18 09:29 Dose: 40 mg - Labs Labs: 09/04/18 06:33 09/04/18 05:54 PT 14.6 SECONDS (9.7-12.2) H 08/31/18 13:02 INR 1.3 08/31/18 13:02 APTT 34 SECONDS (21-34) D 08/31/18 13:02 - Constitutional Appears: In Acute Distress - Head Exam Head Exam: ATRAUMATIC, NORMAL INSPECTION, NORMOCEPHALIC - Eye Exam Eye Exam: EOMI, Normal appearance - ENT Exam ENT Exam: Mucous Membranes Moist - Neck Exam Neck Exam: Full ROM, Normal Inspection - Respiratory Exam Respiratory Exam: Respiratory Distress - Cardiovascular Exam Cardiovascular Exam: Tachycardia - GI/Abdominal Exam GI & Abdominal Exam: Distended Additional comments: Stoma minimal out put - Extremities Exam Extremities Exam: Pedal Edema - Back Exam Back Exam: NORMAL INSPECTION - Neurological Exam Neurological Exam: absent: Alert - Skin Skin Exam: Dry, Intact Assessment and Plan - Assessment and Plan (Free Text) Assessment: 33F POD#4 s/p exploratory laparotomy, sigmoid resection, end colostomy for perforated sigmoid colon Plan: Continue to trend CBC/CMP/MG/Phos, replete PRN, adjust IVF PRN. Wean vent as able per ICU team Continue to monitor strict I/O's Continue antibiotics per ID Monitor for ostomy function Will D/W Dr. Patino
--- NOTE | 2018-09-04 17:16 | CP.PCM.PN ---
Subjective - Date & Time of Evaluation Date of Evaluation: 09/04/18 Time of Evaluation: 09:00 - Subjective Subjective: intubated sedated colostomy empty drains in place belly distended CT abd/pelvis noted- no obvious collections Objective - Vital Signs/Intake and Output Vital Signs (last 24 hours): Temp Pulse Resp BP Pulse Ox 98.2 F 106 H 17 115/68 100 09/04/18 16:00 09/04/18 17:10 09/04/18 17:10 09/04/18 17:10 09/04/18 17:10 Intake and Output: 09/04/18 09/04/18 06:59 18:59 Intake Total 1945.6 954.8 Output Total 760 595 Balance 1185.6 359.8 - Medications Medications: Current Medications Albuterol/Ipratropium (Duoneb 3 Mg/0.5 Mg (3 Ml) Ud) 3 ml INH RQ6 [facility]LENA Last Admin: 09/04/18 07:48 Dose: 3 ml Artificial Tears (Lacri-Lube) 1 gm OU Q4H [facility] Last Admin: 09/04/18 09:29 Dose: 1 gm Fentanyl Citrate 2,500 mcg/ (Sodium Chloride) 250 mls @ 14.52 mls/hr IV .[id number] MARLENA; Protocol Last Titration: 09/04/18 16:00 Dose: 5 mcg/kg/hr, 36.29 mls/hr Meropenem 1 gm/ Sodium (Chloride) 100 mls @ 100 mls/hr IVPB Q8H [facility]; Protocol Last Admin: 09/04/18 12:59 Dose: 100 mls/hr Multivitamins/Vitamin C 10 ml/Amino Acids/Electrolytes/Dextrose 1,010 mls @ 42 mls/hr IV .Q24H ONE Stop: 09/04/18 17:59 Last Admin: 09/03/18 17:53 Dose: 42 mls/hr Vancomycin/Sodium Chloride (Vancomycin 1 Gm/Ns 200 Ml) 1 gm in 200 mls @ 133.333 mls/hr IVPB Q12H [facility]; Protocol Last Admin: 09/04/18 09:31 Dose: 133.333 mls/hr Multivitamins/Vitamin C 10 ml/Amino Acids/Electrolytes/Dextrose 1,010 mls @ 42 mls/hr IV .Q24H ONE Stop: 09/05/18 17:59 Insulin Aspart (Novolog) 0 unit SC Q6 [facility]LENA; Protocol Last Admin: 09/04/18 12:57 Dose: Not Given Pantoprazole Sodium (Protonix Inj) 40 mg IVP DAILY [facility] Last Admin: 09/04/18 09:29 Dose: 40 mg - Labs Labs: 09/04/18 06:33 09/04/18 05:54 PT 14.6 SECONDS (9.7-12.2) H 08/31/18 13:02 INR 1.3 08/31/18 13:02 APTT 34 SECONDS (21-34) D 08/31/18 13:02
[2018-09-04] MEDS ORDERED: TPN #2 IV ONE (18:00)
[2018-09-05] MEDS: Albuterol-Ipratrop 3 mg / 0.5 (3 ml) UD INH SCH ×4 (01:31→19:19)
[2018-09-05] MEDS: Vancomycin 1 gm/NS 200 ml 1 GM/200 ML BAG IVPB SCH ×3 (01:32→16:39)
[2018-09-05] MEDS: White Petrolatum/Mineral Oil Ophth Oint(3.5 gm) OU SCH ×6 (02:12→21:34)
[2018-09-05] MEDS: Meropenem 1 GM in Sodium Chloride 0.9% 100 ML IVPB SCH ×3 (04:03→20:30)
[2018-09-05 04:39] LABS: ARTERIAL BLOOD GAS HCO3 27.9 mmol/L (21-28); ARTERIAL BLOOD GAS HEMOGLOBIN 11.1 g/dL (11.7-17.4); ARTERIAL BLOOD GAS O2 SAT 98.8 % (95-98); ARTERIAL BLOOD GAS PCO2 38 mm/Hg (35-45); ARTERIAL BLOOD GAS PH 7.47 (7.35-7.45); ARTERIAL BLOOD GAS PO2 131 mm/Hg (80-100); ARTERIAL BLOOD GAS TCO2 28.9 mmol/L (22-28)
[2018-09-05] MEDS: (Novolog) Insulin Aspart, Recombinant 100 u/ml 10 ml vial SC SCH ×4 (05:23→18:21)
[2018-09-05 06:15] LABS: BASO % 0.2 % (0.0-2.0); EOS # 0.5 K/uL (0.0-0.7); EOS % 2.2 % (0.0-4.0); HEMOGLOBIN 10.3 g/dL (11.0-16.0); LYMPH # 1.9 K/uL (1.0-4.3); LYMPH % 8.5 % (20.0-40.0); MEAN CELL VOLUME 78.6 fL (81.0-99.0); MEAN CORPUSCULAR HEMOGLOBIN 25.3 pg (27.0-31.0); MEAN CORPUSCULAR HGB CONC 32.2 g/dL (33.0-37.0); MONO # 0.8 K/uL (0.0-0.8); MONO % 3.6 % (0.0-10.0); NEUT # 19.1 K/uL (1.8-7.0); NEUT % 85.5 % (50.0-75.0); PLATELET COUNT 62 K/uL (130-400); RBC 4.06 Mil/uL (3.80-5.20); RED CELL DISTRIBUTION WIDTH 19.3 % (11.5-14.5); WHITE BLOOD COUNT 22.4 K/uL (4.8-10.8)
[2018-09-05 06:49] LABS: ALB/GLOB RATIO 0.9 (1.0-2.1); ALBUMIN 2.2 g/dL (3.5-5.0); ALT/SGPT 32 U/L (9-52); AST/SGOT 36 U/L (14-36); BLOOD UREA NITROGEN 18 mg/dL (7-17); CALCIUM 7.4 mg/dl (8.6-10.4); GFR NON-AFRICAN AMERICAN > 60
[2018-09-05] MEDS ORDERED: Potassium Chloride 20 mEq/15 ml LIQ UD PO SCH (08:00)
--- NOTE | 2018-09-05 08:08 | CP.PCM.PN ---
Subjective - Date & Time of Evaluation Date of Evaluation: 09/05/18 Time of Evaluation: 06:30 - Subjective Subjective: surgery progress note for Dr. Patino Pt seen and examined this AM. Patient still intubated d/t agitation and tachycardia during CPAP trials, only serous output in ostomy, had fever of 101 overnight controlled with cooling blanket and tylenol, currently afebrile. Objective - Vital Signs/Intake and Output Vital Signs (last 24 hours): Temp Pulse Resp BP Pulse Ox 99.4 F 110 H 20 113/65 99 09/05/18 04:00 09/05/18 07:00 09/05/18 07:00 09/05/18 06:54 09/05/18 07:00 Intake and Output: 09/05/18 09/05/18 06:59 18:59 Intake Total 1762 180 Output Total 1290 50 Balance 472 130 - Medications Medications: Current Medications Albuterol/Ipratropium (Duoneb 3 Mg/0.5 Mg (3 Ml) Ud) 3 ml INH RQ6 [facility]LENA Last Admin: 09/05/18 08:03 Dose: Not Given Artificial Tears (Lacri-Lube) 1 gm OU Q4H [facility] Last Admin: 09/05/18 07:12 Dose: 1 gm Fentanyl Citrate 2,500 mcg/ (Sodium Chloride) 250 mls @ 14.52 mls/hr IV .[id number] [facility]LENA; Protocol Last Titration: 09/05/18 07:30 Dose: 5 mcg/kg/hr, 36.29 mls/hr Meropenem 1 gm/ Sodium (Chloride) 100 mls @ 100 mls/hr IVPB Q8H [facility]; Protocol Last Admin: 09/05/18 04:03 Dose: 100 mls/hr Multivitamins/Vitamin C 10 ml/Amino Acids/Electrolytes/Dextrose 1,010 mls @ 42 mls/hr IV .Q24H ONE Stop: 09/05/18 17:59 Last Admin: 09/04/18 17:46 Dose: 42 mls/hr Vancomycin/Sodium Chloride (Vancomycin 1 Gm/Ns 200 Ml) 1 gm in 200 mls @ 133 mls/hr IVPB Q8H [facility]LENA; Protocol Stop: 09/09/18 17:31 Last Admin: 09/05/18 01:32 Dose: 133 mls/hr Acetaminophen (Ofirmev) 100 mls @ 400 mls/hr IV Q4H PRN PRN Reason: Fever >100.4 F Stop: 09/05/18 20:59 Last Admin: 09/05/18 02:33 Dose: 400 mls/hr Insulin Aspart (Novolog) 0 unit SC Q6 [facility]NA; Protocol Last Admin: 09/05/18 05:23 Dose: Not Given Pantoprazole Sodium (Protonix Inj) 40 mg IVP DAILY [facility] Last Admin: 09/04/18 09:29 Dose: 40 mg Potassium Chloride (Potassium Chloride Oral Soln) 20 meq PO Q1 [facility]LENA Stop: 09/05/18 11:01 - Labs Labs: 09/05/18 06:11 09/05/18 06:11 PT 14.6 SECONDS (9.7-12.2) H 08/31/18 13:02 INR 1.3 08/31/18 13:02 APTT 34 SECONDS (21-34) D 08/31/18 13:02 - Constitutional Appears: Non-toxic, No Acute Distress, Agitated - Head Exam Head Exam: ATRAUMATIC, NORMOCEPHALIC - Eye Exam Eye Exam: Normal appearance. absent: Conjunctival injection, Scleral icterus - ENT Exam ENT Exam: Mucous Membranes Moist Additional comments: ETT and OGT in place - Respiratory Exam Respiratory Exam: NORMAL BREATHING PATTERN. absent: Accessory Muscle Use, Respiratory Distress - Cardiovascular Exam Cardiovascular Exam: Tachycardia, REGULAR RHYTHM - GI/Abdominal Exam GI & Abdominal Exam: Distended, Soft Additional comments: midline incision well approximated with constance, clemente drain in the inferior portion with moderate serosanguinous satruation RLQ drain with minimal serosanguinous output, LUQ drain with minimal serous output - Extremities Exam Extremities Exam: Pedal Edema (Trace non-pitting edema BL). absent: Calf Tenderness, Tenderness - Neurological Exam Neurological Exam: Altered Additional comments: Moving all limbs voluntarily - Psychiatric Exam Additional comments: sedated - Skin Skin Exam: Dry, Normal Color, Warm Assessment and Plan - Assessment and Plan (Free Text) Assessment: 33F POD# 5 S/P ex lap with resection of a perforated sigmoid colon and colostomy creation Plan: Continue NPO, NGT suction Monitor urine, NGT, ostomy and drain outputs Reglan IV, no suppositories or enemas through stoma at this time Continue to trend CBC and CMP/Mg/Phos--replete electrolytes as needed Continue IV antibiotics and IVF Medical management per ICU and primary Avoid suppositories given recent sigmoid/rectal surgery Discussed with Dr. Patino, who agrees with above Gale Longo, PGY2
--- NOTE | 2018-09-05 08:13 | RAD ---
Date of service: 09/05/2018 HISTORY: FOLLOW UP COMPARISON: Portable chest 09/04/2018. FINDINGS: LUNGS: Endotracheal and nasogastric tubes do not appear significantly changed in position as well as right central venous line. Limited right basilar airspace disease is questioned. None is seen at the left. PLEURA: A minimal right pleural effusion is in question. None is seen at the left. No pneumothorax bilaterally. CARDIOVASCULAR: No atherosclerotic calcification present Stable cardiomediastinal silhouette. No definite pulmonary vascular congestion. OSSEOUS STRUCTURES: No significant abnormalities. VISUALIZED UPPER ABDOMEN: Normal. OTHER FINDINGS: None. IMPRESSION: Borderline right basilar airspace disease and pleural effusion with none seen at the left. Cardiomediastinal silhouette appears stable.
[2018-09-05 08:17] LABS: ANISOCYTOSIS SLIGHT; BANDS 21 % (0-2); HYPOCHROMIC SLIGHT; LYMPHOCYTE 9 % (20-40); MONOCYTE 2 % (0-10); NEUTROPHIL 68 % (50-75); PLATELET ESTIMATE DECREASED (NORMAL); POLYCHROMIC SLIGHT; TOTAL CELLS COUNTED 100
[2018-09-05] MEDS ORDERED: TPN #2 IV SCH (11:30)
[2018-09-05] MEDS: HYDROmorphone 0.5 mg/0.5 ml ISec IVP PRN (11:53)
--- NOTE | 2018-09-05 13:07 | CP.CCUPN ---
<Jone Sanchez - Last Filed: 09/05/18 15:53> CCU Subjective - Physician Review Subjective (Free Text): Pt seen and examined at bedside. Pt unable to provide hx, sedated. Pt had another tachy event HR >200 today at 12 noon -> given adenosine IVP. HR now in 110s. CCU Objective - Vital Signs / Intake & Output Vital Signs (Last 4 hours): Vital Signs Temp Pulse Resp BP Pulse Ox 09/05/18 12:07 120 H 19 132/69 95 09/05/18 12:00 99 F 230 H 36 H 99 09/05/18 11:54 136 H 24 124/76 100 09/05/18 11:00 112 H 29 H 100 09/05/18 10:54 116 H 17 123/74 100 09/05/18 10:00 99 F 102 H 20 100 09/05/18 09:54 98 H 20 102/54 L 100 09/05/18 09:00 103 H 20 100 Intake and Output (Last 8hrs): Intake & Output 09/04/18 09/05/18 09/05/18 22:59 06:59 14:59 Intake Total 1218 1278 1221.4 Output Total 1042 965 520 Balance 176 313 701.4 Weight 219 lb Intake: IV 250 310 238 Intake, IV Amount 968 968 983.4 Right Medial Port PICC 232 232 181.4 Right Medial Port Y site 200 450 Right Proximal Port PICC 336 336 252 left arm 200 400 100 Tube Feeding 0 Output: Gastric Amount 400 400 Stomach 400 400 Drainage 85 45 Left Abdomen 35 20 Right Abdomen 50 25 Urine 557 480 520 Urethral (Rankin) 557 480 520 Other 40 Other: # Bowel Movements 0 - Physical Exam Head: Positive for: Atraumatic, Normocephalic Pupils: Positive for: Sluggish. Negative for: Non-Reactive, Pinpoint Extroacular Muscles: Positive for: Other (sedated and not following commands, minimal spontaneous movements when aroused) Conjunctiva: Positive for: Normal. Negative for: Injected, Icteric Mouth: Positive for: Dry Nose (External): Positive for: Atraumatic. Negative for: Abrasion, Contusion, Laceration Nose (Internal): Positive for: No Active Bleeding. Negative for: Epistaxis Neck: Positive for: Normal Range of Motion (passive ROM intact, some spontaneous active movement when aroused but unable to assess full active ROM), Trachea Midline. Negative for: JVD Respiratory/Chest: Positive for: Good Air Exchange, Rhonchi (mild-moderate ronchi in all vega), Other (overbreathing the ventilator but no longer tachypnic to 40's while on sedation) Cardiovascular: Positive for: Normal S1, S2, Peripheal Pulses Present (weakly/irregularly palpable bilateral radial pulses, unable to palpate pedal pulses, weakly/irregularly palpable femor pulses bilaterally), Tachycardic (persistently 120's-140's) Abdomen: Positive for: Other (post-op, 3 drains present with varying degrees of serosanguinous fluid present, no lin blood or pus appreciated, colostomy bag p resent with patent-appearing stoma, abdomen firm to palpation diffusely, bandaging over surgical incisions) Genitourinary/Pelvic Exam: Positive for: Other (Rankin present with only approx 250cc very dark sara urine) Upper Extremity: Positive for: Edema (bilateral upper extremities with mild non- pitting edema). Negative for: Cyanosis, NORMAL PULSES (weak pulses as described in cardio section), Deformity Lower Extremity: Positive for: Edema (bilateral lower extremities with moderate non-pitting edema). Negative for: NORMAL PULSES (intermittently palpable weak femoral pulses bilaterally unable, unable to palpate any pedal pulses) Neurological: Positive for: Other (sedated on fentanyl/precedex, intermittently aroused by pain or stimulation (like Arterial line placement) but rapidly returns to somnolence). Negative for: GCS=15 (GCS 7 (E2 V1t M4)) Skin: Positive for: Warm, Diaphoretic, Pale. Negative for: Dry, Rashes, Normal Color Psychiatric: Positive for: Other (sedated but intermittently aroused, rapidly returns to somnolence) - Medications Active Medications: Active Medications Generic Name Dose Route Start Last Admin Trade Name Freq PRN Reason Stop Dose Admin Albuterol/Ipratropium 3 ml 09/01/18 14:00 09/05/18 08:03 Duoneb 3 Mg/0.5 Mg (3 Ml) Ud INH Not Given RQ6 MARLENA Artificial Tears 1 gm 09/03/18 06:00 09/05/18 09:12 Lacri-Lube OU 1 gm Q4H MARLENA Administration Hydromorphone HCl 0.5 mg 09/05/18 11:40 09/05/18 11:53 Dilaudid IVP 0.5 mg Q4H PRN Administration Pain, moderate (4-7) Fentanyl Citrate 2,500 mcg/ 250 mls @ 14.52 mls/hr 08/31/18 07:30 09/05/18 12:24 Sodium Chloride IV 4 mcg/kg/hr .[id number] MARLENA 29.03 mls/hr Titration Protocol 2 MCG/KG/HR Meropenem 1 gm/ Sodium 100 mls @ 100 mls/hr 08/31/18 20:00 09/05/18 11:24 Chloride IVPB 100 mls/hr Q8H MARLENA Administration Protocol Vancomycin/Sodium Chloride 1 gm in 200 mls @ 133 mls/hr 09/04/18 17:30 09/05/18 08:44 Vancomycin 1 Gm/Ns 200 Ml IVPB 09/09/18 17:31 133 mls/hr Q8H MARLENA Administration Protocol Acetaminophen 100 mls @ 400 mls/hr 09/04/18 20:58 09/05/18 08:07 Ofirmev IV 09/05/18 20:59 400 mls/hr Q4H PRN Administration Fever >100.4 F Potassium Chloride 20 meq in 100 mls @ 50 mls/hr 09/05/18 12:20 09/05/18 12:10 Potassium Chloride 20 Meq/100 Ml IVPB 09/05/18 14:19 50 mls/hr ONCE ONE Administration Multivitamins/Vitamin C 10 ml/ 1,010 mls @ 42 mls/hr 09/05/18 18:00 Amino Acids/Electrolytes/ IV 09/06/18 17:59 Dextrose .Q24H ONE Multivitamins/Vitamin C 10 ml/ 1,010 mls @ 42 mls/hr 09/05/18 11:30 Amino Acids/Electrolytes/ IV 09/05/18 17:59 Dextrose .Q24H MARLENA Diltiazem HCl 125 mg/ Dextrose 125 mls @ 5 mls/hr 09/05/18 12:00 09/05/18 12:18 IV 5 mg/hr .Q24H MARLENA 5 mls/hr Administration Protocol 5 MG/HR Insulin Aspart 0 unit 09/03/18 06:00 09/05/18 11:47 Novolog SC Not Given Q6 [facility] Protocol Metoclopramide HCl 10 mg 09/05/18 08:30 Reglan IVP DAILY@ONCE [facility] Pantoprazole Sodium 40 mg 08/31/18 10:00 09/05/18 09:11 Protonix Inj IVP 40 mg DAILY MARLENA Administration - Patient Studies Lab Studies: Microbiology Studies 08/31/18 02:45 Blood Culture - Preliminary Blood NO GROWTH AFTER 4 DAYS 08/31/18 02:20 Blood Culture - Preliminary Blood NO GROWTH AFTER 4 DAYS 08/31/18 15:00 Blood Culture - Preliminary Blood-Venous NO GROWTH AFTER 4 DAYS 08/31/18 15:30 Blood Culture - Preliminary Blood-Venous NO GROWTH AFTER 4 DAYS 09/04/18 12:36 Gram Stain - Final Trachasp Lab Studies 09/05/18 09/05/18 09/05/18 Range/Units 06:11 06:11 05:16 WBC 22.4 H (4.8-10.8) K/uL RBC 4.06 (3.80-5.20) Mil/uL Hgb 10.3 L (11.0-16.0) g/dL Hct 31.9 L (34.0-47.0) % MCV 78.6 L (81.0-99.0) fL MCH 25.3 L (27.0-31.0) pg MCHC 32.2 L (33.0-37.0) g/dL RDW 19.3 H (11.5-14.5) % Plt Count 62 L D (130-400) K/uL MPV 10.0 (7.2-11.7) fL Neut % (Auto) 85.5 H (50.0-75.0) % Lymph % (Auto) 8.5 L (20.0-40.0) % [place] % (Auto) 3.6 (0.0-10.0) % Eos % (Auto) 2.2 (0.0-4.0) % Baso % (Auto) 0.2 (0.0-2.0) % Neut # (Auto) 19.1 H (1.8-7.0) K/uL Lymph # (Auto) 1.9 (1.0-4.3) K/uL [place] # (Auto) 0.8 (0.0-0.8) K/uL Eos # (Auto) 0.5 (0.0-0.7) K/uL Baso # (Auto) 0.0 (0.0-0.2) K/uL Neutrophils % (Manual) 68 (50-75) % Band Neutrophils % 21 H* (0-2) % Lymphocytes % (Manual) 9 L (20-40) % Monocytes % (Manual) 2 (0-10) % Platelet Estimate Decreased L (NORMAL) Polychromasia Slight Hypochromasia (manual) Slight Anisocytosis (manual) Slight Puncture Site pCO2 (35-45) mm/Hg pO2 (80-100) mm/Hg HCO3 (21-28) mmol/L ABG pH (7.35-7.45) ABG Total CO2 (22-28) mmol/L ABG O2 Saturation (95-98) % ABG Base Excess (-2.0-3.0) mmol/L ABG Hemoglobin (11.7-17.4) g/dL ABG Carboxyhemoglobin (0.5-1.5) % POC ABG HHb (Measured) (0.0-5.0) % ABG Methemoglobin (0.0-3.0) % Luis Test A-a O2 Difference mm/Hg Respiratory Index Hgb O2 Saturation (95.0-98.0) % Vent Mode Mechanical Rate FiO2 % Tidal Volume PEEP Sodium 146 (132-148) mmol/L Potassium 3.1 L (3.6-5.2) mmol/L Chloride 110 H (98-107) mmol/L Carbon Dioxide 28 (22-30) mmol/L Anion Gap 11 (10-20) BUN 18 H (7-17) mg/dL Creatinine 0.5 L (0.7-1.2) mg/dL Est GFR ( Amer) > 60 Est GFR (Non-Af Amer) > 60 POC Glucose (mg/dL) 139 H (65-110) mg/dL Random Glucose 124 H (65-105) mg/dL Calcium 7.4 L (8.6-10.4) mg/dl Phosphorus 4.0 (2.5-4.5) mg/dL Magnesium 2.1 (1.6-2.3) mg/dL Total Bilirubin 1.8 H (0.2-1.3) mg/dL AST 36 D (14-36) U/L ALT 32 (9-52) U/L Alkaline Phosphatase 105 (38-126) U/L Total Protein 4.5 L (6.3-8.3) g/dL Albumin 2.2 L (3.5-5.0) g/dL Globulin 2.3 (2.2-3.9) gm/dL Albumin/Globulin Ratio 0.9 L (1.0-2.1) 09/05/18 09/04/18 09/04/18 Range/Units 04:30 23:40 18:11 WBC (4.8-10.8) K/uL RBC (3.80-5.20) Mil/uL Hgb (11.0-16.0) g/dL Hct (34.0-47.0) % MCV (81.0-99.0) fL MCH (27.0-31.0) pg MCHC (33.0-37.0) g/dL RDW (11.5-14.5) % Plt Count (130-400) K/uL MPV (7.2-11.7) fL Neut % (Auto) (50.0-75.0) % Lymph % (Auto) (20.0-40.0) % [place] % (Auto) (0.0-10.0) % Eos % (Auto) (0.0-4.0) % Baso % (Auto) (0.0-2.0) % Neut # (Auto) (1.8-7.0) K/uL Lymph # (Auto) (1.0-4.3) K/uL [place] # (Auto) (0.0-0.8) K/uL Eos # (Auto) (0.0-0.7) K/uL Baso # (Auto) (0.0-0.2) K/uL Neutrophils % (Manual) (50-75) % Band Neutrophils % (0-2) % Lymphocytes % (Manual) (20-40) % Monocytes % (Manual) (0-10) % Platelet Estimate (NORMAL) Polychromasia Hypochromasia (manual) Anisocytosis (manual) Puncture Site Rb pCO2 38 (35-45) mm/Hg pO2 131 H (80-100) mm/Hg HCO3 27.9 (21-28) mmol/L ABG pH 7.47 H (7.35-7.45) ABG Total CO2 28.9 H (22-28) mmol/L ABG O2 Saturation 98.8 H (95-98) % ABG Base Excess 3.8 H (-2.0-3.0) mmol/L ABG Hemoglobin 11.1 L (11.7-17.4) g/dL ABG Carboxyhemoglobin 1.4 (0.5-1.5) % POC ABG HHb (Measured) 1.2 (0.0-5.0) % ABG Methemoglobin 0.9 (0.0-3.0) % Luis Test Na A-a O2 Difference 178.0 mm/Hg Respiratory Index 1.4 Hgb O2 Saturation 96.5 (95.0-98.0) % Vent Mode Prvc Mechanical Rate 20 FiO2 50.0 % Tidal Volume 500 PEEP 5 Sodium (132-148) mmol/L Potassium (3.6-5.2) mmol/L Chloride (98-107) mmol/L Carbon Dioxide (22-30) mmol/L Anion Gap (10-20) BUN (7-17) mg/dL Creatinine (0.7-1.2) mg/dL Est GFR ( Amer) Est GFR (Non-Af Amer) POC Glucose (mg/dL) 104 99 (65-110) mg/dL Random Glucose (65-105) mg/dL Calcium (8.6-10.4) mg/dl Phosphorus (2.5-4.5) mg/dL Magnesium (1.6-2.3) mg/dL Total Bilirubin (0.2-1.3) mg/dL AST (14-36) U/L ALT (9-52) U/L Alkaline Phosphatase (38-126) U/L Total Protein (6.3-8.3) g/dL Albumin (3.5-5.0) g/dL Globulin (2.2-3.9) gm/dL Albumin/Globulin Ratio (1.0-2.1) 09/04/18 Range/Units 11:35 WBC (4.8-10.8) K/uL RBC (3.80-5.20) Mil/uL Hgb (11.0-16.0) g/dL Hct (34.0-47.0) % MCV (81.0-99.0) fL MCH (27.0-31.0) pg MCHC (33.0-37.0) g/dL RDW (11.5-14.5) % Plt Count (130-400) K/uL MPV (7.2-11.7) fL Neut % (Auto) (50.0-75.0) % Lymph % (Auto) (20.0-40.0) % [place] % (Auto) (0.0-10.0) % Eos % (Auto) (0.0-4.0) % Baso % (Auto) (0.0-2.0) % Neut # (Auto) (1.8-7.0) K/uL Lymph # (Auto) (1.0-4.3) K/uL [place] # (Auto) (0.0-0.8) K/uL Eos # (Auto) (0.0-0.7) K/uL Baso # (Auto) (0.0-0.2) K/uL Neutrophils % (Manual) (50-75) % Band Neutrophils % (0-2) % Lymphocytes % (Manual) (20-40) % Monocytes % (Manual) (0-10) % Platelet Estimate (NORMAL) Polychromasia Hypochromasia (manual) Anisocytosis (manual) Puncture Site pCO2 (35-45) mm/Hg pO2 (80-100) mm/Hg HCO3 (21-28) mmol/L ABG pH (7.35-7.45) ABG Total CO2 (22-28) mmol/L ABG O2 Saturation (95-98) % ABG Base Excess (-2.0-3.0) mmol/L ABG Hemoglobin (11.7-17.4) g/dL ABG Carboxyhemoglobin (0.5-1.5) % POC ABG HHb (Measured) (0.0-5.0) % ABG Methemoglobin (0.0-3.0) % Luis Test A-a O2 Difference mm/Hg Respiratory Index Hgb O2 Saturation (95.0-98.0) % Vent Mode Mechanical Rate FiO2 % Tidal Volume PEEP Sodium (132-148) mmol/L Potassium (3.6-5.2) mmol/L Chloride (98-107) mmol/L Carbon Dioxide (22-30) mmol/L Anion Gap (10-20) BUN (7-17) mg/dL Creatinine (0.7-1.2) mg/dL Est GFR ( Amer) Est GFR (Non-Af Amer) POC Glucose (mg/dL) 129 H (65-110) mg/dL Random Glucose (65-105) mg/dL Calcium (8.6-10.4) mg/dl Phosphorus (2.5-4.5) mg/dL Magnesium (1.6-2.3) mg/dL Total Bilirubin (0.2-1.3) mg/dL AST (14-36) U/L ALT (9-52) U/L Alkaline Phosphatase (38-126) U/L Total Protein (6.3-8.3) g/dL Albumin (3.5-5.0) g/dL Globulin (2.2-3.9) gm/dL Albumin/Globulin Ratio (1.0-2.1) Laboratory Results - last 24 hr 09/04/18 09/04/18 09/04/18 11:35 18:11 23:40 WBC RBC Hgb Hct MCV MCH MCHC RDW Plt Count MPV Neut % (Auto) Lymph % (Auto) [place] % (Auto) Eos % (Auto) Baso % (Auto) Neut # (Auto) Lymph # (Auto) [place] # (Auto) Eos # (Auto) Baso # (Auto) Neutrophils % (Manual) Band Neutrophils % Lymphocytes % (Manual) Monocytes % (Manual) Platelet Estimate Polychromasia Hypochromasia (manual) Anisocytosis (manual) Puncture Site pCO2 pO2 HCO3 ABG pH ABG Total CO2 ABG O2 Saturation ABG Base Excess ABG Hemoglobin ABG Carboxyhemoglobin POC ABG HHb (Measured) ABG Methemoglobin Luis Test A-a O2 Difference Respiratory Index Hgb O2 Saturation Vent Mode Mechanical Rate FiO2 Tidal Volume PEEP Sodium Potassium Chloride Carbon Dioxide Anion Gap BUN Creatinine Est GFR ( Amer) Est GFR (Non-Af Amer) POC Glucose (mg/dL) 129 H 99 104 Random Glucose Calcium Phosphorus Magnesium Total Bilirubin AST ALT Alkaline Phosphatase Total Protein Albumin Globulin Albumin/Globulin Ratio 09/05/18 09/05/18 09/05/18 04:30 05:16 06:11 WBC 22.4 H RBC 4.06 Hgb 10.3 L Hct 31.9 L MCV 78.6 L MCH 25.3 L MCHC 32.2 L RDW 19.3 H Plt Count 62 L D MPV 10.0 Neut % (Auto) 85.5 H Lymph % (Auto) 8.5 L [place] % (Auto) 3.6 Eos % (Auto) 2.2 Baso % (Auto) 0.2 Neut # (Auto) 19.1 H Lymph # (Auto) 1.9 [place] # (Auto) 0.8 Eos # (Auto) 0.5 Baso # (Auto) 0.0 Neutrophils % (Manual) 68 Band Neutrophils % 21 H* Lymphocytes % (Manual) 9 L Monocytes % (Manual) 2 Platelet Estimate Decreased L Polychromasia Slight Hypochromasia (manual) Slight Anisocytosis (manual) Slight Puncture Site Rb pCO2 38 pO2 131 H HCO3 27.9 ABG pH 7.47 H ABG Total CO2 28.9 H ABG O2 Saturation 98.8 H ABG Base Excess 3.8 H ABG Hemoglobin 11.1 L ABG Carboxyhemoglobin 1.4 POC ABG HHb (Measured) 1.2 ABG Methemoglobin 0.9 Luis Test Na A-a O2 Difference 178.0 Respiratory Index 1.4 Hgb O2 Saturation 96.5 Vent Mode Prvc Mechanical Rate 20 FiO2 50.0 Tidal Volume 500 PEEP 5 Sodium Potassium Chloride Carbon Dioxide Anion Gap BUN Creatinine Est GFR ( Amer) Est GFR (Non-Af Amer) POC Glucose (mg/dL) 139 H Random Glucose Calcium Phosphorus Magnesium Total Bilirubin AST ALT Alkaline Phosphatase Total Protein Albumin Globulin Albumin/Globulin Ratio 09/05/18 06:11 WBC RBC Hgb Hct MCV MCH MCHC RDW Plt Count MPV Neut % (Auto) Lymph % (Auto) [place] % (Auto) Eos % (Auto) Baso % (Auto) Neut # (Auto) Lymph # (Auto) [place] # (Auto) Eos # (Auto) Baso # (Auto) Neutrophils % (Manual) Band Neutrophils % Lymphocytes % (Manual) Monocytes % (Manual) Platelet Estimate Polychromasia Hypochromasia (manual) Anisocytosis (manual) Puncture Site pCO2 pO2 HCO3 ABG pH ABG Total CO2 ABG O2 Saturation ABG Base Excess ABG Hemoglobin ABG Carboxyhemoglobin POC ABG HHb (Measured) ABG Methemoglobin Luis Test A-a O2 Difference Respiratory Index Hgb O2 Saturation Vent Mode Mechanical Rate FiO2 Tidal Volume PEEP Sodium 146 Potassium 3.1 L Chloride 110 H Carbon Dioxide 28 Anion Gap 11 BUN 18 H Creatinine 0.5 L Est GFR ( Amer) > 60 Est GFR (Non-Af Amer) > 60 POC Glucose (mg/dL) Random Glucose 124 H Calcium 7.4 L Phosphorus 4.0 Magnesium 2.1 Total Bilirubin 1.8 H AST 36 D ALT 32 Alkaline Phosphatase 105 Total Protein 4.5 L Albumin 2.2 L Globulin 2.3 Albumin/Globulin Ratio 0.9 L Fingerstick Blood Sugar Results: 109 Review of Systems - Review of Systems Systems not reviewed;Unavailable: Acuity of Condition Critical Care Progress Note - Nutrition Nutrition: Nutrition Category Date Time Status NPO Diet [DIET] Diets 08/31/18 Breakfast Active Assessment/Plan - Assessment and Plan (Free Text) Assessment: This is a 33 yo F with PMH of asthma who presented to with acutely worsening suprapubic abdominal pain, s/p hysterctomy 4 days prior. She was found to have an intra-abdominal fluid collection, found to be large collection of feculent peritoneal fluid 2/2 sigmoid perforation. Now in the ICU, intubated, on empiric abx, on dual pressors for persistent hypotension/likely septic shock 2/2 peritonitis. -volume resuscitated -intubated for due to tachypnea and for airway protection pending OR -ABG on admission and follow up ABGs reviewed, concerning for metabolic acidosis with attempted respiratory compensation lactates increased but now improving; 3.1 -> 3.7 -> 4.8 -> 3.9 -> 3.7 -CXR notable for mild pulm venous congestion, ETT in place -x3 given adenosine 20 ivp for tachy episodes >200 Plan: Neuro: -taper off fentanyl @ 2 -sedation vacation today -maintain normothermia Tylenol 650mg PRN -precedex sedation started today @ 1333 Pulm: Hypercapnic Respiratory Distress -Pt satting well -CPAP trial today -possible extubation -Duonebs -solucortef 50 q12 last dose today 10am -fluconazole Cardio: Septic Shock -off pressors -hemodynamically stable Trops negative x2, pending 1 more to rule out CA as cause of tachy/hypotension -Monitor strict I's and O's, UOP increased from presentation but still low Tachycardia - HR >200s -Given Adenosine IVP x 2 (4th dose since yesterday 9am) -cardizem drip @ 10 GI: Peritonitis -TPN w/ multivit -ng tube decompression, feeds held -s/p distal sigmoid/proximal rectum resection by Surgery, monitor output of drains left in place perf 2/2 hysterectomy 2 days prior, Surgery reports 2+ liters of purulent feculent material drained from peritoneal cavity -Protonix for GI ppx -Merrem and Vanco, for coverage, ID consulted for additional management of abx regimen -CT abd pelv: Enteritis of small bowel Renal: -consider urology consult f/u recs -Monitor and replete electrolytes as needed -Rankin in place, strict I's and O's Heme: -10 Hg -platelets dropped to 62 -f//u CTA r/o PE Not an appropriate increase s/p 1 unit pRBCs, but the 11.9 on admit likely falsely elevated given dehydration No lin blood in abd drains remaining post-op, Surgery reports only approx 150cc blood loss intra-operatively, no intra-abd hematoma as per Surgery -SCDs for DVT ppx at this time, avoid AC given recent surgery -Concern for possible PE, may need to anticoagulate if Echo indicative of RV strain, will discuss with Surgery prior to anticoag (if needed) -Fibrinogen wnl, so not DIC ID: Peritonitis -Klebsiella sensitive to Merrem -coverage of Vanco, with Merrem -Blood, urine cult neg -Ofirmev for febrile temps/persistent diaphoresis -ID consulted for further abx management, appreciate their recs Endo: -Insulin low sliding scale and Accuchecks q6 -BG goal 140-180 d/w Dr León Sanchez PGY1 <[email or web address] - Last Filed: 09/05/18 16:04> CCU Subjective - Physician Review Critical Care Time Spent (in minutes): 42 CCU Objective - Vital Signs / Intake & Output Vital Signs (Last 4 hours): Vital Signs Pulse Resp BP Pulse Ox 09/05/18 15:00 115 H 24 100 09/05/18 14:16 140 H 31 H 123/86 100 09/05/18 14:00 221 H 28 H 100 10/18/18 13:55 137 H 45 H 131/76 100 09/05/18 13:00 120 H 19 100 09/05/18 12:54 120 H 20 110/64 100 09/05/18 12:07 120 H 19 132/69 95 Intake and Output (Last 8hrs): Intake & Output 09/05/18 09/05/18 09/05/18 06:59 14:59 22:59 Intake Total 1278 1566.1 118.6 Output Total 965 755 160 Balance 313 811.1 -41.4 Weight 219 lb Intake: IV 310 356 Intake, IV Amount 968 1210.1 118.6 Right Medial Port PICC 232 246.7 36.3 Right Medial Port Y site 512.4 12.4 Right PICC 10 10 Right Proximal Port PICC 336 336 42 left arm 400 105 17.9 Output: Gastric Amount 400 Stomach 400 Drainage 45 Left Abdomen 20 Right Abdomen 25 Urine 480 755 160 Urethral (Rankin) 480 755 160 Other 40 - Medications Active Medications: Active Medications Generic Name Dose Route Start Last Admin Trade Name Freq PRN Reason Stop Dose Admin Albuterol/Ipratropium 3 ml 09/01/18 14:00 09/05/18 13:58 Duoneb 3 Mg/0.5 Mg (3 Ml) Ud INH Not Given RQ6 MARLENA Artificial Tears 1 gm 09/03/18 06:00 09/05/18 13:42 Lacri-Lube OU 1 gm Q4H MARLENA Administration Hydromorphone HCl 0.5 mg 09/05/18 11:40 09/05/18 11:53 Dilaudid IVP 0.5 mg Q4H PRN Administration Pain, moderate (4-7) Fentanyl Citrate 2,500 mcg/ 250 mls @ 14.52 mls/hr 08/31/18 07:30 09/05/18 14:40 Sodium Chloride IV 5 mcg/kg/hr .[id number] [facility]LENA 36.29 mls/hr Titration Protocol 2 MCG/KG/HR Meropenem 1 gm/ Sodium 100 mls @ 100 mls/hr 08/31/18 20:00 09/05/18 11:24 Chloride IVPB 100 mls/hr Q8H [facility]LENA Administration Protocol Vancomycin/Sodium Chloride 1 gm in 200 mls @ 133 mls/hr 09/04/18 17:30 09/05/18 08:44 Vancomycin 1 Gm/Ns 200 Ml IVPB 09/09/18 17:31 133 mls/hr Q8H [facility]NA Administration Protocol Acetaminophen 100 mls @ 400 mls/hr 09/04/18 20:58 09/05/18 08:07 Ofirmev IV 09/05/18 20:59 400 mls/hr Q4H PRN Administration Fever >100.4 F Multivitamins/Vitamin C 10 ml/ 1,010 mls @ 42 mls/hr 09/05/18 18:00 Amino Acids/Electrolytes/ IV 09/06/18 17:59 Dextrose .Q24H ONE Multivitamins/Vitamin C 10 ml/ 1,010 mls @ 42 mls/hr 09/05/18 11:30 Amino Acids/Electrolytes/ IV 09/05/18 17:59 Dextrose .Q24H [facility]LENA Diltiazem HCl 125 mg/ Dextrose 125 mls @ 5 mls/hr 09/05/18 12:00 09/05/18 14:30 IV 10 mg/hr .Q24H [facility]LENA 10 mls/hr Titration Protocol 5 MG/HR Dexmedetomidine HCl 200 mcg/ 50 mls @ 4.97 mls/hr 09/05/18 13:32 09/05/18 14:38 Sodium Chloride IV 0.5 mcg/kg/hr TITR PRN 12.42 mls/hr Agitation Titration Protocol 0.2 MCG/KG/HR Heparin Sodium/Sodium Chloride 25,000 units in 250 mls @ 17.881 mls/hr 09/05/18 14:21 09/05/18 14:41 Heparin 32948 Units/250ml 1/2 Normal Saline IV 18 units/kg/hr .[id number] PRN 17.881 mls/hr PROTOCOL Administration Protocol 18 UNITS/KG/HR Insulin Aspart 0 unit 09/03/18 06:00 09/05/18 11:47 Novolog SC Not Given Q6 [facility] Protocol Metoclopramide HCl 10 mg 09/05/18 08:30 Reglan IVP DAILY@ONCE [facility] Pantoprazole Sodium 40 mg 08/31/18 10:00 09/05/18 09:11 Protonix Inj IVP 40 mg DAILY [facility] Administration - Patient Studies Lab Studies: Microbiology Studies 08/31/18 15:00 Blood Culture - Final Blood-Venous NO GROWTH AFTER 5 DAYS Gram Stain - Final TEST NOT PERFORMED 08/31/18 15:30 Blood Culture - Final Blood-Venous NO GROWTH AFTER 5 DAYS Gram Stain - Final TEST NOT PERFORMED 08/31/18 02:45 Blood Culture - Preliminary Blood NO GROWTH AFTER 4 DAYS 08/31/18 02:20 Blood Culture - Preliminary Blood NO GROWTH AFTER 4 DAYS 09/04/18 12:36 Gram Stain - Final Trachasp Lab Studies 09/05/18 09/05/18 09/05/18 Range/Units 14:32 14:25 06:11 WBC (4.8-10.8) K/uL RBC (3.80-5.20) Mil/uL Hgb (11.0-16.0) g/dL Hct (34.0-47.0) % MCV (81.0-99.0) fL MCH (27.0-31.0) pg MCHC (33.0-37.0) g/dL RDW (11.5-14.5) % Plt Count (130-400) K/uL MPV (7.2-11.7) fL Neut % (Auto) (50.0-75.0) % Lymph % (Auto) (20.0-40.0) % [place] % (Auto) (0.0-10.0) % Eos % (Auto) (0.0-4.0) % Baso % (Auto) (0.0-2.0) % Neut # (Auto) (1.8-7.0) K/uL Lymph # (Auto) (1.0-4.3) K/uL [place] # (Auto) (0.0-0.8) K/uL Eos # (Auto) (0.0-0.7) K/uL Baso # (Auto) (0.0-0.2) K/uL Neutrophils % (Manual) (50-75) % Band Neutrophils % (0-2) % Lymphocytes % (Manual) (20-40) % Monocytes % (Manual) (0-10) % Platelet Estimate (NORMAL) Polychromasia Hypochromasia (manual) Anisocytosis (manual) APTT 31 (21-34) SECONDS D-Dimer, Quantitative > 5250 H (0-243) ng/mlDDU Puncture Site pCO2 (35-45) mm/Hg pO2 (80-100) mm/Hg HCO3 (21-28) mmol/L ABG pH (7.35-7.45) ABG Total CO2 (22-28) mmol/L ABG O2 Saturation (95-98) % ABG Base Excess (-2.0-3.0) mmol/L ABG Hemoglobin (11.7-17.4) g/dL ABG Carboxyhemoglobin (0.5-1.5) % POC ABG HHb (Measured) (0.0-5.0) % ABG Methemoglobin (0.0-3.0) % Luis Test A-a O2 Difference mm/Hg Respiratory Index Hgb O2 Saturation (95.0-98.0) % Vent Mode Mechanical Rate FiO2 % Tidal Volume PEEP Sodium 146 (132-148) mmol/L Potassium 3.1 L (3.6-5.2) mmol/L Chloride 110 H (98-107) mmol/L Carbon Dioxide 28 (22-30) mmol/L Anion Gap 11 (10-20) BUN 18 H (7-17) mg/dL Creatinine 0.5 L (0.7-1.2) mg/dL Est GFR ( Amer) > 60 Est GFR (Non-Af Amer) > 60 POC Glucose (mg/dL) (65-110) mg/dL Random Glucose 124 H (65-105) mg/dL Calcium 7.4 L (8.6-10.4) mg/dl Phosphorus 4.0 (2.5-4.5) mg/dL Magnesium 2.1 (1.6-2.3) mg/dL Total Bilirubin 1.8 H (0.2-1.3) mg/dL AST 36 D (14-36) U/L ALT 32 (9-52) U/L Alkaline Phosphatase 105 (38-126) U/L Total Protein 4.5 L (6.3-8.3) g/dL Albumin 2.2 L (3.5-5.0) g/dL Globulin 2.3 (2.2-3.9) gm/dL Albumin/Globulin Ratio 0.9 L (1.0-2.1) 09/05/18 09/05/18 09/05/18 Range/Units 06:11 05:16 04:30 WBC 22.4 H (4.8-10.8) K/uL RBC 4.06 (3.80-5.20) Mil/uL Hgb 10.3 L (11.0-16.0) g/dL Hct 31.9 L (34.0-47.0) % MCV 78.6 L (81.0-99.0) fL MCH 25.3 L (27.0-31.0) pg MCHC 32.2 L (33.0-37.0) g/dL RDW 19.3 H (11.5-14.5) % Plt Count 62 L D (130-400) K/uL MPV 10.0 (7.2-11.7) fL Neut % (Auto) 85.5 H (50.0-75.0) % Lymph % (Auto) 8.5 L (20.0-40.0) % [place] % (Auto) 3.6 (0.0-10.0) % Eos % (Auto) 2.2 (0.0-4.0) % Baso % (Auto) 0.2 (0.0-2.0) % Neut # (Auto) 19.1 H (1.8-7.0) K/uL Lymph # (Auto) 1.9 (1.0-4.3) K/uL [place] # (Auto) 0.8 (0.0-0.8) K/uL Eos # (Auto) 0.5 (0.0-0.7) K/uL Baso # (Auto) 0.0 (0.0-0.2) K/uL Neutrophils % (Manual) 68 (50-75) % Band Neutrophils % 21 H* (0-2) % Lymphocytes % (Manual) 9 L (20-40) % Monocytes % (Manual) 2 (0-10) % Platelet Estimate Decreased L (NORMAL) Polychromasia Slight Hypochromasia (manual) Slight Anisocytosis (manual) Slight APTT (21-34) SECONDS D-Dimer, Quantitative (0-243) ng/mlDDU Puncture Site Rb pCO2 38 (35-45) mm/Hg pO2 131 H (80-100) mm/Hg HCO3 27.9 (21-28) mmol/L ABG pH 7.47 H (7.35-7.45) ABG Total CO2 28.9 H (22-28) mmol/L ABG O2 Saturation 98.8 H (95-98) % ABG Base Excess 3.8 H (-2.0-3.0) mmol/L ABG Hemoglobin 11.1 L (11.7-17.4) g/dL ABG Carboxyhemoglobin 1.4 (0.5-1.5) % POC ABG HHb (Measured) 1.2 (0.0-5.0) % ABG Methemoglobin 0.9 (0.0-3.0) % Luis Test Na A-a O2 Difference 178.0 mm/Hg Respiratory Index 1.4 Hgb O2 Saturation 96.5 (95.0-98.0) % Vent Mode Prvc Mechanical Rate 20 FiO2 50.0 % Tidal Volume 500 PEEP 5 Sodium (132-148) mmol/L Potassium (3.6-5.2) mmol/L Chloride (98-107) mmol/L Carbon Dioxide (22-30) mmol/L Anion Gap (10-20) BUN (7-17) mg/dL Creatinine (0.7-1.2) mg/dL Est GFR ( Amer) Est GFR (Non-Af Amer) POC Glucose (mg/dL) 139 H (65-110) mg/dL Random Glucose (65-105) mg/dL Calcium (8.6-10.4) mg/dl Phosphorus (2.5-4.5) mg/dL Magnesium (1.6-2.3) mg/dL Total Bilirubin (0.2-1.3) mg/dL AST (14-36) U/L ALT (9-52) U/L Alkaline Phosphatase (38-126) U/L Total Protein (6.3-8.3) g/dL Albumin (3.5-5.0) g/dL Globulin (2.2-3.9) gm/dL Albumin/Globulin Ratio (1.0-2.1) 09/04/18 09/04/18 09/04/18 Range/Units 23:40 18:11 11:35 WBC (4.8-10.8) K/uL RBC (3.80-5.20) Mil/uL Hgb (11.0-16.0) g/dL Hct (34.0-47.0) % MCV (81.0-99.0) fL MCH (27.0-31.0) pg MCHC (33.0-37.0) g/dL RDW (11.5-14.5) % Plt Count (130-400) K/uL MPV (7.2-11.7) fL Neut % (Auto) (50.0-75.0) % Lymph % (Auto) (20.0-40.0) % [place] % (Auto) (0.0-10.0) % Eos % (Auto) (0.0-4.0) % Baso % (Auto) (0.0-2.0) % Neut # (Auto) (1.8-7.0) K/uL Lymph # (Auto) (1.0-4.3) K/uL [place] # (Auto) (0.0-0.8) K/uL Eos # (Auto) (0.0-0.7) K/uL Baso # (Auto) (0.0-0.2) K/uL Neutrophils % (Manual) (50-75) % Band Neutrophils % (0-2) % Lymphocytes % (Manual) (20-40) % Monocytes % (Manual) (0-10) % Platelet Estimate (NORMAL) Polychromasia Hypochromasia (manual) Anisocytosis (manual) APTT (21-34) SECONDS D-Dimer, Quantitative (0-243) ng/mlDDU Puncture Site pCO2 (35-45) mm/Hg pO2 (80-100) mm/Hg HCO3 (21-28) mmol/L ABG pH (7.35-7.45) ABG Total CO2 (22-28) mmol/L ABG O2 Saturation (95-98) % ABG Base Excess (-2.0-3.0) mmol/L ABG Hemoglobin (11.7-17.4) g/dL ABG Carboxyhemoglobin (0.5-1.5) % POC ABG HHb (Measured) (0.0-5.0) % ABG Methemoglobin (0.0-3.0) % Luis Test A-a O2 Difference mm/Hg Respiratory Index Hgb O2 Saturation (95.0-98.0) % Vent Mode Mechanical Rate FiO2 % Tidal Volume PEEP Sodium (132-148) mmol/L Potassium (3.6-5.2) mmol/L Chloride (98-107) mmol/L Carbon Dioxide (22-30) mmol/L Anion Gap (10-20) BUN (7-17) mg/dL Creatinine (0.7-1.2) mg/dL Est GFR ( Amer) Est GFR (Non-Af Amer) POC Glucose (mg/dL) 104 99 129 H (65-110) mg/dL Random Glucose (65-105) mg/dL Calcium (8.6-10.4) mg/dl Phosphorus (2.5-4.5) mg/dL Magnesium (1.6-2.3) mg/dL Total Bilirubin (0.2-1.3) mg/dL AST (14-36) U/L ALT (9-52) U/L Alkaline Phosphatase (38-126) U/L Total Protein (6.3-8.3) g/dL Albumin (3.5-5.0) g/dL Globulin (2.2-3.9) gm/dL Albumin/Globulin Ratio (1.0-2.1) Laboratory Results - last 24 hr 09/04/18 09/04/18 09/04/18 11:35 18:11 23:40 WBC RBC Hgb Hct MCV MCH MCHC RDW Plt Count MPV Neut % (Auto) Lymph % (Auto) [place] % (Auto) Eos % (Auto) Baso % (Auto) Neut # (Auto) Lymph # (Auto) [place] # (Auto) Eos # (Auto) Baso # (Auto) Neutrophils % (Manual) Band Neutrophils % Lymphocytes % (Manual) Monocytes % (Manual) Platelet Estimate Polychromasia Hypochromasia (manual) Anisocytosis (manual) APTT D-Dimer, Quantitative Puncture Site pCO2 pO2 HCO3 ABG pH ABG Total CO2 ABG O2 Saturation ABG Base Excess ABG Hemoglobin ABG Carboxyhemoglobin POC ABG HHb (Measured) ABG Methemoglobin Luis Test A-a O2 Difference Respiratory Index Hgb O2 Saturation Vent Mode Mechanical Rate FiO2 Tidal Volume PEEP Sodium Potassium Chloride Carbon Dioxide Anion Gap BUN Creatinine Est GFR ( Amer) Est GFR (Non-Af Amer) POC Glucose (mg/dL) 129 H 99 104 Random Glucose Calcium Phosphorus Magnesium Total Bilirubin AST ALT Alkaline Phosphatase Total Protein Albumin Globulin Albumin/Globulin Ratio 09/05/18 09/05/18 09/05/18 04:30 05:16 06:11 WBC 22.4 H RBC 4.06 Hgb 10.3 L Hct 31.9 L MCV 78.6 L MCH 25.3 L MCHC 32.2 L RDW 19.3 H Plt Count 62 L D MPV 10.0 Neut % (Auto) 85.5 H Lymph % (Auto) 8.5 L [place] % (Auto) 3.6 Eos % (Auto) 2.2 Baso % (Auto) 0.2 Neut # (Auto) 19.1 H Lymph # (Auto) 1.9 [place] # (Auto) 0.8 Eos # (Auto) 0.5 Baso # (Auto) 0.0 Neutrophils % (Manual) 68 Band Neutrophils % 21 H* Lymphocytes % (Manual) 9 L Monocytes % (Manual) 2 Platelet Estimate Decreased L Polychromasia Slight Hypochromasia (manual) Slight Anisocytosis (manual) Slight APTT D-Dimer, Quantitative Puncture Site Rb pCO2 38 pO2 131 H HCO3 27.9 ABG pH 7.47 H ABG Total CO2 28.9 H ABG O2 Saturation 98.8 H ABG Base Excess 3.8 H ABG Hemoglobin 11.1 L ABG Carboxyhemoglobin 1.4 POC ABG HHb (Measured) 1.2 ABG Methemoglobin 0.9 Luis Test Na A-a O2 Difference 178.0 Respiratory Index 1.4 Hgb O2 Saturation 96.5 Vent Mode Prvc Mechanical Rate 20 FiO2 50.0 Tidal Volume 500 PEEP 5 Sodium Potassium Chloride Carbon Dioxide Anion Gap BUN Creatinine Est GFR ( Amer) Est GFR (Non-Af Amer) POC Glucose (mg/dL) 139 H Random Glucose Calcium Phosphorus Magnesium Total Bilirubin AST ALT Alkaline Phosphatase Total Protein Albumin Globulin Albumin/Globulin Ratio 09/05/18 09/05/18 09/05/18 06:11 14:25 14:32 WBC RBC Hgb Hct MCV MCH MCHC RDW Plt Count MPV Neut % (Auto) Lymph % (Auto) [place] % (Auto) Eos % (Auto) Baso % (Auto) Neut # (Auto) Lymph # (Auto) [place] # (Auto) Eos # (Auto) Baso # (Auto) Neutrophils % (Manual) Band Neutrophils % Lymphocytes % (Manual) Monocytes % (Manual) Platelet Estimate Polychromasia Hypochromasia (manual) Anisocytosis (manual) APTT 31 D-Dimer, Quantitative > 5250 H Puncture Site pCO2 pO2 HCO3 ABG pH ABG Total CO2 ABG O2 Saturation ABG Base Excess ABG Hemoglobin ABG Carboxyhemoglobin POC ABG HHb (Measured) ABG Methemoglobin Luis Test A-a O2 Difference Respiratory Index Hgb O2 Saturation Vent Mode Mechanical Rate FiO2 Tidal Volume PEEP Sodium 146 Potassium 3.1 L Chloride 110 H Carbon Dioxide 28 Anion Gap 11 BUN 18 H Creatinine 0.5 L Est GFR ( Amer) > 60 Est GFR (Non-Af Amer) > 60 POC Glucose (mg/dL) Random Glucose 124 H Calcium 7.4 L Phosphorus 4.0 Magnesium 2.1 Total Bilirubin 1.8 H AST 36 D ALT 32 Alkaline Phosphatase 105 Total Protein 4.5 L Albumin 2.2 L Globulin 2.3 Albumin/Globulin Ratio 0.9 L EKG/Cardiology Studies: Cardiology / EKG Studies 09/05/18 13:20 ELECTROCARDIOGRAM Stat Comment: Mode Of Transportation: Reason For Exam: possible PE Critical Care Progress Note - Nutrition Nutrition: Nutrition Category Date Time Status NPO Diet [DIET] Diets 08/31/18 Breakfast Active Attending/Attestation - Attestation I have personally seen and examined this patient.: Yes I have fully participated in the care of the patient.: Yes I have reviewed all pertinent clinical information: Yes Notes (Text): 09/05/18 16:01 Today: August The Patient was seen and examined at the bedside, Medical records reviewed, and management issues were discussed and formulated with the house staff. I have reviewed all the relevant clinical, laboratory, hemodynamic, radiographic data and medications Events reviewed Pain issues, skin care, head of the bed elevation, glycemic control were addressed. Agree with above resident's assessment and treatment plans of care as transcribed in Dr. Sanchez's note. Critically ill patient with acute hypoxemic respiratory failure, Perforated Viscus, Septic shock, with recurrent SVT Now On Cardiazem drip Broaden IV Antibiotics, repeat cultures MAP >70 Full vent support, Precedix drip for sedation and Fentanyl drip for Pain control Discussed with the family in details diagnosis, treatment plans and alternatives, GI PPX: Protonix 40 mg PO DVT PPX: Starting heparin drip Code status: Full code Total critical care time 42 minutes
[2018-09-05] MEDS: Dexmedetomidine Hydrochloride 200 MCG in Sodium Chloride 0.9% 48 ML IV PRN ×3 (13:50→21:10)
[2018-09-05] MEDS ORDERED: Heparin25000 units/250ml 1/2NS 25,000 UNITS/250 ML BAG IV PRN (14:21)
[2018-09-05] MEDS ORDERED: Digoxin 500 mcg/2ml (0.5 mg/2ml) Inj IVP ONE (14:30)
--- NOTE | 2018-09-05 16:21 | RAD ---
HISTORY: Ticket neck COMPARISON: Chest x-ray performed 09/05/18 at 710 hr TECHNIQUE: Chest, one view. FINDINGS: Examination limited by habitus and hypoinflation. Endotracheal tube terminates approximately 2.1 cm above the siria. Nasogastric tube extends to the stomach. Right-sided PICC extends to the right atrium. LUNGS: Hypoinflation. No focal consolidation. Please note that chest x-ray has limited sensitivity for the detection of pulmonary masses. PLEURA: No significant pleural effusion identified. No definite pneumothorax . CARDIOVASCULAR: The cardiomediastinal silhouette appears within normal limits of size. No atherosclerotic calcification or mural plaque present. OSSEOUS STRUCTURES: No acute osseous abnormality identified. VISUALIZED UPPER ABDOMEN: Unremarkable. OTHER FINDINGS: None. IMPRESSION: Endotracheal tube terminates approximately 2.1 cm above the siria. Nasogastric tube extends expected location of stomach. Right-sided PICC extends the right atrium. Hypoinflation.
[2018-09-05] MEDS ORDERED: Iodixanol 320 MG/ML 100 ML BOTTLE IV ONE (16:58)
--- NOTE | 2018-09-05 17:20 | CP.PCM.PN ---
Subjective - Date & Time of Evaluation Date of Evaluation: 09/05/18 Time of Evaluation: 08:00 - Subjective Subjective: intubated / sedated discussed on rounds going for PE study dr Mckeon to [place] recultured no collection on CT scan from [facility], drains in place still no colostomy output- surgical follow up requested Objective - Vital Signs/Intake and Output Vital Signs (last 24 hours): Temp Pulse Resp BP Pulse Ox 99.6 F 100 H 20 96/58 L 100 09/05/18 16:00 09/05/18 15:54 09/05/18 15:54 09/05/18 15:54 09/05/18 16:00 Intake and Output: 09/05/18 09/05/18 06:59 18:59 Intake Total 1762 1774.3 Output Total 1290 915 Balance 472 859.3 - Medications Medications: Current Medications Albuterol/Ipratropium (Duoneb 3 Mg/0.5 Mg (3 Ml) Ud) 3 ml INH RQ6 [facility] Last Admin: 09/05/18 13:58 Dose: Not Given Artificial Tears (Lacri-Lube) 1 gm OU Q4H [facility]NA Last Admin: 09/05/18 13:42 Dose: 1 gm Hydromorphone HCl (Dilaudid) 0.5 mg IVP Q4H PRN PRN Reason: Pain, moderate (4-7) Last Admin: 09/05/18 11:53 Dose: 0.5 mg Fentanyl Citrate 2,500 mcg/ (Sodium Chloride) 250 mls @ 14.52 mls/hr IV .[id number] MARLENA; Protocol Last Titration: 09/05/18 14:40 Dose: 5 mcg/kg/hr, 36.29 mls/hr Meropenem 1 gm/ Sodium (Chloride) 100 mls @ 100 mls/hr IVPB Q8H [facility]; Protocol Last Admin: 09/05/18 11:24 Dose: 100 mls/hr Vancomycin/Sodium Chloride (Vancomycin 1 Gm/Ns 200 Ml) 1 gm in 200 mls @ 133 mls/hr IVPB Q8H [facility]LENA; Protocol Stop: 09/09/18 17:31 Last Admin: 09/05/18 16:39 Dose: 133 mls/hr Acetaminophen (Ofirmev) 100 mls @ 400 mls/hr IV Q4H PRN PRN Reason: Fever >100.4 F Stop: 09/05/18 20:59 Last Admin: 09/05/18 08:07 Dose: 400 mls/hr Diltiazem HCl 125 mg/ Dextrose 125 mls @ 5 mls/hr IV .Q24H [facility]LE[facility]; Protocol Last Titration: 09/05/18 14:30 Dose: 10 mg/hr, 10 mls/hr Dexmedetomidine HCl 200 mcg/ (Sodium Chloride) 50 mls @ 4.97 mls/hr IV TITR PRN; Protocol PRN Reason: Agitation Last Admin: 09/05/18 16:14 Dose: 0.5 mcg/kg/hr, 12.42 mls/hr Heparin Sodium/Sodium Chloride (Heparin 30081 Units/250ml 1/2 Normal Saline) 25,000 units in 250 mls @ 17.881 mls/hr IV .[id number] PRN; Protocol PRN Reason: PROTOCOL Last Admin: 09/05/18 14:41 Dose: 18 units/kg/hr, 17.881 mls/hr Insulin Aspart (Novolog) 0 unit SC Q6 [facility]LENA; Protocol Last Admin: 09/05/18 11:47 Dose: Not Given Metoclopramide HCl (Reglan) 10 mg IVP DAILY@ONCE [facility] Pantoprazole Sodium (Protonix Inj) 40 mg IVP DAILY [facility]NA Last Admin: 09/05/18 09:11 Dose: 40 mg - Labs Labs: 09/05/18 06:11 09/05/18 06:11 PT 14.6 SECONDS (9.7-12.2) H 08/31/18 13:02 INR 1.3 08/31/18 13:02 APTT 31 SECONDS (21-34) 09/05/18 14:32 - Constitutional Appears: Chronically Ill - Head Exam Head Exam: NORMOCEPHALIC - Eye Exam Eye Exam: absent: Scleral icterus - ENT Exam ENT Exam: Mucous Membranes Dry - Neck Exam Neck Exam: Normal Inspection - Respiratory Exam Respiratory Exam: Decreased Breath Sounds, Prolonged Expiratory Phase, Rhonchi - Cardiovascular Exam Cardiovascular Exam: Tachycardia, REGULAR RHYTHM, +S1, +S2 - GI/Abdominal Exam GI & Abdominal Exam: Distended, Firm - Rectal Exam Rectal Exam: Deferred Assessment and Plan - Assessment and Plan (Free Text) Assessment: no collection on CT scan from yest, drains in place still no colostomy output- surgical follow up requested cont broad spectrum coverage prognosis poor consider tertiary care eval
[2018-09-05] MEDS ORDERED: TPN #3 IV ONE (18:00)
--- NOTE | 2018-09-05 18:12 | CT ---
Date of service: 09/05/2018 CTA chest PE protocol Indication: Rule out PE Technique: Contiguous axial images were obtained through the chest with intravenous contrast enhancement. Sagittal and coronal reconstructions were generated and reviewed. This CT exam was performed using 1 or more of the following dose reduction techniques: Automated exposure control, adjustment of the MAA and/or kV according to patient size, and/or use of iterative reconstruction technique. IV contrast: Radiation dose (DLP): MGy-cm. Comparison: CT chest abdomen and pelvis without contrast performed 09/04/18, CT abdomen pelvis without contrast performed 09/02/18 Findings: Endotracheal tube terminates at the level the siria and should be withdrawn approximately 3 cm. Nasogastric tube extends to the stomach. Right-sided PICC extends to the right atrium. Heart size appears within normal limits. No large central or segmental pulmonary embolus evident. Small bilateral pleural effusions and associated consolidations. No pneumothorax. Limited visualized portions of the upper abdomen: Upper abdominal ascites. Large perihepatic ascites with scalloped contour of the liver raises concern for subcapsular fluid. Mass effect on the spleen from large perisplenic fluid, also possibly subcapsular. Concern is raised for infected ascites or hemorrhage. Correlate clinically. Partially imaged hepatomegaly. Hypoattenuation of the liver may be seen in the setting of hepatic steatosis. No acute osseous abnormality is detected. Impression: Endotracheal tube terminates at the siria and should be withdrawn approximately 3 cm. Nasogastric tube extends to the stomach. Right-sided PICC extends to the right atrium. The thyroid appears unremarkable. The mediastinal and hilar vessels appear unremarkable. No large central or segmental pulmonary embolus identified. Upper abdominal ascites. Large perihepatic ascites with scalloped contour of the liver raises concern for subcapsular fluid. Mass effect on the spleen from large perisplenic fluid, also possibly subcapsular. Concern is raised for infected ascites or hemorrhage. Correlate clinically. Findings discussed with the patient's RN JESENIA Martin and Dr. Sanchez on 09/05/18 at 5:50 p.m. findings also discussed with Dr. Caballero on 09/05/18 at 6:03 p.m.. Maria A 544pm
[2018-09-05] MEDS: Micafungin 100 MG in Sodium Chloride 0.9% 100 ML IV SCH (18:26)
[2018-09-05] MEDS: Aztreonam 1 GM in Sodium Chloride 0.9% 100 ML IVPB SCH (18:27)
[2018-09-06] MEDS: (Novolog) Insulin Aspart, Recombinant 100 u/ml 10 ml vial SC SCH ×5 (00:18→23:55)
[2018-09-06] MEDS ORDERED: Dextrose 50% SYRINGE Inj (50 ml) IV STA ×2 (00:19→06:00)
[2018-09-06] MEDS: Vancomycin 1 gm/NS 200 ml 1 GM/200 ML BAG IVPB SCH ×3 (00:33→17:09)
[2018-09-06] MEDS: Albuterol-Ipratrop 3 mg / 0.5 (3 ml) UD INH SCH ×3 (01:00→13:07)
[2018-09-06] MEDS: Aztreonam 1 GM in Sodium Chloride 0.9% 100 ML IVPB SCH ×2 (02:04→10:22)
[2018-09-06] MEDS: Dexmedetomidine Hydrochloride 200 MCG in Sodium Chloride 0.9% 48 ML IV PRN ×6 (02:05→22:09)
[2018-09-06] MEDS: White Petrolatum/Mineral Oil Ophth Oint(3.5 gm) OU SCH ×6 (02:06→22:09)
[2018-09-06] MEDS: Meropenem 1 GM in Sodium Chloride 0.9% 100 ML IVPB SCH ×2 (04:08→11:59)
[2018-09-06 05:49] LABS: ARTERIAL BLOOD GAS HCO3 26.5 mmol/L (21-28); ARTERIAL BLOOD GAS HEMOGLOBIN 10.8 g/dL (11.7-17.4); ARTERIAL BLOOD GAS O2 SAT 98.1 % (95-98); ARTERIAL BLOOD GAS PCO2 34 mm/Hg (35-45); ARTERIAL BLOOD GAS PH 7.48 (7.35-7.45); ARTERIAL BLOOD GAS PO2 81 mm/Hg (80-100); ARTERIAL BLOOD GAS TCO2 26.3 mmol/L (22-28)
[2018-09-06 06:07] LABS: BASO # 0.1 K/uL (0.0-0.2); BASO % 0.3 % (0.0-2.0); EOS # 0.7 K/uL (0.0-0.7); EOS % 2.1 % (0.0-4.0); HEMOGLOBIN 10.2 g/dL (11.0-16.0); LYMPH # 2.5 K/uL (1.0-4.3); LYMPH % 7.7 % (20.0-40.0); MEAN CELL VOLUME 78.5 fL (81.0-99.0); MEAN CORPUSCULAR HGB CONC 31.9 g/dL (33.0-37.0); MONO # 0.5 K/uL (0.0-0.8); MONO % 1.7 % (0.0-10.0); NEUT # 28.1 K/uL (1.8-7.0); NEUT % 88.2 % (50.0-75.0); NRBC % 0.1 % (0.0-2.0); PLATELET COUNT 90 K/uL (130-400); RBC 4.06 Mil/uL (3.80-5.20); RED CELL DISTRIBUTION WIDTH 19.1 % (11.5-14.5); WHITE BLOOD COUNT 31.9 K/uL (4.8-10.8)
[2018-09-06] MEDS: Dextrose 5%/0.9% NS 1,000 ML IV SCH (06:34)
[2018-09-06 06:37] LABS: ALB/GLOB RATIO 0.9 (1.0-2.1); ALBUMIN 2.4 g/dL (3.5-5.0); ALT/SGPT 30 U/L (9-52); AST/SGOT 38 U/L (14-36); BLOOD UREA NITROGEN 17 mg/dL (7-17); CALCIUM 7.5 mg/dl (8.6-10.4); GFR NON-AFRICAN AMERICAN > 60
--- NOTE | 2018-09-06 08:29 | RAD ---
Date of service: 09/06/2018 HISTORY: intubated COMPARISON: 09/05/2018 FINDINGS: LUNGS: Mild to moderate venous congestion with bibasilar airspace opacities. Linear atelectasis at the right lung base. PLEURA: Small bilateral pleural effusions. CARDIOVASCULAR: No atherosclerotic calcification present Cardiomegaly. OSSEOUS STRUCTURES: No significant abnormalities. VISUALIZED UPPER ABDOMEN: Normal. OTHER FINDINGS: Lines and tubes in stable position. IMPRESSION: Worsening airspace disease and effusions.
[2018-09-06 08:30] LABS: BANDS 20 % (0-2); EOSINOPHIL 3 % (0-4); LYMPHOCYTE 12 % (20-40); MONOCYTE 4 % (0-10); MYELOCYTE 3 % (0-0); NEUTROPHIL 58 % (50-75); TOTAL CELLS COUNTED 100
[2018-09-06 08:32] LABS: ANISOCYTOSIS SLIGHT; PLATELET ESTIMATE DECREASED (NORMAL)
[2018-09-06 08:33] LABS: HYPOCHROMIC SLIGHT; POLYCHROMIC SLIGHT
[2018-09-06] MEDS ORDERED: Albumin Human 5% (12.5 gm/250 ml) IV SCH (12:00)
[2018-09-06] MEDS: Digoxin 500 mcg/2ml (0.5 mg/2ml) Inj IVP SCH ×2 (12:18→17:18)
--- NOTE | 2018-09-06 12:20 | VASCLAB ---
Date of service: 09/05/2018 PROCEDURE: Upper Extremity Venous Duplex Exam HISTORY: Swelling PRIORS: None. TECHNIQUE: Bilateral upper extremity, internal jugular, subclavian, axillary, brachial, ulnar, radial, basilic and upper cephalic veins were evaluated. Flow was assessed with color Doppler, compressibility, assessment of phasic flow and augmentation response. Report prepared by BIANKA Garcia FINDINGS: RIGHT: 1. Internal Jugular: 1.1. Compressibility - Fully compressible: Thrombus - None : Flow - Phasic: Augmentation -Normal: Reflux - None. 2. Subclavian: 2.1. Compressibility - Fully compressible: Thrombus - None : Flow - Phasic: Augmentation -Normal: Reflux - None. 3. Axillary: 3.1. Compressibility - Fully compressible: Thrombus - None : Flow - Phasic: Augmentation -Normal: Reflux - None. 4. Brachial: 4.1. Unable to examine due to line with dressing. 5. Ulnar: 5.1. Compressibility - Fully compressible: Thrombus - None: Flow - Phasic: Augmentation -Normal: Reflux - None. 6. Radial: 6.1. Compressibility - Fully compressible: Thrombus - None: Flow - Phasic: Augmentation - Normal: Reflux - None. 7. Cephalic: (Forearm only) 7.1. Compressibility - Fully compressible: Thrombus - None: Flow - Phasic: Augmentation -Normal: Reflux - None. 8. Basilic: (Forearm only) 8.1. Compressibility - Fully compressible: Thrombus - None: Flow - Phasic: Augmentation -Normal: Reflux - None. LEFT: 1. Internal Jugular: 1.1. Compressibility - Fully compressible: Thrombus - None : Flow - Phasic: Augmentation -Normal: Reflux - None. 2. Subclavian: 2.1. Compressibility - Fully compressible: Thrombus - None : Flow - Phasic: Augmentation -Normal: Reflux - None. 3. Axillary: 3.1. Compressibility - Fully compressible: Thrombus - None : Flow - Phasic: Augmentation -Normal: Reflux - None. 4. Brachial: 4.1. Compressibility - Fully compressible: Thrombus - None: Flow - Phasic: Augmentation -Normal: Reflux - None. 5. Ulnar: 5.1. Compressibility - Fully compressible: Thrombus - None: Flow - Phasic: Augmentation -Normal: Reflux - None. 6. Radial: 6.1. Compressibility - Fully compressible: Thrombus - None: Flow - Phasic: Augmentation - Normal: Reflux - None. 7. Cephalic: 7.1. Compressibility - Fully compressible: Thrombus - None: Flow - Phasic: Augmentation -Normal: Reflux - None. 8. Basilic: 8.1. Compressibility - Fully compressible: Thrombus - None: Flow - Phasic: Augmentation -Normal: Reflux - None. OTHER FINDINGS: Right: None. Left: None. IMPRESSION: Right: No evidence of vein thrombosis of the right upper extremity, for the examined veins. Normal valve function noted of the right side. Left: No evidence of vein thrombosis of the left upper extremity with excellent venous flow. Normal valve function noted of the left side.
[2018-09-06] MEDS: Metoprolol 1 mg/ml Inj IVP SCH ×2 (13:00→18:27)
[2018-09-06] MEDS ORDERED: Metoprolol 1 mg/ml Inj ONE (13:02)
[2018-09-06] MEDS ORDERED: SODIUM CHLORIDE 0.9% IV PRN (14:30)
[2018-09-06] MEDS ORDERED: [UNRECOGNIZED DRUG - OTHER] IV PRN (14:30)
[2018-09-06] MEDS ORDERED: SODIUM CHLORIDE 0.9% IV SCH ×2 (15:00→16:00)
[2018-09-06] MEDS ORDERED: FENTANYL CITRATE IV SCH ×2 (15:00→16:00)
--- NOTE | 2018-09-06 15:40 | CP.CCUPN ---
<Arik Boucher - Last Filed: 09/06/18 16:05> CCU Objective - Vital Signs / Intake & Output Vital Signs (Last 4 hours): Vital Signs Temp Pulse Resp BP Pulse Ox 09/06/18 14:01 89 20 99/50 L 100 09/06/18 14:00 86 20 100 09/06/18 13:00 114 H 32 H 100 09/06/18 12:59 114 H 33 H 103/61 100 09/06/18 12:56 121 H 43 H 89/63 L 100 09/06/18 12:00 100.2 F H 93 H 21 100 09/06/18 11:53 97 H 25 H 95/51 L 100 Intake and Output (Last 8hrs): Intake & Output 09/06/18 09/06/18 09/06/18 06:59 14:59 22:59 Intake Total 1103.2 1510.6 Output Total 785 300 Balance 318.2 1210.6 Weight 221 lb Intake: IV 327 445.2 Intake, IV Amount 776.2 1065.4 Left Forearm 0 100 Left Hand 10 Right Medial Port PICC 232 333.8 Right Medial Port Y site 94.2 121.6 Right PICC 0 left arm 450 500 Output: Gastric Amount 350 Stomach 350 Drainage 35 Left Abdomen 15 Right Abdomen 20 Urine 400 300 Urethral (Rankin) 400 300 Stool 0 0 - Medications Active Medications: Active Medications Generic Name Dose Route Start Last Admin Trade Name Freq PRN Reason Stop Dose Admin Albumin Human 12.5 gm 09/06/18 12:00 09/06/18 12:32 Albumin Human 5% (12.5 Gm/250 Ml) IV 09/09/18 12:01 12.5 gm DAILY MARLENA Administration Artificial Tears 1 gm 09/03/18 06:00 09/06/18 14:42 Lacri-Lube OU 1 gm Q4H MARLENA Administration Digoxin 0.25 mg 09/06/18 12:00 09/06/18 12:18 Lanoxin IVP 09/06/18 18:01 0.25 mg Q6H MARLENA Administration Hydromorphone HCl 0.5 mg 09/05/18 11:40 09/05/18 11:53 Dilaudid IVP 0.5 mg Q4H PRN Administration Pain, moderate (4-7) Vancomycin/Sodium Chloride 1 gm in 200 mls @ 133 mls/hr 09/04/18 17:30 09/06/18 08:52 Vancomycin 1 Gm/Ns 200 Ml IVPB 09/09/18 17:31 133 mls/hr Q8H MARLENA Administration Protocol Micafungin Sodium 100 mg/ 100 mls @ 100 mls/hr 09/05/18 18:00 09/05/18 18:26 Sodium Chloride IV 100 mls/hr Q24H MARLENA Administration Protocol Dextrose/Sodium Chloride 1,000 mls @ 50 mls/hr 09/06/18 06:30 09/06/18 06:34 Dextrose 5%/0.9% Ns 1000 Ml IV 50 mls/hr .Q20H MARLENA Administration Multivitamins/Vitamin C 10 ml/ 1,011 mls @ 42 mls/hr 09/06/18 18:00 Chromium/Copper/Manganese/ IV 09/07/18 17:59 Zinc 1 ml/ Amino Acids/ .Q24H ONE Electrolytes/Dextrose Acetaminophen 100 mls @ 400 mls/hr 09/06/18 14:12 Ofirmev IV 09/07/18 14:13 Q6 PRN Fever >100.4 F Fentanyl Citrate 2,500 mcg/ 150 mls @ 12.03 mls/hr 09/06/18 15:00 Sodium Chloride IV .[id number] MARLENA Protocol 2 MCG/KG/HR Aztreonam 1 gm/ Sodium 50 mls @ 100 mls/hr 09/06/18 18:00 Chloride IVPB Q8H [facility] Protocol Dexmedetomidine HCl 200 mcg/ 50 mls @ 5.01 mls/hr 09/06/18 15:20 Sodium Chloride IV TITR PRN Agitation Protocol 0.2 MCG/KG/HR Meropenem 1 gm/ Sodium 50 mls @ 100 mls/hr 09/06/18 22:00 Chloride IVPB Q8H [facility] Protocol Insulin Aspart 0 unit 09/03/18 06:00 09/06/18 12:03 Novolog SC Not Given Q6 [facility] Protocol Metoclopramide HCl 10 mg 09/06/18 12:00 09/06/18 12:18 Reglan IVP 10 mg Q6 MARLENA Administration Metoprolol Tartrate 5 mg 09/06/18 13:00 09/06/18 13:00 Lopressor IVP 5 mg Q6H MARLENA Administration Pantoprazole Sodium 40 mg 08/31/18 10:00 09/06/18 09:05 Protonix Inj IVP 40 mg DAILY MARLENA Administration - Patient Studies Lab Studies: Microbiology Studies 09/04/18 12:36 Gram Stain - Final Trachasp Sputum Culture - Final No growth. 09/05/18 16:02 Urine Culture - Final Urine No Growth (<1,000 CFU/ML) 09/05/18 16:02 Gram Stain - Final Trachasp 08/31/18 02:45 Blood Culture - Final Blood NO GROWTH AFTER 5 DAYS Gram Stain - Final TEST NOT PERFORMED 08/31/18 02:20 Blood Culture - Final Blood NO GROWTH AFTER 5 DAYS Gram Stain - Final TEST NOT PERFORMED 08/31/18 15:00 Blood Culture - Final Blood-Venous NO GROWTH AFTER 5 DAYS Gram Stain - Final TEST NOT PERFORMED 08/31/18 15:30 Blood Culture - Final Blood-Venous NO GROWTH AFTER 5 DAYS Gram Stain - Final TEST NOT PERFORMED Lab Studies 09/06/18 09/06/18 09/06/18 Range/Units 11:42 11:40 07:02 WBC (4.8-10.8) K/uL RBC (3.80-5.20) Mil/uL Hgb (11.0-16.0) g/dL Hct (34.0-47.0) % MCV (81.0-99.0) fL MCH (27.0-31.0) pg MCHC (33.0-37.0) g/dL RDW (11.5-14.5) % Plt Count (130-400) K/uL MPV (7.2-11.7) fL Neut % (Auto) (50.0-75.0) % Lymph % (Auto) (20.0-40.0) % Slope % (Auto) (0.0-10.0) % Eos % (Auto) (0.0-4.0) % Baso % (Auto) (0.0-2.0) % Neut # (Auto) (1.8-7.0) K/uL Lymph # (Auto) (1.0-4.3) K/uL Slope # (Auto) (0.0-0.8) K/uL Eos # (Auto) (0.0-0.7) K/uL Baso # (Auto) (0.0-0.2) K/uL Neutrophils % (Manual) (50-75) % Band Neutrophils % (0-2) % Lymphocytes % (Manual) (20-40) % Monocytes % (Manual) (0-10) % Eosinophils % (Manual) (0-4) % Myelocytes % (0-0) % Platelet Estimate (NORMAL) Polychromasia Hypochromasia (manual) Anisocytosis (manual) Puncture Site pCO2 (35-45) mm/Hg pO2 (80-100) mm/Hg HCO3 (21-28) mmol/L ABG pH (7.35-7.45) ABG Total CO2 (22-28) mmol/L ABG O2 Saturation (95-98) % ABG Base Excess (-2.0-3.0) mmol/L ABG Hemoglobin (11.7-17.4) g/dL ABG Carboxyhemoglobin (0.5-1.5) % POC ABG HHb (Measured) (0.0-5.0) % ABG Methemoglobin (0.0-3.0) % Luis Test A-a O2 Difference mm/Hg Respiratory Index Hgb O2 Saturation (95.0-98.0) % Vent Mode Mechanical Rate FiO2 % Tidal Volume PEEP Sodium (132-148) mmol/L Potassium (3.6-5.2) mmol/L Chloride (98-107) mmol/L Carbon Dioxide (22-30) mmol/L Anion Gap (10-20) BUN (7-17) mg/dL Creatinine (0.7-1.2) mg/dL Est GFR ( Amer) Est GFR (Non-Af Amer) POC Glucose (mg/dL) 81 63 L 113 H (65-110) mg/dL Random Glucose (65-105) mg/dL Calcium (8.6-10.4) mg/dl Phosphorus (2.5-4.5) mg/dL Magnesium (1.6-2.3) mg/dL Total Bilirubin (0.2-1.3) mg/dL AST (14-36) U/L ALT (9-52) U/L Alkaline Phosphatase (38-126) U/L Total Protein (6.3-8.3) g/dL Albumin (3.5-5.0) g/dL Globulin (2.2-3.9) gm/dL Albumin/Globulin Ratio (1.0-2.1) Vancomycin Trough (5.0-10.0) ug/mL 09/06/18 09/06/18 09/06/18 Range/Units 06:02 06:02 06:02 WBC 31.9 H (4.8-10.8) K/uL RBC 4.06 (3.80-5.20) Mil/uL Hgb 10.2 L (11.0-16.0) g/dL Hct 31.9 L (34.0-47.0) % MCV 78.5 L (81.0-99.0) fL MCH 25.0 L (27.0-31.0) pg MCHC 31.9 L (33.0-37.0) g/dL RDW 19.1 H (11.5-14.5) % Plt Count 90 L D (130-400) K/uL MPV 11.0 (7.2-11.7) fL Neut % (Auto) 88.2 H (50.0-75.0) % Lymph % (Auto) 7.7 L (20.0-40.0) % Slope % (Auto) 1.7 (0.0-10.0) % Eos % (Auto) 2.1 (0.0-4.0) % Baso % (Auto) 0.3 (0.0-2.0) % Neut # (Auto) 28.1 H (1.8-7.0) K/uL Lymph # (Auto) 2.5 (1.0-4.3) K/uL Slope # (Auto) 0.5 (0.0-0.8) K/uL Eos # (Auto) 0.7 (0.0-0.7) K/uL Baso # (Auto) 0.1 (0.0-0.2) K/uL Neutrophils % (Manual) 58 (50-75) % Band Neutrophils % 20 H* (0-2) % Lymphocytes % (Manual) 12 L (20-40) % Monocytes % (Manual) 4 (0-10) % Eosinophils % (Manual) 3 (0-4) % Myelocytes % 3 H (0-0) % Platelet Estimate Decreased L (NORMAL) Polychromasia Slight Hypochromasia (manual) Slight Anisocytosis (manual) Slight Puncture Site pCO2 (35-45) mm/Hg pO2 (80-100) mm/Hg HCO3 (21-28) mmol/L ABG pH (7.35-7.45) ABG Total CO2 (22-28) mmol/L ABG O2 Saturation (95-98) % ABG Base Excess (-2.0-3.0) mmol/L ABG Hemoglobin (11.7-17.4) g/dL ABG Carboxyhemoglobin (0.5-1.5) % POC ABG HHb (Measured) (0.0-5.0) % ABG Methemoglobin (0.0-3.0) % Luis Test A-a O2 Difference mm/Hg Respiratory Index Hgb O2 Saturation (95.0-98.0) % Vent Mode Mechanical Rate FiO2 % Tidal Volume PEEP Sodium 144 (132-148) mmol/L Potassium 3.7 (3.6-5.2) mmol/L Chloride 108 H (98-107) mmol/L Carbon Dioxide 29 (22-30) mmol/L Anion Gap 11 (10-20) BUN 17 (7-17) mg/dL Creatinine 0.5 L (0.7-1.2) mg/dL Est GFR ( Amer) > 60 Est GFR (Non-Af Amer) > 60 POC Glucose (mg/dL) (65-110) mg/dL Random Glucose 68 (65-105) mg/dL Calcium 7.5 L (8.6-10.4) mg/dl Phosphorus 4.4 (2.5-4.5) mg/dL Magnesium 2.0 (1.6-2.3) mg/dL Total Bilirubin 1.7 H (0.2-1.3) mg/dL AST 38 H (14-36) U/L ALT 30 (9-52) U/L Alkaline Phosphatase 122 (38-126) U/L Total Protein 5.0 L (6.3-8.3) g/dL Albumin 2.4 L (3.5-5.0) g/dL Globulin 2.7 (2.2-3.9) gm/dL Albumin/Globulin Ratio 0.9 L (1.0-2.1) Vancomycin Trough 14.6 H (5.0-10.0) ug/mL 10/19/18 10/19/18 10/19/18 Range/Units 05:54 05:52 05:07 WBC (4.8-10.8) K/uL RBC (3.80-5.20) Mil/uL Hgb (11.0-16.0) g/dL Hct (34.0-47.0) % MCV (81.0-99.0) fL MCH (27.0-31.0) pg MCHC (33.0-37.0) g/dL RDW (11.5-14.5) % Plt Count (130-400) K/uL MPV (7.2-11.7) fL Neut % (Auto) (50.0-75.0) % Lymph % (Auto) (20.0-40.0) % Slope % (Auto) (0.0-10.0) % Eos % (Auto) (0.0-4.0) % Baso % (Auto) (0.0-2.0) % Neut # (Auto) (1.8-7.0) K/uL Lymph # (Auto) (1.0-4.3) K/uL Slope # (Auto) (0.0-0.8) K/uL Eos # (Auto) (0.0-0.7) K/uL Baso # (Auto) (0.0-0.2) K/uL Neutrophils % (Manual) (50-75) % Band Neutrophils % (0-2) % Lymphocytes % (Manual) (20-40) % Monocytes % (Manual) (0-10) % Eosinophils % (Manual) (0-4) % Myelocytes % (0-0) % Platelet Estimate (NORMAL) Polychromasia Hypochromasia (manual) Anisocytosis (manual) Puncture Site R brac pCO2 34 L (35-45) mm/Hg pO2 81 (80-100) mm/Hg HCO3 26.5 (21-28) mmol/L ABG pH 7.48 H (7.35-7.45) ABG Total CO2 26.3 (22-28) mmol/L ABG O2 Saturation 98.1 H (95-98) % ABG Base Excess 2.0 (-2.0-3.0) mmol/L ABG Hemoglobin 10.8 L (11.7-17.4) g/dL ABG Carboxyhemoglobin 1.7 H (0.5-1.5) % POC ABG HHb (Measured) 1.9 (0.0-5.0) % ABG Methemoglobin 0.7 (0.0-3.0) % Luis Test Na A-a O2 Difference 233.0 mm/Hg Respiratory Index 2.9 Hgb O2 Saturation 95.7 (95.0-98.0) % Vent Mode Prvc Mechanical Rate 20 FiO2 50.0 % Tidal Volume 500 PEEP 5 Sodium (132-148) mmol/L Potassium (3.6-5.2) mmol/L Chloride (98-107) mmol/L Carbon Dioxide (22-30) mmol/L Anion Gap (10-20) BUN (7-17) mg/dL Creatinine (0.7-1.2) mg/dL Est GFR ( Amer) Est GFR (Non-Af Amer) POC Glucose (mg/dL) 59 L 53 L (65-110) mg/dL Random Glucose (65-105) mg/dL Calcium (8.6-10.4) mg/dl Phosphorus (2.5-4.5) mg/dL Magnesium (1.6-2.3) mg/dL Total Bilirubin (0.2-1.3) mg/dL AST (14-36) U/L ALT (9-52) U/L Alkaline Phosphatase (38-126) U/L Total Protein (6.3-8.3) g/dL Albumin (3.5-5.0) g/dL Globulin (2.2-3.9) gm/dL Albumin/Globulin Ratio (1.0-2.1) Vancomycin Trough (5.0-10.0) ug/mL 09/06/18 09/06/18 09/06/18 Range/Units 00:59 00:18 00:14 WBC (4.8-10.8) K/uL RBC (3.80-5.20) Mil/uL Hgb (11.0-16.0) g/dL Hct (34.0-47.0) % MCV (81.0-99.0) fL MCH (27.0-31.0) pg MCHC (33.0-37.0) g/dL RDW (11.5-14.5) % Plt Count (130-400) K/uL MPV (7.2-11.7) fL Neut % (Auto) (50.0-75.0) % Lymph % (Auto) (20.0-40.0) % Slope % (Auto) (0.0-10.0) % Eos % (Auto) (0.0-4.0) % Baso % (Auto) (0.0-2.0) % Neut # (Auto) (1.8-7.0) K/uL Lymph # (Auto) (1.0-4.3) K/uL Slope # (Auto) (0.0-0.8) K/uL Eos # (Auto) (0.0-0.7) K/uL Baso # (Auto) (0.0-0.2) K/uL Neutrophils % (Manual) (50-75) % Band Neutrophils % (0-2) % Lymphocytes % (Manual) (20-40) % Monocytes % (Manual) (0-10) % Eosinophils % (Manual) (0-4) % Myelocytes % (0-0) % Platelet Estimate (NORMAL) Polychromasia Hypochromasia (manual) Anisocytosis (manual) Puncture Site pCO2 (35-45) mm/Hg pO2 (80-100) mm/Hg HCO3 (21-28) mmol/L ABG pH (7.35-7.45) ABG Total CO2 (22-28) mmol/L ABG O2 Saturation (95-98) % ABG Base Excess (-2.0-3.0) mmol/L ABG Hemoglobin (11.7-17.4) g/dL ABG Carboxyhemoglobin (0.5-1.5) % POC ABG HHb (Measured) (0.0-5.0) % ABG Methemoglobin (0.0-3.0) % Luis Test A-a O2 Difference mm/Hg Respiratory Index Hgb O2 Saturation (95.0-98.0) % Vent Mode Mechanical Rate FiO2 % Tidal Volume PEEP Sodium (132-148) mmol/L Potassium (3.6-5.2) mmol/L Chloride (98-107) mmol/L Carbon Dioxide (22-30) mmol/L Anion Gap (10-20) BUN (7-17) mg/dL Creatinine (0.7-1.2) mg/dL Est GFR ( Amer) Est GFR (Non-Af Amer) POC Glucose (mg/dL) 150 H 57 L 61 L (65-110) mg/dL Random Glucose (65-105) mg/dL Calcium (8.6-10.4) mg/dl Phosphorus (2.5-4.5) mg/dL Magnesium (1.6-2.3) mg/dL Total Bilirubin (0.2-1.3) mg/dL AST (14-36) U/L ALT (9-52) U/L Alkaline Phosphatase (38-126) U/L Total Protein (6.3-8.3) g/dL Albumin (3.5-5.0) g/dL Globulin (2.2-3.9) gm/dL Albumin/Globulin Ratio (1.0-2.1) Vancomycin Trough (5.0-10.0) ug/mL 09/05/18 09/05/18 Range/Units 18:01 11:28 WBC (4.8-10.8) K/uL RBC (3.80-5.20) Mil/uL Hgb (11.0-16.0) g/dL Hct (34.0-47.0) % MCV (81.0-99.0) fL MCH (27.0-31.0) pg MCHC (33.0-37.0) g/dL RDW (11.5-14.5) % Plt Count (130-400) K/uL MPV (7.2-11.7) fL Neut % (Auto) (50.0-75.0) % Lymph % (Auto) (20.0-40.0) % Slope % (Auto) (0.0-10.0) % Eos % (Auto) (0.0-4.0) % Baso % (Auto) (0.0-2.0) % Neut # (Auto) (1.8-7.0) K/uL Lymph # (Auto) (1.0-4.3) K/uL Slope # (Auto) (0.0-0.8) K/uL Eos # (Auto) (0.0-0.7) K/uL Baso # (Auto) (0.0-0.2) K/uL Neutrophils % (Manual) (50-75) % Band Neutrophils % (0-2) % Lymphocytes % (Manual) (20-40) % Monocytes % (Manual) (0-10) % Eosinophils % (Manual) (0-4) % Myelocytes % (0-0) % Platelet Estimate (NORMAL) Polychromasia Hypochromasia (manual) Anisocytosis (manual) Puncture Site pCO2 (35-45) mm/Hg pO2 (80-100) mm/Hg HCO3 (21-28) mmol/L ABG pH (7.35-7.45) ABG Total CO2 (22-28) mmol/L ABG O2 Saturation (95-98) % ABG Base Excess (-2.0-3.0) mmol/L ABG Hemoglobin (11.7-17.4) g/dL ABG Carboxyhemoglobin (0.5-1.5) % POC ABG HHb (Measured) (0.0-5.0) % ABG Methemoglobin (0.0-3.0) % Luis Test A-a O2 Difference mm/Hg Respiratory Index Hgb O2 Saturation (95.0-98.0) % Vent Mode Mechanical Rate FiO2 % Tidal Volume PEEP Sodium (132-148) mmol/L Potassium (3.6-5.2) mmol/L Chloride (98-107) mmol/L Carbon Dioxide (22-30) mmol/L Anion Gap (10-20) BUN (7-17) mg/dL Creatinine (0.7-1.2) mg/dL Est GFR ( Amer) Est GFR (Non-Af Amer) POC Glucose (mg/dL) 72 109 (65-110) mg/dL Random Glucose (65-105) mg/dL Calcium (8.6-10.4) mg/dl Phosphorus (2.5-4.5) mg/dL Magnesium (1.6-2.3) mg/dL Total Bilirubin (0.2-1.3) mg/dL AST (14-36) U/L ALT (9-52) U/L Alkaline Phosphatase (38-126) U/L Total Protein (6.3-8.3) g/dL Albumin (3.5-5.0) g/dL Globulin (2.2-3.9) gm/dL Albumin/Globulin Ratio (1.0-2.1) Vancomycin Trough (5.0-10.0) ug/mL Laboratory Results - last 24 hr 09/05/18 09/05/18 09/06/18 11:28 18:01 00:14 WBC RBC Hgb Hct MCV MCH MCHC RDW Plt Count MPV Neut % (Auto) Lymph % (Auto) Slope % (Auto) Eos % (Auto) Baso % (Auto) Neut # (Auto) Lymph # (Auto) Slope # (Auto) Eos # (Auto) Baso # (Auto) Neutrophils % (Manual) Band Neutrophils % Lymphocytes % (Manual) Monocytes % (Manual) Eosinophils % (Manual) Myelocytes % Platelet Estimate Polychromasia Hypochromasia (manual) Anisocytosis (manual) Puncture Site pCO2 pO2 HCO3 ABG pH ABG Total CO2 ABG O2 Saturation ABG Base Excess ABG Hemoglobin ABG Carboxyhemoglobin POC ABG HHb (Measured) ABG Methemoglobin Luis Test A-a O2 Difference Respiratory Index Hgb O2 Saturation Vent Mode Mechanical Rate FiO2 Tidal Volume PEEP Sodium Potassium Chloride Carbon Dioxide Anion Gap BUN Creatinine Est GFR ( Amer) Est GFR (Non-Af Amer) POC Glucose (mg/dL) 109 72 61 L Random Glucose Calcium Phosphorus Magnesium Total Bilirubin AST ALT Alkaline Phosphatase Total Protein Albumin Globulin Albumin/Globulin Ratio Vancomycin Trough 09/06/18 09/06/18 09/06/18 00:18 00:59 05:07 WBC RBC Hgb Hct MCV MCH MCHC RDW Plt Count MPV Neut % (Auto) Lymph % (Auto) Slope % (Auto) Eos % (Auto) Baso % (Auto) Neut # (Auto) Lymph # (Auto) Slope # (Auto) Eos # (Auto) Baso # (Auto) Neutrophils % (Manual) Band Neutrophils % Lymphocytes % (Manual) Monocytes % (Manual) Eosinophils % (Manual) Myelocytes % Platelet Estimate Polychromasia Hypochromasia (manual) Anisocytosis (manual) Puncture Site R brac pCO2 34 L pO2 81 HCO3 26.5 ABG pH 7.48 H ABG Total CO2 26.3 ABG O2 Saturation 98.1 H ABG Base Excess 2.0 ABG Hemoglobin 10.8 L ABG Carboxyhemoglobin 1.7 H POC ABG HHb (Measured) 1.9 ABG Methemoglobin 0.7 Luis Test Na A-a O2 Difference 233.0 Respiratory Index 2.9 Hgb O2 Saturation 95.7 Vent Mode Prvc Mechanical Rate 20 FiO2 50.0 Tidal Volume 500 PEEP 5 Sodium Potassium Chloride Carbon Dioxide Anion Gap BUN Creatinine Est GFR ( Amer) Est GFR (Non-Af Amer) POC Glucose (mg/dL) 57 L 150 H Random Glucose Calcium Phosphorus Magnesium Total Bilirubin AST ALT Alkaline Phosphatase Total Protein Albumin Globulin Albumin/Globulin Ratio Vancomycin Trough 09/06/18 09/06/18 09/06/18 05:52 05:54 06:02 WBC RBC Hgb Hct MCV MCH MCHC RDW Plt Count MPV Neut % (Auto) Lymph % (Auto) Slope % (Auto) Eos % (Auto) Baso % (Auto) Neut # (Auto) Lymph # (Auto) Slope # (Auto) Eos # (Auto) Baso # (Auto) Neutrophils % (Manual) Band Neutrophils % Lymphocytes % (Manual) Monocytes % (Manual) Eosinophils % (Manual) Myelocytes % Platelet Estimate Polychromasia Hypochromasia (manual) Anisocytosis (manual) Puncture Site pCO2 pO2 HCO3 ABG pH ABG Total CO2 ABG O2 Saturation ABG Base Excess ABG Hemoglobin ABG Carboxyhemoglobin POC ABG HHb (Measured) ABG Methemoglobin Luis Test A-a O2 Difference Respiratory Index Hgb O2 Saturation Vent Mode Mechanical Rate FiO2 Tidal Volume PEEP Sodium Potassium Chloride Carbon Dioxide Anion Gap BUN Creatinine Est GFR ( Amer) Est GFR (Non-Af Amer) POC Glucose (mg/dL) 53 L 59 L Random Glucose Calcium Phosphorus Magnesium Total Bilirubin AST ALT Alkaline Phosphatase Total Protein Albumin Globulin Albumin/Globulin Ratio Vancomycin Trough 14.6 H 09/06/18 09/06/18 09/06/18 06:02 06:02 07:02 WBC 31.9 H RBC 4.06 Hgb 10.2 L Hct 31.9 L MCV 78.5 L MCH 25.0 L MCHC 31.9 L RDW 19.1 H Plt Count 90 L D MPV 11.0 Neut % (Auto) 88.2 H Lymph % (Auto) 7.7 L Slope % (Auto) 1.7 Eos % (Auto) 2.1 Baso % (Auto) 0.3 Neut # (Auto) 28.1 H Lymph # (Auto) 2.5 Slope # (Auto) 0.5 Eos # (Auto) 0.7 Baso # (Auto) 0.1 Neutrophils % (Manual) 58 Band Neutrophils % 20 H* Lymphocytes % (Manual) 12 L Monocytes % (Manual) 4 Eosinophils % (Manual) 3 Myelocytes % 3 H Platelet Estimate Decreased L Polychromasia Slight Hypochromasia (manual) Slight Anisocytosis (manual) Slight Puncture Site pCO2 pO2 HCO3 ABG pH ABG Total CO2 ABG O2 Saturation ABG Base Excess ABG Hemoglobin ABG Carboxyhemoglobin POC ABG HHb (Measured) ABG Methemoglobin Luis Test A-a O2 Difference Respiratory Index Hgb O2 Saturation Vent Mode Mechanical Rate FiO2 Tidal Volume PEEP Sodium 144 Potassium 3.7 Chloride 108 H Carbon Dioxide 29 Anion Gap 11 BUN 17 Creatinine 0.5 L Est GFR ( Amer) > 60 Est GFR (Non-Af Amer) > 60 POC Glucose (mg/dL) 113 H Random Glucose 68 Calcium 7.5 L Phosphorus 4.4 Magnesium 2.0 Total Bilirubin 1.7 H AST 38 H ALT 30 Alkaline Phosphatase 122 Total Protein 5.0 L Albumin 2.4 L Globulin 2.7 Albumin/Globulin Ratio 0.9 L Vancomycin Trough 09/06/18 09/06/18 11:40 11:42 WBC RBC Hgb Hct MCV MCH MCHC RDW Plt Count MPV Neut % (Auto) Lymph % (Auto) Slope % (Auto) Eos % (Auto) Baso % (Auto) Neut # (Auto) Lymph # (Auto) Slope # (Auto) Eos # (Auto) Baso # (Auto) Neutrophils % (Manual) Band Neutrophils % Lymphocytes % (Manual) Monocytes % (Manual) Eosinophils % (Manual) Myelocytes % Platelet Estimate Polychromasia Hypochromasia (manual) Anisocytosis (manual) Puncture Site pCO2 pO2 HCO3 ABG pH ABG Total CO2 ABG O2 Saturation ABG Base Excess ABG Hemoglobin ABG Carboxyhemoglobin POC ABG HHb (Measured) ABG Methemoglobin Luis Test A-a O2 Difference Respiratory Index Hgb O2 Saturation Vent Mode Mechanical Rate FiO2 Tidal Volume PEEP Sodium Potassium Chloride Carbon Dioxide Anion Gap BUN Creatinine Est GFR ( Amer) Est GFR (Non-Af Amer) POC Glucose (mg/dL) 63 L 81 Random Glucose Calcium Phosphorus Magnesium Total Bilirubin AST ALT Alkaline Phosphatase Total Protein Albumin Globulin Albumin/Globulin Ratio Vancomycin Trough Critical Care Progress Note - Nutrition Nutrition: Nutrition Category Date Time Status NPO Diet [DIET] Diets 08/31/18 Breakfast Active Attending/Attestation - Attestation I have personally seen and examined this patient.: Yes I have fully participated in the care of the patient.: Yes I have reviewed all pertinent clinical information: Yes Notes (Text): 09/06/18 15:40 I have seen and examined the patient. Medical records, lab studies, and imaging were reviewed by me and a management plan was formulated on multidisciplinary rounds with resident Dr. Sanchez. I agree with their documented assessment and plan. Patient has severe colitis with significant bowel edema. Adding albumin drip to draw out fluid. Off of pressors. Severe inflammatory state with acute abdomen, continue current abx regimen. perisplenic fluid collection, may need to be drained if no improvement in patient. Critical Care Time 35 minutes. Multi-disciplinary rounds were performed with house staff, nursing, speech therapy, respiratory therapy, pharmacy and nutrition with integrated input from the primary team/attending and other consulting services. The documented time is cumulative and includes review of patient data/exams/labs/chart review and examination of the patient on rounds and throughout the day; time is exclusive of any procedures or teaching time. 09/06/18 16:05 09/06/18 16:11 <Jone Sanchez - Last Filed: 09/06/18 16:51> CCU Subjective - Physician Review Subjective (Free Text): Pt seen and examined at bedside. Pt unable to provide hx, sedated. Pt stable today. 09/06/18 16:34 CCU Objective - Vital Signs / Intake & Output Vital Signs (Last 4 hours): Vital Signs Temp Pulse Resp BP Pulse Ox 09/06/18 14:01 89 20 99/50 L 100 09/06/18 14:00 86 20 100 09/06/18 13:00 114 H 32 H 100 09/06/18 12:59 114 H 33 H 103/61 100 09/06/18 12:56 121 H 43 H 89/63 L 100 09/06/18 12:00 100.2 F H 93 H 21 100 09/06/18 11:53 97 H 25 H 95/51 L 100 Intake and Output (Last 8hrs): Intake & Output 09/06/18 09/06/18 09/06/18 06:59 14:59 22:59 Intake Total 1103.2 1510.6 Output Total 785 300 Balance 318.2 1210.6 Weight 221 lb Intake: IV 327 445.2 Intake, IV Amount 776.2 1065.4 Left Forearm 0 100 Left Hand 10 Right Medial Port PICC 232 333.8 Right Medial Port Y site 94.2 121.6 Right PICC 0 left arm 450 500 Output: Gastric Amount 350 Stomach 350 Drainage 35 Left Abdomen 15 Right Abdomen 20 Urine 400 300 Urethral (Rankin) 400 300 Stool 0 0 - Physical Exam Head: Positive for: Atraumatic, Normocephalic Pupils: Positive for: Sluggish. Negative for: Non-Reactive, Pinpoint Extroacular Muscles: Positive for: Other (sedated and not following commands, minimal spontaneous movements when aroused) Conjunctiva: Positive for: Normal. Negative for: Injected, Icteric Mouth: Positive for: Dry Nose (External): Positive for: Atraumatic. Negative for: Abrasion, Contusion, Laceration Nose (Internal): Positive for: No Active Bleeding. Negative for: Epistaxis Neck: Positive for: Normal Range of Motion (passive ROM intact, some spontaneous active movement when aroused but unable to assess full active ROM), Trachea Midline. Negative for: JVD Respiratory/Chest: Positive for: Good Air Exchange, Rhonchi (mild-moderate ronchi in all vega), Other (overbreathing the ventilator but no longer tachypnic to 40's while on sedation) Cardiovascular: Positive for: Normal S1, S2, Peripheal Pulses Present (weakly/irregularly palpable bilateral radial pulses, unable to palpate pedal pulses, weakly/irregularly palpable femor pulses bilaterally), Tachycardic (persistently 120's-140's) Abdomen: Positive for: Other (post-op, 3 drains present with varying degrees of serosanguinous fluid present, no lin blood or pus appreciated, colostomy bag present with patent-appearing stoma, abdomen firm to palpation diffusely, band aging over surgical incisions) Genitourinary/Pelvic Exam: Positive for: Other (Rankin present with only approx 250cc very dark sara urine) Upper Extremity: Positive for: Edema (bilateral upper extremities with mild non- pitting edema). Negative for: Cyanosis, NORMAL PULSES (weak pulses as described in cardio section), Deformity Lower Extremity: Positive for: Edema (bilateral lower extremities with moderate non-pitting edema). Negative for: NORMAL PULSES (intermittently palpable weak femoral pulses bilaterally unable, unable to palpate any pedal pulses) Neurological: Positive for: Other (sedated on fentanyl/precedex, intermittently aroused by pain or stimulation (like Arterial line placement) but rapidly returns to somnolence). Negative for: GCS=15 (GCS 7 (E2 V1t M4)) Skin: Positive for: Warm, Diaphoretic, Pale. Negative for: Dry, Rashes, Normal Color Psychiatric: Positive for: Other (sedated but intermittently aroused, rapidly returns to somnolence) - Medications Active Medications: Active Medications Generic Name Dose Route Start Last Admin Trade Name Freq PRN Reason Stop Dose Admin Albumin Human 12.5 gm 09/06/18 12:00 09/06/18 12:32 Albumin Human 5% (12.5 Gm/250 Ml) IV 09/09/18 12:01 12.5 gm DAILY MARLENA Administration Artificial Tears 1 gm 09/03/18 06:00 09/06/18 14:42 Lacri-Lube OU 1 gm Q4H MARLENA Administration Digoxin 0.25 mg 09/06/18 12:00 09/06/18 12:18 Lanoxin IVP 09/06/18 18:01 0.25 mg Q6H MARLENA Administration Hydromorphone HCl 0.5 mg 09/05/18 11:40 09/05/18 11:53 Dilaudid IVP 0.5 mg Q4H PRN Administration Pain, moderate (4-7) Vancomycin/Sodium Chloride 1 gm in 200 mls @ 133 mls/hr 09/04/18 17:30 09/06/18 08:52 Vancomycin 1 Gm/Ns 200 Ml IVPB 09/09/18 17:31 133 mls/hr Q8H MARLENA Administration Protocol Micafungin Sodium 100 mg/ 100 mls @ 100 mls/hr 09/05/18 18:00 09/05/18 18:26 Sodium Chloride IV 100 mls/hr Q24H MARLENA Administration Protocol Dextrose/Sodium Chloride 1,000 mls @ 50 mls/hr 09/06/18 06:30 09/06/18 06:34 Dextrose 5%/0.9% Ns 1000 Ml IV 50 mls/hr .Q20H MARLENA Administration Multivitamins/Vitamin C 10 ml/ 1,011 mls @ 42 mls/hr 09/06/18 18:00 Chromium/Copper/Manganese/ IV 09/07/18 17:59 Zinc 1 ml/ Amino Acids/ .Q24H ONE Electrolytes/Dextrose Acetaminophen 100 mls @ 400 mls/hr 09/06/18 14:12 Ofirmev IV 09/07/18 14:13 Q6 PRN Fever >100.4 F Fentanyl Citrate 2,500 mcg/ 150 mls @ 12.03 mls/hr 09/06/18 15:00 Sodium Chloride IV .[id number] MARLENA Protocol 2 MCG/KG/HR Aztreonam 1 gm/ Sodium 50 mls @ 100 mls/hr 09/06/18 18:00 Chloride IVPB Q8H [facility] Protocol Dexmedetomidine HCl 200 mcg/ 50 mls @ 5.01 mls/hr 09/06/18 15:20 Sodium Chloride IV TITR PRN Agitation Protocol 0.2 MCG/KG/HR Meropenem 1 gm/ Sodium 50 mls @ 100 mls/hr 09/06/18 22:00 Chloride IVPB Q8H [facility] Protocol Insulin Aspart 0 unit 09/03/18 06:00 09/06/18 12:03 Novolog SC Not Given Q6 [facility] Protocol Metoclopramide HCl 10 mg 09/06/18 12:00 09/06/18 12:18 Reglan IVP 10 mg Q6 MARLENA Administration Metoprolol Tartrate 5 mg 09/06/18 13:00 09/06/18 13:00 Lopressor IVP 5 mg Q6H MARLENA Administration Pantoprazole Sodium 40 mg 08/31/18 10:00 09/06/18 09:05 Protonix Inj IVP 40 mg DAILY MARLENA Administration - Patient Studies Lab Studies: Microbiology Studies 09/04/18 12:36 Gram Stain - Final Trachasp Sputum Culture - Final No growth. 09/05/18 16:02 Urine Culture - Final Urine No Growth (<1,000 CFU/ML) 09/05/18 16:02 Gram Stain - Final Trachasp 08/31/18 02:45 Blood Culture - Final Blood NO GROWTH AFTER 5 DAYS Gram Stain - Final TEST NOT PERFORMED 08/31/18 02:20 Blood Culture - Final Blood NO GROWTH AFTER 5 DAYS Gram Stain - Final TEST NOT PERFORMED 08/31/18 15:00 Blood Culture - Final Blood-Venous NO GROWTH AFTER 5 DAYS Gram Stain - Final TEST NOT PERFORMED 08/31/18 15:30 Blood Culture - Final Blood-Venous NO GROWTH AFTER 5 DAYS Gram Stain - Final TEST NOT PERFORMED Lab Studies 09/06/18 09/06/18 09/06/18 Range/Units 11:42 11:40 07:02 WBC (4.8-10.8) K/uL RBC (3.80-5.20) Mil/uL Hgb (11.0-16.0) g/dL Hct (34.0-47.0) % MCV (81.0-99.0) fL MCH (27.0-31.0) pg MCHC (33.0-37.0) g/dL RDW (11.5-14.5) % Plt Count (130-400) K/uL MPV (7.2-11.7) fL Neut % (Auto) (50.0-75.0) % Lymph % (Auto) (20.0-40.0) % Slope % (Auto) (0.0-10.0) % Eos % (Auto) (0.0-4.0) % Baso % (Auto) (0.0-2.0) % Neut # (Auto) (1.8-7.0) K/uL Lymph # (Auto) (1.0-4.3) K/uL Slope # (Auto) (0.0-0.8) K/uL Eos # (Auto) (0.0-0.7) K/uL Baso # (Auto) (0.0-0.2) K/uL Neutrophils % (Manual) (50-75) % Band Neutrophils % (0-2) % Lymphocytes % (Manual) (20-40) % Monocytes % (Manual) (0-10) % Eosinophils % (Manual) (0-4) % Myelocytes % (0-0) % Platelet Estimate (NORMAL) Polychromasia Hypochromasia (manual) Anisocytosis (manual) Puncture Site pCO2 (35-45) mm/Hg pO2 (80-100) mm/Hg HCO3 (21-28) mmol/L ABG pH (7.35-7.45) ABG Total CO2 (22-28) mmol/L ABG O2 Saturation (95-98) % ABG Base Excess (-2.0-3.0) mmol/L ABG Hemoglobin (11.7-17.4) g/dL ABG Carboxyhemoglobin (0.5-1.5) % POC ABG HHb (Measured) (0.0-5.0) % ABG Methemoglobin (0.0-3.0) % Luis Test A-a O2 Difference mm/Hg Respiratory Index Hgb O2 Saturation (95.0-98.0) % Vent Mode Mechanical Rate FiO2 % Tidal Volume PEEP Sodium (132-148) mmol/L Potassium (3.6-5.2) mmol/L Chloride (98-107) mmol/L Carbon Dioxide (22-30) mmol/L Anion Gap (10-20) BUN (7-17) mg/dL Creatinine (0.7-1.2) mg/dL Est GFR ( Amer) Est GFR (Non-Af Amer) POC Glucose (mg/dL) 81 63 L 113 H (65-110) mg/dL Random Glucose (65-105) mg/dL Calcium (8.6-10.4) mg/dl Phosphorus (2.5-4.5) mg/dL Magnesium (1.6-2.3) mg/dL Total Bilirubin (0.2-1.3) mg/dL AST (14-36) U/L ALT (9-52) U/L Alkaline Phosphatase (38-126) U/L Total Protein (6.3-8.3) g/dL Albumin (3.5-5.0) g/dL Globulin (2.2-3.9) gm/dL Albumin/Globulin Ratio (1.0-2.1) Vancomycin Trough (5.0-10.0) ug/mL 09/06/18 09/06/18 09/06/18 Range/Units 06:02 06:02 06:02 WBC 31.9 H (4.8-10.8) K/uL RBC 4.06 (3.80-5.20) Mil/uL Hgb 10.2 L (11.0-16.0) g/dL Hct 31.9 L (34.0-47.0) % MCV 78.5 L (81.0-99.0) fL MCH 25.0 L (27.0-31.0) pg MCHC 31.9 L (33.0-37.0) g/dL RDW 19.1 H (11.5-14.5) % Plt Count 90 L D (130-400) K/uL MPV 11.0 (7.2-11.7) fL Neut % (Auto) 88.2 H (50.0-75.0) % Lymph % (Auto) 7.7 L (20.0-40.0) % Slope % (Auto) 1.7 (0.0-10.0) % Eos % (Auto) 2.1 (0.0-4.0) % Baso % (Auto) 0.3 (0.0-2.0) % Neut # (Auto) 28.1 H (1.8-7.0) K/uL Lymph # (Auto) 2.5 (1.0-4.3) K/uL Slope # (Auto) 0.5 (0.0-0.8) K/uL Eos # (Auto) 0.7 (0.0-0.7) K/uL Baso # (Auto) 0.1 (0.0-0.2) K/uL Neutrophils % (Manual) 58 (50-75) % Band Neutrophils % 20 H* (0-2) % Lymphocytes % (Manual) 12 L (20-40) % Monocytes % (Manual) 4 (0-10) % Eosinophils % (Manual) 3 (0-4) % Myelocytes % 3 H (0-0) % Platelet Estimate Decreased L (NORMAL) Polychromasia Slight Hypochromasia (manual) Slight Anisocytosis (manual) Slight Puncture Site pCO2 (35-45) mm/Hg pO2 (80-100) mm/Hg HCO3 (21-28) mmol/L ABG pH (7.35-7.45) ABG Total CO2 (22-28) mmol/L ABG O2 Saturation (95-98) % ABG Base Excess (-2.0-3.0) mmol/L ABG Hemoglobin (11.7-17.4) g/dL ABG Carboxyhemoglobin (0.5-1.5) % POC ABG HHb (Measured) (0.0-5.0) % ABG Methemoglobin (0.0-3.0) % Luis Test A-a O2 Difference mm/Hg Respiratory Index Hgb O2 Saturation (95.0-98.0) % Vent Mode Mechanical Rate FiO2 % Tidal Volume PEEP Sodium 144 (132-148) mmol/L Potassium 3.7 (3.6-5.2) mmol/L Chloride 108 H (98-107) mmol/L Carbon Dioxide 29 (22-30) mmol/L Anion Gap 11 (10-20) BUN 17 (7-17) mg/dL Creatinine 0.5 L (0.7-1.2) mg/dL Est GFR ( Amer) > 60 Est GFR (Non-Af Amer) > 60 POC Glucose (mg/dL) (65-110) mg/dL Random Glucose 68 (65-105) mg/dL Calcium 7.5 L (8.6-10.4) mg/dl Phosphorus 4.4 (2.5-4.5) mg/dL Magnesium 2.0 (1.6-2.3) mg/dL Total Bilirubin 1.7 H (0.2-1.3) mg/dL AST 38 H (14-36) U/L ALT 30 (9-52) U/L Alkaline Phosphatase 122 (38-126) U/L Total Protein 5.0 L (6.3-8.3) g/dL Albumin 2.4 L (3.5-5.0) g/dL Globulin 2.7 (2.2-3.9) gm/dL Albumin/Globulin Ratio 0.9 L (1.0-2.1) Vancomycin Trough 14.6 H (5.0-10.0) ug/mL 09/06/18 09/06/18 09/06/18 Range/Units 05:54 05:52 05:07 WBC (4.8-10.8) K/uL RBC (3.80-5.20) Mil/uL Hgb (11.0-16.0) g/dL Hct (34.0-47.0) % MCV (81.0-99.0) fL MCH (27.0-31.0) pg MCHC (33.0-37.0) g/dL RDW (11.5-14.5) % Plt Count (130-400) K/uL MPV (7.2-11.7) fL Neut % (Auto) (50.0-75.0) % Lymph % (Auto) (20.0-40.0) % Slope % (Auto) (0.0-10.0) % Eos % (Auto) (0.0-4.0) % Baso % (Auto) (0.0-2.0) % Neut # (Auto) (1.8-7.0) K/uL Lymph # (Auto) (1.0-4.3) K/uL Slope # (Auto) (0.0-0.8) K/uL Eos # (Auto) (0.0-0.7) K/uL Baso # (Auto) (0.0-0.2) K/uL Neutrophils % (Manual) (50-75) % Band Neutrophils % (0-2) % Lymphocytes % (Manual) (20-40) % Monocytes % (Manual) (0-10) % Eosinophils % (Manual) (0-4) % Myelocytes % (0-0) % Platelet Estimate (NORMAL) Polychromasia Hypochromasia (manual) Anisocytosis (manual) Puncture Site R brac pCO2 34 L (35-45) mm/Hg pO2 81 (80-100) mm/Hg HCO3 26.5 (21-28) mmol/L ABG pH 7.48 H (7.35-7.45) ABG Total CO2 26.3 (22-28) mmol/L ABG O2 Saturation 98.1 H (95-98) % ABG Base Excess 2.0 (-2.0-3.0) mmol/L ABG Hemoglobin 10.8 L (11.7-17.4) g/dL ABG Carboxyhemoglobin 1.7 H (0.5-1.5) % POC ABG HHb (Measured) 1.9 (0.0-5.0) % ABG Methemoglobin 0.7 (0.0-3.0) % Luis Test Na A-a O2 Difference 233.0 mm/Hg Respiratory Index 2.9 Hgb O2 Saturation 95.7 (95.0-98.0) % Vent Mode Prvc Mechanical Rate 20 FiO2 50.0 % Tidal Volume 500 PEEP 5 Sodium (132-148) mmol/L Potassium (3.6-5.2) mmol/L Chloride (98-107) mmol/L Carbon Dioxide (22-30) mmol/L Anion Gap (10-20) BUN (7-17) mg/dL Creatinine (0.7-1.2) mg/dL Est GFR ( Amer) Est GFR (Non-Af Amer) POC Glucose (mg/dL) 59 L 53 L (65-110) mg/dL Random Glucose (65-105) mg/dL Calcium (8.6-10.4) mg/dl Phosphorus (2.5-4.5) mg/dL Magnesium (1.6-2.3) mg/dL Total Bilirubin (0.2-1.3) mg/dL AST (14-36) U/L ALT (9-52) U/L Alkaline Phosphatase (38-126) U/L Total Protein (6.3-8.3) g/dL Albumin (3.5-5.0) g/dL Globulin (2.2-3.9) gm/dL Albumin/Globulin Ratio (1.0-2.1) Vancomycin Trough (5.0-10.0) ug/mL 09/06/18 09/06/18 09/06/18 Range/Units 00:59 00:18 00:14 WBC (4.8-10.8) K/uL RBC (3.80-5.20) Mil/uL Hgb (11.0-16.0) g/dL Hct (34.0-47.0) % MCV (81.0-99.0) fL MCH (27.0-31.0) pg MCHC (33.0-37.0) g/dL RDW (11.5-14.5) % Plt Count (130-400) K/uL MPV (7.2-11.7) fL Neut % (Auto) (50.0-75.0) % Lymph % (Auto) (20.0-40.0) % Slope % (Auto) (0.0-10.0) % Eos % (Auto) (0.0-4.0) % Baso % (Auto) (0.0-2.0) % Neut # (Auto) (1.8-7.0) K/uL Lymph # (Auto) (1.0-4.3) K/uL Slope # (Auto) (0.0-0.8) K/uL Eos # (Auto) (0.0-0.7) K/uL Baso # (Auto) (0.0-0.2) K/uL Neutrophils % (Manual) (50-75) % Band Neutrophils % (0-2) % Lymphocytes % (Manual) (20-40) % Monocytes % (Manual) (0-10) % Eosinophils % (Manual) (0-4) % Myelocytes % (0-0) % Platelet Estimate (NORMAL) Polychromasia Hypochromasia (manual) Anisocytosis (manual) Puncture Site pCO2 (35-45) mm/Hg pO2 (80-100) mm/Hg HCO3 (21-28) mmol/L ABG pH (7.35-7.45) ABG Total CO2 (22-28) mmol/L ABG O2 Saturation (95-98) % ABG Base Excess (-2.0-3.0) mmol/L ABG Hemoglobin (11.7-17.4) g/dL ABG Carboxyhemoglobin (0.5-1.5) % POC ABG HHb (Measured) (0.0-5.0) % ABG Methemoglobin (0.0-3.0) % Luis Test A-a O2 Difference mm/Hg Respiratory Index Hgb O2 Saturation (95.0-98.0) % Vent Mode Mechanical Rate FiO2 % Tidal Volume PEEP Sodium (132-148) mmol/L Potassium (3.6-5.2) mmol/L Chloride (98-107) mmol/L Carbon Dioxide (22-30) mmol/L Anion Gap (10-20) BUN (7-17) mg/dL Creatinine (0.7-1.2) mg/dL Est GFR ( Amer) Est GFR (Non-Af Amer) POC Glucose (mg/dL) 150 H 57 L 61 L (65-110) mg/dL Random Glucose (65-105) mg/dL Calcium (8.6-10.4) mg/dl Phosphorus (2.5-4.5) mg/dL Magnesium (1.6-2.3) mg/dL Total Bilirubin (0.2-1.3) mg/dL AST (14-36) U/L ALT (9-52) U/L Alkaline Phosphatase (38-126) U/L Total Protein (6.3-8.3) g/dL Albumin (3.5-5.0) g/dL Globulin (2.2-3.9) gm/dL Albumin/Globulin Ratio (1.0-2.1) Vancomycin Trough (5.0-10.0) ug/mL 09/05/18 09/05/18 Range/Units 18:01 11:28 WBC (4.8-10.8) K/uL RBC (3.80-5.20) Mil/uL Hgb (11.0-16.0) g/dL Hct (34.0-47.0) % MCV (81.0-99.0) fL MCH (27.0-31.0) pg MCHC (33.0-37.0) g/dL RDW (11.5-14.5) % Plt Count (130-400) K/uL MPV (7.2-11.7) fL Neut % (Auto) (50.0-75.0) % Lymph % (Auto) (20.0-40.0) % Slope % (Auto) (0.0-10.0) % Eos % (Auto) (0.0-4.0) % Baso % (Auto) (0.0-2.0) % Neut # (Auto) (1.8-7.0) K/uL Lymph # (Auto) (1.0-4.3) K/uL Slope # (Auto) (0.0-0.8) K/uL Eos # (Auto) (0.0-0.7) K/uL Baso # (Auto) (0.0-0.2) K/uL Neutrophils % (Manual) (50-75) % Band Neutrophils % (0-2) % Lymphocytes % (Manual) (20-40) % Monocytes % (Manual) (0-10) % Eosinophils % (Manual) (0-4) % Myelocytes % (0-0) % Platelet Estimate (NORMAL) Polychromasia Hypochromasia (manual) Anisocytosis (manual) Puncture Site pCO2 (35-45) mm/Hg pO2 (80-100) mm/Hg HCO3 (21-28) mmol/L ABG pH (7.35-7.45) ABG Total CO2 (22-28) mmol/L ABG O2 Saturation (95-98) % ABG Base Excess (-2.0-3.0) mmol/L ABG Hemoglobin (11.7-17.4) g/dL ABG Carboxyhemoglobin (0.5-1.5) % POC ABG HHb (Measured) (0.0-5.0) % ABG Methemoglobin (0.0-3.0) % Luis Test A-a O2 Difference mm/Hg Respiratory Index Hgb O2 Saturation (95.0-98.0) % Vent Mode Mechanical Rate FiO2 % Tidal Volume PEEP Sodium (132-148) mmol/L Potassium (3.6-5.2) mmol/L Chloride (98-107) mmol/L Carbon Dioxide (22-30) mmol/L Anion Gap (10-20) BUN (7-17) mg/dL Creatinine (0.7-1.2) mg/dL Est GFR ( Amer) Est GFR (Non-Af Amer) POC Glucose (mg/dL) 72 109 (65-110) mg/dL Random Glucose (65-105) mg/dL Calcium (8.6-10.4) mg/dl Phosphorus (2.5-4.5) mg/dL Magnesium (1.6-2.3) mg/dL Total Bilirubin (0.2-1.3) mg/dL AST (14-36) U/L ALT (9-52) U/L Alkaline Phosphatase (38-126) U/L Total Protein (6.3-8.3) g/dL Albumin (3.5-5.0) g/dL Globulin (2.2-3.9) gm/dL Albumin/Globulin Ratio (1.0-2.1) Vancomycin Trough (5.0-10.0) ug/mL Laboratory Results - last 24 hr 09/05/18 09/05/18 09/06/18 11:28 18:01 00:14 WBC RBC Hgb Hct MCV MCH MCHC RDW Plt Count MPV Neut % (Auto) Lymph % (Auto) Slope % (Auto) Eos % (Auto) Baso % (Auto) Neut # (Auto) Lymph # (Auto) Slope # (Auto) Eos # (Auto) Baso # (Auto) Neutrophils % (Manual) Band Neutrophils % Lymphocytes % (Manual) Monocytes % (Manual) Eosinophils % (Manual) Myelocytes % Platelet Estimate Polychromasia Hypochromasia (manual) Anisocytosis (manual) Puncture Site pCO2 pO2 HCO3 ABG pH ABG Total CO2 ABG O2 Saturation ABG Base Excess ABG Hemoglobin ABG Carboxyhemoglobin POC ABG HHb (Measured) ABG Methemoglobin Luis Test A-a O2 Difference Respiratory Index Hgb O2 Saturation Vent Mode Mechanical Rate FiO2 Tidal Volume PEEP Sodium Potassium Chloride Carbon Dioxide Anion Gap BUN Creatinine Est GFR ( Amer) Est GFR (Non-Af Amer) POC Glucose (mg/dL) 109 72 61 L Random Glucose Calcium Phosphorus Magnesium Total Bilirubin AST ALT Alkaline Phosphatase Total Protein Albumin Globulin Albumin/Globulin Ratio Vancomycin Trough 09/06/18 09/06/18 09/06/18 00:18 00:59 05:07 WBC RBC Hgb Hct MCV MCH MCHC RDW Plt Count MPV Neut % (Auto) Lymph % (Auto) Slope % (Auto) Eos % (Auto) Baso % (Auto) Neut # (Auto) Lymph # (Auto) Slope # (Auto) Eos # (Auto) Baso # (Auto) Neutrophils % (Manual) Band Neutrophils % Lymphocytes % (Manual) Monocytes % (Manual) Eosinophils % (Manual) Myelocytes % Platelet Estimate Polychromasia Hypochromasia (manual) Anisocytosis (manual) Puncture Site R brac pCO2 34 L pO2 81 HCO3 26.5 ABG pH 7.48 H ABG Total CO2 26.3 ABG O2 Saturation 98.1 H ABG Base Excess 2.0 ABG Hemoglobin 10.8 L ABG Carboxyhemoglobin 1.7 H POC ABG HHb (Measured) 1.9 ABG Methemoglobin 0.7 Luis Test Na A-a O2 Difference 233.0 Respiratory Index 2.9 Hgb O2 Saturation 95.7 Vent Mode Prvc Mechanical Rate 20 FiO2 50.0 Tidal Volume 500 PEEP 5 Sodium Potassium Chloride Carbon Dioxide Anion Gap BUN Creatinine Est GFR ( Amer) Est GFR (Non-Af Amer) POC Glucose (mg/dL) 57 L 150 H Random Glucose Calcium Phosphorus Magnesium Total Bilirubin AST ALT Alkaline Phosphatase Total Protein Albumin Globulin Albumin/Globulin Ratio Vancomycin Trough 09/06/18 09/06/18 09/06/18 05:52 05:54 06:02 WBC RBC Hgb Hct MCV MCH MCHC RDW Plt Count MPV Neut % (Auto) Lymph % (Auto) Slope % (Auto) Eos % (Auto) Baso % (Auto) Neut # (Auto) Lymph # (Auto) Slope # (Auto) Eos # (Auto) Baso # (Auto) Neutrophils % (Manual) Band Neutrophils % Lymphocytes % (Manual) Monocytes % (Manual) Eosinophils % (Manual) Myelocytes % Platelet Estimate Polychromasia Hypochromasia (manual) Anisocytosis (manual) Puncture Site pCO2 pO2 HCO3 ABG pH ABG Total CO2 ABG O2 Saturation ABG Base Excess ABG Hemoglobin ABG Carboxyhemoglobin POC ABG HHb (Measured) ABG Methemoglobin Luis Test A-a O2 Difference Respiratory Index Hgb O2 Saturation Vent Mode Mechanical Rate FiO2 Tidal Volume PEEP Sodium Potassium Chloride Carbon Dioxide Anion Gap BUN Creatinine Est GFR ( Amer) Est GFR (Non-Af Amer) POC Glucose (mg/dL) 53 L 59 L Random Glucose Calcium Phosphorus Magnesium Total Bilirubin AST ALT Alkaline Phosphatase Total Protein Albumin Globulin Albumin/Globulin Ratio Vancomycin Trough 14.6 H 09/06/18 09/06/18 09/06/18 06:02 06:02 07:02 WBC 31.9 H RBC 4.06 Hgb 10.2 L Hct 31.9 L MCV 78.5 L MCH 25.0 L MCHC 31.9 L RDW 19.1 H Plt Count 90 L D MPV 11.0 Neut % (Auto) 88.2 H Lymph % (Auto) 7.7 L Slope % (Auto) 1.7 Eos % (Auto) 2.1 Baso % (Auto) 0.3 Neut # (Auto) 28.1 H Lymph # (Auto) 2.5 Slope # (Auto) 0.5 Eos # (Auto) 0.7 Baso # (Auto) 0.1 Neutrophils % (Manual) 58 Band Neutrophils % 20 H* Lymphocytes % (Manual) 12 L Monocytes % (Manual) 4 Eosinophils % (Manual) 3 Myelocytes % 3 H Platelet Estimate Decreased L Polychromasia Slight Hypochromasia (manual) Slight Anisocytosis (manual) Slight Puncture Site pCO2 pO2 HCO3 ABG pH ABG Total CO2 ABG O2 Saturation ABG Base Excess ABG Hemoglobin ABG Carboxyhemoglobin POC ABG HHb (Measured) ABG Methemoglobin Luis Test A-a O2 Difference Respiratory Index Hgb O2 Saturation Vent Mode Mechanical Rate FiO2 Tidal Volume PEEP Sodium 144 Potassium 3.7 Chloride 108 H Carbon Dioxide 29 Anion Gap 11 BUN 17 Creatinine 0.5 L Est GFR ( Amer) > 60 Est GFR (Non-Af Amer) > 60 POC Glucose (mg/dL) 113 H Random Glucose 68 Calcium 7.5 L Phosphorus 4.4 Magnesium 2.0 Total Bilirubin 1.7 H AST 38 H ALT 30 Alkaline Phosphatase 122 Total Protein 5.0 L Albumin 2.4 L Globulin 2.7 Albumin/Globulin Ratio 0.9 L Vancomycin Trough 09/06/18 09/06/18 11:40 11:42 WBC RBC Hgb Hct MCV MCH MCHC RDW Plt Count MPV Neut % (Auto) Lymph % (Auto) Slope % (Auto) Eos % (Auto) Baso % (Auto) Neut # (Auto) Lymph # (Auto) Slope # (Auto) Eos # (Auto) Baso # (Auto) Neutrophils % (Manual) Band Neutrophils % Lymphocytes % (Manual) Monocytes % (Manual) Eosinophils % (Manual) Myelocytes % Platelet Estimate Polychromasia Hypochromasia (manual) Anisocytosis (manual) Puncture Site pCO2 pO2 HCO3 ABG pH ABG Total CO2 ABG O2 Saturation ABG Base Excess ABG Hemoglobin ABG Carboxyhemoglobin POC ABG HHb (Measured) ABG Methemoglobin Luis Test A-a O2 Difference Respiratory Index Hgb O2 Saturation Vent Mode Mechanical Rate FiO2 Tidal Volume PEEP Sodium Potassium Chloride Carbon Dioxide Anion Gap BUN Creatinine Est GFR ( Amer) Est GFR (Non-Af Amer) POC Glucose (mg/dL) 63 L 81 Random Glucose Calcium Phosphorus Magnesium Total Bilirubin AST ALT Alkaline Phosphatase Total Protein Albumin Globulin Albumin/Globulin Ratio Vancomycin Trough Fingerstick Blood Sugar Results: 81 Review of Systems - Review of Systems Systems not reviewed;Unavailable: Acuity of Condition Critical Care Progress Note - Nutrition Nutrition: Nutrition Category Date Time Status NPO Diet [DIET] Diets 08/31/18 Breakfast Active Assessment/Plan - Assessment and Plan (Free Text) Assessment: This is a 33 yo F with PMH of asthma who presented to with acutely worsening suprapubic abdominal pain, s/p hysterctomy 4 days prior. She was found to have an intra-abdominal fluid collection, found to be large collection of feculent peritoneal fluid 2/2 sigmoid perforation. Now in the ICU, intubated, on empiric abx, on dual pressors for persistent hypotension/likely septic shock 2/2 peritonitis. -volume resuscitated -intubated for due to tachypnea and for airway protection pending OR -ABG on admission and follow up ABGs reviewed, concerning for metabolic acidosis with attempted respiratory compensation lactates increased but now improving; 3.1 -> 3.7 -> 4.8 -> 3.9 -> 3.7 -CXR notable for mild pulm venous congestion, ETT in place -x3 given adenosine 20 ivp for tachy episodes >200 -f//u CTA r/o PE Not an appropriate increase s/p 1 unit pRBCs, but the 11.9 on admit likely falsely elevated given dehydration No lin blood in abd drains remaining post-op, Surgery reports only approx 150cc blood loss intra-operatively, no intra-abd hematoma as per Surgery Plan: Neuro: -taper off fentanyl @ 2 -sedation vacation today -maintain normothermia Tylenol 650mg PRN -precedex sedation started yesterday Pulm: Hypercapnic Respiratory Distress -Pt satting well -CPAP trial today -possible extubation -Duonebs -micamine Cardio: Septic Shock -off pressors -hemodynamically stable Trops negative x2, pending 1 more to rule out NE as cause of tachy/hypotension -Monitor strict I's and O's, UOP increased from presentation but still low Tachycardia -resolved -cardizem drip d/c today GI: Peritonitis -TPN w/ multivit -ng tube decompression, feeds held -s/p distal sigmoid/proximal rectum resection by Surgery, monitor output of drains left in place perf 2/2 hysterectomy 2 days prior, Surgery reports 2+ liters of purulent feculent material drained from peritoneal cavity -Protonix for GI ppx -Merrem and Vanco, for coverage, ID consulted for additional management of abx regimen -CT abd pelv: Enteritis of small bowel Renal: - Meds concentrated to decrese fluid intake - Positive fluid balane x 4 days -Dr Aguirre consulted Urology f/u recs -Monitor and replete electrolytes as needed -Rankin in place, strict I's and O's Heme: -10 Hg - Lovenox 100 q12 -platelets returned up, now 90 -SCDs for DVT ppx at this time, avoid AC given recent surgery -Concern for possible PE, may need to anticoagulate if Echo indicative of RV strain, will discuss with Surgery prior to anticoag (if needed) -Fibrinogen wnl, so not DIC ID: Peritonitis Merrem, Vanco, Azactam, Micamine -Klebsiella sensitive to Merrem -coverage of Vanco, with Merrem -Blood, urine cult neg -Ofirmev for febrile temps/persistent diaphoresis -ID consulted for further abx management, appreciate their recs Endo: -Insulin low sliding scale and Accuchecks q6 -BG goal 140-180 d/w Dr Sander Sanchez PGY1
--- NOTE | 2018-09-06 16:01 | CP.PCM.PN ---
Subjective - Date & Time of Evaluation Date of Evaluation: 09/06/18 Time of Evaluation: 07:00 - Subjective Subjective: intubated and sedated events noted- tachycardic earlier Dr Mckeon on board cultures all repeated recently CT Chest noted DELMA drains in place/ colostomy empty still no bowel sounds surgery aware Objective - Vital Signs/Intake and Output Vital Signs (last 24 hours): Temp Pulse Resp BP Pulse Ox 100.2 F H 89 20 99/50 L 100 09/06/18 12:00 09/06/18 14:01 09/06/18 14:01 09/06/18 14:01 09/06/18 14:01 Intake and Output: 09/06/18 09/06/18 06:59 18:59 Intake Total 1807.7 1510.6 Output Total 945 300 Balance 862.7 1210.6 - Medications Medications: Current Medications Albumin Human (Albumin Human 5% (12.5 Gm/250 Ml)) 12.5 gm IV DAILY [facility] Stop: 09/09/18 12:01 Last Admin: 09/06/18 12:32 Dose: 12.5 gm Artificial Tears (Lacri-Lube) 1 gm OU Q4H [facility] Last Admin: 09/06/18 14:42 Dose: 1 gm Digoxin (Lanoxin) 0.25 mg IVP Q6H [facility] Stop: 09/06/18 18:01 Last Admin: 09/06/18 12:18 Dose: 0.25 mg Hydromorphone HCl (Dilaudid) 0.5 mg IVP Q4H PRN PRN Reason: Pain, moderate (4-7) Last Admin: 09/05/18 11:53 Dose: 0.5 mg Vancomycin/Sodium Chloride (Vancomycin 1 Gm/Ns 200 Ml) 1 gm in 200 mls @ 133 mls/hr IVPB Q8H [facility]; Protocol Stop: 09/09/18 17:31 Last Admin: 09/06/18 08:52 Dose: 133 mls/hr Micafungin Sodium 100 mg/ (Sodium Chloride) 100 mls @ 100 mls/hr IV Q24H [facility]; Protocol Last Admin: 09/05/18 18:26 Dose: 100 mls/hr Dextrose/Sodium Chloride (Dextrose 5%/0.9% Ns 1000 Ml) 1,000 mls @ 50 mls/hr IV .Q20H [facility] Last Admin: 09/06/18 06:34 Dose: 50 mls/hr Multivitamins/Vitamin C 10 ml/Chromium/Copper/Manganese/Zinc 1 ml/ Amino Acids/Electrolytes/Dextrose 1,011 mls @ 42 mls/hr IV .Q24H ONE Stop: 09/07/18 17:59 Acetaminophen (Ofirmev) 100 mls @ 400 mls/hr IV Q6 PRN PRN Reason: Fever >100.4 F Stop: 09/07/18 14:13 Aztreonam 1 gm/ Sodium (Chloride) 50 mls @ 100 mls/hr IVPB Q8H [facility]; Protocol Dexmedetomidine HCl 200 mcg/ (Sodium Chloride) 50 mls @ 5.01 mls/hr IV TITR PRN; Protocol PRN Reason: Agitation Meropenem 1 gm/ Sodium (Chloride) 50 mls @ 100 mls/hr IVPB Q8H [facility]; Protocol Fentanyl Citrate 2,500 mcg/ (Sodium Chloride) 150 mls @ 12.03 mls/hr IV .[id number] [facility]; Protocol Insulin Aspart (Novolog) 0 unit SC Q6 [facility]; Protocol Last Admin: 09/06/18 12:03 Dose: Not Given Metoclopramide HCl (Reglan) 10 mg IVP Q6 [facility] Last Admin: 09/06/18 12:18 Dose: 10 mg Metoprolol Tartrate (Lopressor) 5 mg IVP Q6H [facility] Last Admin: 09/06/18 13:00 Dose: 5 mg Pantoprazole Sodium (Protonix Inj) 40 mg IVP DAILY [facility] Last Admin: 09/06/18 09:05 Dose: 40 mg - Labs Labs: 09/06/18 06:02 09/06/18 06:02 PT 14.6 SECONDS (9.7-12.2) H 08/31/18 13:02 INR 1.3 08/31/18 13:02 APTT 31 SECONDS (21-34) 09/05/18 14:32 - Constitutional Appears: Confused, Chronically Ill - Head Exam Head Exam: NORMOCEPHALIC - Eye Exam Eye Exam: absent: Scleral icterus - ENT Exam ENT Exam: Mucous Membranes Dry - Neck Exam Neck Exam: absent: Lymphadenopathy - Respiratory Exam Respiratory Exam: Decreased Breath Sounds - Cardiovascular Exam Cardiovascular Exam: REGULAR RHYTHM, +S1, +S2 - GI/Abdominal Exam GI & Abdominal Exam: Distended, Firm. absent: Soft - Rectal Exam Rectal Exam: Deferred - Exam Exam: NORMAL INSPECTION - Extremities Exam Extremities Exam: Pedal Edema - Back Exam Back Exam: absent: CVA tenderness (L), CVA tenderness (R) - Neurological Exam Neurological Exam: Altered - Psychiatric Exam Psychiatric exam: Depressed - Skin Skin Exam: Dry Assessment and Plan - Assessment and Plan (Free Text) Assessment: s/p repair perf viscus/ peritonitis with persistent leukocytosis and septic shock CT abd- no definite abscess found IR consulted- no intervention at this time Surgery following cultures + Klebs from abdomen On Vanco/ Merrem/ azactam/ mycamine consider transfer to tertiary care facility cultures repeated poor prognosis
[2018-09-06] MEDS: SODIUM CHLORIDE 0.9% IV SCH ×2 (16:27→20:52)
[2018-09-06] MEDS: FENTANYL CITRATE IV SCH ×2 (16:27→20:52)
[2018-09-06 17:21] VITALS: PULSE 78
[2018-09-06] MEDS ORDERED: TPN CENTRAL LINE ONLY IV ONE (18:00)
[2018-09-06] MEDS ORDERED: metroNIDAZOLE IV 500 mg/100 ml 500 MG/100 ML BAG IVPB SCH (18:15)
[2018-09-06] MEDS: Micafungin 100 MG in Sodium Chloride 0.9% 100 ML IV SCH (18:30)
[2018-09-06] MEDS: metroNIDAZOLE IV 500 mg/100 ml 500 MG/100 ML BAG IVPB SCH (20:12)
[2018-09-06] MEDS ORDERED: Enoxaparin 100 mg Syringe SC SCH (22:00)
[2018-09-06] MEDS: Vancomycin 125 MG/5 ML SOLN (ORAL/RECTAL) PO SCH (23:23)
[2018-09-07] MEDS: Metoprolol 1 mg/ml Inj IVP SCH ×4 (00:18→19:55)
[2018-09-07] MEDS: SODIUM CHLORIDE 0.9% IV SCH ×3 (01:20→06:35)
[2018-09-07] MEDS: FENTANYL CITRATE IV SCH ×3 (01:20→06:35)
[2018-09-07] MEDS: Dexmedetomidine Hydrochloride 200 MCG in Sodium Chloride 0.9% 48 ML IV PRN ×4 (02:03→20:35)
[2018-09-07] MEDS: White Petrolatum/Mineral Oil Ophth Oint(3.5 gm) OU SCH ×6 (02:04→22:07)
[2018-09-07] MEDS: Dextrose 5%/0.9% NS 1,000 ML IV SCH ×3 (02:05→23:50)
[2018-09-07] MEDS: Vancomycin 1 gm/NS 200 ml 1 GM/200 ML BAG IVPB SCH ×3 (02:06→17:30)
[2018-09-07] MEDS: metroNIDAZOLE IV 500 mg/100 ml 500 MG/100 ML BAG IVPB SCH ×3 (04:16→20:25)
[2018-09-07] MEDS: (Novolog) Insulin Aspart, Recombinant 100 u/ml 10 ml vial SC SCH ×3 (05:22→18:12)
[2018-09-07] MEDS: Vancomycin 125 MG/5 ML SOLN (ORAL/RECTAL) PO SCH ×3 (05:24→19:03)
[2018-09-07 06:37] LABS: ARTERIAL BLOOD GAS HCO3 25.8 mmol/L (21-28); ARTERIAL BLOOD GAS O2 SAT 98.6 % (95-98); ARTERIAL BLOOD GAS PCO2 37 mm/Hg (35-45); ARTERIAL BLOOD GAS PH 7.44 (7.35-7.45); ARTERIAL BLOOD GAS PO2 121 mm/Hg (80-100); ARTERIAL BLOOD GAS TCO2 26.2 mmol/L (22-28)
[2018-09-07 06:39] LABS: BASO # 0.2 K/uL (0.0-0.2); BASO % 0.7 % (0.0-2.0); EOS # 0.4 K/uL (0.0-0.7); EOS % 1.8 % (0.0-4.0); HEMOGLOBIN 9.3 g/dL (11.0-16.0); LYMPH # 2.2 K/uL (1.0-4.3); LYMPH % 10.2 % (20.0-40.0); MEAN CELL VOLUME 78.3 fL (81.0-99.0); MEAN CORPUSCULAR HEMOGLOBIN 24.8 pg (27.0-31.0); MEAN CORPUSCULAR HGB CONC 31.7 g/dL (33.0-37.0); MONO # 0.8 K/uL (0.0-0.8); MONO % 3.6 % (0.0-10.0); NEUT # 18.3 K/uL (1.8-7.0); NEUT % 83.7 % (50.0-75.0); NRBC % 0.1 % (0.0-2.0); RBC 3.75 Mil/uL (3.80-5.20); RED CELL DISTRIBUTION WIDTH 19.3 % (11.5-14.5); WHITE BLOOD COUNT 21.9 K/uL (4.8-10.8)
[2018-09-07 07:01] LABS: ALB/GLOB RATIO 0.9 (1.0-2.1); ALBUMIN 2.4 g/dL (3.5-5.0); ALT/SGPT 30 U/L (9-52); AST/SGOT 36 U/L (14-36); BLOOD UREA NITROGEN 15 mg/dL (7-17); CALCIUM 7.4 mg/dl (8.6-10.4); GFR NON-AFRICAN AMERICAN > 60
--- NOTE | 2018-09-07 07:23 | RAD ---
Date of service: 09/07/2018 HISTORY: intubated COMPARISON: 09/06/2018 FINDINGS: LUNGS: Lines and tubes in stable position. Moderate venous congestion. Patchy increased markings at the lung bases. Small right pleural effusion. PLEURA: As above. CARDIOVASCULAR: No atherosclerotic calcification present Mild cardiomegaly. OSSEOUS STRUCTURES: No significant abnormalities. VISUALIZED UPPER ABDOMEN: Normal. OTHER FINDINGS: None. IMPRESSION: Lines and tubes in stable position. Moderate venous congestion. Patchy increased markings at the lung bases. Small right pleural effusion.
--- NOTE | 2018-09-07 08:08 | CP.PCM.PN ---
Subjective - Date & Time of Evaluation Date of Evaluation: 09/07/18 Time of Evaluation: 08:00 - Subjective Subjective: General Surgery Note for Dr. Patino Patient seen and examined at bedside. No acute event overnight. Patient still intubated. levophed was discontinued. UOP was 700 cc overnight. Ismael drains with minimal output over 24 hrs (~10cc). NGT with 150 cc/12 hrs. ROS unobtainable due to sedation and intubation. Objective - Vital Signs/Intake and Output Vital Signs (last 24 hours): Temp Pulse Resp BP Pulse Ox 99.2 F 97 H 18 143/69 100 09/07/18 04:00 09/07/18 07:00 09/07/18 07:00 09/07/18 06:55 09/07/18 07:00 Intake and Output: 09/07/18 09/07/18 06:59 18:59 Intake Total 2906.2 94.1 Output Total 740 322 Balance 2166.2 -227.9 - Medications Medications: Current Medications Albumin Human (Albumin Human 5% (12.5 Gm/250 Ml)) 12.5 gm IV DAILY [facility] Stop: 09/09/18 12:01 Last Admin: 09/06/18 12:32 Dose: 12.5 gm Artificial Tears (Lacri-Lube) 1 gm OU Q4H [facility] Last Admin: 09/07/18 05:27 Dose: 1 gm Enoxaparin Sodium (Lovenox) 100 mg SC Q12 [facility] Last Admin: 09/06/18 22:08 Dose: 100 mg Hydromorphone HCl (Dilaudid) 0.5 mg IVP Q4H PRN PRN Reason: Pain, moderate (4-7) Last Admin: 09/05/18 11:53 Dose: 0.5 mg Vancomycin/Sodium Chloride (Vancomycin 1 Gm/Ns 200 Ml) 1 gm in 200 mls @ 133 mls/hr IVPB Q8H [facility]; Protocol Stop: 09/09/18 17:31 Last Admin: 09/07/18 02:06 Dose: 133 mls/hr Dextrose/Sodium Chloride (Dextrose 5%/0.9% Ns 1000 Ml) 1,000 mls @ 50 mls/hr IV .Q20H [facility] Last Admin: 09/07/18 02:05 Dose: Not Given Acetaminophen (Ofirmev) 100 mls @ 400 mls/hr IV Q6 PRN PRN Reason: Fever >100.4 F Stop: 09/07/18 14:13 Last Admin: 09/06/18 23:22 Dose: 400 mls/hr Dexmedetomidine HCl 200 mcg/ (Sodium Chloride) 50 mls @ 5.01 mls/hr IV TITR PRN; Protocol PRN Reason: Agitation Last Admin: 09/07/18 05:23 Dose: 0.5 mcg/kg/hr, 12.53 mls/hr Meropenem 1 gm/ Sodium (Chloride) 50 mls @ 100 mls/hr IVPB Q8H [facility]; Protocol Last Admin: 09/07/18 05:22 Dose: 100 mls/hr Fentanyl Citrate 2,500 mcg/ (Sodium Chloride) 150 mls @ 12.03 mls/hr IV .[id number] [facility]; Protocol Last Admin: 09/07/18 06:35 Dose: 4 mcg/kg/hr, 24.06 mls/hr Norepinephrine Bitartrate 4 mg (/ Dextrose) 254 mls @ 15.24 mls/hr IV .[id number] PRN; Protocol PRN Reason: TITRATE PER MD ORDER Last Titration: 09/07/18 04:28 Dose: 2 mcg/min, 7.62 mls/hr Aztreonam 1 gm/ Sodium (Chloride) 50 mls @ 100 mls/hr IVPB Q8H [facility]; Protocol Last Admin: 09/07/18 02:04 Dose: 100 mls/hr Metronidazole (Flagyl) 500 mg in 100 mls @ 100 mls/hr IVPB Q8H [facility]; Protocol Last Admin: 09/07/18 04:16 Dose: 100 mls/hr Micafungin Sodium 100 mg/ (Sodium Chloride) 100 mls @ 100 mls/hr IV Q24H [facility]; Protocol Insulin Aspart (Novolog) 0 unit SC Q6 [facility]; Protocol Last Admin: 09/07/18 05:22 Dose: Not Given Metoclopramide HCl (Reglan) 10 mg IVP Q6 [facility] Last Admin: 09/07/18 05:25 Dose: 10 mg Metoprolol Tartrate (Lopressor) 5 mg IVP Q6H [facility] Last Admin: 09/07/18 06:16 Dose: 5 mg Pantoprazole Sodium (Protonix Inj) 40 mg IVP DAILY [facility] Last Admin: 09/06/18 09:05 Dose: 40 mg Vancomycin HCl (Vancocin (Oral Or Rectal Use)) 500 mg PO Q6 [facility]; Protocol Last Admin: 09/07/18 05:24 Dose: 500 mg - Labs Labs: 09/07/18 06:33 09/07/18 06:33 PT 14.6 SECONDS (9.7-12.2) H 08/31/18 13:02 INR 1.3 08/31/18 13:02 APTT 31 SECONDS (21-34) 09/05/18 14:32 - Additional Findings Additional findings: - Constitutional Appears: No Acute Distress - Head Exam Head Exam: ATRAUMATIC, NORMOCEPHALIC - Eye Exam Eye Exam: Normal appearance. absent: Conjunctival injection, Scleral icterus - ENT Exam ENT Exam: Mucous Membranes Moist Additional comments: ETT and OGT in place - Respiratory Exam Respiratory Exam: NORMAL BREATHING PATTERN. absent: Accessory Muscle Use, Respiratory Distress - Cardiovascular Exam Cardiovascular Exam: Tachycardia, REGULAR RHYTHM - GI/Abdominal Exam GI & Abdominal Exam: Distended, Soft Additional comments: midline incision with constance, clemente drain in the inferior portion with serosanguinous output RLQ drain and LUQ drain with minimal serosanguinous output - Extremities Exam Extremities Exam: Pedal Edema (Trace). absent: Calf Tenderness, Tenderness - Neurological Exam Neurological Exam: Altered Additional comments: Moving all limbs voluntarily - Psychiatric Exam Additional comments: sedated - Skin Skin Exam: Dry, Normal Color, Warm Assessment and Plan - Assessment and Plan (Free Text) Assessment: 33F S/P ex lap with resection of a perforated sigmoid colon and colostomy creation POD#7 Plan: NPO OGT to suction Strict I's & O's Continue IV antibiotics IVF f/u Ct abd/pelvis to assess for drainable collections Medical management per ICU Avoid suppositories given recent sigmoid/rectal surgery Further recommendations as per Dr. Carey Vasquez PGY1
[2018-09-07] MEDS ORDERED: Albumin Human 5% (25 gm/500 ml) IVPB SCH (10:00)
[2018-09-07] MEDS: Magnesium Sulfate 1 gm in D5W 1 GM/100 ML BAG IVPB SCH ×2 (10:05→10:56)
[2018-09-07] MEDS: HYDROmorphone 0.5 mg/0.5 ml ISec IVP PRN ×5 (10:57→22:26)
[2018-09-07] MEDS ORDERED: Iohexol 240 (50 ml) PO ONE (11:30)
[2018-09-07] MEDS: Albumin Human 5% (25 gm/500 ml) IVPB SCH ×2 (11:43→17:17)
--- NOTE | 2018-09-07 12:15 | CP.CCUPN ---
CCU Subjective - Physician Review Subjective (Free Text): no acute events overnight. Patient denies any pain 09/07/18 12:12 Critical Care Time Spent (in minutes): 33 CCU Objective - Vital Signs / Intake & Output Vital Signs (Last 4 hours): Vital Signs Pulse Resp BP Pulse Ox 09/07/18 08:14 104 H 23 115/57 L 100 Intake and Output (Last 8hrs): Intake & Output 09/06/18 09/07/18 09/07/18 22:59 06:59 14:59 Intake Total 1659.7 2054.0 756.9 Output Total 340 500 702 Balance 1319.7 1554.0 54.9 Weight 225 lb Intake: IV 251 570 50 Intake, IV Amount 1408.7 1364.0 706.9 Left Forearm 210 660 250 Left Hand 100 100 Right Medial Port PICC 332.1 269.4 72 Right Medial Port Y site 156.6 129.4 62.5 Right PICC 350 Right Proximal Port PICC 60 105.2 222.4 left arm 200 100 100 Other 120 Output: Gastric Amount 75 150 Stomach 75 150 Drainage 40 22 Left Abdomen 20 12 Right Abdomen 20 10 Urine 225 500 530 Urethral (Rankin) 225 500 530 Other: # Bowel Movements 0 - Physical Exam Head: Positive for: Atraumatic, Normocephalic Pupils: Positive for: Sluggish. Negative for: Non-Reactive, Pinpoint Extroacular Muscles: Positive for: Other (sedated and not following commands, m inimal spontaneous movements when aroused) Conjunctiva: Positive for: Normal. Negative for: Injected, Icteric Mouth: Positive for: Dry Nose (External): Positive for: Atraumatic. Negative for: Abrasion, Contusion, Laceration Nose (Internal): Positive for: No Active Bleeding. Negative for: Epistaxis Neck: Positive for: Normal Range of Motion (passive ROM intact, some spontaneous active movement when aroused but unable to assess full active ROM), Trachea Midline. Negative for: JVD Respiratory/Chest: Positive for: Clear to Auscultation, Good Air Exchange. Negative for: Respiratory Distress, Accessory Muscle Use Cardiovascular: Positive for: Normal S1, S2, Peripheal Pulses Present (weakly/irregularly palpable bilateral radial pulses, unable to palpate pedal pulses, weakly/irregularly palpable femor pulses bilaterally) Abdomen: Positive for: Other (post-op, 3 drains present with varying degrees of serosanguinous fluid present, no lin blood or pus appreciated, colostomy bag present with patent-appearing stoma, abdomen firm to palpation diffusely, bandaging over surgical incisions) Genitourinary/Pelvic Exam: Positive for: Other (Rankin present with only approx 250cc very dark sara urine) Upper Extremity: Positive for: Edema (bilateral upper extremities with mild non- pitting edema). Negative for: Cyanosis, NORMAL PULSES (weak pulses as described in cardio section), Deformity Lower Extremity: Positive for: Edema (bilateral lower extremities with moderate non-pitting edema). Negative for: NORMAL PULSES (intermittently palpable weak femoral pulses bilaterally unable, unable to palpate any pedal pulses) Neurological: Positive for: Other (sedated on fentanyl/precedex, intermittently aroused by pain or stimulation (like Arterial line placement) but rapidly returns to somnolence). Negative for: GCS=15 (GCS 7 (E2 V1t M4)) Skin: Positive for: Warm, Diaphoretic, Pale. Negative for: Dry, Rashes, Normal Color - Medications Active Medications: Active Medications Generic Name Dose Route Start Last Admin Trade Name Freq PRN Reason Stop Dose Admin Albumin Human 500 ml 09/07/18 10:00 09/07/18 11:43 Albutein 5% 500 Ml IVPB 09/08/18 04:01 500 ml Q6H [facility] Administration Artificial Tears 1 gm 09/03/18 06:00 09/07/18 11:09 Lacri-Lube OU 1 gm Q4H [facility] Administration Hydromorphone HCl 0.5 mg 09/05/18 11:40 09/07/18 10:57 Dilaudid IVP 0.5 mg Q4H PRN Administration Pain, moderate (4-7) Vancomycin/Sodium Chloride 1 gm in 200 mls @ 133 mls/hr 09/04/18 17:30 09/07/18 08:59 Vancomycin 1 Gm/Ns 200 Ml IVPB 09/09/18 17:31 133 mls/hr Q8H [facility] Administration Protocol Dextrose/Sodium Chloride 1,000 mls @ 50 mls/hr 09/06/18 06:30 09/07/18 02:05 Dextrose 5%/0.9% Ns 1000 Ml IV Not Given .Q20H [facility] Acetaminophen 100 mls @ 400 mls/hr 09/06/18 14:12 09/07/18 08:23 Ofirmev IV 09/07/18 14:13 400 mls/hr Q6 PRN Administration Fever >100.4 F Dexmedetomidine HCl 200 mcg/ 50 mls @ 5.01 mls/hr 09/06/18 15:20 09/07/18 11:00 Sodium Chloride IV 0.5 mcg/kg/hr TITR PRN 12.53 mls/hr Agitation Titration Protocol 0.2 MCG/KG/HR Meropenem 1 gm/ Sodium 50 mls @ 100 mls/hr 09/06/18 22:00 09/07/18 05:22 Chloride IVPB 100 mls/hr Q8H [facility] Administration Protocol Norepinephrine Bitartrate 4 mg 254 mls @ 15.24 mls/hr 09/06/18 18:24 09/07/18 09:00 / Dextrose IV 1 mcg/min .[id number] PRN 3.81 mls/hr TITRATE PER MD ORDER Titration Protocol 4 MCG/MIN Aztreonam 1 gm/ Sodium 50 mls @ 100 mls/hr 09/07/18 03:00 09/07/18 11:42 Chloride IVPB 100 mls/hr Q8H [facility] Administration Protocol Metronidazole 500 mg in 100 mls @ 100 mls/hr 09/06/18 20:00 09/07/18 04:16 Flagyl IVPB 100 mls/hr Q8H [facility] Administration Protocol Micafungin Sodium 100 mg/ 100 mls @ 100 mls/hr 09/07/18 16:00 Sodium Chloride IV Q24H [facility] Protocol Potassium Chloride 20 meq in 100 mls @ 50 mls/hr 09/07/18 09:45 09/07/18 11:04 Potassium Chloride 20 Meq/100 Ml IVPB 09/07/18 13:44 50 mls/hr Q2H [facility] Administration Insulin Aspart 0 unit 09/03/18 06:00 09/07/18 05:22 Novolog SC Not Given Q6 [facility] Protocol Metoclopramide HCl 10 mg 09/06/18 12:00 09/07/18 05:25 Reglan IVP 10 mg Q6 [facility] Administration Metoprolol Tartrate 5 mg 09/06/18 13:00 09/07/18 06:16 Lopressor IVP 5 mg Q6H [facility] Administration Pantoprazole Sodium 40 mg 08/31/18 10:00 09/07/18 10:17 Protonix Inj IVP 40 mg DAILY [facility] Administration Vancomycin HCl 500 mg 09/07/18 00:00 09/07/18 05:24 Vancocin (Oral Or Rectal Use) PO 500 mg Q6 [facility] Administration Protocol - Patient Studies Lab Studies: Microbiology Studies 09/05/18 16:02 Gram Stain - Final Trachasp Sputum Culture - Final No growth. 09/06/18 Unknown Gram Stain - Final Abdomen Wound Culture - Preliminary NO GROWTH AFTER 24 HOURS 09/05/18 15:30 Blood Culture - Preliminary Blood NO GROWTH AFTER 24 HOURS 09/05/18 16:00 Blood Culture - Preliminary Blood NO GROWTH AFTER 24 HOURS 09/04/18 12:36 Gram Stain - Final Trachasp Sputum Culture - Final No growth. 09/05/18 16:02 Urine Culture - Final Urine No Growth (<1,000 CFU/ML) Lab Studies 09/07/18 09/07/18 09/07/18 Range/Units 11:38 06:33 06:33 WBC 21.9 H (4.8-10.8) K/uL RBC 3.75 L (3.80-5.20) Mil/uL Hgb 9.3 L (11.0-16.0) g/dL Hct 29.4 L (34.0-47.0) % MCV 78.3 L (81.0-99.0) fL MCH 24.8 L (27.0-31.0) pg MCHC 31.7 L (33.0-37.0) g/dL RDW 19.3 H (11.5-14.5) % Plt Count 153 (130-400) K/uL MPV 11.0 (7.2-11.7) fL Neut % (Auto) 83.7 H (50.0-75.0) % Lymph % (Auto) 10.2 L (20.0-40.0) % Hayes % (Auto) 3.6 (0.0-10.0) % Eos % (Auto) 1.8 (0.0-4.0) % Baso % (Auto) 0.7 (0.0-2.0) % Neut # (Auto) 18.3 H (1.8-7.0) K/uL Lymph # (Auto) 2.2 (1.0-4.3) K/uL Hayes # (Auto) 0.8 (0.0-0.8) K/uL Eos # (Auto) 0.4 (0.0-0.7) K/uL Baso # (Auto) 0.2 (0.0-0.2) K/uL Puncture Site pCO2 (35-45) mm/Hg pO2 (80-100) mm/Hg HCO3 (21-28) mmol/L ABG pH (7.35-7.45) ABG Total CO2 (22-28) mmol/L ABG O2 Saturation (95-98) % ABG Base Excess (-2.0-3.0) mmol/L Luis Test ABG Potassium (3.6-5.2) mmol/L A-a O2 Difference mm/Hg Respiratory Index Sodium 142 (132-148) mmol/l Chloride 108 H (98-107) mmol/L Glucose (65-105) mg/dl Lactate (0.7-2.1) mmol/L Vent Mode Mechanical Rate FiO2 % Tidal Volume PEEP Potassium 3.5 L (3.6-5.2) mmol/L Carbon Dioxide 25 (22-30) mmol/L Anion Gap 13 (10-20) BUN 15 (7-17) mg/dL Creatinine 0.5 L (0.7-1.2) mg/dL Est GFR ( Amer) > 60 Est GFR (Non-Af Amer) > 60 POC Glucose (mg/dL) 101 (65-110) mg/dL Random Glucose 86 (65-105) mg/dL Calcium 7.4 L (8.6-10.4) mg/dl Phosphorus 3.4 (2.5-4.5) mg/dL Magnesium 2.0 (1.6-2.3) mg/dL Total Bilirubin 2.2 H (0.2-1.3) mg/dL AST 36 (14-36) U/L ALT 30 (9-52) U/L Alkaline Phosphatase 164 H D (38-126) U/L Total Protein 5.2 L (6.3-8.3) g/dL Albumin 2.4 L (3.5-5.0) g/dL Globulin 2.8 (2.2-3.9) gm/dL Albumin/Globulin Ratio 0.9 L (1.0-2.1) Arterial Blood Potassium (3.6-5.2) mmol/L 09/07/18 09/07/18 09/06/18 Range/Units 06:01 05:21 23:32 WBC (4.8-10.8) K/uL RBC (3.80-5.20) Mil/uL Hgb (11.0-16.0) g/dL Hct (34.0-47.0) % MCV (81.0-99.0) fL MCH (27.0-31.0) pg MCHC (33.0-37.0) g/dL RDW (11.5-14.5) % Plt Count (130-400) K/uL MPV (7.2-11.7) fL Neut % (Auto) (50.0-75.0) % Lymph % (Auto) (20.0-40.0) % Hayes % (Auto) (0.0-10.0) % Eos % (Auto) (0.0-4.0) % Baso % (Auto) (0.0-2.0) % Neut # (Auto) (1.8-7.0) K/uL Lymph # (Auto) (1.0-4.3) K/uL Hayes # (Auto) (0.0-0.8) K/uL Eos # (Auto) (0.0-0.7) K/uL Baso # (Auto) (0.0-0.2) K/uL Puncture Site R brac pCO2 37 (35-45) mm/Hg pO2 121 H (80-100) mm/Hg HCO3 25.8 (21-28) mmol/L ABG pH 7.44 (7.35-7.45) ABG Total CO2 26.2 (22-28) mmol/L ABG O2 Saturation 98.6 H (95-98) % ABG Base Excess 1.1 (-2.0-3.0) mmol/L Luis Test Na ABG Potassium 3.2 L (3.6-5.2) mmol/L A-a O2 Difference 189.0 mm/Hg Respiratory Index 1.6 Sodium 140.0 (132-148) mmol/l Chloride 112.0 H (98-107) mmol/L Glucose 93 (65-105) mg/dl Lactate 0.7 (0.7-2.1) mmol/L Vent Mode Prvc Mechanical Rate 20 FiO2 50.0 % Tidal Volume 500 PEEP 5 Potassium (3.6-5.2) mmol/L Carbon Dioxide (22-30) mmol/L Anion Gap (10-20) BUN (7-17) mg/dL Creatinine (0.7-1.2) mg/dL Est GFR ( Amer) Est GFR (Non-Af Amer) POC Glucose (mg/dL) 86 91 (65-110) mg/dL Random Glucose (65-105) mg/dL Calcium (8.6-10.4) mg/dl Phosphorus (2.5-4.5) mg/dL Magnesium (1.6-2.3) mg/dL Total Bilirubin (0.2-1.3) mg/dL AST (14-36) U/L ALT (9-52) U/L Alkaline Phosphatase (38-126) U/L Total Protein (6.3-8.3) g/dL Albumin (3.5-5.0) g/dL Globulin (2.2-3.9) gm/dL Albumin/Globulin Ratio (1.0-2.1) Arterial Blood Potassium 3.2 L (3.6-5.2) mmol/L 09/06/18 Range/Units 17:34 WBC (4.8-10.8) K/uL RBC (3.80-5.20) Mil/uL Hgb (11.0-16.0) g/dL Hct (34.0-47.0) % MCV (81.0-99.0) fL MCH (27.0-31.0) pg MCHC (33.0-37.0) g/dL RDW (11.5-14.5) % Plt Count (130-400) K/uL MPV (7.2-11.7) fL Neut % (Auto) (50.0-75.0) % Lymph % (Auto) (20.0-40.0) % Hayes % (Auto) (0.0-10.0) % Eos % (Auto) (0.0-4.0) % Baso % (Auto) (0.0-2.0) % Neut # (Auto) (1.8-7.0) K/uL Lymph # (Auto) (1.0-4.3) K/uL Hayes # (Auto) (0.0-0.8) K/uL Eos # (Auto) (0.0-0.7) K/uL Baso # (Auto) (0.0-0.2) K/uL Puncture Site pCO2 (35-45) mm/Hg pO2 (80-100) mm/Hg HCO3 (21-28) mmol/L ABG pH (7.35-7.45) ABG Total CO2 (22-28) mmol/L ABG O2 Saturation (95-98) % ABG Base Excess (-2.0-3.0) mmol/L Luis Test ABG Potassium (3.6-5.2) mmol/L A-a O2 Difference mm/Hg Respiratory Index Sodium (132-148) mmol/l Chloride (98-107) mmol/L Glucose (65-105) mg/dl Lactate (0.7-2.1) mmol/L Vent Mode Mechanical Rate FiO2 % Tidal Volume PEEP Potassium (3.6-5.2) mmol/L Carbon Dioxide (22-30) mmol/L Anion Gap (10-20) BUN (7-17) mg/dL Creatinine (0.7-1.2) mg/dL Est GFR ( Amer) Est GFR (Non-Af Amer) POC Glucose (mg/dL) 89 (65-110) mg/dL Random Glucose (65-105) mg/dL Calcium (8.6-10.4) mg/dl Phosphorus (2.5-4.5) mg/dL Magnesium (1.6-2.3) mg/dL Total Bilirubin (0.2-1.3) mg/dL AST (14-36) U/L ALT (9-52) U/L Alkaline Phosphatase (38-126) U/L Total Protein (6.3-8.3) g/dL Albumin (3.5-5.0) g/dL Globulin (2.2-3.9) gm/dL Albumin/Globulin Ratio (1.0-2.1) Arterial Blood Potassium (3.6-5.2) mmol/L Laboratory Results - last 24 hr 09/06/18 09/06/18 09/07/18 17:34 23:32 05:21 WBC RBC Hgb Hct MCV MCH MCHC RDW Plt Count MPV Neut % (Auto) Lymph % (Auto) Hayes % (Auto) Eos % (Auto) Baso % (Auto) Neut # (Auto) Lymph # (Auto) Hayes # (Auto) Eos # (Auto) Baso # (Auto) Puncture Site pCO2 pO2 HCO3 ABG pH ABG Total CO2 ABG O2 Saturation ABG Base Excess Luis Test ABG Potassium A-a O2 Difference Respiratory Index Sodium Chloride Glucose Lactate Vent Mode Mechanical Rate FiO2 Tidal Volume PEEP Potassium Carbon Dioxide Anion Gap BUN Creatinine Est GFR ( Amer) Est GFR (Non-Af Amer) POC Glucose (mg/dL) 89 91 86 Random Glucose Calcium Phosphorus Magnesium Total Bilirubin AST ALT Alkaline Phosphatase Total Protein Albumin Globulin Albumin/Globulin Ratio Arterial Blood Potassium 09/07/18 09/07/18 09/07/18 06:01 06:33 06:33 WBC 21.9 H RBC 3.75 L Hgb 9.3 L Hct 29.4 L MCV 78.3 L MCH 24.8 L MCHC 31.7 L RDW 19.3 H Plt Count 153 MPV 11.0 Neut % (Auto) 83.7 H Lymph % (Auto) 10.2 L Hayes % (Auto) 3.6 Eos % (Auto) 1.8 Baso % (Auto) 0.7 Neut # (Auto) 18.3 H Lymph # (Auto) 2.2 Hayes # (Auto) 0.8 Eos # (Auto) 0.4 Baso # (Auto) 0.2 Puncture Site R brac pCO2 37 pO2 121 H HCO3 25.8 ABG pH 7.44 ABG Total CO2 26.2 ABG O2 Saturation 98.6 H ABG Base Excess 1.1 Luis Test Na ABG Potassium 3.2 L A-a O2 Difference 189.0 Respiratory Index 1.6 Sodium 140.0 142 Chloride 112.0 H 108 H Glucose 93 Lactate 0.7 Vent Mode Prvc Mechanical Rate 20 FiO2 50.0 Tidal Volume 500 PEEP 5 Potassium 3.5 L Carbon Dioxide 25 Anion Gap 13 BUN 15 Creatinine 0.5 L Est GFR ( Amer) > 60 Est GFR (Non-Af Amer) > 60 POC Glucose (mg/dL) Random Glucose 86 Calcium 7.4 L Phosphorus 3.4 Magnesium 2.0 Total Bilirubin 2.2 H AST 36 ALT 30 Alkaline Phosphatase 164 H D Total Protein 5.2 L Albumin 2.4 L Globulin 2.8 Albumin/Globulin Ratio 0.9 L Arterial Blood Potassium 3.2 L 09/07/18 11:38 WBC RBC Hgb Hct MCV MCH MCHC RDW Plt Count MPV Neut % (Auto) Lymph % (Auto) Hayes % (Auto) Eos % (Auto) Baso % (Auto) Neut # (Auto) Lymph # (Auto) Hayes # (Auto) Eos # (Auto) Baso # (Auto) Puncture Site pCO2 pO2 HCO3 ABG pH ABG Total CO2 ABG O2 Saturation ABG Base Excess Luis Test ABG Potassium A-a O2 Difference Respiratory Index Sodium Chloride Glucose Lactate Vent Mode Mechanical Rate FiO2 Tidal Volume PEEP Potassium Carbon Dioxide Anion Gap BUN Creatinine Est GFR ( Amer) Est GFR (Non-Af Amer) POC Glucose (mg/dL) 101 Random Glucose Calcium Phosphorus Magnesium Total Bilirubin AST ALT Alkaline Phosphatase Total Protein Albumin Globulin Albumin/Globulin Ratio Arterial Blood Potassium Fingerstick Blood Sugar Results: 89 Review of Systems - Review of Systems Systems not reviewed;Unavailable: Intubated Critical Care Progress Note - Nutrition Nutrition: Nutrition Category Date Time Status NPO Diet [DIET] Diets 08/31/18 Breakfast Active Assessment/Plan - Assessment and Plan (Free Text) Assessment: Hypoxic respiratory failure: continue ventilation to keep Spo2 >92 and ph b/w 7.35-7.45, continue bronchodilators, CPAP daily, today CPAP for 2 hours -Septic shock: titrate off norepi, continue broad spectrum abx, vano level ~15, continue abs as per ID, de-escalate abx as Blood cx Klebsiella -monitor urine output -Febrile: obtain CT abd/pelvis r/o fluid pockets -contine dvt/pud ppx CPAP trial cc time 33 minutes - Date & Time Date: 09/07/18 Time: 12:15
--- NOTE | 2018-09-07 12:33 | CP.PCM.PN ---
Subjective - Date & Time of Evaluation Date of Evaluation: 09/07/18 Time of Evaluation: 12:31 - Subjective Subjective: soft distention but remains febrile. off levophed. plan on ct scan to asses forany drainable abscesses Objective - Vital Signs/Intake and Output Vital Signs (last 24 hours): Temp Pulse Resp BP Pulse Ox 101.2 F H 103 H 24 115/58 L 99 09/07/18 12:00 09/07/18 12:00 09/07/18 12:00 09/07/18 11:53 09/07/18 12:00 Intake and Output: 09/07/18 09/07/18 06:59 18:59 Intake Total 2906.2 756.9 Output Total 740 702 Balance 2166.2 54.9 - Medications Medications: Current Medications Albumin Human (Albutein 5% 500 Ml) 500 ml IVPB Q6H [facility] Stop: 09/08/18 04:01 Last Admin: 09/07/18 11:43 Dose: 500 ml Artificial Tears (Lacri-Lube) 1 gm OU Q4H [facility] Last Admin: 09/07/18 11:09 Dose: 1 gm Hydromorphone HCl (Dilaudid) 0.5 mg IVP Q4H PRN PRN Reason: Pain, moderate (4-7) Last Admin: 09/07/18 10:57 Dose: 0.5 mg Vancomycin/Sodium Chloride (Vancomycin 1 Gm/Ns 200 Ml) 1 gm in 200 mls @ 133 mls/hr IVPB Q8H [facility]; Protocol Stop: 09/09/18 17:31 Last Admin: 09/07/18 08:59 Dose: 133 mls/hr Dextrose/Sodium Chloride (Dextrose 5%/0.9% Ns 1000 Ml) 1,000 mls @ 50 mls/hr IV .Q20H [facility] Last Admin: 09/07/18 02:05 Dose: Not Given Acetaminophen (Ofirmev) 100 mls @ 400 mls/hr IV Q6 PRN PRN Reason: Fever >100.4 F Stop: 09/07/18 14:13 Last Admin: 09/07/18 08:23 Dose: 400 mls/hr Dexmedetomidine HCl 200 mcg/ (Sodium Chloride) 50 mls @ 5.01 mls/hr IV TITR PRN; Protocol PRN Reason: Agitation Last Titration: 09/07/18 11:00 Dose: 0.5 mcg/kg/hr, 12.53 mls/hr Meropenem 1 gm/ Sodium (Chloride) 50 mls @ 100 mls/hr IVPB Q8H [facility]; Protocol Last Admin: 09/07/18 05:22 Dose: 100 mls/hr Norepinephrine Bitartrate 4 mg (/ Dextrose) 254 mls @ 15.24 mls/hr IV .[id number] PRN; Protocol PRN Reason: TITRATE PER MD ORDER Last Titration: 09/07/18 09:00 Dose: 1 mcg/min, 3.81 mls/hr Aztreonam 1 gm/ Sodium (Chloride) 50 mls @ 100 mls/hr IVPB Q8H [facility]; Protocol Last Admin: 09/07/18 11:42 Dose: 100 mls/hr Metronidazole (Flagyl) 500 mg in 100 mls @ 100 mls/hr IVPB Q8H [facility]; Protocol Last Admin: 09/07/18 04:16 Dose: 100 mls/hr Micafungin Sodium 100 mg/ (Sodium Chloride) 100 mls @ 100 mls/hr IV Q24H [facility]; Protocol Potassium Chloride (Potassium Chloride 20 Meq/100 Ml) 20 meq in 100 mls @ 50 mls/hr IVPB Q2H [facility] Stop: 09/07/18 13:44 Last Admin: 09/07/18 11:04 Dose: 50 mls/hr Insulin Aspart (Novolog) 0 unit SC Q6 [facility]; Protocol Last Admin: 09/07/18 05:22 Dose: Not Given Metoclopramide HCl (Reglan) 10 mg IVP Q6 [facility] Last Admin: 09/07/18 05:25 Dose: 10 mg Metoprolol Tartrate (Lopressor) 5 mg IVP Q6H [facility] Last Admin: 09/07/18 06:16 Dose: 5 mg Pantoprazole Sodium (Protonix Inj) 40 mg IVP DAILY [facility] Last Admin: 09/07/18 10:17 Dose: 40 mg Vancomycin HCl (Vancocin (Oral Or Rectal Use)) 500 mg PO Q6 [facility]; Protocol Last Admin: 09/07/18 05:24 Dose: 500 mg - Labs Labs: 09/07/18 06:33 09/07/18 06:33 PT 14.6 SECONDS (9.7-12.2) H 08/31/18 13:02 INR 1.3 08/31/18 13:02 APTT 31 SECONDS (21-34) 09/05/18 14:32
[2018-09-07] MEDS ORDERED: HYDROmorphone 0.5 mg/0.5 ml ISec IVP STA (14:16)
[2018-09-07] MEDS: Micafungin 100 MG in Sodium Chloride 0.9% 100 ML IV SCH (15:24)
[2018-09-07] MEDS ORDERED: Iodixanol 320 MG/ML 100 ML BOTTLE IV ONE (15:34)
--- NOTE | 2018-09-07 16:10 | CP.PCM.PN ---
Subjective - Date & Time of Evaluation Date of Evaluation: 09/07/18 Time of Evaluation: 09:45 - Subjective Subjective: Awake, extubated on CPAP off norepinephrine had SVT yesterday most likely drug-induced Objective - Vital Signs/Intake and Output Vital Signs (last 24 hours): Temp Pulse Resp BP Pulse Ox 101.2 F H 109 H 31 H 123/73 98 09/07/18 12:00 09/07/18 15:00 09/07/18 15:00 09/07/18 14:54 09/07/18 15:00 Intake and Output: 09/07/18 09/07/18 06:59 18:59 Intake Total 2906.2 1781.9 Output Total 740 1097 Balance 2166.2 684.9 - Medications Medications: Current Medications Albumin Human (Albutein 5% 500 Ml) 500 ml IVPB Q6H [facility] Stop: 09/08/18 04:01 Last Admin: 09/07/18 11:43 Dose: 500 ml Artificial Tears (Lacri-Lube) 1 gm OU Q4H [facility] Last Admin: 09/07/18 15:24 Dose: 1 gm Hydromorphone HCl (Dilaudid) 0.5 mg IVP Q2H PRN PRN Reason: Pain, moderate (4-7) Vancomycin/Sodium Chloride (Vancomycin 1 Gm/Ns 200 Ml) 1 gm in 200 mls @ 133 mls/hr IVPB Q8H [facility]; Protocol Stop: 09/09/18 17:31 Last Admin: 09/07/18 08:59 Dose: 133 mls/hr Dextrose/Sodium Chloride (Dextrose 5%/0.9% Ns 1000 Ml) 1,000 mls @ 50 mls/hr IV .Q20H [facility] Last Admin: 09/07/18 02:05 Dose: Not Given Dexmedetomidine HCl 200 mcg/ (Sodium Chloride) 50 mls @ 5.01 mls/hr IV TITR PRN; Protocol PRN Reason: Agitation Last Titration: 09/07/18 11:00 Dose: 0.5 mcg/kg/hr, 12.53 mls/hr Meropenem 1 gm/ Sodium (Chloride) 50 mls @ 100 mls/hr IVPB Q8H [facility]; Protocol Last Admin: 09/07/18 13:56 Dose: 100 mls/hr Norepinephrine Bitartrate 4 mg (/ Dextrose) 254 mls @ 15.24 mls/hr IV .[id number] PRN; Protocol PRN Reason: TITRATE PER MD ORDER Last Titration: 09/07/18 09:00 Dose: 1 mcg/min, 3.81 mls/hr Aztreonam 1 gm/ Sodium (Chloride) 50 mls @ 100 mls/hr IVPB Q8H [facility]; Protocol Last Admin: 09/07/18 11:42 Dose: 100 mls/hr Metronidazole (Flagyl) 500 mg in 100 mls @ 100 mls/hr IVPB Q8H [facility]; Protocol Last Admin: 09/07/18 12:53 Dose: 100 mls/hr Micafungin Sodium 100 mg/ (Sodium Chloride) 100 mls @ 100 mls/hr IV Q24H [facility]; Protocol Last Admin: 09/07/18 15:24 Dose: 100 mls/hr Insulin Aspart (Novolog) 0 unit SC Q6 [facility]; Protocol Last Admin: 09/07/18 14:21 Dose: Not Given Metoclopramide HCl (Reglan) 10 mg IVP Q6 [facility] Last Admin: 09/07/18 13:54 Dose: 10 mg Metoprolol Tartrate (Lopressor) 5 mg IVP Q6H [facility] Last Admin: 09/07/18 13:35 Dose: 5 mg Pantoprazole Sodium (Protonix Inj) 40 mg IVP DAILY [facility] Last Admin: 09/07/18 10:17 Dose: 40 mg Vancomycin HCl (Vancocin (Oral Or Rectal Use)) 500 mg PO Q6 [facility]; Protocol Last Admin: 09/07/18 13:56 Dose: 500 mg - Labs Labs: 09/07/18 06:33 09/07/18 06:33 PT 14.6 SECONDS (9.7-12.2) H 08/31/18 13:02 INR 1.3 08/31/18 13:02 APTT 31 SECONDS (21-34) 09/05/18 14:32 - Constitutional Appears: Toxic - Head Exam Head Exam: absent: ATRAUMATIC - Eye Exam Eye Exam: Nystagmus. absent: Scleral icterus - Neck Exam Neck Exam: Full ROM - Respiratory Exam Respiratory Exam: Clear to Ausculation Bilateral - Cardiovascular Exam Cardiovascular Exam: REGULAR RHYTHM - GI/Abdominal Exam GI & Abdominal Exam: Soft, Tenderness Additional comments: +colostomy bag - Extremities Exam Extremities Exam: absent: Calf Tenderness, Pedal Edema - Neurological Exam Neurological Exam: Alert Assessment and Plan - Assessment and Plan (Free Text) Assessment: Septic shock SVT drug-induced Acute respiratory failure s/p Laparotomy w/ partial bowel resection and colostomy Plan: Extubated on CPAP Cont abtx Post-op care off pressors Prognosis guarded
--- NOTE | 2018-09-07 16:19 | CP.PCM.CON ---
History of Present Illness - History of Present Illness History of Present Illness: CC hypotension; SVT HPI 33F who had a laparoscopic total hysterectomy 3 days ago in [place] who presented to the ED with severe lower abdominal pain starting 7PM last night. patient states that the pain is in the suprapubis and does not radiate. Patient had tachycardia in the 120's Patient was found to have pneumoperitoneum and a heterogenous fluid collection 9cm in diameter intra-abdominal, with gas present concerning for abscess, and some small free fluid in the pelvis. Underwent laparotomy with partial bowel resection due to perforation , colostomy, washout ID on board for severe sepsis and peritonitis Review of Systems - Constitutional Additional comments: intubated - Respiratory Respiratory: Dyspnea - Gastrointestinal Gastrointestinal: Abdominal Pain, Bloating - Musculoskeletal Musculoskeletal: Muscle Weakness Past Patient History - Past Medical History & Family History Past Medical History?: Yes - Past Social History Smoking Status: Never Smoked - CARDIAC Hx Cardiac Disorders: No - PULMONARY Hx Asthma: Yes - NEUROLOGICAL Hx Neurological Disorder: No - HEENT Hx HEENT Problems: No - RENAL Hx Chronic Kidney Disease: No - ENDOCRINE/METABOLIC Hx Endocrine Disorders: No - HEMATOLOGICAL/ONCOLOGICAL Hx Blood Disorders: No - INTEGUMENTARY Hx Dermatological Problems: No - MUSCULOSKELETAL/RHEUMATOLOGICAL Hx Falls: No - GASTROINTESTINAL Hx Gastrointestinal Disorders: No - GENITOURINARY/GYNECOLOGICAL Hx Genitourinary Disorders: No Other/Comment: "PROBLEMS WITH MY OVARIES FOR ABOUT 4 YEARS" - PSYCHIATRIC Hx Substance Use: No - SURGICAL HISTORY Hx Surgeries: Yes Hx Hysterectomy: Yes (total hysterectomy - 08/27/18) Other/Comment: cyst right ovary 2014 - ANESTHESIA Hx Anesthesia: Yes Hx Anesthesia Reactions: No Meds Allergies/Adverse Reactions: Allergies Allergy/AdvReac Type Severity Reaction Status Date / Time No Known Allergies Allergy Verified 06/04/18 06:34 - Medications Medications: Current Medications Albumin Human (Albutein 5% 500 Ml) 500 ml IVPB Q6H [facility] Stop: 09/08/18 04:01 Last Admin: 09/07/18 11:43 Dose: 500 ml Artificial Tears (Lacri-Lube) 1 gm OU Q4H [facility] Last Admin: 09/07/18 15:24 Dose: 1 gm Hydromorphone HCl (Dilaudid) 0.5 mg IVP Q2H PRN PRN Reason: Pain, moderate (4-7) Vancomycin/Sodium Chloride (Vancomycin 1 Gm/Ns 200 Ml) 1 gm in 200 mls @ 133 mls/hr IVPB Q8H [facility]; Protocol Stop: 09/09/18 17:31 Last Admin: 09/07/18 08:59 Dose: 133 mls/hr Dextrose/Sodium Chloride (Dextrose 5%/0.9% Ns 1000 Ml) 1,000 mls @ 50 mls/hr IV .Q20H [facility] Last Admin: 09/07/18 02:05 Dose: Not Given Dexmedetomidine HCl 200 mcg/ (Sodium Chloride) 50 mls @ 5.01 mls/hr IV TITR PRN; Protocol PRN Reason: Agitation Last Titration: 09/07/18 11:00 Dose: 0.5 mcg/kg/hr, 12.53 mls/hr Meropenem 1 gm/ Sodium (Chloride) 50 mls @ 100 mls/hr IVPB Q8H [facility]; Protocol Last Admin: 09/07/18 13:56 Dose: 100 mls/hr Norepinephrine Bitartrate 4 mg (/ Dextrose) 254 mls @ 15.24 mls/hr IV .[id number] PRN; Protocol PRN Reason: TITRATE PER MD ORDER Last Titration: 09/07/18 09:00 Dose: 1 mcg/min, 3.81 mls/hr Aztreonam 1 gm/ Sodium (Chloride) 50 mls @ 100 mls/hr IVPB Q8H [facility]; Protocol Last Admin: 09/07/18 11:42 Dose: 100 mls/hr Metronidazole (Flagyl) 500 mg in 100 mls @ 100 mls/hr IVPB Q8H [facility]; Protocol Last Admin: 09/07/18 12:53 Dose: 100 mls/hr Micafungin Sodium 100 mg/ (Sodium Chloride) 100 mls @ 100 mls/hr IV Q24H [facility]; Protocol Last Admin: 09/07/18 15:24 Dose: 100 mls/hr Insulin Aspart (Novolog) 0 unit SC Q6 [facility]; Protocol Last Admin: 09/07/18 14:21 Dose: Not Given Metoclopramide HCl (Reglan) 10 mg IVP Q6 [facility] Last Admin: 09/07/18 13:54 Dose: 10 mg Metoprolol Tartrate (Lopressor) 5 mg IVP Q6H [facility] Last Admin: 10/20/18 13:35 Dose: 5 mg Pantoprazole Sodium (Protonix Inj) 40 mg IVP DAILY [facility] Last Admin: 09/07/18 10:17 Dose: 40 mg Vancomycin HCl (Vancocin (Oral Or Rectal Use)) 500 mg PO Q6 [facility]; Protocol Last Admin: 09/07/18 13:56 Dose: 500 mg Physical Exam - Constitutional Appears: Toxic - Head Exam Head Exam: NORMAL INSPECTION - Eye Exam Eye Exam: absent: Scleral icterus - Neck Exam Neck exam: Positive for: Full Rom. Negative for: Lymphadenopathy - Respiratory Exam Respiratory Exam: NORMAL BREATHING PATTERN - Cardiovascular Exam Cardiovascular Exam: Tachycardia - GI/Abdominal Exam GI & Abdominal Exam: Rebound, Tenderness Additional comments: +colostomy bag - Extremities Exam Extremities exam: Negative for: calf tenderness, pedal edema Results - Vital Signs Recent Vital Signs: Last Vital Signs Temp 101.2 F H 09/07/18 12:00 Pulse 109 H 09/07/18 15:00 Resp 31 H 09/07/18 15:00 BP 123/73 09/07/18 14:54 Pulse Ox 98 09/07/18 15:00 - Labs Result Diagrams: 09/07/18 06:33 09/07/18 06:33 Labs: Laboratory Results - last 24 hr 09/06/18 09/06/18 09/07/18 17:34 23:32 05:21 WBC RBC Hgb Hct MCV MCH MCHC RDW Plt Count MPV Neut % (Auto) Lymph % (Auto) [place] % (Auto) Eos % (Auto) Baso % (Auto) Neut # (Auto) Lymph # (Auto) [place] # (Auto) Eos # (Auto) Baso # (Auto) Puncture Site pCO2 pO2 HCO3 ABG pH ABG Total CO2 ABG O2 Saturation ABG Base Excess Luis Test ABG Potassium A-a O2 Difference Respiratory Index Sodium Chloride Glucose Lactate Vent Mode Mechanical Rate FiO2 Tidal Volume PEEP Potassium Carbon Dioxide Anion Gap BUN Creatinine Est GFR ( Amer) Est GFR (Non-Af Amer) POC Glucose (mg/dL) 89 91 86 Random Glucose Calcium Phosphorus Magnesium Total Bilirubin AST ALT Alkaline Phosphatase Total Protein Albumin Globulin Albumin/Globulin Ratio Arterial Blood Potassium 09/07/18 09/07/18 09/07/18 06:01 06:33 06:33 WBC 21.9 H RBC 3.75 L Hgb 9.3 L Hct 29.4 L MCV 78.3 L MCH 24.8 L MCHC 31.7 L RDW 19.3 H Plt Count 153 MPV 11.0 Neut % (Auto) 83.7 H Lymph % (Auto) 10.2 L [place] % (Auto) 3.6 Eos % (Auto) 1.8 Baso % (Auto) 0.7 Neut # (Auto) 18.3 H Lymph # (Auto) 2.2 [place] # (Auto) 0.8 Eos # (Auto) 0.4 Baso # (Auto) 0.2 Puncture Site R brac pCO2 37 pO2 121 H HCO3 25.8 ABG pH 7.44 ABG Total CO2 26.2 ABG O2 Saturation 98.6 H ABG Base Excess 1.1 Luis Test Na ABG Potassium 3.2 L A-a O2 Difference 189.0 Respiratory Index 1.6 Sodium 140.0 142 Chloride 112.0 H 108 H Glucose 93 Lactate 0.7 Vent Mode Prvc Mechanical Rate 20 FiO2 50.0 Tidal Volume 500 PEEP 5 Potassium 3.5 L Carbon Dioxide 25 Anion Gap 13 BUN 15 Creatinine 0.5 L Est GFR ( Amer) > 60 Est GFR (Non-Af Amer) > 60 POC Glucose (mg/dL) Random Glucose 86 Calcium 7.4 L Phosphorus 3.4 Magnesium 2.0 Total Bilirubin 2.2 H AST 36 ALT 30 Alkaline Phosphatase 164 H D Total Protein 5.2 L Albumin 2.4 L Globulin 2.8 Albumin/Globulin Ratio 0.9 L Arterial Blood Potassium 3.2 L 09/07/18 11:38 WBC RBC Hgb Hct MCV MCH MCHC RDW Plt Count MPV Neut % (Auto) Lymph % (Auto) [place] % (Auto) Eos % (Auto) Baso % (Auto) Neut # (Auto) Lymph # (Auto) [place] # (Auto) Eos # (Auto) Baso # (Auto) Puncture Site pCO2 pO2 HCO3 ABG pH ABG Total CO2 ABG O2 Saturation ABG Base Excess Luis Test ABG Potassium A-a O2 Difference Respiratory Index Sodium Chloride Glucose Lactate Vent Mode Mechanical Rate FiO2 Tidal Volume PEEP Potassium Carbon Dioxide Anion Gap BUN Creatinine Est GFR ( Amer) Est GFR (Non-Af Amer) POC Glucose (mg/dL) 101 Random Glucose Calcium Phosphorus Magnesium Total Bilirubin AST ALT Alkaline Phosphatase Total Protein Albumin Globulin Albumin/Globulin Ratio Arterial Blood Potassium Assessment & Plan - Assessment and Plan (Free Text) Assessment: SVT most likely secondary to pressors Septic shock s/p Laparotomy w/ partial bowel resection and Colostomy Acute respiratory failure Plan: IV caredizem, digoxin Abtx Vent care pressors as needed - Date & Time Date: 09/05/18 Time: 08:00
--- NOTE | 2018-09-07 16:27 | CP.PCM.PN ---
Subjective - Date & Time of Evaluation Date of Evaluation: 09/06/18 Time of Evaluation: 08:45 - Subjective Subjective: remains intubated on pressors ID on board Objective - Vital Signs/Intake and Output Vital Signs (last 24 hours): Temp Pulse Resp BP Pulse Ox 101.2 F H 109 H 31 H 123/73 98 09/07/18 12:00 09/07/18 15:00 09/07/18 15:00 09/07/18 14:54 09/07/18 15:00 Intake and Output: 09/07/18 09/07/18 06:59 18:59 Intake Total 2906.2 1781.9 Output Total 740 1097 Balance 2166.2 684.9 - Medications Medications: Current Medications Albumin Human (Albutein 5% 500 Ml) 500 ml IVPB Q6H [facility] Stop: 09/08/18 04:01 Last Admin: 09/07/18 11:43 Dose: 500 ml Artificial Tears (Lacri-Lube) 1 gm OU Q4H [facility] Last Admin: 09/07/18 15:24 Dose: 1 gm Hydromorphone HCl (Dilaudid) 0.5 mg IVP Q2H PRN PRN Reason: Pain, moderate (4-7) Vancomycin/Sodium Chloride (Vancomycin 1 Gm/Ns 200 Ml) 1 gm in 200 mls @ 133 mls/hr IVPB Q8H [facility]; Protocol Stop: 09/09/18 17:31 Last Admin: 09/07/18 08:59 Dose: 133 mls/hr Dextrose/Sodium Chloride (Dextrose 5%/0.9% Ns 1000 Ml) 1,000 mls @ 50 mls/hr IV .Q20H [facility] Last Admin: 09/07/18 02:05 Dose: Not Given Dexmedetomidine HCl 200 mcg/ (Sodium Chloride) 50 mls @ 5.01 mls/hr IV TITR PRN; Protocol PRN Reason: Agitation Last Titration: 09/07/18 11:00 Dose: 0.5 mcg/kg/hr, 12.53 mls/hr Meropenem 1 gm/ Sodium (Chloride) 50 mls @ 100 mls/hr IVPB Q8H [facility]; Protocol Last Admin: 09/07/18 13:56 Dose: 100 mls/hr Norepinephrine Bitartrate 4 mg (/ Dextrose) 254 mls @ 15.24 mls/hr IV .[id number] PRN; Protocol PRN Reason: TITRATE PER MD ORDER Last Titration: 09/07/18 09:00 Dose: 1 mcg/min, 3.81 mls/hr Aztreonam 1 gm/ Sodium (Chloride) 50 mls @ 100 mls/hr IVPB Q8H [facility]; Protocol Last Admin: 09/07/18 11:42 Dose: 100 mls/hr Metronidazole (Flagyl) 500 mg in 100 mls @ 100 mls/hr IVPB Q8H [facility]; Protocol Last Admin: 09/07/18 12:53 Dose: 100 mls/hr Micafungin Sodium 100 mg/ (Sodium Chloride) 100 mls @ 100 mls/hr IV Q24H [facility]; Protocol Last Admin: 09/07/18 15:24 Dose: 100 mls/hr Insulin Aspart (Novolog) 0 unit SC Q6 [facility]; Protocol Last Admin: 09/07/18 14:21 Dose: Not Given Metoclopramide HCl (Reglan) 10 mg IVP Q6 [facility] Last Admin: 09/07/18 13:54 Dose: 10 mg Metoprolol Tartrate (Lopressor) 5 mg IVP Q6H [facility] Last Admin: 09/07/18 13:35 Dose: 5 mg Pantoprazole Sodium (Protonix Inj) 40 mg IVP DAILY [facility] Last Admin: 09/07/18 10:17 Dose: 40 mg Vancomycin HCl (Vancocin (Oral Or Rectal Use)) 500 mg PO Q6 [facility]; Protocol Last Admin: 09/07/18 13:56 Dose: 500 mg - Labs Labs: 09/07/18 06:33 09/07/18 06:33 PT 14.6 SECONDS (9.7-12.2) H 08/31/18 13:02 INR 1.3 08/31/18 13:02 APTT 31 SECONDS (21-34) 09/05/18 14:32 - Constitutional Appears: Toxic - Head Exam Head Exam: NORMAL INSPECTION - Eye Exam Eye Exam: absent: Scleral icterus - Neck Exam Neck Exam: Full ROM - Respiratory Exam Respiratory Exam: Clear to Ausculation Bilateral - Cardiovascular Exam Cardiovascular Exam: REGULAR RHYTHM - GI/Abdominal Exam GI & Abdominal Exam: Tenderness, Hypoactive Bowel Sounds - Extremities Exam Extremities Exam: Tenderness. absent: Calf Tenderness, Pedal Edema Additional comments: +colostomy bag Assessment and Plan - Assessment and Plan (Free Text) Assessment: Sepsis Acute respiratory failure s/p laparotomy w/ partial bowel resection Plan: Cont abtx Cont pressors Post op care
[2018-09-07] MEDS ORDERED: Albumin Human 25% (12.5 gm/50 ml) IV SCH (16:45)
[2018-09-07] MEDS: Acetaminophen IV 1,000 MG in Premixed IV 1 EA IV SCH ×2 (17:20→22:05)
[2018-09-07] MEDS: Albumin Human 25% (12.5 gm/50 ml) IV SCH ×3 (17:26→22:09)
[2018-09-08] MEDS: Vancomycin 125 MG/5 ML SOLN (ORAL/RECTAL) PO SCH ×5 (00:25→23:30)
[2018-09-08] MEDS: Metoprolol 1 mg/ml Inj IVP SCH ×4 (00:25→18:57)
[2018-09-08] MEDS: (Novolog) Insulin Aspart, Recombinant 100 u/ml 10 ml vial SC SCH ×4 (00:27→18:57)
[2018-09-08] MEDS: HYDROmorphone 0.5 mg/0.5 ml ISec IVP PRN ×7 (00:32→23:26)
[2018-09-08] MEDS: Vancomycin 1 gm/NS 200 ml 1 GM/200 ML BAG IVPB SCH ×3 (00:32→17:14)
[2018-09-08] MEDS: Dexmedetomidine Hydrochloride 200 MCG in Sodium Chloride 0.9% 48 ML IV PRN ×2 (00:57→07:30)
[2018-09-08] MEDS: White Petrolatum/Mineral Oil Ophth Oint(3.5 gm) OU SCH ×6 (01:49→22:30)
[2018-09-08] MEDS: metroNIDAZOLE IV 500 mg/100 ml 500 MG/100 ML BAG IVPB SCH ×3 (03:20→20:15)
[2018-09-08] MEDS: Acetaminophen IV 1,000 MG in Premixed IV 1 EA IV SCH ×2 (05:45→13:34)
[2018-09-08 06:22] LABS: BASO # 0.1 K/uL (0.0-0.2); BASO % 0.4 % (0.0-2.0); EOS # 0.3 K/uL (0.0-0.7); EOS % 1.5 % (0.0-4.0); HEMOGLOBIN 8.4 g/dL (11.0-16.0); LYMPH # 1.3 K/uL (1.0-4.3); LYMPH % 7.5 % (20.0-40.0); MEAN CELL VOLUME 77.2 fL (81.0-99.0); MEAN CORPUSCULAR HEMOGLOBIN 24.9 pg (27.0-31.0); MEAN CORPUSCULAR HGB CONC 32.2 g/dL (33.0-37.0); MEAN PLATELET VOLUME 10.3 fL (7.2-11.7); MONO # 0.9 K/uL (0.0-0.8); NEUT # 15.2 K/uL (1.8-7.0); NEUT % 85.6 % (50.0-75.0); NRBC % 0.1 % (0.0-2.0); PLATELET COUNT 217 K/uL (130-400); RBC 3.36 Mil/uL (3.80-5.20); RED CELL DISTRIBUTION WIDTH 19.3 % (11.5-14.5); WHITE BLOOD COUNT 17.7 K/uL (4.8-10.8)
[2018-09-08 06:25] LABS: ARTERIAL BLOOD GAS HCO3 24.2 mmol/L (21-28); ARTERIAL BLOOD GAS O2 SAT 98.8 % (95-98); ARTERIAL BLOOD GAS PCO2 25 mm/Hg (35-45); ARTERIAL BLOOD GAS PH 7.52 (7.35-7.45); ARTERIAL BLOOD GAS PO2 92 mm/Hg (80-100); ARTERIAL BLOOD GAS TCO2 21.2 mmol/L (22-28)
[2018-09-08 06:42] LABS: ALB/GLOB RATIO 0.9 (1.0-2.1); ALBUMIN 2.7 g/dL (3.5-5.0); ALT/SGPT 29 U/L (9-52); AST/SGOT 36 U/L (14-36); BLOOD UREA NITROGEN 11 mg/dL (7-17); CALCIUM 7.8 mg/dl (8.6-10.4); GFR NON-AFRICAN AMERICAN > 60
--- NOTE | 2018-09-08 08:01 | CP.PCM.PN ---
Subjective - Date & Time of Evaluation Date of Evaluation: 09/08/18 Time of Evaluation: 07:57 - Subjective Subjective: General Surgery Note for Dr. Patino Patient seen and examined at bedside. She was febrile overnight. She was given cooling blanket. Patient still intubated. UOP was 700 cc overnight. Ismael drains with minimal output over 24 hrs (~10 and 7 cc). NGT with 700 cc/12 hrs. ROS unobtainable due to sedation and intubation. Objective - Vital Signs/Intake and Output Vital Signs (last 24 hours): Temp Pulse Resp BP Pulse Ox 101.3 F H 83 25 H 118/64 98 09/07/18 20:00 09/07/18 23:00 09/07/18 23:00 09/07/18 22:57 09/07/18 23:00 Intake and Output: 09/08/18 09/08/18 06:59 18:59 Intake Total 712.1 Output Total 725 Balance -12.9 - Medications Medications: Current Medications Artificial Tears (Lacri-Lube) 1 gm OU Q4H [facility] Last Admin: 09/08/18 06:29 Dose: 1 gm Hydromorphone HCl (Dilaudid) 0.5 mg IVP Q2H PRN PRN Reason: Pain, moderate (4-7) Last Admin: 09/08/18 06:27 Dose: 0.5 mg Vancomycin/Sodium Chloride (Vancomycin 1 Gm/Ns 200 Ml) 1 gm in 200 mls @ 133 ml s/hr IVPB Q8H [facility]; Protocol Stop: 09/09/18 17:31 Last Admin: 09/08/18 00:32 Dose: 133 mls/hr Dextrose/Sodium Chloride (Dextrose 5%/0.9% Ns 1000 Ml) 1,000 mls @ 50 mls/hr IV .Q20H [facility] Last Admin: 09/07/18 23:50 Dose: Not Given Dexmedetomidine HCl 200 mcg/ (Sodium Chloride) 50 mls @ 5.01 mls/hr IV TITR PRN; Protocol PRN Reason: Agitation Last Admin: 09/08/18 00:57 Dose: 0.5 mcg/kg/hr, 12.53 mls/hr Meropenem 1 gm/ Sodium (Chloride) 50 mls @ 100 mls/hr IVPB Q8H [facility]; Protocol Last Admin: 09/08/18 06:25 Dose: 100 mls/hr Norepinephrine Bitartrate 4 mg (/ Dextrose) 254 mls @ 15.24 mls/hr IV .[id number] PRN; Protocol PRN Reason: TITRATE PER MD ORDER Last Titration: 09/07/18 09:00 Dose: 1 mcg/min, 3.81 mls/hr Aztreonam 1 gm/ Sodium (Chloride) 50 mls @ 100 mls/hr IVPB Q8H [facility]; Protocol Last Admin: 09/08/18 02:02 Dose: 100 mls/hr Metronidazole (Flagyl) 500 mg in 100 mls @ 100 mls/hr IVPB Q8H [facility]; Protocol Last Admin: 09/08/18 03:20 Dose: 100 mls/hr Micafungin Sodium 100 mg/ (Sodium Chloride) 100 mls @ 100 mls/hr IV Q24H [facility]; Protocol Last Admin: 09/07/18 15:24 Dose: 100 mls/hr Acetaminophen 1,000 mg/ (Miscellaneous) 100 mls @ 400 mls/hr IV Q8 [facility] Stop: 09/08/18 17:01 Last Admin: 09/08/18 05:45 Dose: 400 mls/hr Insulin Aspart (Novolog) 0 unit SC Q6 [facility]; Protocol Last Admin: 09/08/18 06:28 Dose: Not Given Metoclopramide HCl (Reglan) 10 mg IVP Q6 [facility] Last Admin: 09/08/18 06:27 Dose: 10 mg Metoprolol Tartrate (Lopressor) 5 mg IVP Q6H [facility] Last Admin: 09/08/18 06:29 Dose: 5 mg Pantoprazole Sodium (Protonix Inj) 40 mg IVP DAILY [facility] Last Admin: 09/07/18 10:17 Dose: 40 mg Vancomycin HCl (Vancocin (Oral Or Rectal Use)) 500 mg PO Q6 [facility]; Protocol Last Admin: 09/08/18 06:25 Dose: 500 mg - Labs Labs: 09/08/18 06:15 09/08/18 06:15 PT 14.6 SECONDS (9.7-12.2) H 08/31/18 13:02 INR 1.3 08/31/18 13:02 APTT 31 SECONDS (21-34) 09/05/18 14:32 - Additional Findings Additional findings: - Constitutional Appears: No Acute Distress - Head Exam Head Exam: ATRAUMATIC, NORMOCEPHALIC - Eye Exam Eye Exam: Normal appearance. absent: Conjunctival injection, Scleral icterus - ENT Exam ENT Exam: Mucous Membranes Moist Additional comments: ETT and OGT in place - Respiratory Exam Respiratory Exam: NORMAL BREATHING PATTERN. absent: Accessory Muscle Use, Respiratory Distress - Cardiovascular Exam Cardiovascular Exam: Tachycardia, REGULAR RHYTHM - GI/Abdominal Exam GI & Abdominal Exam: Distended, Soft Additional comments: midline incision with constance clemente drain in the inferior portion with serosanguinous output RLQ drain and LUQ drain with minimal output - Neurological Exam Neurological Exam: Altered (sedated) - Psychiatric Exam Psychiatric Exam: Flat affect - Skin Skin Exam: Dry, Warm Assessment and Plan - Assessment and Plan (Free Text) Assessment: 33F S/P ex lap with resection of a perforated sigmoid colon and colostomy creation POD#8 Plan: NPO OGT to suction Strict I's & O's Continue IV antibiotics IVF IR to drain fluid Medical management per ICU Further recommendations as per Dr. Carey Vasquez PGY2
[2018-09-08 08:45] LABS: BANDS 9 % (0-2); LYMPHOCYTE 8 % (20-40); MONOCYTE 5 % (0-10); NEUTROPHIL 78 % (50-75); TOTAL CELLS COUNTED 100
[2018-09-08 08:46] LABS: GIANT PLATELETS PRESENT; LARGE PLATELETS PRESENT; PLATELET ESTIMATE NORMAL (NORMAL); POLYCHROMIC SLIGHT
[2018-09-08 08:47] LABS: HYPOCHROMIC MODERATE; TOXIC GRANULATION PRESENT
[2018-09-08 08:48] LABS: ANISOCYTOSIS MODERATE; OVALOCYTES SLIGHT; POIKILOCYTOSIS SLIGHT; SCHISTOCYTES SLIGHT
--- NOTE | 2018-09-08 09:18 | CP.CCUPN ---
CCU Subjective - Physician Review Subjective (Free Text): no acute events overnight. CT abd/pelvis reveals fluid pocket, patient febrile despite tylenol IV, off pressors 09/08/18 09:13 CCU Objective - Vital Signs / Intake & Output Vital Signs (Last 4 hours): Vital Signs Pulse Resp BP Pulse Ox 09/08/18 09:00 85 30 H 99 09/08/18 08:57 91 H 34 H 138/78 98 09/08/18 08:00 74 25 H 100 09/08/18 07:57 76 26 H 116/61 100 09/08/18 07:00 79 29 H 100 09/08/18 06:57 75 24 121/63 100 09/08/18 06:00 93 H 30 H 77 L 09/08/18 05:57 94 H 31 H 121/64 95 Intake and Output (Last 8hrs): Intake & Output 09/07/18 09/08/18 09/08/18 22:59 06:59 14:59 Intake Total 1999.7 1171.7 20 Output Total 1135 1468 Balance 864.7 -296.3 20 Intake: IV 50 100 20 Intake, IV Amount 1199.7 951.7 Left Forearm 750 650 Left Hand 0 Right Medial Port Y site 99.7 101.7 Right PICC 150 left arm 200 200 Tube Feeding 0 0 Other 750 120 Output: Gastric Amount 150 700 Stomach 150 700 Drainage 35 18 Left Abdomen 20 10 Right Abdomen 15 8 Urine 910 500 Urethral (Rankin) 910 500 Stool 40 250 - Physical Exam Head: Positive for: Atraumatic, Normocephalic Pupils: Positive for: Sluggish. Negative for: Non-Reactive, Pinpoint Extroacular Muscles: Positive for: Other (sedated and not following commands, minimal spontaneous movements when aroused) Conjunctiva: Positive for: Normal. Negative for: Injected, Icteric Mouth: Positive for: Dry Nose (External): Positive for: Atraumatic. Negative for: Abrasion, Contusion, Laceration Nose (Internal): Positive for: No Active Bleeding. Negative for: Epistaxis Neck: Positive for: Normal Range of Motion (passive ROM intact, some spontaneous active movement when aroused but unable to assess full active ROM), Trachea Midline. Negative for: JVD Respiratory/Chest: Positive for: Clear to Auscultation, Good Air Exchange. Negative for: Respiratory Distress, Accessory Muscle Use Cardiovascular: Positive for: Normal S1, S2, Peripheal Pulses Present (weakly/irregularly palpable bilateral radial pulses, unable to palpate pedal pulses, weakly/irregularly palpable femor pulses bilaterally) Abdomen: Positive for: Other (post-op, 3 drains present with varying degrees of serosanguinous fluid present, no lin blood or pus appreciated, colostomy bag present with patent-appearing stoma, abdomen firm to palpation diffusely, bandaging over surgical incisions) Genitourinary/Pelvic Exam: Positive for: Other (Rankin present with only approx 250cc very dark sara urine) Upper Extremity: Positive for: Edema (bilateral upper extremities with mild non- pitting edema). Negative for: Cyanosis, NORMAL PULSES (weak pulses as described in cardio section), Deformity Lower Extremity: Positive for: Edema (bilateral lower extremities with moderate non-pitting edema). Negative for: NORMAL PULSES (intermittently palpable weak femoral pulses bilaterally unable, unable to palpate any pedal pulses) Neurological: Positive for: Other (sedated on fentanyl/precedex, intermittently aroused by pain or stimulation (like Arterial line placement) but rapidly retu rns to somnolence). Negative for: GCS=15 (GCS 7 (E2 V1t M4)) Skin: Positive for: Warm, Diaphoretic, Pale. Negative for: Dry, Rashes, Normal Color Psychiatric: Positive for: Other (sedated but intermittently aroused, rapidly returns to somnolence) - Medications Active Medications: Active Medications Generic Name Dose Route Start Last Admin Trade Name Freq PRN Reason Stop Dose Admin Artificial Tears 1 gm 09/03/18 06:00 09/08/18 09:07 Lacri-Lube OU Not Given Q4H MARLENA Hydromorphone HCl 0.5 mg 09/07/18 14:17 09/08/18 06:27 Dilaudid IVP 0.5 mg Q2H PRN Administration Pain, moderate (4-7) Vancomycin/Sodium Chloride 1 gm in 200 mls @ 133 mls/hr 09/04/18 17:30 09/08/18 09:06 Vancomycin 1 Gm/Ns 200 Ml IVPB 09/09/18 17:31 133 mls/hr Q8H MARLENA Administration Protocol Dextrose/Sodium Chloride 1,000 mls @ 50 mls/hr 09/06/18 06:30 09/07/18 23:50 Dextrose 5%/0.9% Ns 1000 Ml IV Not Given .Q20H MARLENA Meropenem 1 gm/ Sodium 50 mls @ 100 mls/hr 09/06/18 22:00 09/08/18 06:25 Chloride IVPB 100 mls/hr Q8H MARLENA Administration Protocol Aztreonam 1 gm/ Sodium 50 mls @ 100 mls/hr 09/07/18 03:00 09/08/18 02:02 Chloride IVPB 100 mls/hr Q8H MARLENA Administration Protocol Metronidazole 500 mg in 100 mls @ 100 mls/hr 09/06/18 20:00 09/08/18 03:20 Flagyl IVPB 100 mls/hr Q8H MARLENA Administration Protocol Micafungin Sodium 100 mg/ 100 mls @ 100 mls/hr 09/07/18 16:00 09/07/18 15:24 Sodium Chloride IV 100 mls/hr Q24H MARLENA Administration Protocol Acetaminophen 1,000 mg/ 100 mls @ 400 mls/hr 09/07/18 17:00 09/08/18 05:45 Miscellaneous IV 09/08/18 17:01 400 mls/hr Q8 MARLENA Administration Midazolam HCl 100 mg/ Dextrose 100 mls @ 2.04 mls/hr 09/08/18 09:15 IV .Q24H MARLENA Protocol 0.02 MG/KG/HR Insulin Aspart 0 unit 09/03/18 06:00 09/08/18 06:28 Novolog SC Not Given Q6 MARLENA Protocol Metoclopramide HCl 10 mg 09/06/18 12:00 09/08/18 06:27 Reglan IVP 10 mg Q6 MARLENA Administration Metoprolol Tartrate 5 mg 09/06/18 13:00 09/08/18 06:29 Lopressor IVP 5 mg Q6H MARLENA Administration Pantoprazole Sodium 40 mg 08/31/18 10:00 09/08/18 09:06 Protonix Inj IVP 40 mg DAILY MARLENA Administration Vancomycin HCl 500 mg 09/07/18 00:00 09/08/18 06:25 Vancocin (Oral Or Rectal Use) PO 500 mg Q6 MARLENA Administration Protocol - Patient Studies Lab Studies: Microbiology Studies 09/05/18 15:30 Blood Culture - Preliminary Blood NO GROWTH AFTER 48 HOURS 09/05/18 16:00 Blood Culture - Preliminary Blood NO GROWTH AFTER 48 HOURS 09/05/18 16:02 Gram Stain - Final Trachasp Sputum Culture - Final No growth. 09/06/18 Unknown Gram Stain - Final Abdomen Wound Culture - Preliminary NO GROWTH AFTER 24 HOURS Lab Studies 09/08/18 09/08/18 09/08/18 Range/Units 06:15 06:15 06:15 WBC 17.7 H (4.8-10.8) K/uL RBC 3.36 L (3.80-5.20) Mil/uL Hgb 8.4 L (11.0-16.0) g/dL Hct 25.9 L (34.0-47.0) % MCV 77.2 L (81.0-99.0) fL MCH 24.9 L (27.0-31.0) pg MCHC 32.2 L (33.0-37.0) g/dL RDW 19.3 H (11.5-14.5) % Plt Count 217 (130-400) K/uL MPV 10.3 (7.2-11.7) fL Neut % (Auto) 85.6 H (50.0-75.0) % Lymph % (Auto) 7.5 L (20.0-40.0) % [place] % (Auto) 5.0 (0.0-10.0) % Eos % (Auto) 1.5 (0.0-4.0) % Baso % (Auto) 0.4 (0.0-2.0) % Neut # (Auto) 15.2 H (1.8-7.0) K/uL Lymph # (Auto) 1.3 (1.0-4.3) K/uL [place] # (Auto) 0.9 H (0.0-0.8) K/uL Eos # (Auto) 0.3 (0.0-0.7) K/uL Baso # (Auto) 0.1 (0.0-0.2) K/uL Neutrophils % (Manual) 78 H (50-75) % Band Neutrophils % 9 H (0-2) % Lymphocytes % (Manual) 8 L (20-40) % Monocytes % (Manual) 5 (0-10) % Toxic Granulation Present Platelet Estimate Normal (NORMAL) Large Platelets Present Giant Platelets Present Polychromasia Slight Hypochromasia (manual) Moderate Poikilocytosis (manual Slight Anisocytosis (manual) Moderate Ovalocytes Slight Schistocytes Slight Puncture Site pCO2 (35-45) mm/Hg pO2 (80-100) mm/Hg HCO3 (21-28) mmol/L ABG pH (7.35-7.45) ABG Total CO2 (22-28) mmol/L ABG O2 Saturation (95-98) % ABG Base Excess (-2.0-3.0) mmol/L Luis Test ABG Potassium (3.6-5.2) mmol/L A-a O2 Difference mm/Hg Respiratory Index Sodium 140 (132-148) mmol/l Chloride 106 (98-107) mmol/L Glucose (65-105) mg/dl Lactate (0.7-2.1) mmol/L Vent Mode Mechanical Rate FiO2 % Tidal Volume PEEP Potassium 3.4 L (3.6-5.2) mmol/L Carbon Dioxide 20 L (22-30) mmol/L Anion Gap 17 (10-20) BUN 11 (7-17) mg/dL Creatinine 0.5 L (0.7-1.2) mg/dL Est GFR ( Amer) > 60 Est GFR (Non-Af Amer) > 60 POC Glucose (mg/dL) (65-110) mg/dL Random Glucose 93 (65-105) mg/dL Lactic Acid 0.8 (0.7-2.1) mmol/L Calcium 7.8 L (8.6-10.4) mg/dl Phosphorus 2.9 (2.5-4.5) mg/dL Magnesium 2.2 (1.6-2.3) mg/dL Total Bilirubin 2.1 H (0.2-1.3) mg/dL AST 36 (14-36) U/L ALT 29 (9-52) U/L Alkaline Phosphatase 287 H D (38-126) U/L Total Protein 5.6 L (6.3-8.3) g/dL Albumin 2.7 L (3.5-5.0) g/dL Globulin 2.9 (2.2-3.9) gm/dL Albumin/Globulin Ratio 0.9 L (1.0-2.1) Arterial Blood Potassium (3.6-5.2) mmol/L 10/21/18 10/20/18 10/20/18 Range/Units 05:50 18:50 17:48 WBC (4.8-10.8) K/uL RBC (3.80-5.20) Mil/uL Hgb (11.0-16.0) g/dL Hct (34.0-47.0) % MCV (81.0-99.0) fL MCH (27.0-31.0) pg MCHC (33.0-37.0) g/dL RDW (11.5-14.5) % Plt Count (130-400) K/uL MPV (7.2-11.7) fL Neut % (Auto) (50.0-75.0) % Lymph % (Auto) (20.0-40.0) % [place] % (Auto) (0.0-10.0) % Eos % (Auto) (0.0-4.0) % Baso % (Auto) (0.0-2.0) % Neut # (Auto) (1.8-7.0) K/uL Lymph # (Auto) (1.0-4.3) K/uL [place] # (Auto) (0.0-0.8) K/uL Eos # (Auto) (0.0-0.7) K/uL Baso # (Auto) (0.0-0.2) K/uL Neutrophils % (Manual) (50-75) % Band Neutrophils % (0-2) % Lymphocytes % (Manual) (20-40) % Monocytes % (Manual) (0-10) % Toxic Granulation Platelet Estimate (NORMAL) Large Platelets Giant Platelets Polychromasia Hypochromasia (manual) Poikilocytosis (manual Anisocytosis (manual) Ovalocytes Schistocytes Puncture Site Rb pCO2 25 L (35-45) mm/Hg pO2 92 (80-100) mm/Hg HCO3 24.2 (21-28) mmol/L ABG pH 7.52 H (7.35-7.45) ABG Total CO2 21.2 L (22-28) mmol/L ABG O2 Saturation 98.8 H (95-98) % ABG Base Excess -0.9 (-2.0-3.0) mmol/L Luis Test Na ABG Potassium 3.0 L (3.6-5.2) mmol/L A-a O2 Difference 91.0 mm/Hg Respiratory Index 1.0 Sodium 139.0 (132-148) mmol/l Chloride 111.0 H (98-107) mmol/L Glucose 98 (65-105) mg/dl Lactate 0.9 (0.7-2.1) mmol/L Vent Mode Prvc Mechanical Rate 20 FiO2 30.0 % Tidal Volume 500 PEEP 5 Potassium (3.6-5.2) mmol/L Carbon Dioxide (22-30) mmol/L Anion Gap (10-20) BUN (7-17) mg/dL Creatinine (0.7-1.2) mg/dL Est GFR ( Amer) Est GFR (Non-Af Amer) POC Glucose (mg/dL) 94 (65-110) mg/dL Random Glucose (65-105) mg/dL Lactic Acid 0.8 (0.7-2.1) mmol/L Calcium (8.6-10.4) mg/dl Phosphorus (2.5-4.5) mg/dL Magnesium (1.6-2.3) mg/dL Total Bilirubin (0.2-1.3) mg/dL AST (14-36) U/L ALT (9-52) U/L Alkaline Phosphatase (38-126) U/L Total Protein (6.3-8.3) g/dL Albumin (3.5-5.0) g/dL Globulin (2.2-3.9) gm/dL Albumin/Globulin Ratio (1.0-2.1) Arterial Blood Potassium 3.0 L (3.6-5.2) mmol/L 09/07/18 Range/Units 11:38 WBC (4.8-10.8) K/uL RBC (3.80-5.20) Mil/uL Hgb (11.0-16.0) g/dL Hct (34.0-47.0) % MCV (81.0-99.0) fL MCH (27.0-31.0) pg MCHC (33.0-37.0) g/dL RDW (11.5-14.5) % Plt Count (130-400) K/uL MPV (7.2-11.7) fL Neut % (Auto) (50.0-75.0) % Lymph % (Auto) (20.0-40.0) % [place] % (Auto) (0.0-10.0) % Eos % (Auto) (0.0-4.0) % Baso % (Auto) (0.0-2.0) % Neut # (Auto) (1.8-7.0) K/uL Lymph # (Auto) (1.0-4.3) K/uL [place] # (Auto) (0.0-0.8) K/uL Eos # (Auto) (0.0-0.7) K/uL Baso # (Auto) (0.0-0.2) K/uL Neutrophils % (Manual) (50-75) % Band Neutrophils % (0-2) % Lymphocytes % (Manual) (20-40) % Monocytes % (Manual) (0-10) % Toxic Granulation Platelet Estimate (NORMAL) Large Platelets Giant Platelets Polychromasia Hypochromasia (manual) Poikilocytosis (manual Anisocytosis (manual) Ovalocytes Schistocytes Puncture Site pCO2 (35-45) mm/Hg pO2 (80-100) mm/Hg HCO3 (21-28) mmol/L ABG pH (7.35-7.45) ABG Total CO2 (22-28) mmol/L ABG O2 Saturation (95-98) % ABG Base Excess (-2.0-3.0) mmol/L Luis Test ABG Potassium (3.6-5.2) mmol/L A-a O2 Difference mm/Hg Respiratory Index Sodium (132-148) mmol/l Chloride (98-107) mmol/L Glucose (65-105) mg/dl Lactate (0.7-2.1) mmol/L Vent Mode Mechanical Rate FiO2 % Tidal Volume PEEP Potassium (3.6-5.2) mmol/L Carbon Dioxide (22-30) mmol/L Anion Gap (10-20) BUN (7-17) mg/dL Creatinine (0.7-1.2) mg/dL Est GFR ( Amer) Est GFR (Non-Af Amer) POC Glucose (mg/dL) 101 (65-110) mg/dL Random Glucose (65-105) mg/dL Lactic Acid (0.7-2.1) mmol/L Calcium (8.6-10.4) mg/dl Phosphorus (2.5-4.5) mg/dL Magnesium (1.6-2.3) mg/dL Total Bilirubin (0.2-1.3) mg/dL AST (14-36) U/L ALT (9-52) U/L Alkaline Phosphatase (38-126) U/L Total Protein (6.3-8.3) g/dL Albumin (3.5-5.0) g/dL Globulin (2.2-3.9) gm/dL Albumin/Globulin Ratio (1.0-2.1) Arterial Blood Potassium (3.6-5.2) mmol/L Laboratory Results - last 24 hr 09/07/18 09/07/18 09/07/18 11:38 17:48 18:50 WBC RBC Hgb Hct MCV MCH MCHC RDW Plt Count MPV Neut % (Auto) Lymph % (Auto) [place] % (Auto) Eos % (Auto) Baso % (Auto) Neut # (Auto) Lymph # (Auto) [place] # (Auto) Eos # (Auto) Baso # (Auto) Neutrophils % (Manual) Band Neutrophils % Lymphocytes % (Manual) Monocytes % (Manual) Toxic Granulation Platelet Estimate Large Platelets Giant Platelets Polychromasia Hypochromasia (manual) Poikilocytosis (manual Anisocytosis (manual) Ovalocytes Schistocytes Puncture Site pCO2 pO2 HCO3 ABG pH ABG Total CO2 ABG O2 Saturation ABG Base Excess Luis Test ABG Potassium A-a O2 Difference Respiratory Index Sodium Chloride Glucose Lactate Vent Mode Mechanical Rate FiO2 Tidal Volume PEEP Potassium Carbon Dioxide Anion Gap BUN Creatinine Est GFR ( Amer) Est GFR (Non-Af Amer) POC Glucose (mg/dL) 101 94 Random Glucose Lactic Acid 0.8 Calcium Phosphorus Magnesium Total Bilirubin AST ALT Alkaline Phosphatase Total Protein Albumin Globulin Albumin/Globulin Ratio Arterial Blood Potassium 09/08/18 09/08/18 09/08/18 05:50 06:15 06:15 WBC 17.7 H RBC 3.36 L Hgb 8.4 L Hct 25.9 L MCV 77.2 L MCH 24.9 L MCHC 32.2 L RDW 19.3 H Plt Count 217 MPV 10.3 Neut % (Auto) 85.6 H Lymph % (Auto) 7.5 L [place] % (Auto) 5.0 Eos % (Auto) 1.5 Baso % (Auto) 0.4 Neut # (Auto) 15.2 H Lymph # (Auto) 1.3 [place] # (Auto) 0.9 H Eos # (Auto) 0.3 Baso # (Auto) 0.1 Neutrophils % (Manual) 78 H Band Neutrophils % 9 H Lymphocytes % (Manual) 8 L Monocytes % (Manual) 5 Toxic Granulation Present Platelet Estimate Normal Large Platelets Present Giant Platelets Present Polychromasia Slight Hypochromasia (manual) Moderate Poikilocytosis (manual Slight Anisocytosis (manual) Moderate Ovalocytes Slight Schistocytes Slight Puncture Site Rb pCO2 25 L pO2 92 HCO3 24.2 ABG pH 7.52 H ABG Total CO2 21.2 L ABG O2 Saturation 98.8 H ABG Base Excess -0.9 Luis Test Na ABG Potassium 3.0 L A-a O2 Difference 91.0 Respiratory Index 1.0 Sodium 139.0 Chloride 111.0 H Glucose 98 Lactate 0.9 Vent Mode Prvc Mechanical Rate 20 FiO2 30.0 Tidal Volume 500 PEEP 5 Potassium Carbon Dioxide Anion Gap BUN Creatinine Est GFR ( Amer) Est GFR (Non-Af Amer) POC Glucose (mg/dL) Random Glucose Lactic Acid 0.8 Calcium Phosphorus Magnesium Total Bilirubin AST ALT Alkaline Phosphatase Total Protein Albumin Globulin Albumin/Globulin Ratio Arterial Blood Potassium 3.0 L 09/08/18 06:15 WBC RBC Hgb Hct MCV MCH MCHC RDW Plt Count MPV Neut % (Auto) Lymph % (Auto) [place] % (Auto) Eos % (Auto) Baso % (Auto) Neut # (Auto) Lymph # (Auto) [place] # (Auto) Eos # (Auto) Baso # (Auto) Neutrophils % (Manual) Band Neutrophils % Lymphocytes % (Manual) Monocytes % (Manual) Toxic Granulation Platelet Estimate Large Platelets Giant Platelets Polychromasia Hypochromasia (manual) Poikilocytosis (manual Anisocytosis (manual) Ovalocytes Schistocytes Puncture Site pCO2 pO2 HCO3 ABG pH ABG Total CO2 ABG O2 Saturation ABG Base Excess Luis Test ABG Potassium A-a O2 Difference Respiratory Index Sodium 140 Chloride 106 Glucose Lactate Vent Mode Mechanical Rate FiO2 Tidal Volume PEEP Potassium 3.4 L Carbon Dioxide 20 L Anion Gap 17 BUN 11 Creatinine 0.5 L Est GFR ( Amer) > 60 Est GFR (Non-Af Amer) > 60 POC Glucose (mg/dL) Random Glucose 93 Lactic Acid Calcium 7.8 L Phosphorus 2.9 Magnesium 2.2 Total Bilirubin 2.1 H AST 36 ALT 29 Alkaline Phosphatase 287 H D Total Protein 5.6 L Albumin 2.7 L Globulin 2.9 Albumin/Globulin Ratio 0.9 L Arterial Blood Potassium Fingerstick Blood Sugar Results: 75 Critical Care Progress Note - Nutrition Nutrition: Nutrition Category Date Time Status NPO Diet [DIET] Diets 08/31/18 Breakfast Active Assessment/Plan - Assessment and Plan (Free Text) Assessment: -Hypoxic respiratory failure: continue ventilation to keep Spo2 >92 and ph b/w 7.35-7.45, continue bronchodilators, CPAP daily -Septic shock: off norepi, continue broad spectrum abx, continue abs as per ID, de-escalate abx as Blood cx Klebsiella -Fever relative bradycardia: suspect drug fevers: d/c precedex, start versed -monitor urine output -source control: IR guided drainage of abdominal fluid -contine dvt/pud ppx CPAP trials cc time 31 minutes Above management d/w using tool marker Adriana [id number] - Date & Time Date: 09/08/18 Time: 10:08
[2018-09-08] MEDS: Midazolam 50 mg/10 ml 100 MG in Dextrose 5% In Water 80 ML IV PRN (10:09)
--- NOTE | 2018-09-08 10:12 | RAD ---
Date of service: 09/08/2018 HISTORY: follow up COMPARISON: 09/07/2018 FINDINGS: LUNGS: Lines and tubes in stable position. Moderate venous congestion with bibasilar airspace opacities. PLEURA: Small to moderate bilateral pleural effusions. CARDIOVASCULAR: No atherosclerotic calcification present Normal. OSSEOUS STRUCTURES: Degenerative changes in the spine. VISUALIZED UPPER ABDOMEN: Normal. OTHER FINDINGS: None. IMPRESSION: Lines and tubes in stable position. Moderate venous congestion with bibasilar airspace opacities. Small to moderate bilateral pleural effusions.
[2018-09-08] MEDS ORDERED: Potassium Phosphate 15 MMOLE in Sodium Chloride 0.9% 250 ML IV ONE (10:25)
--- NOTE | 2018-09-08 14:11 | CT ---
CT abdomen and pelvis History: Sepsis. COMPARISON: CT dated 09/04/2018 TECHNIQUE: Multiple contiguous axial images were performed through the abdomen and pelvis with the use of intravenous contrast. Subsequently, sagittal and coronal reformatted images were obtained. This CT exam was performed using one or more of the following dose reduction techniques: Automated exposure control, adjustment of the mA and/or kV according to patient size, and/or use of iterative reconstruction technique. Findings: Dense bibasilar consolidation with bilateral pleural effusions. Additional consolidation within the inferior left upper lobe. No pericardial effusion. Worsening abdominal and pelvic ascites ; particularly prominently worsening ascites in the upper abdomen. Lobulated low-attenuation focus/lesion within the medial inferior right hepatic lobe measuring 4.1 x 2.2 x 4.9 centimeters. This may represent a cystic lesion however additional etiologies are not excluded. Correlation with multiphasic CT may be helpful if clinically indicated. This demonstrates a Hounsfield unit attenuation of 40, indeterminate. Hepatomegaly. Pericholecystic edema and or gallbladder wall thickening. Spleen is preserved. Adrenal glands are preserved. Fluid anterior to the pancreas. NG tube extending into the stomach. Small hiatal hernia. Multiple dilated enhancing small bowel loops seen throughout the upper mid and lower abdomen suggestive for prominent enteritis with associated ileus/partial small bowel obstruction. Clinical correlation. Right kidney: No calculi or hydronephrosis. Left Kidney: No calculi or hydronephrosis. Rectal tube. Rankin catheter in the urinary bladder which is underdistended and or thick-walled. Moderate loculated pelvic ascites. Left lower quadrant ostomy in place. Thick-walled enhancing colon suggestive for an underlying colitis. Appendix not well visualized. Abdominal drainage catheters in place. Prominent para-aortic, mesenteric, and inguinal lymph nodes. Prominent reticulation and edema within the subcutaneous soft tissues and flank soft tissues. Bone island in the left iliac bone. Impression: 1. Dense bibasilar consolidation with bilateral pleural effusions. Additional consolidation within the inferior left upper lobe. 2. Worsening abdominal and pelvic ascites ; particularly prominently worsening ascites in the left upper abdomen. Moderate loculated pelvic ascites. Fluid anterior to the pancreas. 3. Multiple dilated enhancing small bowel loops seen throughout the upper mid and lower abdomen suggestive for prominent enteritis with associated ileus/partial small bowel obstruction. Clinical correlation. 4. Thick-walled enhancing colon suggestive for an underlying colitis. 5. Lobulated low-attenuation focus/lesion within the medial inferior right hepatic lobe measuring 4.1 x 2.2 x 4.9 centimeters. This may represent a cystic lesion however additional etiologies are not excluded. Correlation with multiphasic CT may be helpful if clinically indicated. This demonstrates a Hounsfield unit attenuation of 40, indeterminate. Hepatomegaly. 6. Pericholecystic edema and or gallbladder wall thickening. 7. NG tube extending into the stomach. Small hiatal hernia. 8. Rectal tube. 9. Rankin catheter in the urinary bladder which is underdistended and or thick-walled. 10. Prominent para-aortic, mesenteric, and inguinal lymph nodes. 11. Prominent reticulation and edema within the subcutaneous soft tissues and flank soft tissues. Additional findings as above. These findings were preliminarily reported at 7:06 p.m. on 09/07/[address] Juan Santo from [employer].
--- NOTE | 2018-09-08 14:39 | CP.PCM.CON ---
History of Present Illness - History of Present Illness History of Present Illness: s/p repair perf viscus/ peritonitis with persistent leukocytosis and fever - now off pressors CT abd repeated - ? new collection IR consulted new lines placed by rehabilitation consultant awake on vent c/o pain lower abd - mild passing stool per colostomy Review of Systems - Review of Systems All systems: reviewed and no additional remarkable complaints except - Constitutional Constitutional: As Per HPI - EENT Eyes: absent: As Per HPI, Blind Spots, Blurred Vision, Change in Vision, Decre ased Night Vision, Diplopia, Discharge, Dry Eye, Exophthalmos, Floaters, Irritation, Itchy Eyes, Loss of Peripheral Vision, Pain, Photophobia, Requires Corrective Lenses, Sees Flashes, Spots in Vision, Tunnel Vision, Other Visual Disturbances, Loss of Vision, Other Ears: absent: As Per HPI, Decreased Hearing, Ear Discharge, Ear Pain, Tinnitus, Abnormal Hearing, Disequilibrium, Dizziness, Other Nose/Mouth/Throat: absent: As Per HPI, Epistaxis, Nasal Congestion, Nasal Discharge, Nasal Obstruction, Nasal Trauma, Nose Pain, Post Nasal Drip, Sinus P ain, Sinus Pressure, Bleeding Gums, Change in Voice, Dental Pain, Dry Mouth, Dysphagia, Halitosis, Hoarsness, Lip Swelling, Mouth Lesions, Mouth Pain, Odynophagia, Sore Throat, Throat Swelling, Tongue Swelling, Facial Pain, Neck Pain, Neck Mass, Other - Cardiovascular Cardiovascular: As Per HPI - Respiratory Respiratory: As Per HPI - Gastrointestinal Gastrointestinal: As Per HPI - Genitourinary Genitourinary: As Per HPI - Reproductive: Female Reproductive:Female: As Per HPI - Menstruation Menstruation: absent: As Per HPI, Amenorrhea, Amenorrhea/ Control, Currently Menstual, Cycle <21 Days, Cycle >35 Days, Cycle Variable, Menses 1-7 Days, Menses >/= 8 Days, Menses Variable, Cycle > 4 Weeks Between, No Menses for 6 Months, Heavy Menses, Light Menses, Normal Menses, Spotting Between Cycles, S/P Hysterectomy, Menopausal, Post Menopausal, Premenarche, Abnormal Vaginal Bleeding, Dysmenorrhea, Other - Musculoskeletal Musculoskeletal: absent: As Per HPI, Abnormal Gait, Arthralgias, Atrophy, Back Pain, Deformity, Joint Swelling, Limited Range of Motion, Loss of Height, Muscle Cramps, Muscle Weakness, Myalgias, Neck Pain, Numbness, Radiating Pain into Limb, Stiffness, Tingling, Other - Integumentary Integumentary: As Per HPI - Neurological Neurological: absent: As Per HPI, Abnormal Gait, Abnormal Hearing, Abnormal Movements, Abnormal Speech, Behavioral Changes, Burning Sensations, Confusion, Convulsions, Disequilibrium, Dizziness, Numbness, Focal Weakness, Frequent Falls, Headaches, Lack of Coordination, Loss of Vision, Memory Loss, Paresthesias, Radicular Pain, Restless Legs, Sensory Deficit, Syncope, Tingling, Tremor, Vertigo, Weakness, Other Visual Disturbances, Other - Psychiatric Psychiatric: absent: As Per HPI, Abnormal Sleep Pattern, Anhedonia, Anxiety, Auditory Hallucinations, Behavioral Changes, Change in Appetite, Change in Libido, Confusion, Depression, Difficulty Concentrating, Hallucinations, Homicidal Ideation, Hopelessness, Irritability, Memory Loss, Mood Swings, Panic Attacks, Paranoia, Suicidal Ideation, Visual Hallucinations, Tactile Hallucinations, Other - Endocrine Endocrine: absent: As Per HPI, Change in Body Appearance, Change in Libido, Cold Intolorance, Deepening of Voice, Excessive Sweating, Fatigue, Flushing, Heat Intolorance, Increase in Ring/Shoe/Hat Size, Palpitations, Polydipsia, Polyphagia, Polyuria, Other - Hematologic/Lymphatic Hematologic: absent: As Per HPI, Easy Bleeding, Easy Bruising, Lymphadenopathy, Other Past Patient History - Past Medical History & Family History Past Medical History?: Yes - Past Social History Smoking Status: Never Smoked - CARDIAC Hx Cardiac Disorders: No - PULMONARY Hx Asthma: Yes - NEUROLOGICAL Hx Neurological Disorder: No - HEENT Hx HEENT Problems: No - RENAL Hx Chronic Kidney Disease: No - ENDOCRINE/METABOLIC Hx Endocrine Disorders: No - HEMATOLOGICAL/ONCOLOGICAL Hx Blood Disorders: No - INTEGUMENTARY Hx Dermatological Problems: No - MUSCULOSKELETAL/RHEUMATOLOGICAL Hx Falls: No - GASTROINTESTINAL Hx Gastrointestinal Disorders: No - GENITOURINARY/GYNECOLOGICAL Hx Genitourinary Disorders: No Other/Comment: "PROBLEMS WITH MY OVARIES FOR ABOUT 4 YEARS" - PSYCHIATRIC Hx Substance Use: No - SURGICAL HISTORY Hx Surgeries: Yes Hx Hysterectomy: Yes (total hysterectomy - 08/27/18) Other/Comment: cyst right ovary 2014 - ANESTHESIA Hx Anesthesia: Yes Hx Anesthesia Reactions: No Meds Allergies/Adverse Reactions: Allergies Allergy/AdvReac Type Severity Reaction Status Date / Time No Known Allergies Allergy Verified 06/04/18 06:34 - Medications Medications: Current Medications Artificial Tears (Lacri-Lube) 1 gm OU Q4H [facility] Last Admin: 09/08/18 14:19 Dose: Not Given Hydromorphone HCl (Dilaudid) 0.5 mg IVP Q2H PRN PRN Reason: Pain, moderate (4-7) Last Admin: 09/08/18 11:29 Dose: 0.5 mg Vancomycin/Sodium Chloride (Vancomycin 1 Gm/Ns 200 Ml) 1 gm in 200 mls @ 133 mls/hr IVPB Q8H [facility]; Protocol Stop: 09/09/18 17:31 Last Admin: 09/08/18 09:06 Dose: 133 mls/hr Dextrose/Sodium Chloride (Dextrose 5%/0.9% Ns 1000 Ml) 1,000 mls @ 50 mls/hr IV .Q20H [facility] Last Admin: 09/07/18 23:50 Dose: Not Given Meropenem 1 gm/ Sodium (Chloride) 50 mls @ 100 mls/hr IVPB Q8H [facility]; Protocol Last Admin: 09/08/18 13:34 Dose: 100 mls/hr Aztreonam 1 gm/ Sodium (Chloride) 50 mls @ 100 mls/hr IVPB Q8H [facility]; Protocol Last Admin: 09/08/18 10:29 Dose: 100 mls/hr Metronidazole (Flagyl) 500 mg in 100 mls @ 100 mls/hr IVPB Q8H [facility]; Protocol Last Admin: 09/08/18 11:30 Dose: 100 mls/hr Micafungin Sodium 100 mg/ (Sodium Chloride) 100 mls @ 100 mls/hr IV Q24H [facility]; Protocol Last Admin: 09/07/18 15:24 Dose: 100 mls/hr Acetaminophen 1,000 mg/ (Miscellaneous) 100 mls @ 400 mls/hr IV Q8 [facility] Stop: 09/08/18 17:01 Last Admin: 09/08/18 13:34 Dose: 400 mls/hr Midazolam HCl 100 mg/ Dextrose 100 mls @ 2.04 mls/hr IV .Q24H PRN; Protocol PRN Reason: PER PROTOCOL Last Titration: 09/08/18 11:25 Dose: 0.05 mg/kg/hr, 5.1 mls/hr Insulin Aspart (Novolog) 0 unit SC Q6 [facility]; Protocol Last Admin: 09/08/18 11:32 Dose: Not Given Metoclopramide HCl (Reglan) 10 mg IVP Q6 [facility] Last Admin: 09/08/18 11:30 Dose: 10 mg Metoprolol Tartrate (Lopressor) 5 mg IVP Q6H [facility] Last Admin: 09/08/18 12:08 Dose: 5 mg Pantoprazole Sodium (Protonix Inj) 40 mg IVP DAILY [facility] Last Admin: 09/08/18 09:06 Dose: 40 mg Vancomycin HCl (Vancocin (Oral Or Rectal Use)) 500 mg PO Q6 [facility]; Protocol Last Admin: 09/08/18 11:30 Dose: 500 mg Physical Exam - Constitutional Appears: Toxic, No Acute Distress - Head Exam Head Exam: ATRAUMATIC, NORMOCEPHALIC - Eye Exam Eye Exam: EOMI, PERRL. absent: Scleral icterus - ENT Exam ENT Exam: Mucous Membranes Dry, Normal External Ear Exam - Neck Exam Neck exam: Negative for: Lymphadenopathy - Respiratory Exam Respiratory Exam: Decreased Breath Sounds, Rhonchi - Cardiovascular Exam Cardiovascular Exam: Tachycardia, REGULAR RHYTHM, +S1, +S2 - GI/Abdominal Exam GI & Abdominal Exam: Diminished Bowel Sounds, Distended, Guarding, Soft. absent: Rebound, Rigid Additional comments: Left sided colostomy with dark liquid stoo midline incision with scant seroosanguinous drainage RLQ DELMA drain in place with min dranage - Rectal Exam Rectal Exam: Deferred - Exam Exam: NORMAL INSPECTION - Extremities Exam Extremities exam: Positive for: pedal pulses present. Negative for: calf tenderness, pedal edema, tenderness - Back Exam Back exam: absent: CVA tenderness (L), CVA tenderness (R) - Neurological Exam Neurological exam: Alert, CN II-XII Intact, Oriented x3, Reflexes Normal - Psychiatric Exam Psychiatric exam: Depressed - Skin Skin Exam: Dry Results - Vital Signs Recent Vital Signs: Last Vital Signs Temp 102.5 F H 09/08/18 12:00 Pulse 107 H 09/08/18 14:08 Resp 31 H 09/08/18 14:08 BP 139/75 09/08/18 14:08 Pulse Ox 98 09/08/18 14:08 - Labs Result Diagrams: 09/08/18 06:15 09/08/18 06:15 Labs: Laboratory Results - last 24 hr 09/07/18 09/07/18 09/08/18 17:48 18:50 05:50 WBC RBC Hgb Hct MCV MCH MCHC RDW Plt Count MPV Neut % (Auto) Lymph % (Auto) [place] % (Auto) Eos % (Auto) Baso % (Auto) Neut # (Auto) Lymph # (Auto) [place] # (Auto) Eos # (Auto) Baso # (Auto) Neutrophils % (Manual) Band Neutrophils % Lymphocytes % (Manual) Monocytes % (Manual) Toxic Granulation Platelet Estimate Large Platelets Giant Platelets Polychromasia Hypochromasia (manual) Poikilocytosis (manual Anisocytosis (manual) Ovalocytes Schistocytes Puncture Site Rb pCO2 25 L pO2 92 HCO3 24.2 ABG pH 7.52 H ABG Total CO2 21.2 L ABG O2 Saturation 98.8 H ABG Base Excess -0.9 Luis Test Na ABG Potassium 3.0 L A-a O2 Difference 91.0 Respiratory Index 1.0 Sodium 139.0 Chloride 111.0 H Glucose 98 Lactate 0.9 Vent Mode Prvc Mechanical Rate 20 FiO2 30.0 Tidal Volume 500 PEEP 5 Potassium Carbon Dioxide Anion Gap BUN Creatinine Est GFR ( Amer) Est GFR (Non-Af Amer) POC Glucose (mg/dL) 94 Random Glucose Lactic Acid 0.8 Calcium Phosphorus Magnesium Total Bilirubin AST ALT Alkaline Phosphatase Total Protein Albumin Globulin Albumin/Globulin Ratio Arterial Blood Potassium 3.0 L 09/08/18 09/08/18 09/08/18 06:15 06:15 06:15 WBC 17.7 H RBC 3.36 L Hgb 8.4 L Hct 25.9 L MCV 77.2 L MCH 24.9 L MCHC 32.2 L RDW 19.3 H Plt Count 217 MPV 10.3 Neut % (Auto) 85.6 H Lymph % (Auto) 7.5 L [place] % (Auto) 5.0 Eos % (Auto) 1.5 Baso % (Auto) 0.4 Neut # (Auto) 15.2 H Lymph # (Auto) 1.3 [place] # (Auto) 0.9 H Eos # (Auto) 0.3 Baso # (Auto) 0.1 Neutrophils % (Manual) 78 H Band Neutrophils % 9 H Lymphocytes % (Manual) 8 L Monocytes % (Manual) 5 Toxic Granulation Present Platelet Estimate Normal Large Platelets Present Giant Platelets Present Polychromasia Slight Hypochromasia (manual) Moderate Poikilocytosis (manual Slight Anisocytosis (manual) Moderate Ovalocytes Slight Schistocytes Slight Puncture Site pCO2 pO2 HCO3 ABG pH ABG Total CO2 ABG O2 Saturation ABG Base Excess Luis Test ABG Potassium A-a O2 Difference Respiratory Index Sodium 140 Chloride 106 Glucose Lactate Vent Mode Mechanical Rate FiO2 Tidal Volume PEEP Potassium 3.4 L Carbon Dioxide 20 L Anion Gap 17 BUN 11 Creatinine 0.5 L Est GFR ( Amer) > 60 Est GFR (Non-Af Amer) > 60 POC Glucose (mg/dL) Random Glucose 93 Lactic Acid 0.8 Calcium 7.8 L Phosphorus 2.9 Magnesium 2.2 Total Bilirubin 2.1 H AST 36 ALT 29 Alkaline Phosphatase 287 H D Total Protein 5.6 L Albumin 2.7 L Globulin 2.9 Albumin/Globulin Ratio 0.9 L Arterial Blood Potassium Assessment & Plan - Assessment and Plan (Free Text) Assessment: s/p repair perf viscus/ peritonitis with persistent leukocytosis and fever - now off pressors CT abd repeated - ? new collection IR consulted new lines placed by rehabilitation consultant Reccomend transfer to [facility] may need further drainage / repair cont empiric IV antibiotics
[2018-09-08] MEDS: Micafungin 100 MG in Sodium Chloride 0.9% 100 ML IV SCH (16:02)
[2018-09-08] MEDS: Dextrose 5%/0.9% NS 1,000 ML IV SCH (18:56)
[2018-09-08] MEDS: Acetaminophen IV 1,000 MG in Premixed IV 1 EA IV PRN (20:30)
[2018-09-09] MEDS: (Novolog) Insulin Aspart, Recombinant 100 u/ml 10 ml vial SC SCH ×4 (00:15→23:44)
[2018-09-09] MEDS: Vancomycin 1 gm/NS 200 ml 1 GM/200 ML BAG IVPB SCH ×3 (00:35→18:21)
[2018-09-09] MEDS: Metoprolol 1 mg/ml Inj IVP SCH ×4 (00:52→18:19)
[2018-09-09] MEDS: White Petrolatum/Mineral Oil Ophth Oint(3.5 gm) OU SCH ×6 (01:39→21:27)
[2018-09-09] MEDS: HYDROmorphone 0.5 mg/0.5 ml ISec IVP PRN ×7 (02:25→23:49)
[2018-09-09] MEDS: metroNIDAZOLE IV 500 mg/100 ml 500 MG/100 ML BAG IVPB SCH ×3 (03:15→20:00)
[2018-09-09] MEDS: Midazolam 50 mg/10 ml 100 MG in Dextrose 5% In Water 80 ML IV PRN ×2 (04:22→19:00)
[2018-09-09] MEDS: Acetaminophen IV 1,000 MG in Premixed IV 1 EA IV PRN ×2 (04:30→13:34)
[2018-09-09 04:41] LABS: ARTERIAL BLOOD GAS HCO3 22.8 mmol/L (21-28); ARTERIAL BLOOD GAS O2 SAT 94.6 % (95-98); ARTERIAL BLOOD GAS PCO2 26 mm/Hg (35-45); ARTERIAL BLOOD GAS PH 7.48 (7.35-7.45); ARTERIAL BLOOD GAS PO2 59 mm/Hg (80-100); ARTERIAL BLOOD GAS TCO2 20.2 mmol/L (22-28)
[2018-09-09 05:44] LABS: BASO # 0.1 K/uL (0.0-0.2); BASO % 0.4 % (0.0-2.0); EOS # 0.3 K/uL (0.0-0.7); EOS % 1.8 % (0.0-4.0); HEMOGLOBIN 7.9 g/dL (11.0-16.0); LYMPH # 1.2 K/uL (1.0-4.3); LYMPH % 6.9 % (20.0-40.0); MEAN CELL VOLUME 77.7 fL (81.0-99.0); MEAN CORPUSCULAR HEMOGLOBIN 25.3 pg (27.0-31.0); MEAN CORPUSCULAR HGB CONC 32.6 g/dL (33.0-37.0); MONO # 1.1 K/uL (0.0-0.8); MONO % 6.5 % (0.0-10.0); NEUT # 14.2 K/uL (1.8-7.0); NEUT % 84.4 % (50.0-75.0); PLATELET COUNT 266 K/uL (130-400); RBC 3.14 Mil/uL (3.80-5.20); WHITE BLOOD COUNT 16.8 K/uL (4.8-10.8)
[2018-09-09 06:03] LABS: ALB/GLOB RATIO 0.9 (1.0-2.1); ALBUMIN 2.6 g/dL (3.5-5.0); ALT/SGPT 30 U/L (9-52); AST/SGOT 48 U/L (14-36); BLOOD UREA NITROGEN 8 mg/dL (7-17); CALCIUM 7.2 mg/dl (8.6-10.4); GFR NON-AFRICAN AMERICAN > 60
[2018-09-09] MEDS: Vancomycin 125 MG/5 ML SOLN (ORAL/RECTAL) PO SCH (06:37)
[2018-09-09] MEDS: Dextrose 5%/0.9% NS 1,000 ML IV SCH (07:25)
[2018-09-09 08:21] LABS: BANDS 1 % (0-2); LYMPHOCYTE 6 % (20-40); MONOCYTE 3 % (0-10); NEUTROPHIL 90 % (50-75); PLATELET ESTIMATE NORMAL (NORMAL); TOTAL CELLS COUNTED 100
[2018-09-09 08:22] LABS: ANISOCYTOSIS SLIGHT; HYPOCHROMIC SLIGHT; POIKILOCYTOSIS SLIGHT; POLYCHROMIC SLIGHT
[2018-09-09] MEDS: Potassium Ch 20mEq in D5-1/2NS 1,000 ML IV SCH ×2 (08:22→18:22)
[2018-09-09 08:23] LABS: LARGE PLATELETS PRESENT; TARGET CELLS SLIGHT
[2018-09-09 08:24] LABS: OVALOCYTES SLIGHT
--- NOTE | 2018-09-09 08:25 | CP.CCUPN ---
CCU Subjective - Physician Review Events Since Last Encounter (Free Text): 09/09/18 13:24 no over night events reported Subjective (Free Text): 09/09/18 13:24 Patient was seen and examined this morning. She is still on Versed sedation. She is moving spontaneously but does not appear in acute distress. HR normalized over night and has been persistently in the 80s. Patient is still febrile and on hypothermia blanket and IV Tylenol PRN. Critical Care Time Spent (in minutes): 35 CCU Objective - Vital Signs / Intake & Output Vital Signs (Last 4 hours): Vital Signs Pulse Resp BP Pulse Ox 09/09/18 07:14 89 21 117/55 L 100 09/09/18 07:00 83 25 H 100 09/09/18 06:14 93 H 34 H 127/70 100 09/09/18 06:00 76 26 H 100 09/09/18 05:14 70 26 H 117/63 100 09/09/18 05:00 105 H 31 H 100 Intake and Output (Last 8hrs): Intake & Output 09/08/18 09/09/18 09/09/18 22:59 06:59 14:59 Intake Total 878.3 888.8 55.1 Output Total 1871 1358 Balance -992.7 -469.2 55.1 Weight 206 lb Intake: IV 98 Intake, IV Amount 878.3 790.8 55.1 Left Forearm 650 650 50 Left Lower Forearm 187.5 100 Right Hand 40.8 40.8 5.1 Output: Gastric Amount 1350 1300 Stomach 1350 1300 Drainage 13 8 Left Abdomen 8 4 Right Abdomen 5 4 Urine 408 Urethral (Rankin) 408 Stool 100 50 - Physical Exam Head: Positive for: Atraumatic, Normocephalic Pupils: Positive for: PERRL. Negative for: Non-Reactive, Pinpoint Extroacular Muscles: Positive for: Other (sedated and not following commands, minimal spontaneous movements when aroused) Conjunctiva: Positive for: Normal. Negative for: Injected, Icteric Mouth: Positive for: Dry Nose (External): Positive for: Atraumatic. Negative for: Abrasion, Contusion, Laceration Nose (Internal): Positive for: No Active Bleeding. Negative for: Epistaxis Neck: Positive for: Normal Range of Motion (passive ROM intact, some spontaneous active movement when aroused but unable to assess full active ROM), Trachea Midline. Negative for: JVD Respiratory/Chest: Positive for: Clear to Auscultation. Negative for: Respiratory Distress, Accessory Muscle Use Cardiovascular: Positive for: Regular Rate and Rhythm, Normal S1, S2, Peripheal Pulses Present (weakly/irregularly palpable bilateral radial pulses, unable to palpate pedal pulses, weakly/irregularly palpable femor pulses bilaterally) Abdomen: Positive for: Other (post-op, colostomy draing, RLQ DELMA drain with serosanguinous, no lin blood or pus appreciated, colostomy bag present with patent-appearing stoma, abdomen firm to palpation diffusely, bandaging over surgical incisions) Genitourinary/Pelvic Exam: Positive for: Other (Rankin present with only approx 250cc very dark sara urine) Upper Extremity: Positive for: Edema (bilateral upper extremities with mild non- pitting edema). Negative for: Cyanosis, NORMAL PULSES (weak pulses as described in cardio section), Deformity Lower Extremity: Positive for: Edema (bilateral lower extremities with moderate non-pitting edema). Negative for: NORMAL PULSES (intermittently palpable weak femoral pulses bilaterally unable, unable to palpate any pedal pulses) Neurological: Positive for: Other (sedated on fentanyl/precedex, intermittently aroused by pain or stimulation (like Arterial line placement) but rapidly returns to somnolence). Negative for: GCS=15 (GCS 7 (E2 V1t M4)) Skin: Positive for: Warm, Diaphoretic, Pale. Negative for: Dry, Rashes, Normal Color Psychiatric: Positive for: Other (sedated but intermittently aroused, rapidly returns to somnolence) - Medications Active Medications: Active Medications Generic Name Dose Route Start Last Admin Trade Name Freq PRN Reason Stop Dose Admin Artificial Tears 1 gm 09/03/18 06:00 09/09/18 06:36 Lacri-Lube OU 1 gm Q4H MARLENA Administration Hydromorphone HCl 0.5 mg 09/07/18 14:17 09/09/18 06:30 Dilaudid IVP 0.5 mg Q2H PRN Administration Pain, moderate (4-7) Vancomycin/Sodium Chloride 1 gm in 200 mls @ 133 mls/hr 09/04/18 17:30 09/09/18 00:35 Vancomycin 1 Gm/Ns 200 Ml IVPB 09/09/18 17:31 133 mls/hr Q8H MARLENA Administration Protocol Meropenem 1 gm/ Sodium 50 mls @ 100 mls/hr 09/06/18 22:00 09/09/18 05:45 Chloride IVPB 100 mls/hr Q8H MARLENA Administration Protocol Aztreonam 1 gm/ Sodium 50 mls @ 100 mls/hr 09/07/18 03:00 09/09/18 02:00 Chloride IVPB 100 mls/hr Q8H MARLENA Administration Protocol Metronidazole 500 mg in 100 mls @ 100 mls/hr 09/06/18 20:00 09/09/18 03:15 Flagyl IVPB 100 mls/hr Q8H MARLENA Administration Protocol Micafungin Sodium 100 mg/ 100 mls @ 100 mls/hr 09/07/18 16:00 09/08/18 16:02 Sodium Chloride IV 100 mls/hr Q24H MARLENA Administration Protocol Midazolam HCl 100 mg/ Dextrose 100 mls @ 2.04 mls/hr 09/08/18 09:15 09/09/18 04:22 IV 0.04 mg/kg/hr .Q24H PRN 5.1 mls/hr PER PROTOCOL Administration Protocol 0.02 MG/KG/HR Acetaminophen 1,000 mg/ 100 mls @ 400 mls/hr 09/08/18 19:35 09/09/18 04:30 Miscellaneous IV 09/09/18 19:36 400 mls/hr Q6 PRN Administration Fever >100.4 F Potassium Chloride/Dextrose/Sod Cl 1,000 mls @ 100 mls/hr 09/09/18 07:30 09/09/18 08:22 Potassium Chl 20 Meq In D5-1/2ns IV 100 mls/hr .Q10H MARLENA Administration Potassium Chloride 20 meq in 100 mls @ 50 mls/hr 09/09/18 08:08 Potassium Chloride 20 Meq/100 Ml IVPB 09/09/18 10:07 ONCE ONE Insulin Aspart 0 unit 09/03/18 06:00 09/09/18 06:10 Novolog SC Not Given Q6 MARLENA Protocol Metoclopramide HCl 10 mg 09/06/18 12:00 09/09/18 06:34 Reglan IVP 10 mg Q6 MARLENA Administration Metoprolol Tartrate 5 mg 09/06/18 13:00 09/09/18 07:26 Lopressor IVP 5 mg Q6H MARLENA Administration Pantoprazole Sodium 40 mg 08/31/18 10:00 09/08/18 09:06 Protonix Inj IVP 40 mg DAILY MARLENA Administration Vancomycin HCl 500 mg 09/07/18 00:00 09/09/18 06:37 Vancocin (Oral Or Rectal Use) PO 500 mg Q6 MARLENA Administration Protocol - Patient Studies Lab Studies: Microbiology Studies 09/05/18 15:30 Blood Culture - Preliminary Blood NO GROWTH AFTER 3 DAYS 09/05/18 16:00 Blood Culture - Preliminary Blood NO GROWTH AFTER 3 DAYS 09/06/18 Unknown Gram Stain - Final Abdomen Wound Culture - Preliminary No growth. Lab Studies 09/09/18 09/09/18 09/09/18 Range/Units 05:53 05:36 05:36 WBC (4.8-10.8) K/uL RBC (3.80-5.20) Mil/uL Hgb (11.0-16.0) g/dL Hct (34.0-47.0) % MCV (81.0-99.0) fL MCH (27.0-31.0) pg MCHC (33.0-37.0) g/dL RDW (11.5-14.5) % Plt Count (130-400) K/uL MPV (7.2-11.7) fL Neut % (Auto) (50.0-75.0) % Lymph % (Auto) (20.0-40.0) % [place] % (Auto) (0.0-10.0) % Eos % (Auto) (0.0-4.0) % Baso % (Auto) (0.0-2.0) % Neut # (Auto) (1.8-7.0) K/uL Lymph # (Auto) (1.0-4.3) K/uL [place] # (Auto) (0.0-0.8) K/uL Eos # (Auto) (0.0-0.7) K/uL Baso # (Auto) (0.0-0.2) K/uL Neutrophils % (Manual) (50-75) % Band Neutrophils % (0-2) % Lymphocytes % (Manual) (20-40) % Monocytes % (Manual) (0-10) % Toxic Granulation Platelet Estimate (NORMAL) Large Platelets Giant Platelets Polychromasia Hypochromasia (manual) Poikilocytosis (manual Anisocytosis (manual) Target Cells Ovalocytes Schistocytes Puncture Site pCO2 (35-45) mm/Hg pO2 (80-100) mm/Hg HCO3 (21-28) mmol/L ABG pH (7.35-7.45) ABG Total CO2 (22-28) mmol/L ABG O2 Saturation (95-98) % ABG Base Excess (-2.0-3.0) mmol/L Luis Test ABG Potassium (3.6-5.2) mmol/L A-a O2 Difference mm/Hg Respiratory Index Sodium 139 (132-148) mmol/l Chloride 107 (98-107) mmol/L Glucose (65-105) mg/dl Lactate (0.7-2.1) mmol/L Vent Mode Mechanical Rate FiO2 % Tidal Volume PEEP Crit Value Called To Crit Value Called By Crit Value Read Back Blood Gas Notified Time Potassium 3.3 L (3.6-5.2) mmol/L Carbon Dioxide 23 (22-30) mmol/L Anion Gap 13 (10-20) BUN 8 (7-17) mg/dL Creatinine 0.5 L (0.7-1.2) mg/dL Est GFR ( Amer) > 60 Est GFR (Non-Af Amer) > 60 Random Glucose 126 H (65-105) mg/dL Lactic Acid 1.3 (0.7-2.1) mmol/L Calcium 7.2 L (8.6-10.4) mg/dl Phosphorus 3.5 (2.5-4.5) mg/dL Magnesium 2.0 (1.6-2.3) mg/dL Total Bilirubin 1.5 H (0.2-1.3) mg/dL AST 48 H D (14-36) U/L ALT 30 (9-52) U/L Alkaline Phosphatase 206 H D (38-126) U/L Total Protein 5.6 L (6.3-8.3) g/dL Albumin 2.6 L (3.5-5.0) g/dL Globulin 3.0 (2.2-3.9) gm/dL Albumin/Globulin Ratio 0.9 L (1.0-2.1) Procalcitonin (0.19-0.49) NG/ML Arterial Blood Potassium (3.6-5.2) mmol/L Vancomycin Trough 14.1 H (5.0-10.0) ug/mL C. difficile Ag & Toxin (NEGATIVE) 09/09/18 09/09/18 09/08/18 Range/Units 05:35 04:30 20:01 WBC 16.8 H (4.8-10.8) K/uL RBC 3.14 L (3.80-5.20) Mil/uL Hgb 7.9 L (11.0-16.0) g/dL Hct 24.4 L (34.0-47.0) % MCV 77.7 L (81.0-99.0) fL MCH 25.3 L (27.0-31.0) pg MCHC 32.6 L (33.0-37.0) g/dL RDW 19.0 H (11.5-14.5) % Plt Count 266 (130-400) K/uL MPV 10.0 (7.2-11.7) fL Neut % (Auto) 84.4 H (50.0-75.0) % Lymph % (Auto) 6.9 L (20.0-40.0) % [place] % (Auto) 6.5 (0.0-10.0) % Eos % (Auto) 1.8 (0.0-4.0) % Baso % (Auto) 0.4 (0.0-2.0) % Neut # (Auto) 14.2 H (1.8-7.0) K/uL Lymph # (Auto) 1.2 (1.0-4.3) K/uL [place] # (Auto) 1.1 H (0.0-0.8) K/uL Eos # (Auto) 0.3 (0.0-0.7) K/uL Baso # (Auto) 0.1 (0.0-0.2) K/uL Neutrophils % (Manual) 90 H (50-75) % Band Neutrophils % 1 (0-2) % Lymphocytes % (Manual) 6 L (20-40) % Monocytes % (Manual) 3 (0-10) % Toxic Granulation Platelet Estimate Normal (NORMAL) Large Platelets Present Giant Platelets Polychromasia Slight Hypochromasia (manual) Slight Poikilocytosis (manual Slight Anisocytosis (manual) Slight Target Cells Slight Ovalocytes Slight Schistocytes Puncture Site Rb pCO2 26 L (35-45) mm/Hg pO2 59 L (80-100) mm/Hg HCO3 22.8 (21-28) mmol/L ABG pH 7.48 H (7.35-7.45) ABG Total CO2 20.2 L (22-28) mmol/L ABG O2 Saturation 94.6 L (95-98) % ABG Base Excess -2.6 L (-2.0-3.0) mmol/L Luis Test Na ABG Potassium 2.5 L* (3.6-5.2) mmol/L A-a O2 Difference 122.0 mm/Hg Respiratory Index 2.1 Sodium 144.0 (132-148) mmol/l Chloride 115.0 H (98-107) mmol/L Glucose 100 (65-105) mg/dl Lactate 1.0 (0.7-2.1) mmol/L Vent Mode Prvc Mechanical Rate 20 FiO2 30.0 % Tidal Volume 500 PEEP 5 Crit Value Called To Cara greenwood/rn Crit Value Called By Sha fong/rt Crit Value Read Back Y Blood Gas Notified Time 445 Potassium (3.6-5.2) mmol/L Carbon Dioxide (22-30) mmol/L Anion Gap (10-20) BUN (7-17) mg/dL Creatinine (0.7-1.2) mg/dL Est GFR ( Amer) Est GFR (Non-Af Amer) Random Glucose (65-105) mg/dL Lactic Acid (0.7-2.1) mmol/L Calcium (8.6-10.4) mg/dl Phosphorus (2.5-4.5) mg/dL Magnesium (1.6-2.3) mg/dL Total Bilirubin (0.2-1.3) mg/dL AST (14-36) U/L ALT (9-52) U/L Alkaline Phosphatase (38-126) U/L Total Protein (6.3-8.3) g/dL Albumin (3.5-5.0) g/dL Globulin (2.2-3.9) gm/dL Albumin/Globulin Ratio (1.0-2.1) Procalcitonin (0.19-0.49) NG/ML Arterial Blood Potassium 2.5 L* (3.6-5.2) mmol/L Vancomycin Trough (5.0-10.0) ug/mL C. difficile Ag & Toxin Negative (NEGATIVE) 09/08/18 09/08/18 Range/Units 06:15 06:15 WBC (4.8-10.8) K/uL RBC (3.80-5.20) Mil/uL Hgb (11.0-16.0) g/dL Hct (34.0-47.0) % MCV (81.0-99.0) fL MCH (27.0-31.0) pg MCHC (33.0-37.0) g/dL RDW (11.5-14.5) % Plt Count (130-400) K/uL MPV (7.2-11.7) fL Neut % (Auto) (50.0-75.0) % Lymph % (Auto) (20.0-40.0) % [place] % (Auto) (0.0-10.0) % Eos % (Auto) (0.0-4.0) % Baso % (Auto) (0.0-2.0) % Neut # (Auto) (1.8-7.0) K/uL Lymph # (Auto) (1.0-4.3) K/uL [place] # (Auto) (0.0-0.8) K/uL Eos # (Auto) (0.0-0.7) K/uL Baso # (Auto) (0.0-0.2) K/uL Neutrophils % (Manual) 78 H (50-75) % Band Neutrophils % 9 H (0-2) % Lymphocytes % (Manual) 8 L (20-40) % Monocytes % (Manual) 5 (0-10) % Toxic Granulation Present Platelet Estimate Normal (NORMAL) Large Platelets Present Giant Platelets Present Polychromasia Slight Hypochromasia (manual) Moderate Poikilocytosis (manual Slight Anisocytosis (manual) Moderate Target Cells Ovalocytes Slight Schistocytes Slight Puncture Site pCO2 (35-45) mm/Hg pO2 (80-100) mm/Hg HCO3 (21-28) mmol/L ABG pH (7.35-7.45) ABG Total CO2 (22-28) mmol/L ABG O2 Saturation (95-98) % ABG Base Excess (-2.0-3.0) mmol/L Luis Test ABG Potassium (3.6-5.2) mmol/L A-a O2 Difference mm/Hg Respiratory Index Sodium (132-148) mmol/l Chloride (98-107) mmol/L Glucose (65-105) mg/dl Lactate (0.7-2.1) mmol/L Vent Mode Mechanical Rate FiO2 % Tidal Volume PEEP Crit Value Called To Crit Value Called By Crit Value Read Back Blood Gas Notified Time Potassium (3.6-5.2) mmol/L Carbon Dioxide (22-30) mmol/L Anion Gap (10-20) BUN (7-17) mg/dL Creatinine (0.7-1.2) mg/dL Est GFR ( Amer) Est GFR (Non-Af Amer) Random Glucose (65-105) mg/dL Lactic Acid (0.7-2.1) mmol/L Calcium (8.6-10.4) mg/dl Phosphorus (2.5-4.5) mg/dL Magnesium (1.6-2.3) mg/dL Total Bilirubin (0.2-1.3) mg/dL AST (14-36) U/L ALT (9-52) U/L Alkaline Phosphatase (38-126) U/L Total Protein (6.3-8.3) g/dL Albumin (3.5-5.0) g/dL Globulin (2.2-3.9) gm/dL Albumin/Globulin Ratio (1.0-2.1) Procalcitonin 1.53 H (0.19-0.49) NG/ML Arterial Blood Potassium (3.6-5.2) mmol/L Vancomycin Trough (5.0-10.0) ug/mL C. difficile Ag & Toxin (NEGATIVE) Laboratory Results - last 24 hr 09/08/18 09/08/18 09/08/18 06:15 06:15 20:01 WBC RBC Hgb Hct MCV MCH MCHC RDW Plt Count MPV Neut % (Auto) Lymph % (Auto) [place] % (Auto) Eos % (Auto) Baso % (Auto) Neut # (Auto) Lymph # (Auto) [place] # (Auto) Eos # (Auto) Baso # (Auto) Neutrophils % (Manual) 78 H Band Neutrophils % 9 H Lymphocytes % (Manual) 8 L Monocytes % (Manual) 5 Toxic Granulation Present Platelet Estimate Normal Large Platelets Present Giant Platelets Present Polychromasia Slight Hypochromasia (manual) Moderate Poikilocytosis (manual Slight Anisocytosis (manual) Moderate Target Cells Ovalocytes Slight Schistocytes Slight Puncture Site pCO2 pO2 HCO3 ABG pH ABG Total CO2 ABG O2 Saturation ABG Base Excess Luis Test ABG Potassium A-a O2 Difference Respiratory Index Sodium Chloride Glucose Lactate Vent Mode Mechanical Rate FiO2 Tidal Volume PEEP Crit Value Called To Crit Value Called By Crit Value Read Back Blood Gas Notified Time Potassium Carbon Dioxide Anion Gap BUN Creatinine Est GFR ( Amer) Est GFR (Non-Af Amer) Random Glucose Lactic Acid Calcium Phosphorus Magnesium Total Bilirubin AST ALT Alkaline Phosphatase Total Protein Albumin Globulin Albumin/Globulin Ratio Procalcitonin 1.53 H Arterial Blood Potassium Vancomycin Trough C. difficile Ag & Toxin Negative 09/09/18 09/09/18 09/09/18 04:30 05:35 05:36 WBC 16.8 H RBC 3.14 L Hgb 7.9 L Hct 24.4 L MCV 77.7 L MCH 25.3 L MCHC 32.6 L RDW 19.0 H Plt Count 266 MPV 10.0 Neut % (Auto) 84.4 H Lymph % (Auto) 6.9 L [place] % (Auto) 6.5 Eos % (Auto) 1.8 Baso % (Auto) 0.4 Neut # (Auto) 14.2 H Lymph # (Auto) 1.2 [place] # (Auto) 1.1 H Eos # (Auto) 0.3 Baso # (Auto) 0.1 Neutrophils % (Manual) 90 H Band Neutrophils % 1 Lymphocytes % (Manual) 6 L Monocytes % (Manual) 3 Toxic Granulation Platelet Estimate Normal Large Platelets Present Giant Platelets Polychromasia Slight Hypochromasia (manual) Slight Poikilocytosis (manual Slight Anisocytosis (manual) Slight Target Cells Slight Ovalocytes Slight Schistocytes Puncture Site Rb pCO2 26 L pO2 59 L HCO3 22.8 ABG pH 7.48 H ABG Total CO2 20.2 L ABG O2 Saturation 94.6 L ABG Base Excess -2.6 L Luis Test Na ABG Potassium 2.5 L* A-a O2 Difference 122.0 Respiratory Index 2.1 Sodium 144.0 139 Chloride 115.0 H 107 Glucose 100 Lactate 1.0 Vent Mode Prvc Mechanical Rate 20 FiO2 30.0 Tidal Volume 500 PEEP 5 Crit Value Called To Cara greenwood/rn Crit Value Called By Sha fong/rt Crit Value Read Back Y Blood Gas Notified Time 445 Potassium 3.3 L Carbon Dioxide 23 Anion Gap 13 BUN 8 Creatinine 0.5 L Est GFR ( Amer) > 60 Est GFR (Non-Af Amer) > 60 Random Glucose 126 H Lactic Acid Calcium 7.2 L Phosphorus 3.5 Magnesium 2.0 Total Bilirubin 1.5 H AST 48 H D ALT 30 Alkaline Phosphatase 206 H D Total Protein 5.6 L Albumin 2.6 L Globulin 3.0 Albumin/Globulin Ratio 0.9 L Procalcitonin Arterial Blood Potassium 2.5 L* Vancomycin Trough C. difficile Ag & Toxin 09/09/18 09/09/18 05:36 05:53 WBC RBC Hgb Hct MCV MCH MCHC RDW Plt Count MPV Neut % (Auto) Lymph % (Auto) [place] % (Auto) Eos % (Auto) Baso % (Auto) Neut # (Auto) Lymph # (Auto) [place] # (Auto) Eos # (Auto) Baso # (Auto) Neutrophils % (Manual) Band Neutrophils % Lymphocytes % (Manual) Monocytes % (Manual) Toxic Granulation Platelet Estimate Large Platelets Giant Platelets Polychromasia Hypochromasia (manual) Poikilocytosis (manual Anisocytosis (manual) Target Cells Ovalocytes Schistocytes Puncture Site pCO2 pO2 HCO3 ABG pH ABG Total CO2 ABG O2 Saturation ABG Base Excess Luis Test ABG Potassium A-a O2 Difference Respiratory Index Sodium Chloride Glucose Lactate Vent Mode Mechanical Rate FiO2 Tidal Volume PEEP Crit Value Called To Crit Value Called By Crit Value Read Back Blood Gas Notified Time Potassium Carbon Dioxide Anion Gap BUN Creatinine Est GFR ( Amer) Est GFR (Non-Af Amer) Random Glucose Lactic Acid 1.3 Calcium Phosphorus Magnesium Total Bilirubin AST ALT Alkaline Phosphatase Total Protein Albumin Globulin Albumin/Globulin Ratio Procalcitonin Arterial Blood Potassium Vancomycin Trough 14.1 H C. difficile Ag & Toxin Fingerstick Blood Sugar Results: 119 Results Reviewed to Date: Yes Review of Systems - Review of Systems Systems not reviewed;Unavailable: Intubated Critical Care Progress Note - Ventilator Checklist Head of Bed 30 Degrees: Yes Daily Assessment of Readiness to Wean: Yes PUD Prophalyxis: Yes DVT Prophylaxis: Yes - Vent Settings MODE:: PRVC TIDAL VOLUME:: 500 RESP RATE:: 20 FIO2:: 30 PEEP:: 5 - Extremities/Vascular Does the Patient have a Central Venous Catheter?: No Does the Patient need a Central Venous Catheter?: Yes (will insert TLC) Does the Patient have a Rankin Catheter?: Yes Does the Patient need a Rankin Catheter?: Yes Catheter Insertion Criteria: Patient requires prolonged immobilization - Prophylaxis GI Prophylaxis GI: PPI - Prophylaxis DVT Prophylaxis DVT: Heparin SQ, SCDs - Nutrition Nutrition: Nutrition Category Date Time Status NPO Diet [DIET] Diets 08/31/18 Breakfast Active Assessment/Plan - Assessment and Plan (Free Text) Assessment: Patient is a 33 yo female s/p hysterectomy for cervical cancer in situ and sigmoid bowel perforation on 08/28. Patient had an ex lap with colostomy pl acement on day of admission (08/31). Patient's peritoneal fluid was positive for Klebsiella. Patient has been persistently febrile with improving white count. Additionally, patient has had multiple episodes of sinus tachycardia (presently resolved). She is currently being managed in the ICU on sedation and vent. Patient's family is attempting to have her transferred to [facility] when possible- this is where patient had original surgery (hysterectomy). Plan: Neuro: - Versed 0.05 mg/kg/hr CV: - Off pressors - Metoprolol 5 mg IV Q6H - B/l LE venous Dopplers pending Pulm: Hypoxic respiratory failure - CXR on 09/08: small-moderate b/l pleural effusions, moderate venous congestion - Mechanical ventilator - Maintain spO2>92% GI: Ex lap with colostomy POD9 - CT A/P on 09/06: Worsening abdominal and pelvic ascites; particularly prominently worsening ascites in the left upper abdomen. Moderate loculated pelvic ascites. Fluid anterior to the pancreas. Multiple dilated enhancing small bowel loops seen throughout the upper mid and lower abdomen suggestive for prominent enteritis with associated ileus/partial small bowel obstruction. Thick-walled enhancing colon suggestive for an underlying colitis. Lobulated low-attenuation focus/lesion within the medial inferior right hepatic lobe measuring 4.1 x 2.2 x 4.9 centimeters. This may represent a cystic lesion however additional etiologies are not excluded. Hepatomegaly. Pericholecystic ed karen and or gallbladder wall thickening. Prominent para-aortic, mesenteric, and inguinal lymph nodes. - NPO - OGT - Insert TLC - Monitor colostomy output - Reglan 10 mg IV Q6H - Dilaudid 0.5 mg Q2H PRN pain - Surgery consulted ([facility]) - IR consulted ([facility])- pending paracentesis Renal: - Rankin - Replete electrolytes PRN - Strict I's and O's - Urology consulted ([facility]) Endo: - Maintain euglycemia - Hypoglycemia protocol - Accuchecks Q6H with Novolog ISS Heme: - S/p 2u PRBC - Hgb trending down (7.9) - Monitor H&H ID: Septic shock - Peritoneal fluid Cx: Klebsiella - Blood Cx: no growth - Urine Cx: no growth - Sputum Cx: no growth - Wound Cx: no growth - WBC trending down, bandemia resolved - Thrombocytopenia resolved - Procal trending down - Lactic acidosis resolved - Febrile >48 hrs (Tmax 102.5 on 09/08) - Hypothermia blanket - Acetaminophen 1000 mg IV Q6H PRN fever - C. diff negative - CBC daily - Discontinue Vancomycin - Flagyl 500 mg IV Q8H - Aztreanam 1 g IV Q8H - Meropenem 1 g IV Q8H - Micafungin 100 mg IV daily - ID consulted ([facility]) Ppx: VTE: SCDs, heparin 5000 units SQ Q8H GI: Protonix 40 mg IV daily IVF: KCl in D51/2NS @ 100 mL/hr Code status: full code Case discussed with attending, Dr. De La O. PGY-1 Lia Camarena D.O.
--- NOTE | 2018-09-09 12:55 | CP.PCM.PN ---
Subjective - Date & Time of Evaluation Date of Evaluation: 09/09/18 Time of Evaluation: 12:52 - Subjective Subjective: Surgery Pt seen and examined. Stoma has some gas, minimal fluid. Has mclaughlin. Good urine output. Drains has scant amount of SS fluids. Off pressers. VSS. Response to pain. Dressing changed. Objective - Vital Signs/Intake and Output Vital Signs (last 24 hours): Temp Pulse Resp BP Pulse Ox 100.8 F H 86 27 H 130/73 100 09/09/18 12:00 09/09/18 12:14 09/09/18 12:14 09/09/18 12:14 09/09/18 12:14 Intake and Output: 09/09/18 09/09/18 06:59 18:59 Intake Total 1271.7 1085.7 Output Total 1358 500 Balance -86.3 585.7 - Medications Medications: Current Medications Artificial Tears (Lacri-Lube) 1 gm OU Q4H MARLENA Last Admin: 09/09/18 10:17 Dose: 1 gm Heparin Sodium (Porcine) (Heparin) 5,000 units SC Q8 MARLENA Hydromorphone HCl (Dilaudid) 0.5 mg IVP Q2H PRN PRN Reason: Pain, moderate (4-7) Last Admin: 09/09/18 10:27 Dose: 0.5 mg Vancomycin/Sodium Chloride (Vancomycin 1 Gm/Ns 200 Ml) 1 gm in 200 mls @ 133 mls/hr IVPB Q8H MARLENA; Protocol Stop: 09/09/18 17:31 Last Admin: 09/09/18 08:49 Dose: 133 mls/hr Meropenem 1 gm/ Sodium (Chloride) 50 mls @ 100 mls/hr IVPB Q8H MARLENA; Protocol Last Admin: 09/09/18 05:45 Dose: 100 mls/hr Aztreonam 1 gm/ Sodium (Chloride) 50 mls @ 100 mls/hr IVPB Q8H MARLENA; Protocol Last Admin: 09/09/18 10:17 Dose: 100 mls/hr Metronidazole (Flagyl) 500 mg in 100 mls @ 100 mls/hr IVPB Q8H MARLENA; Protocol Last Admin: 09/09/18 11:20 Dose: 100 mls/hr Micafungin Sodium 100 mg/ (Sodium Chloride) 100 mls @ 100 mls/hr IV Q24H MARLENA; Protocol Last Admin: 09/08/18 16:02 Dose: 100 mls/hr Midazolam HCl 100 mg/ Dextrose 100 mls @ 2.04 mls/hr IV .Q24H PRN; Protocol PRN Reason: PER PROTOCOL Last Admin: 09/09/18 04:22 Dose: 0.04 mg/kg/hr, 5.1 mls/hr Acetaminophen 1,000 mg/ (Miscellaneous) 100 mls @ 400 mls/hr IV Q6 PRN PRN Reason: Fever >100.4 F Stop: 09/09/18 19:36 Last Admin: 09/09/18 04:30 Dose: 400 mls/hr Potassium Chloride/Dextrose/Sod Cl (Potassium Chl 20 Meq In D5-1/2ns) 1,000 mls @ 100 mls/hr IV .Q10H MARLENA Last Admin: 09/09/18 08:22 Dose: 100 mls/hr Insulin Aspart (Novolog) 0 unit SC Q6 MARLENA; Protocol Last Admin: 09/09/18 06:10 Dose: Not Given Metoclopramide HCl (Reglan) 10 mg IVP Q6 MARLENA Last Admin: 09/09/18 12:30 Dose: 10 mg Metoprolol Tartrate (Lopressor) 5 mg IVP Q6H MARLENA Last Admin: 09/09/18 12:30 Dose: 5 mg Pantoprazole Sodium (Protonix Inj) 40 mg IVP DAILY MARLENA Last Admin: 09/09/18 10:00 Dose: 40 mg - Labs Labs: 09/09/18 05:35 09/09/18 05:36 PT 14.6 SECONDS (9.7-12.2) H 08/31/18 13:02 INR 1.3 08/31/18 13:02 APTT 31 SECONDS (21-34) 09/05/18 14:32 - Constitutional Appears: No Acute Distress - Head Exam Head Exam: ATRAUMATIC, NORMAL INSPECTION, NORMOCEPHALIC - Eye Exam Eye Exam: EOMI, Normal appearance, PERRL Pupil Exam: NORMAL ACCOMODATION, PERRL - ENT Exam ENT Exam: Mucous Membranes Moist - Neck Exam Neck Exam: Full ROM, Normal Inspection. absent: Lymphadenopathy - Respiratory Exam Respiratory Exam: Respiratory Distress - Cardiovascular Exam Cardiovascular Exam: REGULAR RHYTHM, +S1, +S2. absent: Murmur - GI/Abdominal Exam GI & Abdominal Exam: Distended, Soft. absent: Firm, Tenderness Additional comments: Stoma has gas, minimal output. Drains has ss fluids. incision seropurulent fluids. - Exam Exam: NORMAL INSPECTION - Extremities Exam Extremities Exam: Pedal Edema - Back Exam Back Exam: NORMAL INSPECTION - Neurological Exam Neurological Exam: absent: Oriented x3 - Skin Skin Exam: absent: Dry, Intact Assessment and Plan - Assessment and Plan (Free Text) Assessment: 33F S/P ex lap with resection of a perforated sigmoid colon and colostomy creation POD#9 Plan: NPO OGT to suction May start TPN Strict I's & O's Continue IV antibiotics IVF IR to drain fluid Medical management per ICU Further recommendations as per Dr. Patino
--- NOTE | 2018-09-09 16:51 | PCM.SURG1 ---
Surgeon's Initial Post Op Note - Surgeon's Notes Surgeon: Héctor Administrative Assistant Coordinator: None Type of Anesthesia: Local Pre-Operative Diagnosis: Subsplenic collection Operative Findings: Subsplenic complex multiseptated collection Post-Operative Diagnosis: Subsplenic complex collection Operation Performed: Aspiration of complex multispetated subsplenic collection Specimen/Specimens Removed: 400cc of cloudy straw colored fluid aspirated. No drain placed due to the septated nature of the collection Estimated Blood Loss: EBL {In ML}: 1 Date of Surgery/Procedure: 09/09/18 Time of Surgery/Procedure: 16:45
[2018-09-09] MEDS ORDERED: Heparin25000 units/250ml 1/2NS 25,000 UNITS/250 ML BAG IV PRN (17:08)
[2018-09-09] MEDS: Micafungin 100 MG in Sodium Chloride 0.9% 100 ML IV SCH (17:20)
[2018-09-09 17:25] LABS: BODY FLUID TYPE PERITONEAL/ASCITES
--- NOTE | 2018-09-09 17:58 | CT ---
Date of service: 09/09/2018 PROCEDURE: CT Abdomen and Pelvis without intravenous contrast HISTORY: FLUID DRAINAGE status post ultrasound-guided drainage of the perisplenic fluid collection by Dr. Anaya COMPARISON: Comparison is made to the previous study dated 09/07/2018 TECHNIQUE: Axial and reformatted coronal and sagittal CT images of the abdomen and pelvis were obtained without IV or oral contrast administration.. Contrast dose: 0 Radiation dose: Total exam DLP = 1285.37 mGy-cm. This CT exam was performed using one or more of the following dose reduction techniques: Automated exposure control, adjustment of the mA and/or kV according to patient size, and/or use of iterative reconstruction technique. FINDINGS: LOWER THORAX: There are small to moderate bilateral pleural effusion associated with bilateral lower lobe consolidation. LIVER: No evidence of acute pathology in the liver. Small subcapsular fluid collection again noted at the inferior aspect of the liver measures 3.8 centimeter in the AP diameter and 2 centimeter in the transverse diameter. GALLBLADDER AND BILE DUCTS: No evidence of acute cholecystitis or biliary obstruction. PANCREAS: Limited assessment of the pancreas due to diffuse soft tissue edema and presence of free fluid in the upper abdomen. SPLEEN: Again noted is a of subcapsular fluid collection adjacent to the spleen appears smaller compared to the previous exam ADRENALS: No significant interval change KIDNEYS AND URETERS: No significant interval change in the kidneys. VASCULATURE: Unremarkable. No aortic aneurysm. No aortic atherosclerotic calcification or mural plaque present. BOWEL: The patient is status post left sided colectomy. There is residual oral contrast in the bowel. Postsurgical changes are noted in the anterior abdominal wall. No evidence of high-grade small bowel obstruction. APPENDIX: No evidence of acute appendicitis. PERITONEUM: There is a small amount of ascites in the abdomen and pelvis. There are 2 surgical drainage seen in place LYMPH NODES: Enlarged mesenteric and retroperitoneal lymph nodes likely reactive. BLADDER: Rankin catheter in the bladder. REPRODUCTIVE: The uterus is not visualized. BONES: Osseous structures are grossly unremarkable. OTHER FINDINGS: Filling defect is again noted in the right external iliac and common femoral vein similar to the previous study findings. The intensive care physician taking care of the patient is aware of the presence of right sided DVT (according to Dr Anaya). IMPRESSION: Interval decrease in the size of the subcapsular splenic fluid collection compared to the prior exam. Otherwise no significant interval changes noted.
[2018-09-09 18:11] LABS: BASO # 0.1 K/uL (0.0-0.2); BASO % 0.7 % (0.0-2.0); EOS # 0.6 K/uL (0.0-0.7); EOS % 3.4 % (0.0-4.0); HEMOGLOBIN 7.9 g/dL (11.0-16.0); LYMPH # 1.6 K/uL (1.0-4.3); LYMPH % 9.5 % (20.0-40.0); MEAN CELL VOLUME 76.9 fL (81.0-99.0); MEAN CORPUSCULAR HEMOGLOBIN 24.8 pg (27.0-31.0); MEAN CORPUSCULAR HGB CONC 32.3 g/dL (33.0-37.0); MEAN PLATELET VOLUME 9.9 fL (7.2-11.7); MONO # 1.3 K/uL (0.0-0.8); NEUT # 12.8 K/uL (1.8-7.0); NEUT % 78.4 % (50.0-75.0); PLATELET COUNT 350 K/uL (130-400); RBC 3.18 Mil/uL (3.80-5.20); RED CELL DISTRIBUTION WIDTH 18.9 % (11.5-14.5); WHITE BLOOD COUNT 16.4 K/uL (4.8-10.8)
--- NOTE | 2018-09-09 18:16 | PCM.PROC ---
Procedures Attestation:: I certify that I have explained the specified Operation(s) or Procedure(s), risks, benefits and reasonable alternatives to the Patient and/or other person responsible. The opportunity was given to ask questions and all questions answered - Central Line Placement Right Internal Jugular Aseptic technique was employed throughout the procedure: Hand Hygiene done prior to procedure, Full sterile barriers (mask, hair cover, sterile gown, sterile gloves), Full body sterile drape, Chloraprep Antiseptic: 30 second prep for IJ or SC sites Pt. Placed on Pulse Ox Monitor: Yes Central Line Prep: Chlorhexidine-Alcohol Combination Local Anesthesia Used: Lidocaine 1% Amount of Anesthesia Used (mls): 3 Ultrasound Used for Placement: Yes Central Line Lumen Inserted: triple Central Line Length: 30 cm Post Procedure: Sutured in Place, Good Blood Return, All Ports Aspirated, Flushed, Capped, Sterile Dressing Applied Secured by: Suture Post procedure dressing: Clear vapor permeable, Chlorhexidine disc (Biopatch) Post Procedure X-Ray: Yes Patient Tolerated Procedure: Well Immediate Complications: None
[2018-09-09 18:20] LABS: INR 1.8; PROTHROMBIN TIME 19.9 SECONDS (9.7-12.2)
[2018-09-09 18:23] LABS: BF GROSS APPEARANCE CLOUDY (CLEAR); BODY FLUID MONO/MACROPHAGE 2 % (0-0)
[2018-09-09 18:24] LABS: BODY FLUID TOTAL COUNT 100 (0-0)
[2018-09-09 18:53] LABS: BANDS 4 % (0-2); EOSINOPHIL 3 % (0-4); LYMPHOCYTE 13 % (20-40); MONOCYTE 7 % (0-10); NEUTROPHIL 72 % (50-75); PLATELET ESTIMATE NORMAL (NORMAL); REACTIVE LYMPHOCYTES 1 % (0-0); TOTAL CELLS COUNTED 100
[2018-09-09 18:54] LABS: ANISOCYTOSIS SLIGHT; HYPOCHROMIC SLIGHT; LARGE PLATELETS PRESENT; POIKILOCYTOSIS SLIGHT; TARGET CELLS SLIGHT
--- NOTE | 2018-09-09 18:54 | RAD ---
HISTORY: TLC COMPARISON: No prior. TECHNIQUE: Chest, one view. FINDINGS: Endotracheal tube terminates approximately 3.9 cm above the siria. Nasogastric tube extends beyond the hemidiaphragm towards expected location of the stomach. Right IJ approach central venous catheter extends to the SVC. Interval removal of right-sided PICC. LUNGS: Bilateral layering pleural effusions and associated consolidations. Mild to moderate pulmonary venous congestion. No definite pneumothorax. CARDIOVASCULAR: Heart size appears within normal limits. No significant atherosclerotic calcification present. OSSEOUS STRUCTURES: No acute osseous abnormality identified. VISUALIZED UPPER ABDOMEN: Unremarkable. OTHER FINDINGS: None. IMPRESSION: Support lines and tubes as above. Bilateral layering pleural effusions and associated consolidations. Mild to moderate pulmonary venous congestion.
[2018-09-10] MEDS: Metoprolol 1 mg/ml Inj IVP SCH ×2 (00:26→07:00)
[2018-09-10 00:28] LABS: HEMOGLOBIN 8.3 g/dL (11.0-16.0); MEAN CELL VOLUME 76.6 fL (81.0-99.0); MEAN CORPUSCULAR HEMOGLOBIN 25.1 pg (27.0-31.0); MEAN CORPUSCULAR HGB CONC 32.8 g/dL (33.0-37.0); MEAN PLATELET VOLUME 9.7 fL (7.2-11.7); RBC 3.31 Mil/uL (3.80-5.20); RED CELL DISTRIBUTION WIDTH 18.8 % (11.5-14.5); WHITE BLOOD COUNT 15.3 K/uL (4.8-10.8)
[2018-09-10] MEDS ORDERED: Acetaminophen 650mg/20.3ml solution UD NG PRN (00:57)
[2018-09-10] MEDS: White Petrolatum/Mineral Oil Ophth Oint(3.5 gm) OU SCH ×3 (01:26→10:54)
[2018-09-10] MEDS: HYDROmorphone 0.5 mg/0.5 ml ISec IVP PRN ×3 (03:26→12:17)
[2018-09-10] MEDS: metroNIDAZOLE IV 500 mg/100 ml 500 MG/100 ML BAG IVPB SCH (03:27)
[2018-09-10] MEDS: Potassium Ch 20mEq in D5-1/2NS 1,000 ML IV SCH (04:20)
[2018-09-10 06:17] LABS: ABG ALLEN TEST POS; ARTERIAL BLOOD GAS HCO3 26.9 mmol/L (21-28); ARTERIAL BLOOD GAS HEMOGLOBIN 8.3 g/dL (11.7-17.4); ARTERIAL BLOOD GAS O2 SAT 98.7 % (95-98); ARTERIAL BLOOD GAS PCO2 32 mm/Hg (35-45); ARTERIAL BLOOD GAS PH 7.51 (7.35-7.45); ARTERIAL BLOOD GAS PO2 96 mm/Hg (80-100); ARTERIAL BLOOD GAS TCO2 26.5 mmol/L (22-28)
[2018-09-10 06:55] LABS: BASO # 0.1 K/uL (0.0-0.2); BASO % 0.8 % (0.0-2.0); EOS # 0.4 K/uL (0.0-0.7); EOS % 2.8 % (0.0-4.0); LYMPH # 2.4 K/uL (1.0-4.3); LYMPH % 15.5 % (20.0-40.0); MEAN CELL VOLUME 77.4 fL (81.0-99.0); MEAN CORPUSCULAR HEMOGLOBIN 25.3 pg (27.0-31.0); MEAN CORPUSCULAR HGB CONC 32.7 g/dL (33.0-37.0); MEAN PLATELET VOLUME 10.2 fL (7.2-11.7); MONO # 1.5 K/uL (0.0-0.8); NEUT # 10.8 K/uL (1.8-7.0); NEUT % 70.9 % (50.0-75.0); NRBC % 0.1 % (0.0-2.0); RBC 3.17 Mil/uL (3.80-5.20); WHITE BLOOD COUNT 15.3 K/uL (4.8-10.8)
[2018-09-10] MEDS: (Novolog) Insulin Aspart, Recombinant 100 u/ml 10 ml vial SC SCH (07:02)
--- NOTE | 2018-09-10 07:11 | CP.CCUPN ---
<Lia Camarena - Last Filed: 09/10/18 15:47> CCU Subjective - Physician Review Events Since Last Encounter (Free Text): 09/10/18 07:10 no over night events Subjective (Free Text): 09/10/18 07:55 Patient was seen and examined this morning. She is still on sedation but more awake/alert than yesterday. She is not appear in distress. VSS. Critical Care Time Spent (in minutes): 35 CCU Objective - Vital Signs / Intake & Output Vital Signs (Last 4 hours): Vital Signs Pulse Resp BP Pulse Ox 09/10/18 06:19 85 25 H 106/56 L 100 09/10/18 06:00 84 22 99 09/10/18 05:19 87 23 113/58 L 98 09/10/18 05:00 91 H 21 98 09/10/18 04:19 89 22 117/60 98 09/10/18 04:00 90 22 99 09/10/18 03:19 95 H 28 H 112/58 L 100 Intake and Output (Last 8hrs): Intake & Output 09/09/18 09/10/18 09/10/18 22:59 06:59 14:59 Intake Total 1534.0 1226.0 Output Total 2584 1713 Balance -1050.0 -487.0 Weight 198 lb 9.6 oz Intake: IV 100 80 Intake, IV Amount 1434.0 1146.0 Left Forearm 100 Left Lower Forearm 500 Right Hand 22.4 Right IJ Distal 350 200 Right IJ Distal Y 400 800 Right IJ Medial 24.4 48.8 Right IJ Proximal 37.2 97.2 Output: Gastric Amount 850 400 Stomach 850 400 Drainage 4 3 Left Abdomen 2 1 Right Abdomen 2 2 Urine 1030 1310 Urethral (Rankin) 1030 1310 Stool 150 Urine/Stool Mix 150 Other 400 - Physical Exam Head: Positive for: Atraumatic, Normocephalic Pupils: Positive for: PERRL. Negative for: Non-Reactive, Pinpoint Extroacular Muscles: Positive for: Other (sedated and not following commands, minimal spontaneous movements when aroused) Conjunctiva: Positive for: Normal. Negative for: Injected, Icteric Mouth: Positive for: Dry Nose (External): Positive for: Atraumatic. Negative for: Abrasion, Contusion, Laceration Nose (Internal): Positive for: No Active Bleeding. Negative for: Epistaxis Neck: Positive for: Normal Range of Motion (passive ROM intact, some spontaneous active movement when aroused but unable to assess full active ROM), Trachea Midline. Negative for: JVD Respiratory/Chest: Positive for: Clear to Auscultation. Negative for: Respiratory Distress, Accessory Muscle Use Cardiovascular: Positive for: Regular Rate and Rhythm, Normal S1, S2, Peripheal Pulses Present (weakly/irregularly palpable bilateral radial pulses, unable to palpate pedal pulses, weakly/irregularly palpable femor pulses bilaterally) Abdomen: Positive for: Other (post-op, colostomy draing, RLQ DELMA drain with serosanguinous, no lin blood or pus appreciated, colostomy bag present with patent-appearing stoma, abdomen firm to palpation diffusely, bandaging over surgical incisions) Genitourinary/Pelvic Exam: Positive for: Other (Rankin present with only approx 250cc very dark sara urine) Upper Extremity: Positive for: Edema (bilateral upper extremities with mild non- pitting edema). Negative for: Cyanosis, NORMAL PULSES (weak pulses as described in cardio section), Deformity Lower Extremity: Positive for: Edema (bilateral lower extremities with moderate non-pitting edema). Negative for: NORMAL PULSES (intermittently palpable weak femoral pulses bilaterally unable, unable to palpate any pedal pulses) Neurological: Positive for: Other (sedated on fentanyl/precedex, intermittently aroused by pain or stimulation (like Arterial line placement) but rapidly returns to somnolence). Negative for: GCS=15 (GCS 7 (E2 V1t M4)) Skin: Positive for: Warm, Diaphoretic, Pale. Negative for: Dry, Rashes, Normal Color Psychiatric: Positive for: Other (sedated but intermittently aroused, rapidly returns to somnolence) - Medications Active Medications: Active Medications Generic Name Dose Route Start Last Admin Trade Name Freq PRN Reason Stop Dose Admin Acetaminophen 650 mg 09/10/18 00:57 09/10/18 01:26 Tylenol 650mg/20.3ml Solution Ud NG 650 mg Q6 PRN Administration FOR TEMPERARURE 101*F OR ABOVE Artificial Tears 1 gm 09/03/18 06:00 09/10/18 05:01 Lacri-Lube OU 1 gm Q4H MARLENA Administration Hydromorphone HCl 0.5 mg 09/07/18 14:17 09/10/18 03:26 Dilaudid IVP 0.5 mg Q2H PRN Administration Pain, moderate (4-7) Meropenem 1 gm/ Sodium 50 mls @ 100 mls/hr 09/06/18 22:00 09/10/18 05:00 Chloride IVPB 100 mls/hr Q8H MARLENA Administration Protocol Aztreonam 1 gm/ Sodium 50 mls @ 100 mls/hr 09/07/18 03:00 09/10/18 02:01 Chloride IVPB 100 mls/hr Q8H MARLENA Administration Protocol Metronidazole 500 mg in 100 mls @ 100 mls/hr 09/06/18 20:00 09/10/18 03:27 Flagyl IVPB 100 mls/hr Q8H MARLENA Administration Protocol Micafungin Sodium 100 mg/ 100 mls @ 100 mls/hr 09/07/18 16:00 09/09/18 17:20 Sodium Chloride IV 100 mls/hr Q24H MARLENA Administration Protocol Midazolam HCl 100 mg/ Dextrose 100 mls @ 2.04 mls/hr 09/08/18 09:15 09/09/18 19:00 IV 0.04 mg/kg/hr .Q24H PRN 5.1 mls/hr PER PROTOCOL Administration Protocol 0.02 MG/KG/HR Potassium Chloride/Dextrose/Sod Cl 1,000 mls @ 100 mls/hr 09/09/18 07:30 09/10/18 04:20 Potassium Chl 20 Meq In D5-1/2ns IV 100 mls/hr .Q10H MARLENA Administration Heparin Sodium/Sodium Chloride 25,000 units in 250 mls @ 9.344 mls/hr 09/09/18 17:08 09/10/18 01:30 Heparin 73558 Units/250ml 1/2 Normal Saline IV 14 units/kg/hr .Q24H PRN 13.082 mls/hr ADJUST RATE PER PROTOCOL Titration Protocol 10 UNITS/KG/HR Insulin Aspart 0 unit 09/03/18 06:00 09/10/18 07:02 Novolog SC Not Given Q6 MARLENA Protocol Metoclopramide HCl 10 mg 09/06/18 12:00 09/10/18 05:01 Reglan IVP 10 mg Q6 MARLENA Administration Metoprolol Tartrate 5 mg 09/06/18 13:00 09/10/18 07:00 Lopressor IVP 5 mg Q6H MARLENA Administration Pantoprazole Sodium 40 mg 08/31/18 10:00 09/09/18 10:00 Protonix Inj IVP 40 mg DAILY MARLENA Administration - Patient Studies Lab Studies: Microbiology Studies 09/09/18 17:24 Gram Stain - Final Abdominal Fluid 09/05/18 15:30 Blood Culture - Preliminary Blood NO GROWTH AFTER 4 DAYS 09/05/18 16:00 Blood Culture - Preliminary Blood NO GROWTH AFTER 4 DAYS 09/08/18 12:41 Blood Culture - Preliminary Blood-Venous NO GROWTH AFTER 24 HOURS 09/08/18 12:41 Blood Culture - Preliminary Blood-Venous NO GROWTH AFTER 24 HOURS 09/06/18 Unknown Gram Stain - Final Abdomen Wound Culture - Final No Growth Lab Studies 09/10/18 09/10/18 09/10/18 Range/Units 06:22 05:39 00:19 WBC (4.8-10.8) K/uL RBC (3.80-5.20) Mil/uL Hgb (11.0-16.0) g/dL Hct (34.0-47.0) % MCV (81.0-99.0) fL MCH (27.0-31.0) pg MCHC (33.0-37.0) g/dL RDW (11.5-14.5) % Plt Count (130-400) K/uL MPV (7.2-11.7) fL Neut % (Auto) (50.0-75.0) % Lymph % (Auto) (20.0-40.0) % Kaufman % (Auto) (0.0-10.0) % Eos % (Auto) (0.0-4.0) % Baso % (Auto) (0.0-2.0) % Neut # (Auto) (1.8-7.0) K/uL Lymph # (Auto) (1.0-4.3) K/uL Kaufman # (Auto) (0.0-0.8) K/uL Eos # (Auto) (0.0-0.7) K/uL Baso # (Auto) (0.0-0.2) K/uL Neutrophils % (Manual) (50-75) % Band Neutrophils % (0-2) % Lymphocytes % (Manual) (20-40) % Reactive Lymphs % (0-0) % Monocytes % (Manual) (0-10) % Eosinophils % (Manual) (0-4) % Platelet Estimate (NORMAL) Large Platelets Polychromasia Hypochromasia (manual) Poikilocytosis (manual Anisocytosis (manual) Target Cells Ovalocytes PT (9.7-12.2) SECONDS INR APTT 33 D (21-34) SECONDS Puncture Site L rad pCO2 32 L (35-45) mm/Hg pO2 96 (80-100) mm/Hg HCO3 26.9 (21-28) mmol/L ABG pH 7.51 H (7.35-7.45) ABG Total CO2 26.5 (22-28) mmol/L ABG O2 Saturation 98.7 H (95-98) % ABG Base Excess 2.5 (-2.0-3.0) mmol/L ABG Hemoglobin 8.3 L (11.7-17.4) g/dL ABG Carboxyhemoglobin 1.5 (0.5-1.5) % POC ABG HHb (Measured) 1.3 (0.0-5.0) % ABG Methemoglobin 1.0 (0.0-3.0) % Luis Test Pos A-a O2 Difference 78.0 mm/Hg Respiratory Index 0.8 Hgb O2 Saturation 96.2 (95.0-98.0) % Vent Mode Prvc Mechanical Rate 20 FiO2 30.0 % Tidal Volume 500 PEEP 5 POC Glucose (mg/dL) 109 (65-110) mg/dL Fluid Source Fluid Appearance (CLEAR) Fluid WBC (0.0-300.0) /mm3 Fluid RBC (0.0-0.0) /mm3 Fluid Tot Cell Count (0-0) Fluid Neutrophils (0-0) % Fld Monocyte/Macrophag (0-0) % Fluid Comment Blood Type Antibody Screen 09/10/18 09/09/18 09/09/18 Range/Units 00:19 23:40 18:17 WBC 15.3 H (4.8-10.8) K/uL RBC 3.31 L (3.80-5.20) Mil/uL Hgb 8.3 L (11.0-16.0) g/dL Hct 25.4 L (34.0-47.0) % MCV 76.6 L (81.0-99.0) fL MCH 25.1 L (27.0-31.0) pg MCHC 32.8 L (33.0-37.0) g/dL RDW 18.8 H (11.5-14.5) % Plt Count 397 (130-400) K/uL MPV 9.7 (7.2-11.7) fL Neut % (Auto) (50.0-75.0) % Lymph % (Auto) (20.0-40.0) % Kaufman % (Auto) (0.0-10.0) % Eos % (Auto) (0.0-4.0) % Baso % (Auto) (0.0-2.0) % Neut # (Auto) (1.8-7.0) K/uL Lymph # (Auto) (1.0-4.3) K/uL Kaufman # (Auto) (0.0-0.8) K/uL Eos # (Auto) (0.0-0.7) K/uL Baso # (Auto) (0.0-0.2) K/uL Neutrophils % (Manual) (50-75) % Band Neutrophils % (0-2) % Lymphocytes % (Manual) (20-40) % Reactive Lymphs % (0-0) % Monocytes % (Manual) (0-10) % Eosinophils % (Manual) (0-4) % Platelet Estimate (NORMAL) Large Platelets Polychromasia Hypochromasia (manual) Poikilocytosis (manual Anisocytosis (manual) Target Cells Ovalocytes PT (9.7-12.2) SECONDS INR APTT (21-34) SECONDS Puncture Site pCO2 (35-45) mm/Hg pO2 (80-100) mm/Hg HCO3 (21-28) mmol/L ABG pH (7.35-7.45) ABG Total CO2 (22-28) mmol/L ABG O2 Saturation (95-98) % ABG Base Excess (-2.0-3.0) mmol/L ABG Hemoglobin (11.7-17.4) g/dL ABG Carboxyhemoglobin (0.5-1.5) % POC ABG HHb (Measured) (0.0-5.0) % ABG Methemoglobin (0.0-3.0) % Luis Test A-a O2 Difference mm/Hg Respiratory Index Hgb O2 Saturation (95.0-98.0) % Vent Mode Mechanical Rate FiO2 % Tidal Volume PEEP POC Glucose (mg/dL) 110 94 (65-110) mg/dL Fluid Source Fluid Appearance (CLEAR) Fluid WBC (0.0-300.0) /mm3 Fluid RBC (0.0-0.0) /mm3 Fluid Tot Cell Count (0-0) Fluid Neutrophils (0-0) % Fld Monocyte/Macrophag (0-0) % Fluid Comment Blood Type Antibody Screen 09/09/18 09/09/18 09/09/18 Range/Units 18:08 18:08 18:08 WBC 16.4 H (4.8-10.8) K/uL RBC 3.18 L (3.80-5.20) Mil/uL Hgb 7.9 L (11.0-16.0) g/dL Hct 24.5 L (34.0-47.0) % MCV 76.9 L (81.0-99.0) fL MCH 24.8 L (27.0-31.0) pg MCHC 32.3 L (33.0-37.0) g/dL RDW 18.9 H (11.5-14.5) % Plt Count 350 (130-400) K/uL MPV 9.9 (7.2-11.7) fL Neut % (Auto) 78.4 H (50.0-75.0) % Lymph % (Auto) 9.5 L (20.0-40.0) % Kaufman % (Auto) 8.0 (0.0-10.0) % Eos % (Auto) 3.4 (0.0-4.0) % Baso % (Auto) 0.7 (0.0-2.0) % Neut # (Auto) 12.8 H (1.8-7.0) K/uL Lymph # (Auto) 1.6 (1.0-4.3) K/uL Kaufman # (Auto) 1.3 H (0.0-0.8) K/uL Eos # (Auto) 0.6 (0.0-0.7) K/uL Baso # (Auto) 0.1 (0.0-0.2) K/uL Neutrophils % (Manual) 72 (50-75) % Band Neutrophils % 4 H (0-2) % Lymphocytes % (Manual) 13 L (20-40) % Reactive Lymphs % 1 H (0-0) % Monocytes % (Manual) 7 (0-10) % Eosinophils % (Manual) 3 (0-4) % Platelet Estimate Normal (NORMAL) Large Platelets Present Polychromasia Hypochromasia (manual) Slight Poikilocytosis (manual Slight Anisocytosis (manual) Slight Target Cells Slight Ovalocytes PT 19.9 H (9.7-12.2) SECONDS INR 1.8 APTT 26 (21-34) SECONDS Puncture Site pCO2 (35-45) mm/Hg pO2 (80-100) mm/Hg HCO3 (21-28) mmol/L ABG pH (7.35-7.45) ABG Total CO2 (22-28) mmol/L ABG O2 Saturation (95-98) % ABG Base Excess (-2.0-3.0) mmol/L ABG Hemoglobin (11.7-17.4) g/dL ABG Carboxyhemoglobin (0.5-1.5) % POC ABG HHb (Measured) (0.0-5.0) % ABG Methemoglobin (0.0-3.0) % Luis Test A-a O2 Difference mm/Hg Respiratory Index Hgb O2 Saturation (95.0-98.0) % Vent Mode Mechanical Rate FiO2 % Tidal Volume PEEP POC Glucose (mg/dL) (65-110) mg/dL Fluid Source Fluid Appearance (CLEAR) Fluid WBC (0.0-300.0) /mm3 Fluid RBC (0.0-0.0) /mm3 Fluid Tot Cell Count (0-0) Fluid Neutrophils (0-0) % Fld Monocyte/Macrophag (0-0) % Fluid Comment Blood Type A POSITIVE Antibody Screen Negative 09/09/18 09/09/18 09/09/18 Range/Units 17:24 11:29 05:35 WBC (4.8-10.8) K/uL RBC (3.80-5.20) Mil/uL Hgb (11.0-16.0) g/dL Hct (34.0-47.0) % MCV (81.0-99.0) fL MCH (27.0-31.0) pg MCHC (33.0-37.0) g/dL RDW (11.5-14.5) % Plt Count (130-400) K/uL MPV (7.2-11.7) fL Neut % (Auto) (50.0-75.0) % Lymph % (Auto) (20.0-40.0) % Kaufman % (Auto) (0.0-10.0) % Eos % (Auto) (0.0-4.0) % Baso % (Auto) (0.0-2.0) % Neut # (Auto) (1.8-7.0) K/uL Lymph # (Auto) (1.0-4.3) K/uL Kaufman # (Auto) (0.0-0.8) K/uL Eos # (Auto) (0.0-0.7) K/uL Baso # (Auto) (0.0-0.2) K/uL Neutrophils % (Manual) 90 H (50-75) % Band Neutrophils % 1 (0-2) % Lymphocytes % (Manual) 6 L (20-40) % Reactive Lymphs % (0-0) % Monocytes % (Manual) 3 (0-10) % Eosinophils % (Manual) (0-4) % Platelet Estimate Normal (NORMAL) Large Platelets Present Polychromasia Slight Hypochromasia (manual) Slight Poikilocytosis (manual Slight Anisocytosis (manual) Slight Target Cells Slight Ovalocytes Slight PT (9.7-12.2) SECONDS INR APTT (21-34) SECONDS Puncture Site pCO2 (35-45) mm/Hg pO2 (80-100) mm/Hg HCO3 (21-28) mmol/L ABG pH (7.35-7.45) ABG Total CO2 (22-28) mmol/L ABG O2 Saturation (95-98) % ABG Base Excess (-2.0-3.0) mmol/L ABG Hemoglobin (11.7-17.4) g/dL ABG Carboxyhemoglobin (0.5-1.5) % POC ABG HHb (Measured) (0.0-5.0) % ABG Methemoglobin (0.0-3.0) % Luis Test A-a O2 Difference mm/Hg Respiratory Index Hgb O2 Saturation (95.0-98.0) % Vent Mode Mechanical Rate FiO2 % Tidal Volume PEEP POC Glucose (mg/dL) 104 (65-110) mg/dL Fluid Source Peritoneal/ascites Fluid Appearance Cloudy (CLEAR) Fluid WBC 73138.0 H (0.0-300.0) /mm3 Fluid RBC 5054.0 H (0.0-0.0) /mm3 Fluid Tot Cell Count 100 H (0-0) Fluid Neutrophils 98.0 H (0-0) % Fld Monocyte/Macrophag 2 H (0-0) % Fluid Comment Blood Type Antibody Screen 09/09/18 09/08/18 09/08/18 Range/Units 05:15 23:48 18:02 WBC (4.8-10.8) K/uL RBC (3.80-5.20) Mil/uL Hgb (11.0-16.0) g/dL Hct (34.0-47.0) % MCV (81.0-99.0) fL MCH (27.0-31.0) pg MCHC (33.0-37.0) g/dL RDW (11.5-14.5) % Plt Count (130-400) K/uL MPV (7.2-11.7) fL Neut % (Auto) (50.0-75.0) % Lymph % (Auto) (20.0-40.0) % Kaufman % (Auto) (0.0-10.0) % Eos % (Auto) (0.0-4.0) % Baso % (Auto) (0.0-2.0) % Neut # (Auto) (1.8-7.0) K/uL Lymph # (Auto) (1.0-4.3) K/uL Kaufman # (Auto) (0.0-0.8) K/uL Eos # (Auto) (0.0-0.7) K/uL Baso # (Auto) (0.0-0.2) K/uL Neutrophils % (Manual) (50-75) % Band Neutrophils % (0-2) % Lymphocytes % (Manual) (20-40) % Reactive Lymphs % (0-0) % Monocytes % (Manual) (0-10) % Eosinophils % (Manual) (0-4) % Platelet Estimate (NORMAL) Large Platelets Polychromasia Hypochromasia (manual) Poikilocytosis (manual Anisocytosis (manual) Target Cells Ovalocytes PT (9.7-12.2) SECONDS INR APTT (21-34) SECONDS Puncture Site pCO2 (35-45) mm/Hg pO2 (80-100) mm/Hg HCO3 (21-28) mmol/L ABG pH (7.35-7.45) ABG Total CO2 (22-28) mmol/L ABG O2 Saturation (95-98) % ABG Base Excess (-2.0-3.0) mmol/L ABG Hemoglobin (11.7-17.4) g/dL ABG Carboxyhemoglobin (0.5-1.5) % POC ABG HHb (Measured) (0.0-5.0) % ABG Methemoglobin (0.0-3.0) % Luis Test A-a O2 Difference mm/Hg Respiratory Index Hgb O2 Saturation (95.0-98.0) % Vent Mode Mechanical Rate FiO2 % Tidal Volume PEEP POC Glucose (mg/dL) 119 H 91 92 (65-110) mg/dL Fluid Source Fluid Appearance (CLEAR) Fluid WBC (0.0-300.0) /mm3 Fluid RBC (0.0-0.0) /mm3 Fluid Tot Cell Count (0-0) Fluid Neutrophils (0-0) % Fld Monocyte/Macrophag (0-0) % Fluid Comment Blood Type Antibody Screen 09/08/18 09/08/18 09/07/18 Range/Units 11:31 04:50 23:36 WBC (4.8-10.8) K/uL RBC (3.80-5.20) Mil/uL Hgb (11.0-16.0) g/dL Hct (34.0-47.0) % MCV (81.0-99.0) fL MCH (27.0-31.0) pg MCHC (33.0-37.0) g/dL RDW (11.5-14.5) % Plt Count (130-400) K/uL MPV (7.2-11.7) fL Neut % (Auto) (50.0-75.0) % Lymph % (Auto) (20.0-40.0) % Kaufman % (Auto) (0.0-10.0) % Eos % (Auto) (0.0-4.0) % Baso % (Auto) (0.0-2.0) % Neut # (Auto) (1.8-7.0) K/uL Lymph # (Auto) (1.0-4.3) K/uL Kaufman # (Auto) (0.0-0.8) K/uL Eos # (Auto) (0.0-0.7) K/uL Baso # (Auto) (0.0-0.2) K/uL Neutrophils % (Manual) (50-75) % Band Neutrophils % (0-2) % Lymphocytes % (Manual) (20-40) % Reactive Lymphs % (0-0) % Monocytes % (Manual) (0-10) % Eosinophils % (Manual) (0-4) % Platelet Estimate (NORMAL) Large Platelets Polychromasia Hypochromasia (manual) Poikilocytosis (manual Anisocytosis (manual) Target Cells Ovalocytes PT (9.7-12.2) SECONDS INR APTT (21-34) SECONDS Puncture Site pCO2 (35-45) mm/Hg pO2 (80-100) mm/Hg HCO3 (21-28) mmol/L ABG pH (7.35-7.45) ABG Total CO2 (22-28) mmol/L ABG O2 Saturation (95-98) % ABG Base Excess (-2.0-3.0) mmol/L ABG Hemoglobin (11.7-17.4) g/dL ABG Carboxyhemoglobin (0.5-1.5) % POC ABG HHb (Measured) (0.0-5.0) % ABG Methemoglobin (0.0-3.0) % Luis Test A-a O2 Difference mm/Hg Respiratory Index Hgb O2 Saturation (95.0-98.0) % Vent Mode Mechanical Rate FiO2 % Tidal Volume PEEP POC Glucose (mg/dL) 89 75 79 (65-110) mg/dL Fluid Source Fluid Appearance (CLEAR) Fluid WBC (0.0-300.0) /mm3 Fluid RBC (0.0-0.0) /mm3 Fluid Tot Cell Count (0-0) Fluid Neutrophils (0-0) % Fld Monocyte/Macrophag (0-0) % Fluid Comment Blood Type Antibody Screen Laboratory Results - last 24 hr 09/07/18 09/08/18 09/08/18 23:36 04:50 11:31 WBC RBC Hgb Hct MCV MCH MCHC RDW Plt Count MPV Neut % (Auto) Lymph % (Auto) Kaufman % (Auto) Eos % (Auto) Baso % (Auto) Neut # (Auto) Lymph # (Auto) Kaufman # (Auto) Eos # (Auto) Baso # (Auto) Neutrophils % (Manual) Band Neutrophils % Lymphocytes % (Manual) Reactive Lymphs % Monocytes % (Manual) Eosinophils % (Manual) Platelet Estimate Large Platelets Polychromasia Hypochromasia (manual) Poikilocytosis (manual Anisocytosis (manual) Target Cells Ovalocytes PT INR APTT Puncture Site pCO2 pO2 HCO3 ABG pH ABG Total CO2 ABG O2 Saturation ABG Base Excess ABG Hemoglobin ABG Carboxyhemoglobin POC ABG HHb (Measured) ABG Methemoglobin Luis Test A-a O2 Difference Respiratory Index Hgb O2 Saturation Vent Mode Mechanical Rate FiO2 Tidal Volume PEEP POC Glucose (mg/dL) 79 75 89 Fluid Source Fluid Appearance Fluid WBC Fluid RBC Fluid Tot Cell Count Fluid Neutrophils Fld Monocyte/Macrophag Fluid Comment Blood Type Antibody Screen 09/08/18 09/08/18 09/09/18 18:02 23:48 05:15 WBC RBC Hgb Hct MCV MCH MCHC RDW Plt Count MPV Neut % (Auto) Lymph % (Auto) Kaufman % (Auto) Eos % (Auto) Baso % (Auto) Neut # (Auto) Lymph # (Auto) Kaufman # (Auto) Eos # (Auto) Baso # (Auto) Neutrophils % (Manual) Band Neutrophils % Lymphocytes % (Manual) Reactive Lymphs % Monocytes % (Manual) Eosinophils % (Manual) Platelet Estimate Large Platelets Polychromasia Hypochromasia (manual) Poikilocytosis (manual Anisocytosis (manual) Target Cells Ovalocytes PT INR APTT Puncture Site pCO2 pO2 HCO3 ABG pH ABG Total CO2 ABG O2 Saturation ABG Base Excess ABG Hemoglobin ABG Carboxyhemoglobin POC ABG HHb (Measured) ABG Methemoglobin Luis Test A-a O2 Difference Respiratory Index Hgb O2 Saturation Vent Mode Mechanical Rate FiO2 Tidal Volume PEEP POC Glucose (mg/dL) 92 91 119 H Fluid Source Fluid Appearance Fluid WBC Fluid RBC Fluid Tot Cell Count Fluid Neutrophils Fld Monocyte/Macrophag Fluid Comment Blood Type Antibody Screen 09/09/18 09/09/18 09/09/18 05:35 11:29 17:24 WBC RBC Hgb Hct MCV MCH MCHC RDW Plt Count MPV Neut % (Auto) Lymph % (Auto) Kaufman % (Auto) Eos % (Auto) Baso % (Auto) Neut # (Auto) Lymph # (Auto) Kaufman # (Auto) Eos # (Auto) Baso # (Auto) Neutrophils % (Manual) 90 H Band Neutrophils % 1 Lymphocytes % (Manual) 6 L Reactive Lymphs % Monocytes % (Manual) 3 Eosinophils % (Manual) Platelet Estimate Normal Large Platelets Present Polychromasia Slight Hypochromasia (manual) Slight Poikilocytosis (manual Slight Anisocytosis (manual) Slight Target Cells Slight Ovalocytes Slight PT INR APTT Puncture Site pCO2 pO2 HCO3 ABG pH ABG Total CO2 ABG O2 Saturation ABG Base Excess ABG Hemoglobin ABG Carboxyhemoglobin POC ABG HHb (Measured) ABG Methemoglobin Luis Test A-a O2 Difference Respiratory Index Hgb O2 Saturation Vent Mode Mechanical Rate FiO2 Tidal Volume PEEP POC Glucose (mg/dL) 104 Fluid Source Peritoneal/ascites Fluid Appearance Cloudy Fluid WBC 19693.0 H Fluid RBC 5054.0 H Fluid Tot Cell Count 100 H Fluid Neutrophils 98.0 H Fld Monocyte/Macrophag 2 H Fluid Comment Blood Type Antibody Screen 09/09/18 09/09/18 09/09/18 18:08 18:08 18:08 WBC 16.4 H RBC 3.18 L Hgb 7.9 L Hct 24.5 L MCV 76.9 L MCH 24.8 L MCHC 32.3 L RDW 18.9 H Plt Count 350 MPV 9.9 Neut % (Auto) 78.4 H Lymph % (Auto) 9.5 L Kaufman % (Auto) 8.0 Eos % (Auto) 3.4 Baso % (Auto) 0.7 Neut # (Auto) 12.8 H Lymph # (Auto) 1.6 Kaufman # (Auto) 1.3 H Eos # (Auto) 0.6 Baso # (Auto) 0.1 Neutrophils % (Manual) 72 Band Neutrophils % 4 H Lymphocytes % (Manual) 13 L Reactive Lymphs % 1 H Monocytes % (Manual) 7 Eosinophils % (Manual) 3 Platelet Estimate Normal Large Platelets Present Polychromasia Hypochromasia (manual) Slight Poikilocytosis (manual Slight Anisocytosis (manual) Slight Target Cells Slight Ovalocytes PT 19.9 H INR 1.8 APTT 26 Puncture Site pCO2 pO2 HCO3 ABG pH ABG Total CO2 ABG O2 Saturation ABG Base Excess ABG Hemoglobin ABG Carboxyhemoglobin POC ABG HHb (Measured) ABG Methemoglobin Luis Test A-a O2 Difference Respiratory Index Hgb O2 Saturation Vent Mode Mechanical Rate FiO2 Tidal Volume PEEP POC Glucose (mg/dL) Fluid Source Fluid Appearance Fluid WBC Fluid RBC Fluid Tot Cell Count Fluid Neutrophils Fld Monocyte/Macrophag Fluid Comment Blood Type A POSITIVE Antibody Screen Negative 09/09/18 09/09/18 09/10/18 18:17 23:40 00:19 WBC 15.3 H RBC 3.31 L Hgb 8.3 L Hct 25.4 L MCV 76.6 L MCH 25.1 L MCHC 32.8 L RDW 18.8 H Plt Count 397 MPV 9.7 Neut % (Auto) Lymph % (Auto) Kaufman % (Auto) Eos % (Auto) Baso % (Auto) Neut # (Auto) Lymph # (Auto) Kaufman # (Auto) Eos # (Auto) Baso # (Auto) Neutrophils % (Manual) Band Neutrophils % Lymphocytes % (Manual) Reactive Lymphs % Monocytes % (Manual) Eosinophils % (Manual) Platelet Estimate Large Platelets Polychromasia Hypochromasia (manual) Poikilocytosis (manual Anisocytosis (manual) Target Cells Ovalocytes PT INR APTT Puncture Site pCO2 pO2 HCO3 ABG pH ABG Total CO2 ABG O2 Saturation ABG Base Excess ABG Hemoglobin ABG Carboxyhemoglobin POC ABG HHb (Measured) ABG Methemoglobin Luis Test A-a O2 Difference Respiratory Index Hgb O2 Saturation Vent Mode Mechanical Rate FiO2 Tidal Volume PEEP POC Glucose (mg/dL) 94 110 Fluid Source Fluid Appearance Fluid WBC Fluid RBC Fluid Tot Cell Count Fluid Neutrophils Fld Monocyte/Macrophag Fluid Comment Blood Type Antibody Screen 09/10/18 09/10/18 09/10/18 00:19 05:39 06:22 WBC RBC Hgb Hct MCV MCH MCHC RDW Plt Count MPV Neut % (Auto) Lymph % (Auto) [place] % (Auto) Eos % (Auto) Baso % (Auto) Neut # (Auto) Lymph # (Auto) [place]man # (Auto) Eos # (Auto) Baso # (Auto) Neutrophils % (Manual) Band Neutrophils % Lymphocytes % (Manual) Reactive Lymphs % Monocytes % (Manual) Eosinophils % (Manual) Platelet Estimate Large Platelets Polychromasia Hypochromasia (manual) Poikilocytosis (manual Anisocytosis (manual) Target Cells Ovalocytes PT INR APTT 33 D Puncture Site L rad pCO2 32 L pO2 96 HCO3 26.9 ABG pH 7.51 H ABG Total CO2 26.5 ABG O2 Saturation 98.7 H ABG Base Excess 2.5 ABG Hemoglobin 8.3 L ABG Carboxyhemoglobin 1.5 POC ABG HHb (Measured) 1.3 ABG Methemoglobin 1.0 Luis Test Pos A-a O2 Difference 78.0 Respiratory Index 0.8 Hgb O2 Saturation 96.2 Vent Mode Prvc Mechanical Rate 20 FiO2 30.0 Tidal Volume 500 PEEP 5 POC Glucose (mg/dL) 109 Fluid Source Fluid Appearance Fluid WBC Fluid RBC Fluid Tot Cell Count Fluid Neutrophils Fld Monocyte/Macrophag Fluid Comment Blood Type Antibody Screen Fingerstick Blood Sugar Results: 109 Results Reviewed to Date: Yes Review of Systems - Review of Systems Systems not reviewed;Unavailable: Intubated Critical Care Progress Note - Ventilator Checklist Head of Bed 30 Degrees: Yes Daily Sedation Vacation: Yes Daily Assessment of Readiness to Wean: Yes Daily Spontaneous Breathing Trial: Yes PUD Prophalyxis: Yes DVT Prophylaxis: Yes (therapeutic heparin for RLE DVT) - Vent Settings MODE:: PRVC TIDAL VOLUME:: 500 RESP RATE:: 20 FIO2:: 30 PEEP:: 5 - Extremities/Vascular Does the Patient have a Central Venous Catheter?: Yes Insertion Site: Internal Jugular Vein Does the Patient need a Central Venous Catheter?: Yes Does the Patient have a Rankin Catheter?: Yes Does the Patient need a Rankin Catheter?: Yes Catheter Insertion Criteria: Patient requires prolonged immobilization - Prophylaxis GI Prophylaxis GI: PPI - Prophylaxis DVT Prophylaxis DVT: SCDs (therapeutic heparin drip) - Nutrition Nutrition: Nutrition Category Date Time Status NPO Diet [DIET] Diets 08/31/18 Breakfast Active Assessment/Plan - Assessment and Plan (Free Text) Assessment: Patient is a 33 yo female s/p hysterectomy for cervical cancer in situ and sigmoid bowel perforation on 08/28. Patient had an ex lap with colostomy placement on day of admission (08/31). Patient's peritoneal fluid was positive for Klebsiella. Patient has been persistently febrile with improving white count. Additionally, patient has had multiple episodes of sinus tachycardia (presently resolved). She is currently being managed in the ICU on sedation and vent. Patient's family requested to have her transferred to [facility] where patient had original surgery (hysterectomy)- she will be transferred today at 11:30 AM. Plan: Neuro: - Versed 0.05 mg/kg/hr CV: - Metoprolol 5 mg IV Q6H - B/l LE venous Dopplers: R femoral DVT - Heparin drip - Echo pending Pulm: Hypoxic respiratory failure - CXR on 09/08: small-moderate b/l pleural effusions, moderate venous congestion - Mechanical ventilator- attempt to wean - Maintain spO2>92% GI: Ex lap with colostomy POD10 - CT A/P on 09/06: Worsening abdominal and pelvic ascites; particularly prominently worsening ascites in the left upper abdomen. Moderate loculated pelvic ascites. Fluid anterior to the pancreas. Multiple dilated enhancing small bowel loops seen throughout the upper mid and lower abdomen suggestive for prominent enteritis with associated ileus/partial small bowel obstruction. Thick-walled enhancing colon suggestive for an underlying colitis. Lobulated low-attenuation focus/lesion within the medial inferior right hepatic lobe measuring 4.1 x 2.2 x 4.9 centimeters. This may represent a cystic lesion how ever additional etiologies are not excluded. Hepatomegaly. Pericholecystic edema and or gallbladder wall thickening. Prominent para-aortic, mesenteric, and inguinal lymph nodes. - Subsplenic/ascites fluid- WBC 16,000, 98% neutrophils, RBC 5000, few mesothelial cells and macrophages, Cx pending - NPO - OGT - TLC- start TPN 09/10 - Monitor colostomy output - Reglan 10 mg IV Q6H - Dilaudid 0.5 mg Q2H PRN pain - Surgery is primary (Arago) - IR consulted (Héctor)- s/p subsplenic drainage Renal: - Rankin - Replete electrolytes PRN - Strict I's and O's- patient has total net negative output - Urology consulted (Champ Aguirre) Endo: - Maintain euglycemia - Hypoglycemia protocol - Accuchecks Q6H with Novolog ISS Heme: Anemia - S/p 2u PRBC - Hgb stable (8.0) - Monitor H&H ID: Septic shock - Peritoneal fluid Cx: Klebsiella - Blood, urine, sputum, wound Cx: no growth - Ascites fluid Cx pending - WBC trending down - Thrombocytopenia resolved - Procal trending down - Lactic acidosis resolved - Febrile >72 hrs (Tmax 102.5 on 09/08) - Hypothermia blanket - Acetaminophen 1000 mg IV Q6H PRN fever - HIV, HBV negative - C. diff negative - CBC daily - Flagyl 500 mg IV Q8H - Aztreanam 1 g IV Q8H - Meropenem 1 g IV Q8H - Micafungin 100 mg IV daily - ID consulted (Howard) Ppx: VTE: SCDs, heparin drip (therapeutic for DVT) GI: Protonix 40 mg IV daily IVF: KCl in D51/2NS @ 100 mL/hr Code status: full code Case discussed with attending, Dr. Traore. PGY-1 Lia Camarena D.O. <Yasmani Traore S - Last Filed: 09/10/18 18:00> CCU Objective - Vital Signs / Intake & Output Intake and Output (Last 8hrs): Intake & Output 09/10/18 09/10/18 09/10/18 06:59 14:59 22:59 Intake Total 1226.0 896.0 Output Total 1713 Balance -487.0 896.0 Weight 198 lb 9.6 oz Intake: IV 80 100 Intake, IV Amount 1146.0 796.0 Right IJ Distal 200 300 Right IJ Distal Y 800 400 Right IJ Medial 48.8 30.5 Right IJ Proximal 97.2 65.5 Output: Gastric Amount 400 Stomach 400 Drainage 3 Left Abdomen 1 Right Abdomen 2 Urine 1310 Urethral (Rankin) 1310 - Patient Studies Lab Studies: Microbiology Studies 09/05/18 15:30 Blood Culture - Final Blood NO GROWTH AFTER 5 DAYS Gram Stain - Final TEST NOT PERFORMED 09/05/18 16:00 Blood Culture - Final Blood NO GROWTH AFTER 5 DAYS Gram Stain - Final TEST NOT PERFORMED 09/08/18 12:41 Blood Culture - Preliminary Blood-Venous NO GROWTH AFTER 48 HOURS 09/08/18 12:41 Blood Culture - Preliminary Blood-Venous NO GROWTH AFTER 48 HOURS 09/09/18 17:24 Gram Stain - Final Abdominal Fluid Lab Studies 09/10/18 09/10/18 09/10/18 Range/Units 11:00 08:01 06:46 WBC (4.8-10.8) K/uL RBC (3.80-5.20) Mil/uL Hgb (11.0-16.0) g/dL Hct (34.0-47.0) % MCV (81.0-99.0) fL MCH (27.0-31.0) pg MCHC (33.0-37.0) g/dL RDW (11.5-14.5) % Plt Count (130-400) K/uL MPV (7.2-11.7) fL Neut % (Auto) (50.0-75.0) % Lymph % (Auto) (20.0-40.0) % Kaufman % (Auto) (0.0-10.0) % Eos % (Auto) (0.0-4.0) % Baso % (Auto) (0.0-2.0) % Neut # (Auto) (1.8-7.0) K/uL Lymph # (Auto) (1.0-4.3) K/uL Kaufman # (Auto) (0.0-0.8) K/uL Eos # (Auto) (0.0-0.7) K/uL Baso # (Auto) (0.0-0.2) K/uL Neutrophils % (Manual) (50-75) % Band Neutrophils % (0-2) % Lymphocytes % (Manual) (20-40) % Reactive Lymphs % (0-0) % Monocytes % (Manual) (0-10) % Eosinophils % (Manual) (0-4) % Differential Comment Platelet Estimate (NORMAL) Large Platelets Hypochromasia (manual) Poikilocytosis (manual Anisocytosis (manual) Target Cells PT (9.7-12.2) SECONDS INR APTT 54 H D (21-34) SECONDS Puncture Site pCO2 (35-45) mm/Hg pO2 (80-100) mm/Hg HCO3 (21-28) mmol/L ABG pH (7.35-7.45) ABG Total CO2 (22-28) mmol/L ABG O2 Saturation (95-98) % ABG Base Excess (-2.0-3.0) mmol/L ABG Hemoglobin (11.7-17.4) g/dL ABG Carboxyhemoglobin (0.5-1.5) % POC ABG HHb (Measured) (0.0-5.0) % ABG Methemoglobin (0.0-3.0) % Luis Test A-a O2 Difference mm/Hg Respiratory Index Hgb O2 Saturation (95.0-98.0) % Vent Mode Mechanical Rate FiO2 % Tidal Volume PEEP Sodium 142 (132-148) mmol/L Potassium 3.2 L (3.6-5.2) mmol/L Chloride 108 H (98-107) mmol/L Carbon Dioxide 26 (22-30) mmol/L Anion Gap 12 (10-20) BUN 5 L (7-17) mg/dL Creatinine 0.5 L (0.7-1.2) mg/dL Est GFR ( Amer) > 60 Est GFR (Non-Af Amer) > 60 POC Glucose (mg/dL) 101 (65-110) mg/dL Random Glucose 107 H (65-105) mg/dL Calcium 7.5 L (8.6-10.4) mg/dl Phosphorus 3.3 (2.5-4.5) mg/dL Magnesium 1.9 (1.6-2.3) mg/dL Total Bilirubin 0.9 (0.2-1.3) mg/dL AST 38 H D (14-36) U/L ALT 30 (9-52) U/L Alkaline Phosphatase 252 H D (38-126) U/L Total Protein 5.3 L (6.3-8.3) g/dL Albumin 2.4 L (3.5-5.0) g/dL Globulin 2.9 (2.2-3.9) gm/dL Albumin/Globulin Ratio 0.8 L (1.0-2.1) Fluid Appearance (CLEAR) Fluid WBC (0.0-300.0) /mm3 Fluid RBC (0.0-0.0) /mm3 Fluid Tot Cell Count (0-0) Fluid Neutrophils (0-0) % Fld Monocyte/Macrophag (0-0) % Fluid Comment Blood Type Antibody Screen 09/10/18 09/10/1818 Range/Units 06:46 06:22 05:39 WBC 15.3 H (4.8-10.8) K/uL RBC 3.17 L (3.80-5.20) Mil/uL Hgb 8.0 L (11.0-16.0) g/dL Hct 24.5 L (34.0-47.0) % MCV 77.4 L (81.0-99.0) fL MCH 25.3 L (27.0-31.0) pg MCHC 32.7 L (33.0-37.0) g/dL RDW 19.0 H (11.5-14.5) % Plt Count 388 (130-400) K/uL MPV 10.2 (7.2-11.7) fL Neut % (Auto) 70.9 (50.0-75.0) % Lymph % (Auto) 15.5 L (20.0-40.0) % Kaufman % (Auto) 10.0 (0.0-10.0) % Eos % (Auto) 2.8 (0.0-4.0) % Baso % (Auto) 0.8 (0.0-2.0) % Neut # (Auto) 10.8 H (1.8-7.0) K/uL Lymph # (Auto) 2.4 (1.0-4.3) K/uL Kaufman # (Auto) 1.5 H (0.0-0.8) K/uL Eos # (Auto) 0.4 (0.0-0.7) K/uL Baso # (Auto) 0.1 (0.0-0.2) K/uL Neutrophils % (Manual) (50-75) % Band Neutrophils % (0-2) % Lymphocytes % (Manual) (20-40) % Reactive Lymphs % (0-0) % Monocytes % (Manual) (0-10) % Eosinophils % (Manual) (0-4) % Differential Comment Cancelled Platelet Estimate (NORMAL) Large Platelets Hypochromasia (manual) Poikilocytosis (manual Anisocytosis (manual) Target Cells PT (9.7-12.2) SECONDS INR APTT (21-34) SECONDS Puncture Site L rad pCO2 32 L (35-45) mm/Hg pO2 96 (80-100) mm/Hg HCO3 26.9 (21-28) mmol/L ABG pH 7.51 H (7.35-7.45) ABG Total CO2 26.5 (22-28) mmol/L ABG O2 Saturation 98.7 H (95-98) % ABG Base Excess 2.5 (-2.0-3.0) mmol/L ABG Hemoglobin 8.3 L (11.7-17.4) g/dL ABG Carboxyhemoglobin 1.5 (0.5-1.5) % POC ABG HHb (Measured) 1.3 (0.0-5.0) % ABG Methemoglobin 1.0 (0.0-3.0) % Luis Test Pos A-a O2 Difference 78.0 mm/Hg Respiratory Index 0.8 Hgb O2 Saturation 96.2 (95.0-98.0) % Vent Mode Prvc Mechanical Rate 20 FiO2 30.0 % Tidal Volume 500 PEEP 5 Sodium (132-148) mmol/L Potassium (3.6-5.2) mmol/L Chloride (98-107) mmol/L Carbon Dioxide (22-30) mmol/L Anion Gap (10-20) BUN (7-17) mg/dL Creatinine (0.7-1.2) mg/dL Est GFR ( Amer) Est GFR (Non-Af Amer) POC Glucose (mg/dL) 109 (65-110) mg/dL Random Glucose (65-105) mg/dL Calcium (8.6-10.4) mg/dl Phosphorus (2.5-4.5) mg/dL Magnesium (1.6-2.3) mg/dL Total Bilirubin (0.2-1.3) mg/dL AST (14-36) U/L ALT (9-52) U/L Alkaline Phosphatase (38-126) U/L Total Protein (6.3-8.3) g/dL Albumin (3.5-5.0) g/dL Globulin (2.2-3.9) gm/dL Albumin/Globulin Ratio (1.0-2.1) Fluid Appearance (CLEAR) Fluid WBC (0.0-300.0) /mm3 Fluid RBC (0.0-0.0) /mm3 Fluid Tot Cell Count (0-0) Fluid Neutrophils (0-0) % Fld Monocyte/Macrophag (0-0) % Fluid Comment Blood Type Antibody Screen 09/10/18 09/10/18 09/09/18 Range/Units 00:19 00:19 23:40 WBC 15.3 H (4.8-10.8) K/uL RBC 3.31 L (3.80-5.20) Mil/uL Hgb 8.3 L (11.0-16.0) g/dL Hct 25.4 L (34.0-47.0) % MCV 76.6 L (81.0-99.0) fL MCH 25.1 L (27.0-31.0) pg MCHC 32.8 L (33.0-37.0) g/dL RDW 18.8 H (11.5-14.5) % Plt Count 397 (130-400) K/uL MPV 9.7 (7.2-11.7) fL Neut % (Auto) (50.0-75.0) % Lymph % (Auto) (20.0-40.0) % Kaufman % (Auto) (0.0-10.0) % Eos % (Auto) (0.0-4.0) % Baso % (Auto) (0.0-2.0) % Neut # (Auto) (1.8-7.0) K/uL Lymph # (Auto) (1.0-4.3) K/uL Kaufman # (Auto) (0.0-0.8) K/uL Eos # (Auto) (0.0-0.7) K/uL Baso # (Auto) (0.0-0.2) K/uL Neutrophils % (Manual) (50-75) % Band Neutrophils % (0-2) % Lymphocytes % (Manual) (20-40) % Reactive Lymphs % (0-0) % Monocytes % (Manual) (0-10) % Eosinophils % (Manual) (0-4) % Differential Comment Platelet Estimate (NORMAL) Large Platelets Hypochromasia (manual) Poikilocytosis (manual Anisocytosis (manual) Target Cells PT (9.7-12.2) SECONDS INR APTT 33 D (21-34) SECONDS Puncture Site pCO2 (35-45) mm/Hg pO2 (80-100) mm/Hg HCO3 (21-28) mmol/L ABG pH (7.35-7.45) ABG Total CO2 (22-28) mmol/L ABG O2 Saturation (95-98) % ABG Base Excess (-2.0-3.0) mmol/L ABG Hemoglobin (11.7-17.4) g/dL ABG Carboxyhemoglobin (0.5-1.5) % POC ABG HHb (Measured) (0.0-5.0) % ABG Methemoglobin (0.0-3.0) % Luis Test A-a O2 Difference mm/Hg Respiratory Index Hgb O2 Saturation (95.0-98.0) % Vent Mode Mechanical Rate FiO2 % Tidal Volume PEEP Sodium (132-148) mmol/L Potassium (3.6-5.2) mmol/L Chloride (98-107) mmol/L Carbon Dioxide (22-30) mmol/L Anion Gap (10-20) BUN (7-17) mg/dL Creatinine (0.7-1.2) mg/dL Est GFR ( Amer) Est GFR (Non-Af Amer) POC Glucose (mg/dL) 110 (65-110) mg/dL Random Glucose (65-105) mg/dL Calcium (8.6-10.4) mg/dl Phosphorus (2.5-4.5) mg/dL Magnesium (1.6-2.3) mg/dL Total Bilirubin (0.2-1.3) mg/dL AST (14-36) U/L ALT (9-52) U/L Alkaline Phosphatase (38-126) U/L Total Protein (6.3-8.3) g/dL Albumin (3.5-5.0) g/dL Globulin (2.2-3.9) gm/dL Albumin/Globulin Ratio (1.0-2.1) Fluid Appearance (CLEAR) Fluid WBC (0.0-300.0) /mm3 Fluid RBC (0.0-0.0) /mm3 Fluid Tot Cell Count (0-0) Fluid Neutrophils (0-0) % Fld Monocyte/Macrophag (0-0) % Fluid Comment Blood Type Antibody Screen 09/09/18 09/09/18 09/09/18 Range/Units 18:17 18:08 18:08 WBC 16.4 H (4.8-10.8) K/uL RBC 3.18 L (3.80-5.20) Mil/uL Hgb 7.9 L (11.0-16.0) g/dL Hct 24.5 L (34.0-47.0) % MCV 76.9 L (81.0-99.0) fL MCH 24.8 L (27.0-31.0) pg MCHC 32.3 L (33.0-37.0) g/dL RDW 18.9 H (11.5-14.5) % Plt Count 350 (130-400) K/uL MPV 9.9 (7.2-11.7) fL Neut % (Auto) 78.4 H (50.0-75.0) % Lymph % (Auto) 9.5 L (20.0-40.0) % Kaufman % (Auto) 8.0 (0.0-10.0) % Eos % (Auto) 3.4 (0.0-4.0) % Baso % (Auto) 0.7 (0.0-2.0) % Neut # (Auto) 12.8 H (1.8-7.0) K/uL Lymph # (Auto) 1.6 (1.0-4.3) K/uL Kaufman # (Auto) 1.3 H (0.0-0.8) K/uL Eos # (Auto) 0.6 (0.0-0.7) K/uL Baso # (Auto) 0.1 (0.0-0.2) K/uL Neutrophils % (Manual) 72 (50-75) % Band Neutrophils % 4 H (0-2) % Lymphocytes % (Manual) 13 L (20-40) % Reactive Lymphs % 1 H (0-0) % Monocytes % (Manual) 7 (0-10) % Eosinophils % (Manual) 3 (0-4) % Differential Comment Platelet Estimate Normal (NORMAL) Large Platelets Present Hypochromasia (manual) Slight Poikilocytosis (manual Slight Anisocytosis (manual) Slight Target Cells Slight PT (9.7-12.2) SECONDS INR APTT (21-34) SECONDS Puncture Site pCO2 (35-45) mm/Hg pO2 (80-100) mm/Hg HCO3 (21-28) mmol/L ABG pH (7.35-7.45) ABG Total CO2 (22-28) mmol/L ABG O2 Saturation (95-98) % ABG Base Excess (-2.0-3.0) mmol/L ABG Hemoglobin (11.7-17.4) g/dL ABG Carboxyhemoglobin (0.5-1.5) % POC ABG HHb (Measured) (0.0-5.0) % ABG Methemoglobin (0.0-3.0) % Luis Test A-a O2 Difference mm/Hg Respiratory Index Hgb O2 Saturation (95.0-98.0) % Vent Mode Mechanical Rate FiO2 % Tidal Volume PEEP Sodium (132-148) mmol/L Potassium (3.6-5.2) mmol/L Chloride (98-107) mmol/L Carbon Dioxide (22-30) mmol/L Anion Gap (10-20) BUN (7-17) mg/dL Creatinine (0.7-1.2) mg/dL Est GFR ( Amer) Est GFR (Non-Af Amer) POC Glucose (mg/dL) 94 (65-110) mg/dL Random Glucose (65-105) mg/dL Calcium (8.6-10.4) mg/dl Phosphorus (2.5-4.5) mg/dL Magnesium (1.6-2.3) mg/dL Total Bilirubin (0.2-1.3) mg/dL AST (14-36) U/L ALT (9-52) U/L Alkaline Phosphatase (38-126) U/L Total Protein (6.3-8.3) g/dL Albumin (3.5-5.0) g/dL Globulin (2.2-3.9) gm/dL Albumin/Globulin Ratio (1.0-2.1) Fluid Appearance (CLEAR) Fluid WBC (0.0-300.0) /mm3 Fluid RBC (0.0-0.0) /mm3 Fluid Tot Cell Count (0-0) Fluid Neutrophils (0-0) % Fld Monocyte/Macrophag (0-0) % Fluid Comment Blood Type A POSITIVE Antibody Screen Negative 09/09/18 09/09/18 Range/Units 18:08 17:24 WBC (4.8-10.8) K/uL RBC (3.80-5.20) Mil/uL Hgb (11.0-16.0) g/dL Hct (34.0-47.0) % MCV (81.0-99.0) fL MCH (27.0-31.0) pg MCHC (33.0-37.0) g/dL RDW (11.5-14.5) % Plt Count (130-400) K/uL MPV (7.2-11.7) fL Neut % (Auto) (50.0-75.0) % Lymph % (Auto) (20.0-40.0) % Kaufman % (Auto) (0.0-10.0) % Eos % (Auto) (0.0-4.0) % Baso % (Auto) (0.0-2.0) % Neut # (Auto) (1.8-7.0) K/uL Lymph # (Auto) (1.0-4.3) K/uL Kaufman # (Auto) (0.0-0.8) K/uL Eos # (Auto) (0.0-0.7) K/uL Baso # (Auto) (0.0-0.2) K/uL Neutrophils % (Manual) (50-75) % Band Neutrophils % (0-2) % Lymphocytes % (Manual) (20-40) % Reactive Lymphs % (0-0) % Monocytes % (Manual) (0-10) % Eosinophils % (Manual) (0-4) % Differential Comment Platelet Estimate (NORMAL) Large Platelets Hypochromasia (manual) Poikilocytosis (manual Anisocytosis (manual) Target Cells PT 19.9 H (9.7-12.2) SECONDS INR 1.8 APTT 26 (21-34) SECONDS Puncture Site pCO2 (35-45) mm/Hg pO2 (80-100) mm/Hg HCO3 (21-28) mmol/L ABG pH (7.35-7.45) ABG Total CO2 (22-28) mmol/L ABG O2 Saturation (95-98) % ABG Base Excess (-2.0-3.0) mmol/L ABG Hemoglobin (11.7-17.4) g/dL ABG Carboxyhemoglobin (0.5-1.5) % POC ABG HHb (Measured) (0.0-5.0) % ABG Methemoglobin (0.0-3.0) % Luis Test A-a O2 Difference mm/Hg Respiratory Index Hgb O2 Saturation (95.0-98.0) % Vent Mode Mechanical Rate FiO2 % Tidal Volume PEEP Sodium (132-148) mmol/L Potassium (3.6-5.2) mmol/L Chloride (98-107) mmol/L Carbon Dioxide (22-30) mmol/L Anion Gap (10-20) BUN (7-17) mg/dL Creatinine (0.7-1.2) mg/dL Est GFR ( Amer) Est GFR (Non-Af Amer) POC Glucose (mg/dL) (65-110) mg/dL Random Glucose (65-105) mg/dL Calcium (8.6-10.4) mg/dl Phosphorus (2.5-4.5) mg/dL Magnesium (1.6-2.3) mg/dL Total Bilirubin (0.2-1.3) mg/dL AST (14-36) U/L ALT (9-52) U/L Alkaline Phosphatase (38-126) U/L Total Protein (6.3-8.3) g/dL Albumin (3.5-5.0) g/dL Globulin (2.2-3.9) gm/dL Albumin/Globulin Ratio (1.0-2.1) Fluid Appearance Cloudy (CLEAR) Fluid WBC 24733.0 H (0.0-300.0) /mm3 Fluid RBC 5054.0 H (0.0-0.0) /mm3 Fluid Tot Cell Count 100 H (0-0) Fluid Neutrophils 98.0 H (0-0) % Fld Monocyte/Macrophag 2 H (0-0) % Fluid Comment Blood Type Antibody Screen Laboratory Results - last 24 hr 09/09/18 09/09/18 09/09/18 17:24 18:08 18:08 WBC 16.4 H RBC 3.18 L Hgb 7.9 L Hct 24.5 L MCV 76.9 L MCH 24.8 L MCHC 32.3 L RDW 18.9 H Plt Count 350 MPV 9.9 Neut % (Auto) 78.4 H Lymph % (Auto) 9.5 L Kaufman % (Auto) 8.0 Eos % (Auto) 3.4 Baso % (Auto) 0.7 Neut # (Auto) 12.8 H Lymph # (Auto) 1.6 Kaufman # (Auto) 1.3 H Eos # (Auto) 0.6 Baso # (Auto) 0.1 Neutrophils % (Manual) 72 Band Neutrophils % 4 H Lymphocytes % (Manual) 13 L Reactive Lymphs % 1 H Monocytes % (Manual) 7 Eosinophils % (Manual) 3 Differential Comment Platelet Estimate Normal Large Platelets Present Hypochromasia (manual) Slight Poikilocytosis (manual Slight Anisocytosis (manual) Slight Target Cells Slight PT 19.9 H INR 1.8 APTT 26 Puncture Site pCO2 pO2 HCO3 ABG pH ABG Total CO2 ABG O2 Saturation ABG Base Excess ABG Hemoglobin ABG Carboxyhemoglobin POC ABG HHb (Measured) ABG Methemoglobin Luis Test A-a O2 Difference Respiratory Index Hgb O2 Saturation Vent Mode Mechanical Rate FiO2 Tidal Volume PEEP Sodium Potassium Chloride Carbon Dioxide Anion Gap BUN Creatinine Est GFR ( Amer) Est GFR (Non-Af Amer) POC Glucose (mg/dL) Random Glucose Calcium Phosphorus Magnesium Total Bilirubin AST ALT Alkaline Phosphatase Total Protein Albumin Globulin Albumin/Globulin Ratio Fluid Appearance Cloudy Fluid WBC 54242.0 H Fluid RBC 5054.0 H Fluid Tot Cell Count 100 H Fluid Neutrophils 98.0 H Fld Monocyte/Macrophag 2 H Fluid Comment Blood Type Antibody Screen 09/09/18 09/09/18 09/09/18 18:08 18:17 23:40 WBC RBC Hgb Hct MCV MCH MCHC RDW Plt Count MPV Neut % (Auto) Lymph % (Auto) Kaufman % (Auto) Eos % (Auto) Baso % (Auto) Neut # (Auto) Lymph # (Auto) Kaufman # (Auto) Eos # (Auto) Baso # (Auto) Neutrophils % (Manual) Band Neutrophils % Lymphocytes % (Manual) Reactive Lymphs % Monocytes % (Manual) Eosinophils % (Manual) Differential Comment Platelet Estimate Large Platelets Hypochromasia (manual) Poikilocytosis (manual Anisocytosis (manual) Target Cells PT INR APTT Puncture Site pCO2 pO2 HCO3 ABG pH ABG Total CO2 ABG O2 Saturation ABG Base Excess ABG Hemoglobin ABG Carboxyhemoglobin POC ABG HHb (Measured) ABG Methemoglobin Luis Test A-a O2 Difference Respiratory Index Hgb O2 Saturation Vent Mode Mechanical Rate FiO2 Tidal Volume PEEP Sodium Potassium Chloride Carbon Dioxide Anion Gap BUN Creatinine Est GFR ( Amer) Est GFR (Non-Af Amer) POC Glucose (mg/dL) 94 110 Random Glucose Calcium Phosphorus Magnesium Total Bilirubin AST ALT Alkaline Phosphatase Total Protein Albumin Globulin Albumin/Globulin Ratio Fluid Appearance Fluid WBC Fluid RBC Fluid Tot Cell Count Fluid Neutrophils Fld Monocyte/Macrophag Fluid Comment Blood Type A POSITIVE Antibody Screen Negative 09/10/18 09/10/18 09/10/18 00:19 00:19 05:39 WBC 15.3 H RBC 3.31 L Hgb 8.3 L Hct 25.4 L MCV 76.6 L MCH 25.1 L MCHC 32.8 L RDW 18.8 H Plt Count 397 MPV 9.7 Neut % (Auto) Lymph % (Auto) Kaufman % (Auto) Eos % (Auto) Baso % (Auto) Neut # (Auto) Lymph # (Auto) Kaufman # (Auto) Eos # (Auto) Baso # (Auto) Neutrophils % (Manual) Band Neutrophils % Lymphocytes % (Manual) Reactive Lymphs % Monocytes % (Manual) Eosinophils % (Manual) Differential Comment Platelet Estimate Large Platelets Hypochromasia (manual) Poikilocytosis (manual Anisocytosis (manual) Target Cells PT INR APTT 33 D Puncture Site L rad pCO2 32 L pO2 96 HCO3 26.9 ABG pH 7.51 H ABG Total CO2 26.5 ABG O2 Saturation 98.7 H ABG Base Excess 2.5 ABG Hemoglobin 8.3 L ABG Carboxyhemoglobin 1.5 POC ABG HHb (Measured) 1.3 ABG Methemoglobin 1.0 Luis Test Pos A-a O2 Difference 78.0 Respiratory Index 0.8 Hgb O2 Saturation 96.2 Vent Mode Prvc Mechanical Rate 20 FiO2 30.0 Tidal Volume 500 PEEP 5 Sodium Potassium Chloride Carbon Dioxide Anion Gap BUN Creatinine Est GFR ( Amer) Est GFR (Non-Af Amer) POC Glucose (mg/dL) Random Glucose Calcium Phosphorus Magnesium Total Bilirubin AST ALT Alkaline Phosphatase Total Protein Albumin Globulin Albumin/Globulin Ratio Fluid Appearance Fluid WBC Fluid RBC Fluid Tot Cell Count Fluid Neutrophils Fld Monocyte/Macrophag Fluid Comment Blood Type Antibody Screen 09/10/18 09/10/18 09/10/18 06:22 06:46 06:46 WBC 15.3 H RBC 3.17 L Hgb 8.0 L Hct 24.5 L MCV 77.4 L MCH 25.3 L MCHC 32.7 L RDW 19.0 H Plt Count 388 MPV 10.2 Neut % (Auto) 70.9 Lymph % (Auto) 15.5 L Kaufman % (Auto) 10.0 Eos % (Auto) 2.8 Baso % (Auto) 0.8 Neut # (Auto) 10.8 H Lymph # (Auto) 2.4 Kaufman # (Auto) 1.5 H Eos # (Auto) 0.4 Baso # (Auto) 0.1 Neutrophils % (Manual) Band Neutrophils % Lymphocytes % (Manual) Reactive Lymphs % Monocytes % (Manual) Eosinophils % (Manual) Differential Comment Cancelled Platelet Estimate Large Platelets Hypochromasia (manual) Poikilocytosis (manual Anisocytosis (manual) Target Cells PT INR APTT Puncture Site pCO2 pO2 HCO3 ABG pH ABG Total CO2 ABG O2 Saturation ABG Base Excess ABG Hemoglobin ABG Carboxyhemoglobin POC ABG HHb (Measured) ABG Methemoglobin Luis Test A-a O2 Difference Respiratory Index Hgb O2 Saturation Vent Mode Mechanical Rate FiO2 Tidal Volume PEEP Sodium 142 Potassium 3.2 L Chloride 108 H Carbon Dioxide 26 Anion Gap 12 BUN 5 L Creatinine 0.5 L Est GFR ( Amer) > 60 Est GFR (Non-Af Amer) > 60 POC Glucose (mg/dL) 109 Random Glucose 107 H Calcium 7.5 L Phosphorus 3.3 Magnesium 1.9 Total Bilirubin 0.9 AST 38 H D ALT 30 Alkaline Phosphatase 252 H D Total Protein 5.3 L Albumin 2.4 L Globulin 2.9 Albumin/Globulin Ratio 0.8 L Fluid Appearance Fluid WBC Fluid RBC Fluid Tot Cell Count Fluid Neutrophils Fld Monocyte/Macrophag Fluid Comment Blood Type Antibody Screen 09/10/18 09/10/18 08:01 11:00 WBC RBC Hgb Hct MCV MCH MCHC RDW Plt Count MPV Neut % (Auto) Lymph % (Auto) Kaufman % (Auto) Eos % (Auto) Baso % (Auto) Neut # (Auto) Lymph # (Auto) [place]man # (Auto) Eos # (Auto) Baso # (Auto) Neutrophils % (Manual) Band Neutrophils % Lymphocytes % (Manual) Reactive Lymphs % Monocytes % (Manual) Eosinophils % (Manual) Differential Comment Platelet Estimate Large Platelets Hypochromasia (manual) Poikilocytosis (manual Anisocytosis (manual) Target Cells PT INR APTT 54 H D Puncture Site pCO2 pO2 HCO3 ABG pH ABG Total CO2 ABG O2 Saturation ABG Base Excess ABG Hemoglobin ABG Carboxyhemoglobin POC ABG HHb (Measured) ABG Methemoglobin Luis Test A-a O2 Difference Respiratory Index Hgb O2 Saturation Vent Mode Mechanical Rate FiO2 Tidal Volume PEEP Sodium Potassium Chloride Carbon Dioxide Anion Gap BUN Creatinine Est GFR ( Amer) Est GFR (Non-Af Amer) POC Glucose (mg/dL) 101 Random Glucose Calcium Phosphorus Magnesium Total Bilirubin AST ALT Alkaline Phosphatase Total Protein Albumin Globulin Albumin/Globulin Ratio Fluid Appearance Fluid WBC Fluid RBC Fluid Tot Cell Count Fluid Neutrophils Fld Monocyte/Macrophag Fluid Comment Blood Type Antibody Screen Critical Care Progress Note - Nutrition Nutrition: Nutrition Category Date Time Status NPO Diet [DIET] Diets 08/31/18 Breakfast Active Attending/Attestation - Attestation I have personally seen and examined this patient.: Yes I have fully participated in the care of the patient.: Yes I have reviewed all pertinent clinical information: Yes Notes (Text): 09/10/18 15:28 Patient seen and examined in the intensive unit. Patient transferred to [facility].Melissa.N. on family's request assessment and plan as per resident note
[2018-09-10 07:15] LABS: ALB/GLOB RATIO 0.8 (1.0-2.1); ALBUMIN 2.4 g/dL (3.5-5.0); ALT/SGPT 30 U/L (9-52); AST/SGOT 38 U/L (14-36); BLOOD UREA NITROGEN 5 mg/dL (7-17); CALCIUM 7.5 mg/dl (8.6-10.4); GFR NON-AFRICAN AMERICAN > 60
--- NOTE | 2018-09-10 08:01 | CP.PCM.PN ---
Subjective - Date & Time of Evaluation Date of Evaluation: 09/10/18 Time of Evaluation: 07:00 - Subjective Subjective: surgery progress note for Dr. Patino pt seen and examined at bedside this AM. Overnight patient continued to have fevers with max of 101.6 per rectum overnight but they are decreased and less frequent. Patient reports some abdominal pain, particular in the RLQ. NGT had 1800cc's output overnight, minimal drain output, ostomy productive of liquid stool. Pt under went percutaneous drainage of 400cc's straw colored fluid from the LUQ. Pt was found to have DVT of the right external iliac/femoral vein yesterday and was started on heparin drip Objective - Vital Signs/Intake and Output Vital Signs (last 24 hours): Temp Pulse Resp BP Pulse Ox 101.0 F H 85 25 H 106/56 L 100 09/09/18 18:18 09/10/18 06:19 09/10/18 06:19 09/10/18 06:19 09/10/18 06:19 Intake and Output: 09/10/18 09/10/18 06:59 18:59 Intake Total 2237.6 Output Total 3897 Balance -1659.4 - Medications Medications: Current Medications Acetaminophen (Tylenol 650mg/20.3ml Solution Ud) 650 mg NG Q6 PRN PRN Reason: FOR TEMPERARURE 101*F OR ABOVE Last Admin: 09/10/18 01:26 Dose: 650 mg Artificial Tears (Lacri-Lube) 1 gm OU Q4H MARLENA Last Admin: 09/10/18 05:01 Dose: 1 gm Hydromorphone HCl (Dilaudid) 0.5 mg IVP Q2H PRN PRN Reason: Pain, moderate (4-7) Last Admin: 09/10/18 03:26 Dose: 0.5 mg Meropenem 1 gm/ Sodium (Chloride) 50 mls @ 100 mls/hr IVPB Q8H MARLENA; Protocol Last Admin: 09/10/18 05:00 Dose: 100 mls/hr Aztreonam 1 gm/ Sodium (Chloride) 50 mls @ 100 mls/hr IVPB Q8H MARLENA; Protocol Last Admin: 09/10/18 02:01 Dose: 100 mls/hr Metronidazole (Flagyl) 500 mg in 100 mls @ 100 mls/hr IVPB Q8H MARLENA; Protocol Last Admin: 09/10/18 03:27 Dose: 100 mls/hr Micafungin Sodium 100 mg/ (Sodium Chloride) 100 mls @ 100 mls/hr IV Q24H MARLENA; Protocol Last Admin: 09/09/18 17:20 Dose: 100 mls/hr Midazolam HCl 100 mg/ Dextrose 100 mls @ 2.04 mls/hr IV .Q24H PRN; Protocol PRN Reason: PER PROTOCOL Last Admin: 09/09/18 19:00 Dose: 0.04 mg/kg/hr, 5.1 mls/hr Potassium Chloride/Dextrose/Sod Cl (Potassium Chl 20 Meq In D5-1/2ns) 1,000 mls @ 100 mls/hr IV .Q10H MARLENA Last Admin: 09/10/18 04:20 Dose: 100 mls/hr Heparin Sodium/Sodium Chloride (Heparin 94408 Units/250ml 1/2 Normal Saline) 25,000 units in 250 mls @ 9.344 mls/hr IV .Q24H PRN; Protocol PRN Reason: ADJUST RATE PER PROTOCOL Last Titration: 09/10/18 01:30 Dose: 14 units/kg/hr, 13.082 mls/hr Potassium Chloride (Potassium Chloride 20 Meq/100 Ml) 20 meq in 100 mls @ 50 mls/hr IVPB Q2H MARLENA Stop: 09/10/18 11:29 Insulin Aspart (Novolog) 0 unit SC Q6 MARLENA; Protocol Last Admin: 09/10/18 07:02 Dose: Not Given Metoclopramide HCl (Reglan) 10 mg IVP Q6 MARLENA Last Admin: 09/10/18 05:01 Dose: 10 mg Metoprolol Tartrate (Lopressor) 5 mg IVP Q6H MARLENA Last Admin: 09/10/18 07:00 Dose: 5 mg Pantoprazole Sodium (Protonix Inj) 40 mg IVP DAILY MARLENA Last Admin: 09/09/18 10:00 Dose: 40 mg - Labs Labs: 09/10/18 06:46 09/10/18 06:46 PT 19.9 SECONDS (9.7-12.2) H 09/09/18 18:08 INR 1.8 09/09/18 18:08 APTT 33 SECONDS (21-34) D 09/10/18 00:19 - Constitutional Appears: Well, Non-toxic, No Acute Distress - Head Exam Head Exam: ATRAUMATIC, NORMOCEPHALIC - Eye Exam Eye Exam: Normal appearance. absent: Conjunctival injection, Scleral icterus - ENT Exam ENT Exam: Mucous Membranes Moist, Normal Oropharynx - Respiratory Exam Respiratory Exam: absent: Accessory Muscle Use, Respiratory Distress Additional comments: on PRVC mechanical ventilation - Cardiovascular Exam Cardiovascular Exam: RRR - GI/Abdominal Exam GI & Abdominal Exam: Distended, Soft, Tenderness (RLQ) Additional comments: midline incision approximated with constance with small areas of skin dehiscence with serosanguinous drainage. Ostomy pink, patent, and productive of stool. RLQ and LUQ alisha drains with minimal serous fluid output - Extremities Exam Extremities Exam: absent: Calf Tenderness, Pedal Edema, Tenderness - Neurological Exam Neurological Exam: Alert, Awake - Psychiatric Exam Psychiatric exam: Normal Affect, Normal Mood - Skin Skin Exam: Dry, Normal Color, Warm Assessment and Plan - Assessment and Plan (Free Text) Assessment: 33F POD#10 s/p resection of perforated sigmoid colon and colostomy creation and peritoneal washout Plan: Continue to trend CBC, CMP, mag, phos Continue NGT to suction--no tube feeds at this time d/t high NGT output Continue to monitor drains, ostomy, NGT, and UOP Continue antibiotics per ID Continue heparin drip per ICU recs Recommend TPN management of mechanical respiration per ICU--may consider attempting to wean as patient is clinically improving Continue to pursue transfer to [facility] per patient's family's request Discussed with Dr. Patino, further recs per him Gale Longo, PGY2
[2018-09-10 09:05] VITALS: TEMP 98.6
--- NOTE | 2018-09-10 10:05 | RAD ---
Date of service: 09/10/2018 HISTORY: ETT placement COMPARISON: 09/09/2018 FINDINGS: LUNGS: Apical lordotic projection. Current lung volumes more shallow than before. No interval consolidation. Endotracheal tube tip 2 cm proximal to the siria PLEURA: . No significant pleural effusion identified, no pneumothorax apparent. Prior bibasilar pleural effusions decreased CARDIOVASCULAR: No aortic atherosclerotic calcification present Top-normal heart size. Mild pulmonary venous congestion suggested Right internal jugular vein catheter tip caval atrial junction OSSEOUS STRUCTURES: No significant abnormalities. VISUALIZED UPPER ABDOMEN: NG tube tip in stomach. OTHER FINDINGS: None. IMPRESSION: Interval decreased bibasilar pleural effusions. Interval slight decrease in the prior pulmonary venous congestion-now mild Support lines and tubes as above.
[2018-09-10] MEDS ORDERED: Mineral Oil Enema 135 ml RC ONE (11:00)
--- NOTE | 2018-09-10 11:22 | CP.PCM.DIS ---
Provider - Provider Date of Admission: 08/31/18 05:46 Attending physician: Jeb Patino MD Diagnosis - Discharge Diagnosis (1) Perforation of sigmoid colon Status: Acute Priority: High (2) S/P partial colectomy Status: Acute Priority: High (3) History of robot-assisted laparoscopic hysterectomy Status: Acute Priority: High (4) Septic shock Status: Acute Priority: High (5) Intra-abdominal abscess Status: Acute Priority: High (6) Sepsis Status: Acute Priority: High (7) DVT, femoral, acute Status: Acute Priority: Medium Hospital Course - Lab Results Lab Results: Micro Results 09/09/18 17:24 Abdominal Fluid Gram Stain - Final 09/05/18 15:30 Blood Blood Culture - Preliminary NO GROWTH AFTER 4 DAYS 09/05/18 16:00 Blood Blood Culture - Preliminary NO GROWTH AFTER 4 DAYS 09/08/18 12:41 Blood-Venous Blood Culture - Preliminary NO GROWTH AFTER 24 HOURS 09/08/18 12:41 Blood-Venous Blood Culture - Preliminary NO GROWTH AFTER 24 HOURS 09/06/18 Unknown Abdomen Gram Stain - Final 09/06/18 Unknown Abdomen Wound Culture - Final No Growth 09/05/18 16:02 Trachasp Gram Stain - Final 09/05/18 16:02 Trachasp Sputum Culture - Final No growth. 09/04/18 12:36 Trachasp Gram Stain - Final 09/04/18 12:36 Trachasp Sputum Culture - Final No growth. 09/05/18 16:02 Urine Urine Culture - Final No Growth (<1,000 CFU/ML) 08/31/18 02:45 Blood Blood Culture - Final NO GROWTH AFTER 5 DAYS 08/31/18 02:45 Blood Gram Stain - Final TEST NOT PERFORMED 08/31/18 02:20 Blood Blood Culture - Final NO GROWTH AFTER 5 DAYS 08/31/18 02:20 Blood Gram Stain - Final TEST NOT PERFORMED 08/31/18 15:00 Blood-Venous Blood Culture - Final NO GROWTH AFTER 5 DAYS 08/31/18 15:00 Blood-Venous Gram Stain - Final TEST NOT PERFORMED 08/31/18 15:30 Blood-Venous Blood Culture - Final NO GROWTH AFTER 5 DAYS 08/31/18 15:30 Blood-Venous Gram Stain - Final TEST NOT PERFORMED 08/31/18 14:19 Peritoneal Fluid Gram Stain - Final 08/31/18 14:19 Peritoneal Fluid Body Fluid Culture - Final Klebsiella Pneumoniae Ssp Pneu 08/31/18 13:02 Naris MRSA Culture (Admit) - Final MRSA NOT DETECTED 08/31/18 Unknown Urine,Catheterized Urine Culture - Final No Growth (<1,000 CFU/ML) Most Recent Lab Values WBC 15.3 K/uL (4.8-10.8) H 09/10/18 06:46 RBC 3.17 Mil/uL (3.80-5.20) L 09/10/18 06:46 Hgb 8.0 g/dL (11.0-16.0) L 09/10/18 06:46 Hct 24.5 % (34.0-47.0) L 09/10/18 06:46 MCV 77.4 fL (81.0-99.0) L 09/10/18 06:46 MCH 25.3 pg (27.0-31.0) L 09/10/18 06:46 MCHC 32.7 g/dL (33.0-37.0) L 09/10/18 06:46 RDW 19.0 % (11.5-14.5) H 09/10/18 06:46 Plt Count 388 K/uL (130-400) 09/10/18 06:46 MPV 10.2 fL (7.2-11.7) 09/10/18 06:46 Neut % (Auto) 70.9 % (50.0-75.0) 09/10/18 06:46 Lymph % (Auto) 15.5 % (20.0-40.0) L 09/10/18 06:46 Page % (Auto) 10.0 % (0.0-10.0) 09/10/18 06:46 Eos % (Auto) 2.8 % (0.0-4.0) 09/10/18 06:46 Baso % (Auto) 0.8 % (0.0-2.0) 09/10/18 06:46 Neut # (Auto) 10.8 K/uL (1.8-7.0) H 09/10/18 06:46 Lymph # (Auto) 2.4 K/uL (1.0-4.3) 09/10/18 06:46 Page # (Auto) 1.5 K/uL (0.0-0.8) H 09/10/18 06:46 Eos # (Auto) 0.4 K/uL (0.0-0.7) 09/10/18 06:46 Baso # (Auto) 0.1 K/uL (0.0-0.2) 09/10/18 06:46 Neutrophils % (Manual) 72 % (50-75) 09/09/18 18:08 Band Neutrophils % 4 % (0-2) H 09/09/18 18:08 Lymphocytes % (Manual) 13 % (20-40) L 09/09/18 18:08 Reactive Lymphs % 1 % (0-0) H 09/09/18 18:08 Monocytes % (Manual) 7 % (0-10) 09/09/18 18:08 Eosinophils % (Manual) 3 % (0-4) 09/09/18 18:08 Basophils % (Manual) 1 % (0-2) 09/01/18 04:16 Metamyelocytes % 3 % (0-0) H 09/01/18 04:16 Myelocytes % 3 % (0-0) H 09/06/18 06:02 Blast Cells % 2 % (0-0) H 09/01/18 04:16 Differential Comment Cancelled 09/10/18 06:46 Toxic Granulation Present 09/08/18 06:15 Platelet Estimate Normal (NORMAL) 09/09/18 18:08 Large Platelets Present 09/09/18 18:08 Giant Platelets Present 09/08/18 06:15 RBC Morphology Normal 08/31/18 02:37 Polychromasia Slight 09/09/18 05:35 Hypochromasia (manual) Slight 09/09/18 18:08 Poikilocytosis (manual Slight 09/09/18 18:08 Anisocytosis (manual) Slight 09/09/18 18:08 Microcytosis (manual) Slight 09/03/18 06:02 Target Cells Slight 09/09/18 18:08 Ovalocytes Slight 09/09/18 05:35 Schistocytes Slight 09/08/18 06:15 PT 19.9 SECONDS (9.7-12.2) H 09/09/18 18:08 INR 1.8 09/09/18 18:08 APTT 54 SECONDS (21-34) H D 09/10/18 08:01 Fibrinogen 329 mg/dL (200-400) 08/31/18 17:25 D-Dimer, Quantitative > 5250 ng/mlDDU (0-243) H 09/05/18 14:25 Puncture Site L rad 09/10/18 05:39 pCO2 32 mm/Hg (35-45) L 09/10/18 05:39 pO2 96 mm/Hg (80-100) 09/10/18 05:39 HCO3 26.9 mmol/L (21-28) 09/10/18 05:39 ABG pH 7.51 (7.35-7.45) H 09/10/18 05:39 ABG Total CO2 26.5 mmol/L (22-28) 09/10/18 05:39 ABG O2 Saturation 98.7 % (95-98) H 09/10/18 05:39 ABG Base Excess 2.5 mmol/L (-2.0-3.0) 09/10/18 05:39 ABG Hemoglobin 8.3 g/dL (11.7-17.4) L 09/10/18 05:39 ABG Carboxyhemoglobin 1.5 % (0.5-1.5) 09/10/18 05:39 POC ABG HHb (Measured) 1.3 % (0.0-5.0) 09/10/18 05:39 ABG Methemoglobin 1.0 % (0.0-3.0) 09/10/18 05:39 Luis Test Pos 09/10/18 05:39 ABG Potassium 2.5 mmol/L (3.6-5.2) L* 09/09/18 04:30 VBG pH 7.25 (7.32-7.43) L 08/31/18 08:53 VBG pCO2 41 mmHg (40-60) 08/31/18 08:53 VBG HCO3 17.2 mmol/L 08/31/18 08:53 VBG Total CO2 19.3 mmol/L (22-28) L 08/31/18 08:53 VBG O2 Sat (Calc) 72.8 % (40-65) H 08/31/18 08:53 VBG Base Excess -8.8 mmol/L (0.0-2.0) L 08/31/18 08:53 VBG Potassium 3.8 mmol/L (3.6-5.2) 08/31/18 08:53 A-a O2 Difference 78.0 mm/Hg 09/10/18 05:39 Respiratory Index 0.8 09/10/18 05:39 Hgb O2 Saturation 96.2 % (95.0-98.0) 09/10/18 05:39 Sodium 144.0 mmol/l (132-148) 09/09/18 04:30 Chloride 115.0 mmol/L (98-107) H 09/09/18 04:30 Glucose 100 mg/dl (65-105) 09/09/18 04:30 Lactate 1.0 mmol/L (0.7-2.1) 09/09/18 04:30 Vent Mode Prvc 09/10/18 05:39 Mechanical Rate 20 09/10/18 05:39 FiO2 30.0 % 09/10/18 05:39 Tidal Volume 500 09/10/18 05:39 PEEP 5 09/10/18 05:39 Crit Value Called To Cara greenwood/[email or web address] 09/09/18 04:30 Crit Value Called By Sha fong/rt 09/09/18 04:30 Crit Value Read Back Y 09/09/18 04:30 Blood Gas Notified Time 445 09/09/18 04:30 Sodium 142 mmol/L (132-148) 09/10/18 06:46 Potassium 3.2 mmol/L (3.6-5.2) L 09/10/18 06:46 Chloride 108 mmol/L (98-107) H 09/10/18 06:46 Carbon Dioxide 26 mmol/L (22-30) 09/10/18 06:46 Anion Gap 12 (10-20) 09/10/18 06:46 BUN 5 mg/dL (7-17) L 09/10/18 06:46 Creatinine 0.5 mg/dL (0.7-1.2) L 09/10/18 06:46 Est GFR ( Amer) > 60 09/10/18 06:46 Est GFR (Non-Af Amer) > 60 09/10/18 06:46 POC Glucose (mg/dL) 109 mg/dL (65-110) 09/10/18 06:22 Random Glucose 107 mg/dL (65-105) H 09/10/18 06:46 Lactic Acid 1.3 mmol/L (0.7-2.1) 09/09/18 05:53 Calcium 7.5 mg/dl (8.6-10.4) L 09/10/18 06:46 Phosphorus 3.3 mg/dL (2.5-4.5) 09/10/18 06:46 Magnesium 1.9 mg/dL (1.6-2.3) 09/10/18 06:46 Total Bilirubin 0.9 mg/dL (0.2-1.3) 09/10/18 06:46 AST 38 U/L (14-36) H D 09/10/18 06:46 ALT 30 U/L (9-52) 09/10/18 06:46 Alkaline Phosphatase 252 U/L (38-126) H D 09/10/18 06:46 Troponin I 0.0900 ng/mL (0.00-0.120) 09/01/18 04:19 NT-Pro-B Natriuret Pep 1790 pg/mL (0-450) H 08/31/18 15:14 Total Protein 5.3 g/dL (6.3-8.3) L 09/10/18 06:46 Albumin 2.4 g/dL (3.5-5.0) L 09/10/18 06:46 Globulin 2.9 gm/dL (2.2-3.9) 09/10/18 06:46 Albumin/Globulin Ratio 0.8 (1.0-2.1) L 09/10/18 06:46 Lipase < 10 U/L (23-300) L 08/31/18 02:42 Procalcitonin 1.53 NG/ML (0.19-0.49) H 09/08/18 06:15 Arterial Blood Potassium 2.5 mmol/L (3.6-5.2) L* 09/09/18 04:30 Venous Blood Potassium 3.8 mmol/L (3.6-5.2) 08/31/18 08:53 Urine Color [place] (YELLOW) 08/31/18 06:40 Urine Clarity Clear (Clear) 08/31/18 06:40 Urine pH 5.0 (5.0-8.0) 08/31/18 06:40 Ur Specific [place] 1.060 (1.003-1.030) H 08/31/18 06:40 Urine Protein 1+ mg/dL (NEGATIVE) H 08/31/18 06:40 Urine Glucose (UA) Normal mg/dL (Normal) 08/31/18 06:40 Urine Ketones Trace mg/dL (NEGATIVE) 08/31/18 06:40 Urine Blood Negative (NEGATIVE) 08/31/18 06:40 Urine Nitrate Negative (NEGATIVE) 08/31/18 06:40 Urine Bilirubin Negative (NEGATIVE) 08/31/18 06:40 Urine Urobilinogen 4.0 mg/dL (0.2-1.0) H 08/31/18 06:40 Ur Leukocyte Esterase Neg Vel/uL (Negative) 08/31/18 06:40 Urine WBC (Auto) 3 /hpf (0-5) 08/31/18 06:40 Urine RBC (Auto) 3 /hpf (0-3) 08/31/18 06:40 Ur Squamous Epith Cells < 1 /hpf (0-5) 08/31/18 06:40 Urine Bacteria Rare (<OCC) 08/31/18 06:40 Hyaline Casts 3-5 /lpf (0-2) H 08/31/18 06:40 Urine HCG, Qual Negative (NEGATIVE) 08/31/18 06:40 Fluid Source Peritoneal/ascites 09/09/18 17:24 Fluid Appearance Cloudy (CLEAR) 09/09/18 17:24 Fluid WBC 96345.0 /mm3 (0.0-300.0) H 09/09/18 17:24 Fluid RBC 5054.0 /mm3 (0.0-0.0) H 09/09/18 17:24 Fluid Tot Cell Count 100 (0-0) H 09/09/18 17:24 Fluid Neutrophils 98.0 % (0-0) H 09/09/18 17:24 Fld Monocyte/Macrophag 2 % (0-0) H 09/09/18 17:24 Fluid Comment 09/09/18 17:24 Vancomycin Trough 14.1 ug/mL (5.0-10.0) H 09/09/18 05:36 RPR Nonreactive (NONREACTIVE) 08/31/18 13:02 C. difficile Ag & Toxin Negative (NEGATIVE) 09/08/18 20:01 Hep Bs Antibody Negative (NEGATIVE) 08/31/18 13:02 HIV 1&2 Antibody Screen Negative (NEGATIVE) 08/31/18 13:02 Blood Type A POSITIVE 09/09/18 18:08 Antibody Screen Negative 09/09/18 18:08 Discharge Exam - Head Exam Head Exam: ATRAUMATIC, NORMOCEPHALIC Discharge Plan - Follow Up Plan Condition: CRITICAL Disposition: Trans to Other Acute Care Hosp Instructions: Perforation of the GI Tract, Sepsis (DC), Sepsis (GEN) Referrals: Jeb Patino MD [Staff Provider] -
[2018-09-10 11:27] VITALS: BP 128/70
[2018-09-10 11:31] VITALS: PULSE 92; RESP 27; O2SAT 100
--- NOTE | 2018-09-10 11:45 | CP.PCM.CON ---
Past Patient History - Past Medical History & Family History Past Medical History?: Yes - Past Social History Smoking Status: Never Smoked - CARDIAC Hx Cardiac Disorders: No - PULMONARY Hx Asthma: Yes - NEUROLOGICAL Hx Neurological Disorder: No - HEENT Hx HEENT Problems: No - RENAL Hx Chronic Kidney Disease: No - ENDOCRINE/METABOLIC Hx Endocrine Disorders: No - HEMATOLOGICAL/ONCOLOGICAL Hx Blood Disorders: No - INTEGUMENTARY Hx Dermatological Problems: No - MUSCULOSKELETAL/RHEUMATOLOGICAL Hx Falls: No - GASTROINTESTINAL Hx Gastrointestinal Disorders: No - GENITOURINARY/GYNECOLOGICAL Hx Genitourinary Disorders: No Other/Comment: "PROBLEMS WITH MY OVARIES FOR ABOUT 4 YEARS" - PSYCHIATRIC Hx Substance Use: No - SURGICAL HISTORY Hx Surgeries: Yes Hx Hysterectomy: Yes (total hysterectomy - 08/27/18) Other/Comment: cyst right ovary 2015 - ANESTHESIA Hx Anesthesia: Yes Hx Anesthesia Reactions: No Meds Home Medications: Home Medication List Medication Instructions Recorded Confirmed Type Acetaminophen IV [Ofirmev] 1,000 mg IV Q6 PRN vial 09/10/18 Rx Aztreonam [Azactam] 1 gm IVPB Q8H vial 09/10/18 Rx Enoxaparin [Lovenox] 100 mg SC Q12 syr 09/10/18 Rx Meropenem [Merrem IV] 1 gm IVPB Q8H vial 09/10/18 Rx Metoclopramide [Reglan] 10 mg IVP Q6 vial 09/10/18 Rx Micafungin [Mycamine] 100 mg IV Q24H vial 09/10/18 Rx Mineral Oil/White Petrolatum 1 gm OU Q4H tube 09/10/18 Rx [Lacri-Lube] Vancomycin [Vancocin (ORAL OR 500 mg PO Q6 soln 09/10/18 Rx RECTAL USE)] Allergies/Adverse Reactions: Allergies Allergy/AdvReac Type Severity Reaction Status Date / Time No Known Allergies Allergy Verified 06/04/18 06:34 - Medications Medications: Current Medications Acetaminophen (Tylenol 650mg/20.3ml Solution Ud) 650 mg NG Q6 PRN PRN Reason: FOR TEMPERARURE 101*F OR ABOVE Last Admin: 09/10/18 01:26 Dose: 650 mg Artificial Tears (Lacri-Lube) 1 gm OU Q4H [facility] Last Admin: 09/10/18 10:54 Dose: 1 gm Hydromorphone HCl (Dilaudid) 0.5 mg IVP Q2H PRN PRN Reason: Pain, moderate (4-7) Last Admin: 09/10/18 08:44 Dose: 0.5 mg Meropenem 1 gm/ Sodium (Chloride) 50 mls @ 100 mls/hr IVPB Q8H [facility]; Protocol Last Admin: 09/10/18 05:00 Dose: 100 mls/hr Aztreonam 1 gm/ Sodium (Chloride) 50 mls @ 100 mls/hr IVPB Q8H [facility]; Protocol Last Admin: 09/10/18 10:53 Dose: 100 mls/hr Metronidazole (Flagyl) 500 mg in 100 mls @ 100 mls/hr IVPB Q8H [facility]; Protocol Last Admin: 09/10/18 03:27 Dose: 100 mls/hr Micafungin Sodium 100 mg/ (Sodium Chloride) 100 mls @ 100 mls/hr IV Q24H [facility]; Protocol Last Admin: 09/09/18 17:20 Dose: 100 mls/hr Midazolam HCl 100 mg/ Dextrose 100 mls @ 2.04 mls/hr IV .Q24H PRN; Protocol PRN Reason: PER PROTOCOL Last Admin: 09/09/18 19:00 Dose: 0.04 mg/kg/hr, 5.1 mls/hr Potassium Chloride/Dextrose/Sod Cl (Potassium Chl 20 Meq In D5-1/2ns) 1,000 mls @ 100 mls/hr IV .Q10H [facility] Last Admin: 09/10/18 04:20 Dose: 100 mls/hr Heparin Sodium/Sodium Chloride (Heparin 73407 Units/250ml 1/2 Normal Saline) 25,000 units in 250 mls @ 9.344 mls/hr IV .Q24H PRN; Protocol PRN Reason: ADJUST RATE PER PROTOCOL Last Titration: 09/10/18 01:30 Dose: 14 units/kg/hr, 13.082 mls/hr Multivitamins/Vitamin C 10 ml/Chromium/Copper/Manganese/Zinc 1 ml/ Amino Acids/Electrolytes/Dextrose 1,011 mls @ 83 mls/hr IV .[id number] ONE Stop: 09/11/18 06:10 Amino Acids/Electrolytes/Dextrose (Clinimix 5/20 % "E" (1000 Ml)) 1,000 mls @ 83 mls/hr IV .Q12H3M ONE Stop: 09/11/18 18:02 Fat Emulsion Intravenous (Intralipid 20%) 500 mls @ 42 mls/hr IV ONCE ONE Stop: 09/11/18 05:54 Insulin Aspart (Novolog) 0 unit SC Q6 [facility]; Protocol Last Admin: 09/10/18 07:02 Dose: Not Given Metoclopramide HCl (Reglan) 10 mg IVP Q6 [facility] Last Admin: 09/10/18 05:01 Dose: 10 mg Metoprolol Tartrate (Lopressor) 5 mg IVP Q6H [facility] Last Admin: 09/10/18 07:00 Dose: 5 mg Pantoprazole Sodium (Protonix Inj) 40 mg IVP DAILY [facility] Last Admin: 09/10/18 10:59 Dose: 40 mg Results - Vital Signs Recent Vital Signs: Last Vital Signs Temp 98.6 F 09/10/18 08:00 Pulse 92 H 09/10/18 11:19 Resp 27 H 09/10/18 11:19 BP 128/70 09/10/18 11:00 Pulse Ox 100 09/10/18 11:19 - Labs Result Diagrams: 09/10/18 06:46 09/10/18 06:46 Labs: Laboratory Results - last 24 hr 09/09/18 09/09/18 09/09/18 05:15 11:29 17:24 WBC RBC Hgb Hct MCV MCH MCHC RDW Plt Count MPV Neut % (Auto) Lymph % (Auto) Douglas % (Auto) Eos % (Auto) Baso % (Auto) Neut # (Auto) Lymph # (Auto) Douglas # (Auto) Eos # (Auto) Baso # (Auto) Neutrophils % (Manual) Band Neutrophils % Lymphocytes % (Manual) Reactive Lymphs % Monocytes % (Manual) Eosinophils % (Manual) Differential Comment Platelet Estimate Large Platelets Hypochromasia (manual) Poikilocytosis (manual Anisocytosis (manual) Target Cells PT INR APTT Puncture Site pCO2 pO2 HCO3 ABG pH ABG Total CO2 ABG O2 Saturation ABG Base Excess ABG Hemoglobin ABG Carboxyhemoglobin POC ABG HHb (Measured) ABG Methemoglobin Luis Test A-a O2 Difference Respiratory Index Hgb O2 Saturation Vent Mode Mechanical Rate FiO2 Tidal Volume PEEP Sodium Potassium Chloride Carbon Dioxide Anion Gap BUN Creatinine Est GFR ( Amer) Est GFR (Non-Af Amer) POC Glucose (mg/dL) 119 H 104 Random Glucose Calcium Phosphorus Magnesium Total Bilirubin AST ALT Alkaline Phosphatase Total Protein Albumin Globulin Albumin/Globulin Ratio Fluid Source Peritoneal/ascites Fluid Appearance Cloudy Fluid WBC 09795.0 H Fluid RBC 5054.0 H Fluid Tot Cell Count 100 H Fluid Neutrophils 98.0 H Fld Monocyte/Macrophag 2 H Fluid Comment Blood Type Antibody Screen 09/09/18 09/09/18 09/09/18 18:08 18:08 18:08 WBC 16.4 H RBC 3.18 L Hgb 7.9 L Hct 24.5 L MCV 76.9 L MCH 24.8 L MCHC 32.3 L RDW 18.9 H Plt Count 350 MPV 9.9 Neut % (Auto) 78.4 H Lymph % (Auto) 9.5 L Douglas % (Auto) 8.0 Eos % (Auto) 3.4 Baso % (Auto) 0.7 Neut # (Auto) 12.8 H Lymph # (Auto) 1.6 Douglas # (Auto) 1.3 H Eos # (Auto) 0.6 Baso # (Auto) 0.1 Neutrophils % (Manual) 72 Band Neutrophils % 4 H Lymphocytes % (Manual) 13 L Reactive Lymphs % 1 H Monocytes % (Manual) 7 Eosinophils % (Manual) 3 Differential Comment Platelet Estimate Normal Large Platelets Present Hypochromasia (manual) Slight Poikilocytosis (manual Slight Anisocytosis (manual) Slight Target Cells Slight PT 19.9 H INR 1.8 APTT 26 Puncture Site pCO2 pO2 HCO3 ABG pH ABG Total CO2 ABG O2 Saturation ABG Base Excess ABG Hemoglobin ABG Carboxyhemoglobin POC ABG HHb (Measured) ABG Methemoglobin Luis Test A-a O2 Difference Respiratory Index Hgb O2 Saturation Vent Mode Mechanical Rate FiO2 Tidal Volume PEEP Sodium Potassium Chloride Carbon Dioxide Anion Gap BUN Creatinine Est GFR ( Amer) Est GFR (Non-Af Amer) POC Glucose (mg/dL) Random Glucose Calcium Phosphorus Magnesium Total Bilirubin AST ALT Alkaline Phosphatase Total Protein Albumin Globulin Albumin/Globulin Ratio Fluid Source Fluid Appearance Fluid WBC Fluid RBC Fluid Tot Cell Count Fluid Neutrophils Fld Monocyte/Macrophag Fluid Comment Blood Type A POSITIVE Antibody Screen Negative 09/09/18 09/09/18 09/10/18 18:17 23:40 00:19 WBC 15.3 H RBC 3.31 L Hgb 8.3 L Hct 25.4 L MCV 76.6 L MCH 25.1 L MCHC 32.8 L RDW 18.8 H Plt Count 397 MPV 9.7 Neut % (Auto) Lymph % (Auto) Douglas % (Auto) Eos % (Auto) Baso % (Auto) Neut # (Auto) Lymph # (Auto) Douglas # (Auto) Eos # (Auto) Baso # (Auto) Neutrophils % (Manual) Band Neutrophils % Lymphocytes % (Manual) Reactive Lymphs % Monocytes % (Manual) Eosinophils % (Manual) Differential Comment Platelet Estimate Large Platelets Hypochromasia (manual) Poikilocytosis (manual Anisocytosis (manual) Target Cells PT INR APTT Puncture Site pCO2 pO2 HCO3 ABG pH ABG Total CO2 ABG O2 Saturation ABG Base Excess ABG Hemoglobin ABG Carboxyhemoglobin POC ABG HHb (Measured) ABG Methemoglobin Luis Test A-a O2 Difference Respiratory Index Hgb O2 Saturation Vent Mode Mechanical Rate FiO2 Tidal Volume PEEP Sodium Potassium Chloride Carbon Dioxide Anion Gap BUN Creatinine Est GFR ( Amer) Est GFR (Non-Af Amer) POC Glucose (mg/dL) 94 110 Random Glucose Calcium Phosphorus Magnesium Total Bilirubin AST ALT Alkaline Phosphatase Total Protein Albumin Globulin Albumin/Globulin Ratio Fluid Source Fluid Appearance Fluid WBC Fluid RBC Fluid Tot Cell Count Fluid Neutrophils Fld Monocyte/Macrophag Fluid Comment Blood Type Antibody Screen 09/10/18 09/10/18 09/10/18 00:19 05:39 06:22 WBC RBC Hgb Hct MCV MCH MCHC RDW Plt Count MPV Neut % (Auto) Lymph % (Auto) Douglas % (Auto) Eos % (Auto) Baso % (Auto) Neut # (Auto) Lymph # (Auto) Douglas # (Auto) Eos # (Auto) Baso # (Auto) Neutrophils % (Manual) Band Neutrophils % Lymphocytes % (Manual) Reactive Lymphs % Monocytes % (Manual) Eosinophils % (Manual) Differential Comment Platelet Estimate Large Platelets Hypochromasia (manual) Poikilocytosis (manual Anisocytosis (manual) Target Cells PT INR APTT 33 D Puncture Site L rad pCO2 32 L pO2 96 HCO3 26.9 ABG pH 7.51 H ABG Total CO2 26.5 ABG O2 Saturation 98.7 H ABG Base Excess 2.5 ABG Hemoglobin 8.3 L ABG Carboxyhemoglobin 1.5 POC ABG HHb (Measured) 1.3 ABG Methemoglobin 1.0 Luis Test Pos A-a O2 Difference 78.0 Respiratory Index 0.8 Hgb O2 Saturation 96.2 Vent Mode Prvc Mechanical Rate 20 FiO2 30.0 Tidal Volume 500 PEEP 5 Sodium Potassium Chloride Carbon Dioxide Anion Gap BUN Creatinine Est GFR ( Amer) Est GFR (Non-Af Amer) POC Glucose (mg/dL) 109 Random Glucose Calcium Phosphorus Magnesium Total Bilirubin AST ALT Alkaline Phosphatase Total Protein Albumin Globulin Albumin/Globulin Ratio Fluid Source Fluid Appearance Fluid WBC Fluid RBC Fluid Tot Cell Count Fluid Neutrophils Fld Monocyte/Macrophag Fluid Comment Blood Type Antibody Screen 09/10/18 09/10/18 09/10/18 06:46 06:46 08:01 WBC 15.3 H RBC 3.17 L Hgb 8.0 L Hct 24.5 L MCV 77.4 L MCH 25.3 L MCHC 32.7 L RDW 19.0 H Plt Count 388 MPV 10.2 Neut % (Auto) 70.9 Lymph % (Auto) 15.5 L Douglas % (Auto) 10.0 Eos % (Auto) 2.8 Baso % (Auto) 0.8 Neut # (Auto) 10.8 H Lymph # (Auto) 2.4 Douglas # (Auto) 1.5 H Eos # (Auto) 0.4 Baso # (Auto) 0.1 Neutrophils % (Manual) Band Neutrophils % Lymphocytes % (Manual) Reactive Lymphs % Monocytes % (Manual) Eosinophils % (Manual) Differential Comment Cancelled Platelet Estimate Large Platelets Hypochromasia (manual) Poikilocytosis (manual Anisocytosis (manual) Target Cells PT INR APTT 54 H D Puncture Site pCO2 pO2 HCO3 ABG pH ABG Total CO2 ABG O2 Saturation ABG Base Excess ABG Hemoglobin ABG Carboxyhemoglobin POC ABG HHb (Measured) ABG Methemoglobin Luis Test A-a O2 Difference Respiratory Index Hgb O2 Saturation Vent Mode Mechanical Rate FiO2 Tidal Volume PEEP Sodium 142 Potassium 3.2 L Chloride 108 H Carbon Dioxide 26 Anion Gap 12 BUN 5 L Creatinine 0.5 L Est GFR ( Amer) > 60 Est GFR (Non-Af Amer) > 60 POC Glucose (mg/dL) Random Glucose 107 H Calcium 7.5 L Phosphorus 3.3 Magnesium 1.9 Total Bilirubin 0.9 AST 38 H D ALT 30 Alkaline Phosphatase 252 H D Total Protein 5.3 L Albumin 2.4 L Globulin 2.9 Albumin/Globulin Ratio 0.8 L Fluid Source Fluid Appearance Fluid WBC Fluid RBC Fluid Tot Cell Count Fluid Neutrophils Fld Monocyte/Macrophag Fluid Comment Blood Type Antibody Screen
[2018-09-10] MEDS: Midazolam 50 mg/10 ml 100 MG in Dextrose 5% In Water 80 ML IV PRN (12:09)
[2018-09-10] MEDS ORDERED: TPN #5 IV ONE (18:00)
[2018-09-10] MEDS ORDERED: Fat Emulsion 20% IV 500 ML IV ONE (18:00)
--- NOTE | 2018-09-10 19:42 | CARD ---
APPROVED REPORT Date of service: 09/05/2018 EKG Measurement Heart [id number] <Conclusion> Normal sinus rhythm Low voltage QRS Borderline ECG
--- NOTE | 2018-09-10 19:46 | CARD ---
APPROVED REPORT Date of service: 09/01/2018 EXAM: Two-dimensional and M-mode echocardiogram with Doppler and color Doppler. Other Information Quality : GoodRhythm : INDICATION Infection:Rule out subacute bacterial endocarditis Congestive Heart Failure 2D DIMENSIONS IVSd0.6 (0.7-1.1cm)LVDd4.4 (3.9-5.9cm) PWd0.7 (0.7-1.1cm)LA Bqnahs06 (18-58mL) LVDs3.5 (2.5-4.0cm)FS (%) 21.7 % LVEF (%)44.2 (>50%)LVEF (Hu's)42.13 % M-Mode DIMENSIONS Left Atrium (MM)3.79 (2.5-4.0cm)IVSd1.00 (0.7-1.1cm) Aortic Root2.61 (2.2-3.7cm)LVDd5.98 (4.0-5.6cm) Aortic Cusp Exc.2.04 (1.5-2.0cm)PWd0.91 (0.7-1.1cm) FS (%) 29 %LVDs4.27 (2.0-3.8cm) TAPSE18.22 cmLVEF (%)40 (>50%) Mitral Valve MV E Zgswntxt61.9cm/sE/A ratio0.0 TDI Lateral E' Peak V11.39cm/sMedial E' Peak V10.74cm/sE/Lateral E'8.1 E/Medial E'8.6 Tricuspid Valve TR Peak Euacdvcy498jd/sTR Peak [id number] LEFT VENTRICLE The left ventricle is normal size. There is normal left ventricular wall thickness. The systolic function is mildly impaired. AORTIC VALVE The aortic valve is normal in structure. MITRAL VALVE Mitral regurgitation is mild. TRICUSPID VALVE There is mild to moderate tricuspid regurgitation. <Conclusion> Mild LV systolic dysfunction. Normal chamber size. Mild MR. Mild to moderate TR. Gas Tester definite vegetation seen, consider LORA if clinically indicated.
[2018-09-11] MEDS ORDERED: TPN #6 IV ONE (06:00)
--- NOTE | 2018-09-11 10:39 | VASCLAB ---
Date of service: 09/09/2018 PROCEDURE: Lower Extremity Venous Duplex Exam. HISTORY: check for DVT bilaterally PRIORS: None. TECHNIQUE: Bilateral common femoral, femoral, popliteal and posterior tibial, peroneal and great saphenous veins were evaluated. Flow was assessed with color Doppler, compressibility, assessment of phasic flow and augmentation response. Report prepared by Kristian Hooker, JJ, RVT FINDINGS: RIGHT: 1. Common Femoral Vein: 1.1. Compressibility - Partial: Thrombus - Acute : Flow - Reduced : Augmentation -Reduced: Reflux - None. 2. Femoral Vein: 2.1. Compressibility - Fully compressible: Thrombus - None : Flow - Phasic: Augmentation -Normal: Reflux - None. 3. Popliteal Vein: 3.1. Compressibility - Fully compressible: Thrombus - None : Flow - Phasic: Augmentation -Normal: Reflux - None. 4. Posterior Tibial Vein: 4.1. Compressibility - Fully compressible: Thrombus - None: Flow - Phasic: Augmentation -Normal: Reflux - None. 5. Peroneal Vein: 5.1. Compressibility - Fully compressible: Thrombus - None: Flow - Phasic: Augmentation -Normal: Reflux - None. 6. Great Saphenous Vein: 6.1. Compressibility - Fully compressible: Thrombus - None: Flow - Phasic: Augmentation - Normal: Reflux - None. LEFT: 1. Common Femoral Vein: 1.1. Compressibility - Fully compressible: Thrombus - None: Flow - Phasic: Augmentation -Normal: Reflux - None. 2. Femoral Vein: 2.1. Compressibility - Fully compressible: Thrombus - None: Flow - Phasic: Augmentation -Normal: Reflux - None. 3. Popliteal Vein: 3.1. Compressibility - Fully compressible: Thrombus - None : Flow - Phasic: Augmentation -Normal: Reflux - None. 4. Posterior Tibial Vein: 4.1. Compressibility - Fully compressible: Thrombus - None: Flow - Phasic: Augmentation -Normal: Reflux - None. 5. Peroneal Vein: 5.1. Compressibility - Fully compressible: Thrombus - None: Flow - Phasic: Augmentation -Normal: Reflux - None. 6. Great Saphenous Vein: 6.1. Compressibility - Fully compressible: Thrombus - None: Flow - Phasic: Augmentation - Normal: Reflux - None. OTHER FINDINGS: JESENIA Saha notified about the findings. Impression Right: No evidence of deep or superficial vein thrombosis of the right lower extremity. Normal valve function noted of the right side. Left: Acute thrombosis of the right common femoral vein with severe reduction of the venous return.
== END 2018-09-10 12:30 | disposition short-term general hospital (02) | DRG 853 ==
LOC: C.ER 01:55 → C.9E 05:46 → C.9I 06:21
PROVIDERS: ADMIT Surgery; ATTEND Surgery
PROC: 0D1N0Z4 Bypass Sigmoid Colon to Cutaneous, Open Approach (ICD-10-PCS; 2018-08-31)
PROC: 0BH17EZ Insertion of Endotracheal Airway into Trachea, Via Natural or Artificial Opening (ICD-10-PCS; 2018-08-31)
PROC: 5A1955Z Respiratory Ventilation, Greater than 96 Consecutive Hours (ICD-10-PCS; 2018-08-31)
PROC: 0DBN0ZZ Excision of Sigmoid Colon, Open Approach (ICD-10-PCS; principal; 2018-08-31 09:00)
PROC: 02HV33Z Insertion of Infusion Device into Superior Vena Cava, Percutaneous Approach (ICD-10-PCS; 2018-09-03)
PROC: 0W9G3ZZ Drainage of Peritoneal Cavity, Percutaneous Approach (ICD-10-PCS; 2018-09-09)
DX: A41.9 Sepsis, unspecified organism (principal); K63.1 Perforation of intestine (nontraumatic); K65.1 Peritoneal abscess; K65.0 Generalized (acute) peritonitis; J96.01 Acute respiratory failure with hypoxia; R65.21 Severe sepsis with septic shock; E87.2 Acidosis; I47.1 Supraventricular tachycardia; R18.8 Other ascites; I82.419 Acute embolism and thrombosis of unspecified femoral vein; I82.421 Acute embolism and thrombosis of right iliac vein; J45.909 Unspecified asthma, uncomplicated; K52.9 Noninfective gastroenteritis and colitis, unspecified; Z85.41 Personal history of malignant neoplasm of cervix uteri; E86.0 Dehydration